=== PATIENT | female | born 1970 | race African-American/Black ===

== ENCOUNTER 2017-06-12 00:16 | Inpatient (IN) | payer MEDICARE, MEDICAID ==
[2017-06-12] MEDS ORDERED: Metoclopramide HCl 10 MG/2 ML VIAL ONE (01:14)
[2017-06-12 01:51] LABS: ALT (SGPT) 483 U/L (8-55); AST (SGOT) 409 U/L (5-34); Albumin 4.6 g/dL (3.5-5.0); Alkaline Phosphatase 368 U/L (40-150); BUN (Urea Nitrogen) 33 mg/dL (7.0-18.7); Bilirubin, Total 0.3 mg/dL (0.2-1.2); Calc. Creatinine Clearance 0 mL/min (70-130); Calcium 9.8 mg/dL (7.8-10.44); Chloride 95 mmol/L (98-107); Estimated GFR-MDRD 24; Globulin 3.5 g/dL (2.4-3.5); Lipase 111 U/L (8-78); Magnesium 2.9 mg/dL (1.6-2.6); Phosphorus 4.5 mg/dL (2.3-4.7); Potassium 4.8 mmol/L (3.5-5.1); Protein, Total 8.1 g/dL (6.0-8.3); Sodium 129 mmol/L (136-145)
[2017-06-12 01:57] LABS: Carbon Dioxide Less than 8 mmol/L (22-29); Glucose 671 mg/dL (70-105)
[2017-06-12 02:00] LABS: Band 3 % (5-11); Hemoglobin 12.5 g/dL (12.0-16.0); Lymphocytes 2 % (21-51); MDiff Complete? YES; Macrocytosis SLIGHT = 6-15 cells (100X) (0-5/hpf); Mean Corpuscular HGB CONC 30.3 g/dL (32.0-36.0); Mean Corpuscular Hemoglobin 34.3 pg (27.0-31.0); Mean Platelet Volume 8.9 fL (7.4-10.4); Monocytes 3 % (0-10); Neutrophil 92 % (42-75); Platelet Count 281 thou/uL (130-400); RBC Distribution Width 12.5 % (11.5-14.5); Red Blood Cell (RBC) Count 3.64 mill/uL (4.20-5.40); Toxic Granulation SLIGHT; White Blood Cell (WBC) Count 17.2 thou/uL (4.8-10.8)
[2017-06-12] MEDS ORDERED: Insulin Regular 300 UNITS/3 ML VIAL ONE (02:04)
[2017-06-12] MEDS ORDERED: Insulin Regular 100 units/100 ml in NS IVPB SCH (02:15)
[2017-06-12] MEDS ORDERED: NS 0.9% w/ 20 MEQ KCL 1,000 ML IV SCH (02:15)
[2017-06-12] MEDS ORDERED: hydrALAZINE 20 MG/ML VIAL SLOW IVP PRN ×2 (05:15→07:37)
[2017-06-12] MEDS ORDERED: Gabapentin 300 MG CAP PO PRN (05:15)
[2017-06-12] MEDS ORDERED: Sodium Chloride 0.9% 1,000 ML IV PRN ×5 (05:15→07:40)
[2017-06-12] MEDS ORDERED: Metoclopramide HCl 10 MG/2 ML VIAL IVP PRN (05:15)
[2017-06-12] MEDS ORDERED: Acetaminophen 325 MG TAB PO PRN (05:15)
[2017-06-12] MEDS ORDERED: NS 0.9% w/ 20 MEQ KCL 1,000 ML IV PRN ×2 (05:15)
[2017-06-12] MEDS ORDERED: Ondansetron HCl/PF 4 MG/2 ML Vial IVP PRN (05:15)
[2017-06-12] MEDS ORDERED: D5 1/2 NS w/20 mEq KCL 1,000 ML IV PRN (05:15)
[2017-06-12] MEDS ORDERED: Dextrose 5 %-0.45 % NaCl 1,000 ML IV PRN (05:15)
[2017-06-12] MEDS ORDERED: CCU Electrolyte Replacement 1 EACH IVPB ONE (05:15)
[2017-06-12] MEDS ORDERED: Potassium Chloride 20 MEQ TAB PO PRN (05:35)
[2017-06-12] MEDS ORDERED: Magnesium Oxide 400 MG TAB PO PRN ×2 (05:35)
[2017-06-12] MEDS ORDERED: Potassium Phosphate 15 MMOL in Sodium Chloride 0.9% 250 ML 250 ML IV PRN (05:35)
[2017-06-12] MEDS ORDERED: Potassium Phosphate 9 MMOL in Sodium Chloride 0.9% 100 ML IVPB PRN (05:35)
[2017-06-12] MEDS ORDERED: Potassium Chloride 40 MEQ in Premix Bag 1 BAG IVPB PRN (05:35)
[2017-06-12] MEDS ORDERED: CCU ELECTROLYTE REPLACEMENT PROTOCOL FS PRN (05:35)
[2017-06-12] MEDS ORDERED: Potassium Chloride 40 MEQ in Sodium Chloride 0.9% 250 ML 250 ML IVPB PRN (05:35)
[2017-06-12] MEDS ORDERED: Magnesium 2 GM/NS 0.9% 100 ML 2 GM in Premix Bag 1 BAG IVPB PRN (05:35)
[2017-06-12] MEDS ORDERED: Potassium Phosphate 12 MMOL in Sodium Chloride 0.9% 250 ML 250 ML IV PRN (05:35)
--- NOTE | 2017-06-12 05:38 | HP ---
PRIMARY CARE PHYSICIAN: The patient says she does not have a primary care physician. CHIEF COMPLAINT: Nausea and vomiting and hurting all over, and my glucose meter is reading high. HISTORY OF PRESENT ILLNESS: Ms. Schulte is a pleasant 47-year-old female that has a history of diabetes mellitus type 2 which is insulin-dependent. She says she was in her usual state of health until about 3 days ago when she says she began having abdominal pain as well as vomiting. She says that her entire body was hurting. She was having subjective fever as well as chills, as wel l as a nonproductive cough. When asked initially if she had missed any of her insulin, she did admit to missing a dose possibly 2 days ago, but she says prior to that her blood sugars have been running in the 200s. She says that she has not been able to keep anything down, but she says she still had been taking her insulin despite that at the usual dose. She says that her insulin is not old, that i s new, but when asked who helps to manage her insulin she says she currently does not have a physicia n. When she was evaluated in the ER, she was found to have an elevated blood glucose above 600 as we ll as a low bicarbonate and a high anion gap and she is being admitted for DKA. REVIEW OF SYSTEMS: CONSTITUTIONAL: There have been subjective fever and chills. No night sweats, no weight loss. HEENT: No headaches, no dizziness, no visual changes, no sore throat, rhinorrhea, neck pain, no parul opathy. PULMONARY: No hemoptysis, but she has had some cough which has been nonproductive. CARDIOVASCULAR: She denies any chest pain, no shortness of breath, no PND, no orthopnea. GASTROINTESTINAL: No abdominal pain, no nausea, no vomiting, no change in bowels. GENITOURINARY: No urinary frequency, hematuria, no hesitancy. NEUROLOGIC: No focal weakness, numbness, no seizures. PSYCHIATRIC: No symptoms of anxiety or depression. SKIN AND INTEGUMENT: No skin changes. No rash. PAST MEDICAL HISTORY: Diabetes mellitus type 2 which is insulin-dependent, hypertension, pancreatiti s, chronic pelvic pain and she has an implanted pain pump. PAST SURGICAL HISTORY: She has had a tubal ligation, partial gastrectomy. A kidney was removed as w ell as she has had a partial hysterectomy. ALLERGIES: MORPHINE. SOCIAL HISTORY: She is . She drinks socially. She denies any smoking or tobacco use. FAMILY HISTORY: Significant for heart disease in her mother. CURRENT MEDICATIONS: She says she takes Levemir 18 units daily, as well as Humalog sliding scale, fe ntanyl patch 25 mcg every 3 days, Creon 1200 units 4 times a day, duloxetine 60 mg daily, aspirin 81 mg a day, lisinopril 40 mg daily, hydrochlorothiazide 25 mg daily, metoprolol extended release 100 mg daily, gabapentin 300 mg daily, omeprazole 40 mg daily. PHYSICAL EXAMINATION: GENERAL: She is alert and oriented. She appears to be in no acute distress. VITAL SIGNS: Blood pressure was 154/90, heart rate 102, respiratory rate of 18, temperature is 97.9. HEENT: Pupils are equal, round, and reactive. Extraocular muscles are intact. Her sclerae are anic teric. Throat no erythema, no exudates. NECK: No adenopathy, no bruits. LUNGS: Clear. There is no wheezing, no rales. CARDIOVASCULAR: She has a normal S1, S2. I did not appreciate an S3 or S4. No murmurs, clicks or r ubs. ABDOMEN: Soft. There is some diffuse tenderness. There is no rebound, no guarding. EXTREMITIES: There is no edema. NEUROLOGICALLY: The exam is nonfocal. SIGNIFICANT LABORATORY RESULTS: Sodium 129, potassium 4.8, chloride is 95, CO2 was 8, BUN 33, creati nine 2.26, glucose was 671. Her AST was 409. ALT is 483. Alkaline phosphatase was 368. ASSESSMENT AND PLAN: This is a 47-year-old female who presents with nausea, vomiting, and abdominal pain. She was found to be in diabetic ketoacidosis. The precipitating event is likely viral syndrom e versus noncompliance; however, the patient denies having any noncompliance. She will be admitted t o the [facility], started on the diabetic ketoacidosis protocol. We will monitor electrolytes and correct as needed. We will need to reconcile and restart her home medications. Recheck her CBC and chemistr y panel in the a.m. Should her white blood cell count get worse then likely she may need to be start ed on empiric antibiotics and have blood and urine cultures done.
[2017-06-12 06:17] LABS: Anion Gap 19 mmol/L (10-20); BUN (Urea Nitrogen) 29 mg/dL (7.0-18.7); Calc. Creatinine Clearance 0 mL/min (70-130); Calcium 8.9 mg/dL (7.8-10.44); Carbon Dioxide 15 mmol/L (22-29); Chloride 108 mmol/L (98-107); Estimated GFR-MDRD 34; Glucose 250 mg/dL (70-105); Potassium 4.7 mmol/L (3.5-5.1); Sodium 137 mmol/L (136-145)
[2017-06-12] MEDS ORDERED: Labetalol HCl 100 MG/20 ML VIAL SLOW IVP PRN (07:37)
[2017-06-12] MEDS ORDERED: cloNIDine 0.1 MG TAB PO PRN (07:37)
[2017-06-12 07:50] LABS: Bilirubin Small (Negative); Blood, Urine Small (Negative); Glucose, Urine (Dipstick) >=1000 mg/dL (Negative); Leukocyte Negative (Negative); Nitrite Negative (Negative); Protein, Urine (Dipstick) 30 mg/dL (Neg-Trace); Urobilinogen 0.2 mg/dL (0.2-1.0); pH, Urine 5.5 (5.0-9.0)
--- NOTE | 2017-06-12 07:58 | RAD ---
PORTABLE CHEST ONE VIEW: Date: 06-12-17 Time: 4:11 a.m. History: Diverticulosis, bilateral chest pain, breast pain. Flu-like symptoms. FINDINGS: Comparison is made with exam of 01-09-17. The heart size is normal. The lungs are well expanded without focal areas of consolidation, pneumotho rax, or pleural effusions. IMPRESSION: No radiographic evidence of acute cardiopulmonary process. POS: [facility]
[2017-06-12 08:02] LABS: Clarity Clear (Clear)
[2017-06-12] MEDS ORDERED: cloNIDine 0.1 MG TAB ONE (08:05)
[2017-06-12] MEDS ORDERED: Enoxaparin Sodium 40 MG/0.4 ML SYRINGE ONE (08:05)
[2017-06-12] MEDS ORDERED: Aspirin 81 mg Enteric Coated Tablet ONE (08:05)
[2017-06-12 08:06] LABS: Magnesium 2.3 mg/dL (1.6-2.6); Phosphorus 2.5 mg/dL (2.3-4.7)
[2017-06-12] MEDS ORDERED: Famotidine/PF 20 mg/2ml Vial ONE (08:06)
--- NOTE | 2017-06-12 08:06 | ULT ---
PRELIMINARY REPORT/[facility]/EMERGENCY AFTER HOURS PROCEDURE: EXAM: US Abdomen Limited, Right Upper Quadrant EXAM DATE/TIME: Exam ordered 06/12/2017 2:56 AM CLINICAL HISTORY: 47 years old, female; Pain and signs and symptoms; Nausea and vomiting and other: Diarrhea; Abdominal pain; Generalized; Prior surgery; Surgery date: 6+ months; Surgery type: Cholecystectomy (2007) TECHNIQUE: Real-time ultrasound of the right upper quadrant with image documentation. COMPARISON: No relevant prior studies available. FINDINGS: Liver: Normal. No mass. No intrahepatic bile duct dilation. Gallbladder: There has been a cholecystectomy. Common bile duct: Common bile duct measures approximately 4 mm. No stones. No dilation. Pancreas: The visualized head and body of the pancreas are unremarkable. Right kidney: RIGHT kidney measures 10.7 x 4.3 x 4.4 cm. No stones. No hydronephrosis. IMPRESSION: Post cholecystectomy with otherwise unremarkable RIGHT upper quadrant ultrasound. Thank you for allowing us to participate in the care of your patient. Dictated and Authenticated by: Zana Ramos MD 06/12/2017 3:32 AM Central Time ([place] & [place]) FINAL REPORT RIGHT UPPER QUADRANT ULTRASOUND: I agree with the preliminary report given by Dr. Zana Ramos of [facility]. POS: [facility]
[2017-06-12 08:11] LABS: Bacteria/HPF 1+ HPF (None Seen); Hyaline Casts/LPF NONE SEEN LPF (0-3 Hyaline); RBC/HPF 0-3 HPF (0-3); Squamous Epithelial 0-3 HPF (0-3); WBC/HPF 0-3 HPF (0-3)
[2017-06-12] MEDS ORDERED: Famotidine/PF 20 mg/2ml Vial SLOW IVP SCH (09:00)
[2017-06-12] MEDS ORDERED: Enoxaparin Sodium 30 MG/0.3 ML SYRINGE SC SCH (09:00)
[2017-06-12] MEDS ORDERED: Enoxaparin Sodium 40 MG/0.4 ML SYRINGE SC SCH (09:00)
[2017-06-12] MEDS ORDERED: cloNIDine 0.1 MG TAB PO SCH (09:00)
[2017-06-12] MEDS ORDERED: Gabapentin 300 MG CAP PO SCH (10:00)
[2017-06-12 10:07] LABS: Anion Gap 15 mmol/L (10-20); BUN (Urea Nitrogen) 26 mg/dL (7.0-18.7); Calc. Creatinine Clearance 50 mL/min (70-130); Calcium 8.8 mg/dL (7.8-10.44); Carbon Dioxide 17 mmol/L (22-29); Chloride 112 mmol/L (98-107); Estimated GFR-MDRD 41; Glucose 124 mg/dL (70-105); Potassium 5.9 mmol/L (3.5-5.1); Sodium 138 mmol/L (136-145)
[2017-06-12 12:05] VITALS: BMI 27.0
[2017-06-12] MEDS ORDERED: Sodium Bicarb 50 MEQ/50 ML Abboject 8.4% SYRINGE IVP SCH (12:45)
[2017-06-12] MEDS: Aspirin 81 mg Enteric Coated Tablet PO SCH (12:51)
[2017-06-12] MEDS: DULoxetine 60 MG CAP PO SCH (12:52)
[2017-06-12] MEDS: Famotidine 20 MG TAB PO SCH ×2 (12:52→22:08)
[2017-06-12] MEDS ORDERED: Insulin Regular 300 UNITS/3 ML VIAL IVP SCH (13:00)
[2017-06-12] MEDS ORDERED: Dextrose 50% Abboject 50 ML SYRINGE SLOW IVP SCH (13:00)
[2017-06-12 14:02] LABS: Anion Gap 15 mmol/L (10-20); BUN (Urea Nitrogen) 25 mg/dL (7.0-18.7); Calc. Creatinine Clearance 55 mL/min (70-130); Calcium 8.4 mg/dL (7.8-10.44); Carbon Dioxide 15 mmol/L (22-29); Chloride 109 mmol/L (98-107); Estimated GFR-MDRD 48; Glucose 214 mg/dL (70-105); Magnesium 1.9 mg/dL (1.6-2.6); Phosphorus 2.3 mg/dL (2.3-4.7); Potassium 4.6 mmol/L (3.5-5.1); Sodium 134 mmol/L (136-145)
[2017-06-12] MEDS ORDERED: Cyclobenzaprine 10 MG TAB PO PRN (14:22)
[2017-06-12] MEDS ORDERED: DC Electrolyte Protocol FS ONE (14:39)
[2017-06-12] MEDS ORDERED: Dextrose 50% Abboject 50 ML SYRINGE SLOW IVP PRN (14:40)
[2017-06-12] MEDS ORDERED: Dextrose 5% in Water 1,000 ML IV PRN (14:40)
[2017-06-12] MEDS ORDERED: Insulin Regular 300 UNITS/3 ML VIAL SC PRN (14:40)
[2017-06-12] MEDS ORDERED: Insulin Detemir 100 UNITS/ML 10 UNITS in Pre-Filled Syringe 1 EACH SC SCH (15:15)
[2017-06-12] MEDS: Insulin Regular 300 UNITS/3 ML VIAL SC PRN (22:12)
[2017-06-13 04:48] LABS: #Monocytes 0.5 thou/uL (0.11-0.59); #Neutrophils 6.5 thou/uL (1.40-6.50); %Basophils 0.1 % (0.0-1.0); %Eosinophils 0.3 % (0.0-10.0); %Lymphocytes 12.5 % (21.0-51.0); %Monocytes 5.7 % (0.0-10.0); %Neutrophils 81.4 % (42.0-75.0); Anion Gap 9 mmol/L (10-20); BUN (Urea Nitrogen) 19 mg/dL (7.0-18.7); Calc. Creatinine Clearance 67 mL/min (70-130); Calcium 8.9 mg/dL (7.8-10.44); Carbon Dioxide 20 mmol/L (22-29); Chloride 106 mmol/L (98-107); Estimated GFR-MDRD 59; Glucose 104 mg/dL (70-105); Magnesium 1.8 mg/dL (1.6-2.6); Mean Corpuscular HGB CONC 32.2 g/dL (32.0-36.0); Mean Platelet Volume 7.8 fL (7.4-10.4); Phosphorus 1.8 mg/dL (2.3-4.7); Platelet Count 214 thou/uL (130-400); Potassium 3.8 mmol/L (3.5-5.1); RBC Distribution Width 12.4 % (11.5-14.5); Red Blood Cell (RBC) Count 2.85 mill/uL (4.20-5.40); Sodium 131 mmol/L (136-145)
[2017-06-13] MEDS: Insulin Regular 300 UNITS/3 ML VIAL SC PRN (05:57)
[2017-06-13 07:56] VITALS: BP 138/94; TEMP 99.2
[2017-06-13] MEDS ORDERED: Sodium Chloride 0.9% 1,000 ML IV SCH ×2 (08:00)
[2017-06-13] MEDS: DULoxetine 60 MG CAP PO SCH (08:09)
[2017-06-13] MEDS: Aspirin 81 mg Enteric Coated Tablet PO SCH (08:09)
[2017-06-13] MEDS ORDERED: Insulin Detemir 100 UNITS/ML 5 UNITS in Pre-Filled Syringe 1 EACH SC SCH (08:15)
[2017-06-13] MEDS: Famotidine 20 MG TAB PO SCH (08:56)
[2017-06-13] MEDS ORDERED: Insulin Detemir 100 UNITS/ML 15 UNITS in Pre-Filled Syringe 1 EACH SC SCH (09:00)
--- NOTE | 2017-06-14 08:55 | DIS ---
DATE OF ADMISSION: 06/12/2017 DATE OF DISCHARGE: 06/13/2017 DISCHARGE DISPOSITION: Home. FOLLOWUP: Follow up with primary care physician at [facility] in one week. The patient does not turcios ve a primary care physician locally. She was advised to call Dr. Dorman' office to schedule an appo intment. ALLERGIES: Patient is allergic to MORPHINE. The patient was seen and examined on the day of discharge. Denies any new complaints. No chest pain , shortness of breath, palpitations. DISCHARGE MEDICATIONS: Aspirin 81 mg daily, vitamin B12 1000 mcg daily, Cymbalta 60 mg daily, fentan yl patch 25 mcg daily, Neurontin 300 mg as needed, Humalog sliding scale, Levemir 20 units daily, lis inopril/HCTZ 20/25 b.i.d., Reglan 10 mg 3 times a day, Toprol-XL 100 mg at bedtime, Creon 1 capsule 4 times a day, Phos-NaK 1 packet 3 times daily #7. INPATIENT CONSULTANTS: None. BRIEF HOSPITAL COURSE: Patient is a 47-year-old female with diabetes mellitus type 2, presented to [facility] with nausea and vomiting with generalized aches and pains. Her workup was consistent wit h diabetic ketoacidosis. Please note that the patient had not taken insulin for couple of days prior to admission. Her labs on admission showed bicarbonate of less than 8 with blood sugar of 671, BUN 33, and creatinine 2.61 with sodium of 129. Influenza testing was negative. Her chest x-ray was neg ative as well. Due to abnormal LFTs, a right upper quadrant ultrasound was done, which was negative for acute findings. Please note that patient has a history of cholecystectomy. The patient was admitted to intermediate care unit with diagnosis of diabetic ketoacidosis. She was started on insulin drip per protocol with IV fluids. On the day of discharge, her creatinine is 1.1 with BUN 19. Her nausea and vomiting has resolved. Her ketones are back to normal at 0.25. Her ket ones on admission was 10.17. Plan of care was discussed with the patient in detail. She stated understanding. She was advised to be compliant with her insulin regimen. SIGNIFICANT LABORATORY DATA: 1. WBC on admission 17.2, at discharge 8.0 without any left shift. 2. Phosphorus on discharge is 1.8, on admission was 4.5. 3. Potassium was 4.8 on admission and 3.8 at discharge. Maximum potassium was 5.9 that resolved wit h IV fluids. FINAL DIAGNOSES: 1. Diabetic ketoacidosis secondary to noncompliance with insulin. 2. Nausea, vomiting, and abdominal pain secondary to diabetic ketoacidosis. 3. Diabetes mellitus type 2. 4. Acute kidney injury on chronic kidney disease stage 2. 5. Hyponatremia. 6. Hyperkalemia, resolved. 7. Hypophosphatemia. 8. Leukocytosis on admission, unlikely to be infectious in origin. 9. Hypertension. 10. Chronic pain syndrome on pain pump as well as fentanyl followed by MD [facility]. 11. Metabolic acidosis secondary to diabetic ketoacidosis. Plan of care was discussed with the patient in detail. She stated understanding. Total time coordinating the discharge of this patient was 33 minutes.
[2017-06-14] MEDS ORDERED: Insulin Detemir 100 UNITS/ML 20 UNITS in Pre-Filled Syringe 1 EACH SC SCH (09:00)
--- NOTE | 2017-06-15 13:27 | EKG ---
Test Reason : Blood Pressure : / mmHG Vent. Rate : 093 BPM Atrial Rate : 093 BPM P-R Int : 124 ms QRS Dur : 084 ms QT Int : 392 ms P-R-T Axes : 059 -26 010 degrees QTc Int : 487 ms Normal sinus rhythm Possible Left atrial enlargement Left ventricular hypertrophy Cannot rule out Septal infarct , age undetermined Abnormal ECG Confirmed by VICENTE PIMENTEL ([id number]), features editor JOHN TRIMBLE ([id number]) on 06/15/2017 1:27:27 PM Referred By: Confirmed By:VICENTE PIMENTEL
== END 2017-06-13 11:36 | disposition home or self-care (01) | DRG 638 ==
LOC: ERS 00:16 → ERHOLD 04:00 → IMCU/EMU 04:38
PROVIDERS: ADMIT Internal Medicine; ATTEND Internal Medicine
DX: E11.10 Type 2 diabetes mellitus with ketoacidosis without coma (principal); N17.9 Acute kidney failure, unspecified; E87.2 Acidosis; E83.39 Other disorders of phosphorus metabolism; E87.1 Hypo-osmolality and hyponatremia; Z79.4 Long term (current) use of insulin; Z90.49 Acquired absence of other specified parts of digestive tract; Z91.19 Patient's noncompliance with other medical treatment and regimen; I12.9 Hypertensive chronic kidney disease with stage 1 through stage 4 chronic kidney disease, or unspecified chronic kidney disease; E11.22 Type 2 diabetes mellitus with diabetic chronic kidney disease; N18.2 Chronic kidney disease, stage 2 (mild); E87.6 Hypokalemia; D72.829 Elevated white blood cell count, unspecified; G89.4 Chronic pain syndrome; Z98.51 Tubal ligation status; Z90.3 Acquired absence of stomach [part of]; Z90.5 Acquired absence of kidney; Z90.711 Acquired absence of uterus with remaining cervical stump; E11.65 Type 2 diabetes mellitus with hyperglycemia
CPT/HCPCS: 36415; 36416; 71010; 76705; 80048; 80053; 81003; 81015; 82010; 83690; 83735; 84100; 85025; 87086; 87804; 93005; 96360; 96361; 96365; 96366; 96372; 96375; 96376; J1650; J1815; J2765; J7042; J7050; S0028

== ENCOUNTER 2017-08-11 22:59 | Inpatient (IN) | payer MEDICARE, MEDICAID ==
--- NOTE | 2017-08-11 23:52 | RAD ---
PORTABLE CHEST: Date: 08/11/17 HISTORY: Diabetes with high blood sugar. FINDINGS: Lungs are clear. Heart and mediastinum unremarkable. IMPRESSION: Unremarkable chest. POS: [facility]
[2017-08-11] MEDS ORDERED: Labetalol HCl 100 MG/20 ML VIAL ONE (23:54)
[2017-08-11] MEDS ORDERED: Ondansetron HCl/PF 4 MG/2 ML Vial ONE (23:54)
[2017-08-12 00:10] LABS: ALT (SGPT) 26 U/L (8-55); AST (SGOT) 36 U/L (5-34); Albumin 4.7 g/dL (3.5-5.0); Alkaline Phosphatase 95 U/L (40-150); Anion Gap 19 mmol/L (10-20); BUN (Urea Nitrogen) 11 mg/dL (7.0-18.7); Bilirubin, Total 0.8 mg/dL (0.2-1.2); Calc. Creatinine Clearance 0 mL/min (70-130); Calcium 9.3 mg/dL (7.8-10.44); Carbon Dioxide 22 mmol/L (22-29); Chloride 102 mmol/L (98-107); Estimated GFR-MDRD 82; Globulin 3.6 g/dL (2.4-3.5); Glucose 208 mg/dL (70-105); Lipase Less than 4 U/L (8-78); Potassium 3.4 mmol/L (3.5-5.1); Protein, Total 8.3 g/dL (6.0-8.3); Sodium 140 mmol/L (136-145)
[2017-08-12 00:12] LABS: #Basophils 0.1 thou/uL (0.0-0.2); #Lymphocytes 0.8 thou/uL (1.20-3.40); #Monocytes 0.3 thou/uL (0.11-0.59); #Neutrophils 7.5 thou/uL (1.40-6.50); %Basophils 0.6 % (0.0-1.0); %Eosinophils 0.1 % (0.0-10.0); %Lymphocytes 9.6 % (21.0-51.0); %Monocytes 3.7 % (0.0-10.0); %Neutrophils 86.1 % (42.0-75.0); Anisocytosis SLIGHT = 6-15 cells (100X) (0-5/hpf); Hemoglobin 13.2 g/dL (12.0-16.0); MDiff Complete? YES; Macrocytosis SLIGHT = 6-15 cells (100X) (0-5/hpf); Mean Corpuscular HGB CONC 33.6 g/dL (32.0-36.0); Mean Corpuscular Hemoglobin 35.4 pg (27.0-31.0); Mean Platelet Volume 7.9 fL (7.4-10.4); PLT Morphology Comment Appears Adequate; Platelet Count 219 thou/uL (130-400); RBC Distribution Width 12.7 % (11.5-14.5); Red Blood Cell (RBC) Count 3.73 mill/uL (4.20-5.40); White Blood Cell (WBC) Count 8.7 thou/uL (4.8-10.8)
[2017-08-12 00:13] LABS: CKMB 2.2 ng/mL (0-6.6); Troponin I Less than 0.010 ng/mL (< 0.028)
[2017-08-12] MEDS ORDERED: Ondansetron HCl/PF 4 MG/2 ML Vial ONE (01:35)
[2017-08-12] MEDS ORDERED: Haloperidol Lactate 5 MG/ML VIAL ONE (01:48)
[2017-08-12] MEDS ORDERED: metroNIDAZOLE 500 MG/100 ML BAG ONE ×2 (02:13→02:16)
[2017-08-12] MEDS ORDERED: niCARdipine 20MG In NaCl 20 MG/200 ML BAG ONE (02:13)
[2017-08-12] MEDS ORDERED: Milk Of Magnesia 30 ML UDCUP PO PRN (03:04)
[2017-08-12] MEDS ORDERED: Dextrose 50% Abboject 50 ML SYRINGE SLOW IVP PRN (03:08)
[2017-08-12] MEDS ORDERED: Dextrose 5% in Water 1,000 ML IV PRN (03:08)
[2017-08-12] MEDS ORDERED: Metoprolol Tartrate 5 MG/5 ML VIAL IVP PRN (03:57)
[2017-08-12 04:03] LABS: #Lymphocytes 0.4 thou/uL (1.20-3.40); #Monocytes 0.1 thou/uL (0.11-0.59); #Neutrophils 8.5 thou/uL (1.40-6.50); %Eosinophils 0.1 % (0.0-10.0); %Monocytes 1.4 % (0.0-10.0); %Neutrophils 94.5 % (42.0-75.0); Hemoglobin 13.3 g/dL (12.0-16.0); Mean Corpuscular HGB CONC 32.3 g/dL (32.0-36.0); Mean Platelet Volume 8.4 fL (7.4-10.4); Platelet Count 232 thou/uL (130-400); RBC Distribution Width 12.8 % (11.5-14.5); Red Blood Cell (RBC) Count 3.92 mill/uL (4.20-5.40)
[2017-08-12 04:08] LABS: Anion Gap 21 mmol/L (10-20); BUN (Urea Nitrogen) 12 mg/dL (7.0-18.7); Calc. Creatinine Clearance 0 mL/min (70-130); Calcium 9.3 mg/dL (7.8-10.44); Carbon Dioxide 19 mmol/L (22-29); Chloride 100 mmol/L (98-107); Estimated GFR-MDRD 78; Glucose 377 mg/dL (70-105); Potassium 4.1 mmol/L (3.5-5.1); Sodium 136 mmol/L (136-145)
--- NOTE | 2017-08-12 04:29 | HP ---
PRESENTING COMPLAINT: Vomiting. HISTORY OF PRESENT ILLNESS: A 47-year-old female with a past medical history of type 2 diabetes angelika itus (insulin dependence), hypertension, pancreatitis, chronic pelvic pain with an implanted pain pum p, who presented to the emergency room with a 1 day history of vomiting. It was associated with naus ea and has had at least 6 episodes of recently ingested meals, nonbloody. She also reports some abdo shannan pain, which is diffuse, 10/10, with no aggravating or relieving factors. There is no history o f fever or chills. She has no dysuria, urgency, frequency, or nocturia. She decided to come to the emergency room due to this pain. While at the emergency room, she was found to be markedly hypertens mia with systolic blood pressure in the 230s and diastolic in the 120s. She was initially given some boluses of labetalol and haloperidol without marked improvement in her blood pressure. She was then started on nicardipine drip and admitted for further management. PAST MEDICAL HISTORY: As stated in the HPI. PAST SURGICAL HISTORY: Tubal ligation, partial gastrectomy, and removal of a kidney mass, partial hy sterectomy. ALLERGIES: MORPHINE. FAMILY HISTORY: Heart disease in her mother, otherwise negative. SOCIAL HISTORY: Drinks alcohol occasionally. Denies smoking or illicit drug use. REVIEW OF SYSTEMS: Constitutional: Negative. HEENT: Negative. Pulmonary: Negative. Cardiovascu lar: Negative. GI: Per HPI. No diarrhea or constipation. : Negative. Neurologic: Negative. Psychiatric: Negative. Skin: Negative. Allergy/immunology: Negative. Hematology: Negative. P sychiatric: Negative. PHYSICAL EXAMINATION: GENERAL: Seems to be lying comfortably in bed, not in acute distress. HEENT: Normocephalic, atraumatic. PERRLA, EOMI, not pale, anicteric. [place] mucosa. RESPIRATORY: Vesicular breath sounds bilaterally. No wheezes or rales. CARDIOVASCULAR: S1, S2 only. No murmurs, rubs, or gallops. ABDOMEN: Bowel sounds present. The patient refused palpation or percussion. MUSCULOSKELETAL: Move extremities spontaneously, no skeletal abnormalities. NEUROLOGIC: Alert and oriented to time, place, and person. No focal deficits. SKIN: Warm, dry, well-perfused. PSYCHIATRIC: Normal affect. LABORATORY DATA: CBC largely unremarkable. CMP showed mild hypokalemia (3.4), glucose of 186 with n o anion gap or reduce CO2. Troponin less than 0.010. Lipase less than 4. Chest x-ray showed no acu te abnormalities. CT dissection was done and it is pending. ASSESSMENT AND PLAN: 1. Hypertensive emergency. Patient had markedly elevated blood pressure on the arrival and will be admitted to the CCU. We will continue with a nicardipine drip and titrate. We will also resume her home medications. She takes metoprolol 100 mg as well as lisinopril/hydrochlorothiazide 20/25 mg tab lets. We will resume these once confirmed. 2. Vomiting/abdominal pain, unclear etiology. She does have a history of chronic pancreatitis, conc karly for possible dissection. She is clinically stable right now, so we will follow up on CT dissecti on protocol if this is normal. She might need a CT abdomen if her symptoms did not improve. She rayshawn l also need to be started on IV hydration due to frequent vomiting, but will monitor blood pressure a s well. 3. Insulin-dependent diabetes mellitus. She is hyperglycemic, but not in diabetic ketoacidosis. We will resume subcutaneous sliding scale insulin, diabetic diet, and hypoglycemic protocol. We will a lso check blood glucose a.c. and at bedtime. 4. Chronic pancreatitis. We will control her pain and place on her pancrelipase. 5. Abdominal pain. She was also started on metronidazole in the emergency room as a precaution. We will get a lactate level and follow up.
[2017-08-12 05:22] VITALS: BMI 23.9
[2017-08-12] MEDS: HumaLOG 300 UNITS/3 ML VIAL SC PRN ×3 (06:34→20:10)
[2017-08-12] MEDS: Potassium Chloride 20 MEQ TAB PO SCH ×2 (07:26→18:09)
[2017-08-12] MEDS: Heparin 5,000 UNITS/ML VIAL SC SCH ×3 (07:26→20:12)
[2017-08-12] MEDS: Docusate 100 MG CAP PO SCH ×2 (07:27→20:10)
[2017-08-12] MEDS ORDERED: ISOVUE-370 76%-LOCM 1 ML ONE (07:42)
--- NOTE | 2017-08-12 08:30 | CT ---
PRELIMINARY REPORT/[facility]/EMERGENCY AFTER HOURS PROCEDURE: EXAM: CT Angiography Chest With Intravenous Contrast CT Angiography Abdomen With Intravenous Contrast CLINICAL HISTORY: 47 years old, female; Pain; Other: Abdominal; Abdominal pain; Generalized; Prior surgery; Patient HX: Er 7; 47 y/o female, HX HTN, pancreatitis, dm, dka, . presents for not feeling well since 1800 this evening. Pt reports she woke up late and forgot to take her medications. Pt reports her blood sugar w as high this morning. C/O nausea, no vomiting. Abd pain. Abdominal exam included findings of abdomen tender, diffusely, severe intensity TECHNIQUE: Axial computed tomographic angiography images of the chest and abdomen with intravenous contrast usin g CT angiography protocol. Coronal and sagittal reformatted images were created and reviewed. COMPARISON: No relevant prior studies available. FINDINGS: VASCULATURE: Aorta: No acute findings. No aortic aneurysm. No dissection. Pulmonary arteries: No acute findings. No evidence of pulmonary embolism. Great vessels of aortic arch: No acute findings. No dissection. No occlusion or significant stenosis. Celiac trunk and mesenteric arteries: No acute findings. No occlusion or significant stenosis. Renal arteries: No acute findings. No occlusion or significant stenosis. CHEST: Lungs: No acute findings. No mass. No consolidation. Pleural space: No acute findings. No significant effusion. No pneumothorax. Heart: No acute findings. No significant cardiomegaly. No significant pericardial effusion. ABDOMEN: Liver: No acute findings. Fatty. No mass. Gallbladder and bile ducts: Prior cholecystectomy. No ductal dilation. Pancreas: No acute findings. No ductal dilation. No mass. Spleen: No acute findings. No splenomegaly. Adrenals: No acute findings. No mass. Kidneys and ureters: No acute findings. No hydronephrosis. Left renal cortical small low attenuation lesion possibly containing fat that may represent an angiomyolipoma and a few other tiny low attenuat ion lesions that may represents cysts. Mild perinephric stranding. Stomach and bowel: Bowel is partially visualized on this CT abdomen without pelvis. Partially visuali zed diffuse colonic wall thickening compatible with colitis. There is also possible enteritis. No loretta dence of bowel obstruction as visualized. Intraperitoneal space: Mild stranding/edema. No significant fluid collection. No free air. CHEST and ABDOMEN: Bones/joints: No acute fracture. Soft tissues: No acute findings. Lymph nodes: No significant lymphadenopathy. Tubes, lines and devices: Spinal neurostimulator. IMPRESSION: Colitis and possible enteritis. Findings described above. Thank you for allowing us to participate in the care of your patient. Dictated and Authenticated by: Emory Piña MD 08/12/2017 1:33 AM Central Time ([place] & [place]) FINAL REPORT CTA CHEST WITH CONTRAST CTA ABDOMEN WITH CONTRAST DISSECTION PROTOCOL: Date: 08/12/17 HISTORY: Abdominal pain. Chest pain. COMPARISON: CT abdomen and pelvis dated 11/27/12. FINDINGS/IMPRESSION: CT angiogram of the chest and abdomen performed after the intravenous administration of contrast. 3D rendering is provided. Findings and impression are concordant with the preliminary report by Alethea. 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 No evidence of aortic dissection. POS: [facility]
[2017-08-12] MEDS ORDERED: Famotidine 20 MG TAB PO SCH (09:00)
[2017-08-12] MEDS: Insulin Detemir 100 UNITS/ML 20 UNITS in Pre-Filled Syringe 1 EACH SC SCH (09:54)
[2017-08-12] MEDS ORDERED: Sodium Chloride 0.9% 1,000 ML IV SCH (10:45)
[2017-08-12] MEDS: Metoclopramide HCl 10 MG TAB PO SCH ×3 (11:23→20:10)
[2017-08-12] MEDS: Piperacillin/Tazobactam 3.375 GM in Sodium Chloride 0.9% 100 ML IVPB SCH ×3 (11:44→23:28)
--- NOTE | 2017-08-12 11:48 | CON ---
DATE OF CONSULTATION: 08/12/2017 SERVICE: Pulmonary Medicine. REASON FOR CONSULTATION: ICU patient. HISTORY OF PRESENT ILLNESS: The patient is a 47-year-old female with past medical history significant for chronic pain issues. She presented to the Emergency Department after 3-4 days of increasing nausea and vomiting, and not being able to tolerate p.o. She was identified as having an elevated blood pressure. She was transiently started on nicardipine. When she got to the ICU, her blood pressure was under excellent control and she was quickly weaned off of the nicardipine. She continues to have significant pain issues. The CT scan of the chest and belly demonstrated findings that could be consistent with colitis. The patient does note having some recent inflammatory diarrhea recently. This has subsequently been stopped. Otherwise, she is in her usual state of health and has no specific complaints. She is being considered for transition to the floor, but the lactate turned out to be significantly abnormal. This transition will be held. PAST MEDICAL HISTORY: 1. Type 2 diabetes mellitus. 2. Hypertension. 3. Chronic pancreatitis. 4. Chronic pain of the pelvis. PAST MEDICAL HISTORY: 1. Tubal ligation. 2. Partial gastrectomy. 3. Excision of kidney mass. 4. Hysterectomy, partial. ALLERGIES: MORPHINE: MEDICATIONS: List of inpatient medications were reviewed. They were significantly altered. FAMILY HISTORY: Noncontributory. SOCIAL HISTORY: She is a social alcohol drinker. Denies alcohol or illicit drugs. She has no exposure to chemicals, dust, asbestosis, or tuberculosis. REVIEW OF SYSTEMS: General, head, ears, eyes, nose, throat, cardiovascular, respiratory, GI, , musculoskeletal, neurologic and skin is negative except as mentioned in the HPI. PHYSICAL EXAMINATION: VITAL SIGNS: Afebrile, pulse 111, blood pressure 115/66, respirations 20, saturation 98% on room air. GENERAL: The patient is awake, alert, in no apparent distress. LUNGS: Decent air entry. There is no prolonged expiratory phase or wheezing. HEART: Normal rate, regular. ABDOMEN: Soft. Tender to palpation throughout. It is more significantly tender in the left upper quadrant. There is no rebound or guarding. Bowel sounds are present. MUSCULOSKELETAL: No cyanosis or clubbing. There is no pitting in the bilateral lower extremities. NEUROLOGIC: Grossly nonfocal. LABORATORY DATA: Basic metabolic profile is only remarkable for an downtrending bicarbonate and up trending anion gap. Liver function studies are essentially unremarkable. Troponin is negative. Lipase is below the assay limit. Bilirubin specifically is normal. Lactate is 8.0, glucose 444. WBC 9.0 , hemoglobin 13.3, platelets 232,000. Neutrophil count is up trending to 95%. IMAGING: CT of the dissection protocol demonstrates no acute cardiopulmonary abnormality. There are colitis and possible enteritis. The pancreas was without any focal inflammatory changes or masses. Chest x-ray demonstrates no acute cardiopulmonary abnormality. ASSESSMENT: 1. Hypertension without evidence of end organ damage. 2. Anion gap metabolic acidosis with elevated lactate. 3. Type 2 diabetes mellitus, poorly controlled currently. 4. Gastroenteritis, recent. 5. Severe sepsis. PLAN: I will give her a liter of fluids and initiate some empiric antibiotics to cover GI tract. I will repeat a lactate, check a beta hydroxybutyrate acid, and chemistries which will be time for 12 o'clock today. Her transition to the floor will be held for the time being. We will restart some of her home medications. Pulmonary Critical Care will continue to follow if she remains in this location, but certainly if she clears her lactate, we will allow her to go to the floor today. Stool studies will be performed. 70 minutes have been devoted to this patient in various activities. I personally reviewed all imaging studies and laboratory data noted within this document. For greater than fifty percent of this time, I was interacting with the patient at the bedside or coordinating care with the care team. For the remainder of the time I was immediately available to the patient in the hospital unit. NIKOLAY
--- NOTE | 2017-08-12 12:57 | PDOC.PN ---
- Subjective Encounter Start Date: 08/12/17 Encounter Start Time: 11:20 Subjective: awake, no nausea/vomiting -: has chronic abd and back pain -: no diarrhea now - Objective MAR Reviewed: Yes Vital Signs & Weight: Vital Signs (12 hours) Temp Pulse Resp Pulse Ox 08/12/17 11:53 98.8 F 08/12/17 07:01 98.7 F 106 H 22 H 100 08/12/17 07:00 98.7 F 08/12/17 05:00 99.5 F 100 14 100 Weight Weight 139 lb 5.314 oz Most Recent Monitor Data Heart Rate from ECG 106 NIBP 104/65 NIBP BP-Mean 75 Respiration from ECG 33 SpO2 100 I&O: 08/11/17 08/12/17 08/13/17 06:59 06:59 06:59 Intake Total 300 600 Output Total 0 500 Balance 300 100 Result Diagrams: 08/12/17 03:41 08/12/17 03:41 Additional Labs: Accuchecks 08/12/17 08/12/17 11:09 06:23 POC Glucose 483 H 444 H Phys Exam - Physical Examination HEENT: PERRLA, moist MMs Neck: no JVD, supple Respiratory: no wheezing, no rales Cardiovascular: RRR, no significant murmur Gastrointestinal: soft, no distention, positive bowel sounds Musculoskeletal: no edema, pulses present Neurological: non-focal, moves all 4 limbs Psychiatric: A&O x 3 Dx/Plan (1) Gastroenteritis Code(s): K52.9 - NONINFECTIVE GASTROENTERITIS AND COLITIS, UNSPECIFIED Status : Suspected (2) Chronic abdominal pain Code(s): R10.9 - UNSPECIFIED ABDOMINAL PAIN; G89.29 - OTHER CHRONIC PAIN Status: Chronic (3) Chronic back pain Code(s): M54.9 - DORSALGIA, UNSPECIFIED; G89.29 - OTHER CHRONIC PAIN Status: Chronic Qualifiers: Comment: has pain pump in her abdomen (4) DM type 2 (diabetes mellitus, type 2) Status: Chronic Qualifiers: Diabetes mellitus complication status: with unspecified complications Diabetes mellitus senior living insulin use: with senior living use Qualified Code(s) : E11.8 - Type 2 diabetes mellitus with unspecified complications; Z79.4 - retirement (current) use of insulin; Z79.4 - media coordinator (current) use of insulin; Z79.4 - retirement (current) use of insulin; Z79.4 - media coordinator (current) use of insulin (5) Hypertension Code(s): I10 - ESSENTIAL (PRIMARY) HYPERTENSION Status: Chronic Qualifiers: Hypertension type: essential hypertension (6) Nausea and vomiting Code(s): R11.2 - NAUSEA WITH VOMITING, UNSPECIFIED Status: Resolved Qualifiers: - Plan cardene drip has been discontinued -: nausea has resolved, trial of full liq diet -: october tx to med floor if ok with -: stool studies if she has diarrhea -: home meds for dm, oob to chair and ambulate as tolerated * . Review of Systems - Medications/Allergies Allergies/Adverse Reactions: Allergies Allergy/AdvReac Type Severity Reaction Status Date / Time morphine Allergy Intermediate Rash Verified 08/12/17 05:09 Medications: Current Medications Acetaminophen (Tylenol) 650 mg PO Q4H PRN PRN Reason: Headache/Fever or Pain Aspirin (Ecotrin) 81 mg PO DAILY [facility] Dextrose/Water (Dextrose 50%) 25 gm SLOW IVP PRN PRN PRN Reason: Hypoglycemia Docusate Sodium (Colace) 100 mg PO BID [facility] Last Admin: 08/12/17 07:27 Dose: Not Given Duloxetine HCl (Cymbalta) 60 mg PO DAILY [facility] Gabapentin (Neurontin) 300 mg PO TID [facility] Glucagon (Glucagon) 1 mg IM PRN PRN PRN Reason: Hypoglycemia Heparin Sodium (Porcine) (Heparin) 5,000 units SC TID [facility] Last Admin: 08/12/17 07:26 Dose: 5,000 units Dextrose/Water (D5w) 1,000 mls @ 0 mls/hr IV .Q0M PRN; As Directed PRN Reason: Hypoglycemia Insulin Detemir 20 units/ (Miscellaneous Medication) 0.2 mls @ 0 mls/hr SC QAM [facility] Last Admin: 08/12/17 09:54 Dose: 0.2 mls Piperacillin Sod/Tazobactam (Sod 3.375 gm/ Sodium Chloride) 100 mls @ 200 mls/ hr IVPB Q6HR [facility] Last Admin: 08/12/17 11:44 Dose: 100 mls Insulin Human Lispro (Humalog) 0 units SC .MODERATE SLIDING SC PRN PRN Reason: Moderate Correctional Scale Last Admin: 08/12/17 11:13 Dose: 10 unit Magnesium Hydroxide (Milk Of Magnesium) 30 ml PO DAILYPRN PRN PRN Reason: Constipation Metoclopramide HCl (Reglan) 10 mg PO [facility] Last Admin: 08/12/17 11:23 Dose: 10 mg Metoprolol Succinate (Toprol Xl) 100 mg PO DAILY [facility] Metoprolol Tartrate (Lopressor) 5 mg IVP Q6H PRN PRN Reason: To Control Heart Rate Ondansetron HCl (Zofran Odt) 4 mg PO Q6H PRN PRN Reason: Nausea/Vomiting Ondansetron HCl (Zofran) 4 mg IVP Q6H PRN PRN Reason: Nausea/Vomiting Potassium Chloride (K-Dur) 40 meq PO BID-[facility] Stop: 08/12/17 17:01 Last Admin: 08/12/17 07:26 Dose: 40 meq
[2017-08-12 13:00] LABS: Lactic Acid 4.6 mmol/L (0.5-2.2)
[2017-08-12 13:02] LABS: Anion Gap 17 mmol/L (10-20); BUN (Urea Nitrogen) 17 mg/dL (7.0-18.7); Calc. Creatinine Clearance 41 mL/min (70-130); Calcium 8.7 mg/dL (7.8-10.44); Carbon Dioxide 21 mmol/L (22-29); Chloride 98 mmol/L (98-107); Estimated GFR-MDRD 39; Glucose 389 mg/dL (70-105); Potassium 3.9 mmol/L (3.5-5.1); Sodium 132 mmol/L (136-145)
[2017-08-12] MEDS: Ondansetron ODT 4 MG TAB PO PRN (14:42)
[2017-08-12] MEDS: Gabapentin 300 MG CAP PO SCH ×2 (14:44→20:10)
[2017-08-12] MEDS ORDERED: Pancrelipase DR 12000 1 CAP PO SCH (17:30)
[2017-08-12] MEDS: Pancrelipase DR 12000 1 CAP PO SCH (20:10)
[2017-08-13 05:06] LABS: #Lymphocytes 1.4 thou/uL (1.20-3.40); #Monocytes 0.5 thou/uL (0.11-0.59); #Neutrophils 3.5 thou/uL (1.40-6.50); %Basophils 0.7 % (0.0-1.0); %Eosinophils 0.8 % (0.0-10.0); %Lymphocytes 25.5 % (21.0-51.0); %Monocytes 9.3 % (0.0-10.0); %Neutrophils 63.7 % (42.0-75.0); Hemoglobin 10.5 g/dL (12.0-16.0); Mean Corpuscular HGB CONC 31.5 g/dL (32.0-36.0); Mean Corpuscular Hemoglobin 33.6 pg (27.0-31.0); Mean Platelet Volume 8.5 fL (7.4-10.4); Platelet Count 185 thou/uL (130-400); RBC Distribution Width 12.8 % (11.5-14.5); Red Blood Cell (RBC) Count 3.14 mill/uL (4.20-5.40); White Blood Cell (WBC) Count 5.4 thou/uL (4.8-10.8)
[2017-08-13] MEDS: Piperacillin/Tazobactam 3.375 GM in Sodium Chloride 0.9% 100 ML IVPB SCH ×3 (05:15→17:26)
[2017-08-13] MEDS: HumaLOG 300 UNITS/3 ML VIAL SC PRN ×2 (05:15→20:43)
[2017-08-13 05:25] LABS: Lactic Acid 2.9 mmol/L (0.5-2.2)
[2017-08-13 05:26] LABS: Anion Gap 13 mmol/L (10-20); BUN (Urea Nitrogen) 19 mg/dL (7.0-18.7); Calc. Creatinine Clearance 46 mL/min (70-130); Calcium 9.1 mg/dL (7.8-10.44); Carbon Dioxide 24 mmol/L (22-29); Chloride 103 mmol/L (98-107); Estimated GFR-MDRD 44; Glucose 242 mg/dL (70-105); Potassium 4.8 mmol/L (3.5-5.1); Sodium 135 mmol/L (136-145)
[2017-08-13] MEDS: Gabapentin 300 MG CAP PO SCH ×3 (07:47→20:42)
[2017-08-13] MEDS: Cyanocobalamin (Vitamin B-12) 1,000 MCG TAB PO SCH (07:48)
[2017-08-13] MEDS: Metoclopramide HCl 10 MG TAB PO SCH ×3 (07:49→20:43)
[2017-08-13] MEDS: Pancrelipase DR 12000 1 CAP PO SCH ×4 (07:50→20:41)
[2017-08-13] MEDS: Docusate 100 MG CAP PO SCH ×2 (07:51→20:42)
[2017-08-13] MEDS: DULoxetine 60 MG CAP PO SCH (07:51)
[2017-08-13] MEDS: Aspirin 81 mg Enteric Coated Tablet PO SCH (07:51)
[2017-08-13] MEDS: Heparin 5,000 UNITS/ML VIAL SC SCH ×3 (07:52→20:42)
[2017-08-13] MEDS: Ondansetron HCl/PF 4 MG/2 ML Vial IVP PRN ×2 (08:24→17:26)
[2017-08-13] MEDS ORDERED: Aspirin 81 mg Enteric Coated Tablet PO SCH (09:00)
[2017-08-13] MEDS ORDERED: DULoxetine 60 MG CAP PO SCH (09:00)
[2017-08-13] MEDS: Insulin Detemir 100 UNITS/ML 20 UNITS in Pre-Filled Syringe 1 EACH SC SCH (09:49)
[2017-08-13] MEDS: Ondansetron ODT 4 MG TAB PO PRN (09:49)
--- NOTE | 2017-08-13 11:35 | PDOC.PN ---
- Subjective Encounter Start Date: 08/13/17 Encounter Start Time: 09:45 Subjective: this am is nauseous, has gen abd pain with back pain -: I saw her ambulate around 7am in hallway, gets episodic pain/spasm -: had her dinner last night, 1 loose stool last evening none after that - Objective MAR Reviewed: Yes Vital Signs & Weight: Vital Signs (12 hours) Temp Pulse Resp BP Pulse Ox 08/13/17 08:01 98.6 F 89 14 150/94 H 100 08/13/17 08:00 98.6 F 89 14 08/13/17 05:20 98.8 F 88 20 154/94 H 98 08/12/17 23:56 98.7 F 84 18 130/68 98 Weight Admit Weight 139 lb Weight 139 lb 5.314 oz Most Recent Monitor Data Heart Rate from ECG 106 NIBP 104/65 NIBP BP-Mean 75 Respiration from ECG 33 SpO2 100 I&O: 08/12/17 08/13/17 08/14/17 06:59 06:59 06:59 Intake Total 300 2250 Output Total 0 500 Balance 300 1750 Result Diagrams: 08/13/17 04:39 08/13/17 04:39 Additional Labs: Accuchecks 08/13/17 08/13/17 08/12/17 05:16 00:37 20:10 POC Glucose 216 H 254 H 427 H 08/12/17 16:56 POC Glucose 163 H Phys Exam - Physical Examination HEENT: PERRLA, moist MMs Neck: no JVD, supple Respiratory: no wheezing, no rales Cardiovascular: RRR, no significant murmur Gastrointestinal: soft, no distention, positive bowel sounds Musculoskeletal: no edema, pulses present Neurological: non-focal, moves all 4 limbs Psychiatric: A&O x 3 Dx/Plan (1) Gastroenteritis Code(s): K52.9 - NONINFECTIVE GASTROENTERITIS AND COLITIS, UNSPECIFIED Status : Suspected (2) Chronic abdominal pain Code(s): R10.9 - UNSPECIFIED ABDOMINAL PAIN; G89.29 - OTHER CHRONIC PAIN Status: Chronic (3) Chronic back pain Code(s): M54.9 - DORSALGIA, UNSPECIFIED; G89.29 - OTHER CHRONIC PAIN Status: Chronic Qualifiers: Comment: has pain pump in her abdomen (4) DM type 2 (diabetes mellitus, type 2) Status: Chronic Qualifiers: Diabetes mellitus complication status: with unspecified complications Diabetes mellitus senior care insulin use: with senior care use Qualified Code(s) : E11.8 - Type 2 diabetes mellitus with unspecified complications; Z79.4 - incident response engineer (current) use of insulin; Z79.4 - incident response engineer (current) use of insulin; Z79.4 - incident response engineer (current) use of insulin; Z79.4 - incident response engineer (current) use of insulin (5) Hypertension Code(s): I10 - ESSENTIAL (PRIMARY) HYPERTENSION Status: Chronic Qualifiers: Hypertension type: essential hypertension (6) Nausea and vomiting Code(s): R11.2 - NAUSEA WITH VOMITING, UNSPECIFIED Status: Chronic Qualifiers: - Plan is on reglan scheduled -: zosyn empirically for GI CT findings -: stool sample for culture -: has dilaudid pump, fentanyl tts -: chronic anemia, dc plan per GI advice * . Review of Systems - Medications/Allergies Allergies/Adverse Reactions: Allergies Allergy/AdvReac Type Severity Reaction Status Date / Time morphine Allergy Intermediate Rash Verified 08/12/17 05:09 Medications: Current Medications Acetaminophen (Tylenol) 650 mg PO Q4H PRN PRN Reason: Headache/Fever or Pain Lipase/Protease/Amylase (Stacy Gracia [id number]) 4 cap PO QID-WM [facility] Last Admin: 08/13/17 07:50 Dose: 1 cap Aspirin (Ecotrin) 81 mg PO DAILY [facility] Last Admin: 08/13/17 07:48 Dose: 81 mg Aspirin (Ecotrin) 81 mg PO DAILY [facility] Last Admin: 08/13/17 07:51 Dose: Not Given Cyanocobalamin (Vitamin B-12) 1,000 mcg PO DAILY [facility] Last Admin: 08/13/17 07:48 Dose: 1,000 mcg Dextrose/Water (Dextrose 50%) 25 gm SLOW IVP PRN PRN PRN Reason: Hypoglycemia Docusate Sodium (Colace) 100 mg PO BID [facility] Last Admin: 08/13/17 07:51 Dose: Not Given Duloxetine HCl (Cymbalta) 60 mg PO DAILY [facility] Last Admin: 08/13/17 07:47 Dose: 60 mg Duloxetine HCl (Cymbalta) 60 mg PO DAILY [facility] Last Admin: 08/13/17 07:51 Dose: Not Given Fentanyl (Duragesic) 12 mcg TD Q3D@2100 [facility] Gabapentin (Neurontin) 300 mg PO TID [facility] Last Admin: 08/13/17 07:47 Dose: 300 mg Glucagon (Glucagon) 1 mg IM PRN PRN PRN Reason: Hypoglycemia Heparin Sodium (Porcine) (Heparin) 5,000 units SC TID [facility] Last Admin: 08/13/17 07:52 Dose: Not Given Dextrose/Water (D5w) 1,000 mls @ 0 mls/hr IV .Q0M PRN; As Directed PRN Reason: Hypoglycemia Insulin Detemir 20 units/ (Miscellaneous Medication) 0.2 mls @ 0 mls/hr SC QAM [facility] Last Admin: 08/13/17 09:49 Dose: 0.2 mls Piperacillin Sod/Tazobactam (Sod 3.375 gm/ Sodium Chloride) 100 mls @ 200 mls/ hr IVPB Q6HR [facility] Last Admin: 08/13/17 11:31 Dose: 100 mls Insulin Human Lispro (Humalog) 0 units SC .MODERATE SLIDING SC PRN PRN Reason: Moderate Correctional Scale Last Admin: 08/13/17 05:15 Dose: 4 unit Magnesium Hydroxide (Milk Of Magnesium) 30 ml PO DAILYPRN PRN PRN Reason: Constipation Metoclopramide HCl (Reglan) 10 mg PO TID [facility] Last Admin: 08/13/17 07:49 Dose: 10 mg Metoprolol Succinate (Toprol Xl) 100 mg PO DAILY [facility] Last Admin: 08/13/17 07:47 Dose: 100 mg Ondansetron HCl (Zofran Odt) 4 mg PO Q6H PRN PRN Reason: Nausea/Vomiting Last Admin: 08/13/17 09:49 Dose: 4 mg Ondansetron HCl (Zofran) 4 mg IVP Q6H PRN PRN Reason: Nausea/Vomiting Last Admin: 08/13/17 08:24 Dose: 4 mg
--- NOTE | 2017-08-13 22:26 | CON ---
DATE OF CONSULTATION: 08/13/2017 GI INPATIENT CONSULTATION NOTE REASON FOR CONSULTATION: Abnormal CT scan. HISTORY OF PRESENT ILLNESS: Wanda Schulte is a 47-year-old -[place] woman who was previously s een my GI colleague, Dr. Delfina Michaud. She has a significant past medical history of pancreatic cys tic neoplasm which was resected in 2008 initially with pylorus-sparing surgery; however, in 2011, she subsequently underwent full Whipple surgery with partial gastrectomy, partial small bowel resection, partial pancreatectomy and cholecystectomy all performed at that time. She also evidently has under gone a left nephrectomy and a partial hysterectomy. She has chronic abdominal and pelvic pain and turcios s an implanted pain pump. She gets all of her care done at [facility] and has a telecommunications line mechanic there. She tells me that her implanted pain pump is said to be removed next month because it has not been working. She also reports to me that she has had EGD and colonoscopy, both within the past cou ple of years and that these were unremarkable. She was admitted to the hospital 2 days ago after the sudden acute onset of severe generalized abdomi nal pain, multiple episodes of nonbloody emesis and diarrhea characterized by multiple loose stools, though no melena or hematochezia. She denies any sick contacts. She says she really was not having any of these symptoms prior to onset a couple of days ago. The abdominal pain is more in the epigast stefano location and it does persist today, but has improved a bit since admission, her vomiting has slow ed down. She has had a couple of episodes of emesis earlier today. She has had 2 loose bowel moveme nts today and this has dramatically slowed down since arrival as well. She had a CT scan which demon strated diffuse thickening of the colon suggestive of colitis as well as possible enteritis as well. Stool studies show elevated fecal lactoferrin. The C. difficile is negative, but stool culture and Campylobacter particularly are still pending. She has been tolerating a liquid diet. She is just or dered some yogurt for tonight. REVIEW OF SYSTEMS: Full review of systems including constitutional, head, eyes, ears, nose, throat, GI, , cardiovascular, respiratory, musculoskeletal, and neurologic systems is negative except as no riccardo in the HPI. PAST MEDICAL HISTORY: 1. Diabetes type 2, on insulin. 2. Hypertension. 3. History of chronic pancreatitis. 4. Chronic abdominal and pelvic pain. 5. Tubal ligation. 6. Partial hysterectomy. 7. Whipple surgery in 2012. 8. Left nephrectomy. 9. Gastroparesis. ALLERGIES: MORPHINE. HOME MEDICATIONS: Fentanyl patch, pancrelipase 12,000 units 4 capsules q.i.d. with meals, metoprolol , Reglan 10 mg p.o. t.i.d., lisinopril, Levemir insulin 17 units every morning, hydrochlorothiazide, Humalog insulin sliding scale, gabapentin, Nexium 40 mg daily, Cymbalta, vitamin B12 of 1000 mcg jerri y, aspirin 81 mg daily. ADDITIONAL INPATIENT MEDICATIONS: Include Zosyn 3.375 grams IV q.6 hours. SOCIAL HISTORY: She is a social alcohol drinker. No illicit drug use. FAMILY HISTORY: Noncontributory. PHYSICAL EXAMINATION: VITAL SIGNS: Temperature 98.2, pulse 89, blood pressure 150/94, 100% oxygen saturation on room air. GENERAL: A 47-year-old -[place] woman sitting up in bed comfortably in no acute distress. SKIN: No jaundice, no rash visible or palpable. EYES: No scleral icterus. Extraocular movements are intact. ENT: Mucous membranes moist, no oral lesions. LYMPH: No submandibular, supraclavicular lymphadenopathy. THYROID: Nontender to palpation. HEART: Regular rate and rhythm. LUNGS: Clear to auscultation bilaterally. ABDOMEN: Bowel sounds present. The abdomen is soft. She endorses diffuse tenderness to palpation, but no guarding or rebound tenderness. No masses or organomegaly appreciated. Multiple surgical sca rs. EXTREMITIES: No peripheral edema. VESSELS: Radial pulses 2+ bilaterally. NEUROLOGICAL: Cranial nerves II-XII intact bilaterally. No focal deficits. LABORATORY STUDIES: WBC 5.4, hemoglobin 10.5, platelets 185, MCV 107. Sodium 135, potassium 4.8, BU N 19, creatinine 1.54, glucose 289, calcium 9.1. Lactic acid was initially 8.0, now down to 2.9. Li pase is below the assay limit. LFTs essentially unremarkable with AST 36, ALT 26, alkaline phosphata se 95. Total bilirubin 0.8, albumin 4.7, troponin negative. Beta hydroxybutyrate normal at 0.19. C . difficile stool assay is negative. Fecal lactoferrin is elevated. Stool culture including Campylo bacter, E. coli, salmonella is all pending. IMAGING STUDIES: Chest x-ray showed no acute process. A CT of the abdomen suggested a diffuse colon thickening compatible with colitis as well as possible enteritis, otherwise no occlusion of the mese nteric vasculature, fatty liver, but no acute findings and no mass. Prior cholecystectomy without du ctal dilation. ASSESSMENT AND PLAN: 1. Acute gastroenteritis. 2. Chronic abdominal pain. 3. Nausea, likely secondary to acute gastroenteritis. 4. Diarrhea, likely secondary to acute gastroenteritis. The patient certainly has a complicated past gastrointestinal history most notable for Whipple surger y back in 2011 and development of chronic abdominal pain, but really her acute hospital presentation just seems consistent with a likely acute infectious gastroenteritis. Symptoms all came on quite ny denly and severely and then slowly improving over the past couple of days. I note the negative Clost ridium difficile, but elevated fecal lactoferrin. We will follow up results of the remainder of stoo l studies when they are available. I agree with the antibiotics for now. Otherwise, I would just co ntinue supportive care she is already doing. There will be no plan for any endoscopic investigation. Her diet can be advanced as tolerated. Her Reglan is being continued. Hopefully, the patient will be able to be discharged within the next day or two, once she has been able to advance her diet. Thank you for the consultation. Please call back with questions or concerns.
[2017-08-14] MEDS: Piperacillin/Tazobactam 3.375 GM in Sodium Chloride 0.9% 100 ML IVPB SCH ×2 (00:08→05:28)
[2017-08-14 05:13] LABS: #Basophils 0.1 thou/uL (0.0-0.2); #Lymphocytes 1.8 thou/uL (1.20-3.40); #Monocytes 0.8 thou/uL (0.11-0.59); #Neutrophils 4.7 thou/uL (1.40-6.50); %Eosinophils 0.5 % (0.0-10.0); %Lymphocytes 23.9 % (21.0-51.0); %Monocytes 10.4 % (0.0-10.0); %Neutrophils 64.2 % (42.0-75.0); Hemoglobin 12.9 g/dL (12.0-16.0); Mean Corpuscular HGB CONC 32.1 g/dL (32.0-36.0); Mean Corpuscular Hemoglobin 34.3 pg (27.0-31.0); Mean Platelet Volume 8.7 fL (7.4-10.4); Platelet Count 232 thou/uL (130-400); RBC Distribution Width 12.6 % (11.5-14.5); Red Blood Cell (RBC) Count 3.76 mill/uL (4.20-5.40); White Blood Cell (WBC) Count 7.3 thou/uL (4.8-10.8)
[2017-08-14 05:27] LABS: Anion Gap 14 mmol/L (10-20); BUN (Urea Nitrogen) 15 mg/dL (7.0-18.7); Calc. Creatinine Clearance 35 mL/min (70-130); Calcium 9.4 mg/dL (7.8-10.44); Carbon Dioxide 30 mmol/L (22-29); Chloride 98 mmol/L (98-107); Estimated GFR-MDRD 33; Glucose 210 mg/dL (70-105); Potassium 4.6 mmol/L (3.5-5.1); Sodium 137 mmol/L (136-145)
[2017-08-14] MEDS: HumaLOG 300 UNITS/3 ML VIAL SC PRN ×2 (05:29→11:54)
[2017-08-14] MEDS: Pancrelipase DR 12000 1 CAP PO SCH ×4 (08:00→21:40)
[2017-08-14] MEDS: Gabapentin 300 MG CAP PO SCH ×3 (09:35→20:30)
[2017-08-14] MEDS: DULoxetine 60 MG CAP PO SCH (09:35)
[2017-08-14] MEDS: Aspirin 81 mg Enteric Coated Tablet PO SCH (09:35)
[2017-08-14] MEDS: Cyanocobalamin (Vitamin B-12) 1,000 MCG TAB PO SCH (09:36)
[2017-08-14] MEDS: Insulin Detemir 100 UNITS/ML 20 UNITS in Pre-Filled Syringe 1 EACH SC SCH (09:36)
[2017-08-14] MEDS: Metoclopramide HCl 10 MG TAB PO SCH ×3 (09:36→20:30)
[2017-08-14] MEDS: Docusate 100 MG CAP PO SCH ×2 (09:38→20:31)
[2017-08-14] MEDS: Heparin 5,000 UNITS/ML VIAL SC SCH ×3 (09:38→20:31)
--- NOTE | 2017-08-14 11:27 | PDOC.PN ---
- Subjective Encounter Start Date: 08/14/17 Encounter Start Time: 08:00 Subjective: still has watery diarrhea around 5 times from yesterday -: no nausea -: no new abd pain, has chronic pain as before - Objective MAR Reviewed: Yes Vital Signs & Weight: Vital Signs (12 hours) Temp Pulse Resp BP Pulse Ox 08/14/17 08:00 98.8 F 86 16 145/88 H 98 08/14/17 07:41 98.8 F 86 20 95 08/14/17 04:42 98.7 F 99 18 111/71 95 08/13/17 23:30 98.8 F 93 12 143/87 H 95 Weight Admit Weight 139 lb Weight 139 lb 5.314 oz Most Recent Monitor Data Heart Rate from ECG 106 NIBP 104/65 NIBP BP-Mean 75 Respiration from ECG 33 SpO2 100 I&O: 08/13/17 08/14/17 08/15/17 06:59 06:59 06:59 Intake Total 2250 Output Total 500 Balance 1750 Result Diagrams: 08/14/17 03:46 08/14/17 03:45 Additional Labs: Accuchecks 08/14/17 08/13/17 08/13/17 04:41 19:49 16:45 POC Glucose 337 H 322 H 211 H 08/13/17 11:34 POC Glucose 289 H Phys Exam - Physical Examination HEENT: PERRLA, moist MMs Neck: no JVD, supple Respiratory: no wheezing, no rales Cardiovascular: RRR, no significant murmur Gastrointestinal: soft, non-tender, positive bowel sounds Musculoskeletal: no edema, pulses present Neurological: non-focal, moves all 4 limbs Psychiatric: A&O x 3 Dx/Plan (1) Gastroenteritis Code(s): K52.9 - NONINFECTIVE GASTROENTERITIS AND COLITIS, UNSPECIFIED Status : Acute (2) Chronic abdominal pain Code(s): R10.9 - UNSPECIFIED ABDOMINAL PAIN; G89.29 - OTHER CHRONIC PAIN Status: Chronic (3) Chronic back pain Code(s): M54.9 - DORSALGIA, UNSPECIFIED; G89.29 - OTHER CHRONIC PAIN Status: Chronic Qualifiers: Comment: has pain pump in her abdomen (4) DM type 2 (diabetes mellitus, type 2) Status: Chronic Qualifiers: Diabetes mellitus complication status: with unspecified complications Diabetes mellitus residential insulin use: with residential use Qualified Code(s) : E11.8 - Type 2 diabetes mellitus with unspecified complications; Z79.4 - terminal supervisor (current) use of insulin; Z79.4 - half-way (current) use of insulin; Z79.4 - half-way (current) use of insulin; Z79.4 - half-way (current) use of insulin (5) Hypertension Code(s): I10 - ESSENTIAL (PRIMARY) HYPERTENSION Status: Chronic Qualifiers: Hypertension type: essential hypertension (6) Nausea and vomiting Code(s): R11.2 - NAUSEA WITH VOMITING, UNSPECIFIED Status: Chronic Qualifiers: - Plan is on zosyn, change dose based on renal function -: watch for creatinine -: on reglan creon if ok with GI -: stool studies so far -ve -: on dilaudid pump plus fentanyl tts * . Review of Systems - Medications/Allergies Allergies/Adverse Reactions: Allergies Allergy/AdvReac Type Severity Reaction Status Date / Time morphine Allergy Intermediate Rash Verified 08/12/17 05:09 Medications: Current Medications Acetaminophen (Tylenol) 650 mg PO Q4H PRN PRN Reason: Headache/Fever or Pain Lipase/Protease/Amylase (Stacy Gracia [id number]) 4 cap PO QID-WM [facility] Last Admin: 08/13/17 20:41 Dose: 1 cap Aspirin (Ecotrin) 81 mg PO DAILY [facility] Last Admin: 08/14/17 09:35 Dose: 81 mg Cyanocobalamin (Vitamin B-12) 1,000 mcg PO DAILY [facility] Last Admin: 08/14/17 09:36 Dose: 1,000 mcg Dextrose/Water (Dextrose 50%) 25 gm SLOW IVP PRN PRN PRN Reason: Hypoglycemia Docusate Sodium (Colace) 100 mg PO BID [facility] Last Admin: 08/14/17 09:38 Dose: Not Given Duloxetine HCl (Cymbalta) 60 mg PO DAILY [facility] Last Admin: 08/14/17 09:35 Dose: 60 mg Fentanyl (Duragesic) 12 mcg TD Q3D@2100 [facility] Last Admin: 08/13/17 20:49 Dose: 12 mcg Gabapentin (Neurontin) 300 mg PO TID [facility] Last Admin: 08/14/17 09:35 Dose: 300 mg Glucagon (Glucagon) 1 mg IM PRN PRN PRN Reason: Hypoglycemia Heparin Sodium (Porcine) (Heparin) 5,000 units SC TID [facility] Last Admin: 08/14/17 09:38 Dose: Not Given Dextrose/Water (D5w) 1,000 mls @ 0 mls/hr IV .Q0M PRN; As Directed PRN Reason: Hypoglycemia Insulin Detemir 20 units/ (Miscellaneous Medication) 0.2 mls @ 0 mls/hr SC QAM [facility] Last Admin: 08/14/17 09:36 Dose: 0.2 mls Piperacillin Sod/Tazobactam (Sod 2.25 gm/ Sodium Chloride) 100 mls @ 200 mls/ hr IVPB Q8HR [facility] Insulin Human Lispro (Humalog) 0 units SC .MODERATE SLIDING SC PRN PRN Reason: Moderate Correctional Scale Last Admin: 08/14/17 05:29 Dose: 8 unit Magnesium Hydroxide (Milk Of Magnesium) 30 ml PO DAILYPRN PRN PRN Reason: Constipation Metoclopramide HCl (Reglan) 10 mg PO TID [facility] Last Admin: 08/14/17 09:36 Dose: 10 mg Metoprolol Succinate (Toprol Xl) 100 mg PO DAILY [facility] Last Admin: 08/14/17 09:35 Dose: 100 mg Ondansetron HCl (Zofran Odt) 4 mg PO Q6H PRN PRN Reason: Nausea/Vomiting Last Admin: 08/13/17 09:49 Dose: 4 mg Ondansetron HCl (Zofran) 4 mg IVP Q6H PRN PRN Reason: Nausea/Vomiting Last Admin: 08/13/17 17:26 Dose: 4 mg Sodium Chloride (Flush - Normal Saline) 10 ml IVF Q12HR [facility] Last Admin: 08/14/17 09:43 Dose: 10 ml Sodium Chloride (Flush - Normal Saline) 10 ml IVF PRN PRN PRN Reason: Saline Flush
[2017-08-14] MEDS: Piperacillin/Tazobactam 2.25 GM in Sodium Chloride 0.9% 100 ML IVPB SCH ×2 (14:38→21:35)
--- NOTE | 2017-08-14 16:32 | PRG ---
DATE OF SERVICE: 08/14/2017 SUBJECTIVE: Ms. Schulte is feeling a lot better today. Her nausea has resolved. Her abdominal pain is back to her baseline, quite mild today. She does continue to have some diarrhea. She says she has had 3 loose urgent bowel movements so far, but overall she is feeling quite a bit better. PHYSICAL EXAMINATION: VITAL SIGNS: Temperature 98.6, pulse 78, blood pressure 152/89, 93% oxygen saturation on room air. GENERAL: No acute distress. HEART: Regular rate and rhythm. LUNGS: Clear to auscultation bilaterally. ABDOMEN: Soft and nontender to palpation. EXTREMITIES: No peripheral edema. LABORATORY STUDIES: Sodium 137, potassium 4.6, BUN 15, creatinine 1.98, glucose 309. WBC 7.3, hemoglobin 12.9, and platelets 232. ASSESSMENT AND PLAN: 1. Acute gastroenteritis. 2. Chronic abdominal pain. 3. Nausea, resolved. 4. Acute diarrhea, secondary to acute gastroenteritis. It appears the patient is clinically improving; hopefully diarrhea will continue to slow down. Anticipate from a GI standpoint, she could potentially be discharged tomorrow if otherwise feeling well. Note that she is on Creon as an outpatient and this should indeed be continued. She does clarify that she has been taking one tablet, which was 12,000 units 4 times daily with meals. She can follow up with Dr. Michaud in our GI clinic or with her caustic pump operator at [facility]. NIKOLAY
[2017-08-14] MEDS: Acetaminophen 325 MG TAB PO PRN (17:27)
[2017-08-15 04:51] LABS: #Lymphocytes 1.4 thou/uL (1.20-3.40); #Monocytes 0.5 thou/uL (0.11-0.59); #Neutrophils 3.1 thou/uL (1.40-6.50); %Basophils 0.6 % (0.0-1.0); %Eosinophils 0.8 % (0.0-10.0); %Lymphocytes 27.9 % (21.0-51.0); %Monocytes 9.4 % (0.0-10.0); %Neutrophils 61.4 % (42.0-75.0); Mean Corpuscular HGB CONC 32.3 g/dL (32.0-36.0); Mean Corpuscular Hemoglobin 34.4 pg (27.0-31.0); Mean Platelet Volume 8.7 fL (7.4-10.4); Platelet Count 171 thou/uL (130-400); RBC Distribution Width 12.4 % (11.5-14.5); Red Blood Cell (RBC) Count 3.19 mill/uL (4.20-5.40); White Blood Cell (WBC) Count 5.1 thou/uL (4.8-10.8)
[2017-08-15 05:12] LABS: Anion Gap 12 mmol/L (10-20); BUN (Urea Nitrogen) 18 mg/dL (7.0-18.7); Calc. Creatinine Clearance 36 mL/min (70-130); Calcium 8.6 mg/dL (7.8-10.44); Carbon Dioxide 26 mmol/L (22-29); Chloride 94 mmol/L (98-107); Estimated GFR-MDRD 33; Potassium 5.1 mmol/L (3.5-5.1); Sodium 127 mmol/L (136-145)
[2017-08-15 05:17] LABS: Glucose 643 mg/dL (70-105)
[2017-08-15] MEDS: HumaLOG 300 UNITS/3 ML VIAL SC PRN ×2 (05:25→11:40)
[2017-08-15] MEDS: Piperacillin/Tazobactam 2.25 GM in Sodium Chloride 0.9% 100 ML IVPB SCH ×3 (05:30→21:40)
[2017-08-15] MEDS ORDERED: Sodium Chloride 0.9% 1,000 ML IV SCH (08:30)
[2017-08-15] MEDS ORDERED: Insulin Detemir 100 UNITS/ML 40 UNITS in Pre-Filled Syringe 1 EACH SC SCH (09:00)
[2017-08-15] MEDS: Gabapentin 300 MG CAP PO SCH ×3 (09:19→20:17)
[2017-08-15] MEDS: NS 0.9% w/ 20 MEQ KCL 1,000 ML IV SCH ×2 (09:19→19:52)
[2017-08-15] MEDS: Aspirin 81 mg Enteric Coated Tablet PO SCH (09:20)
[2017-08-15] MEDS: Metoclopramide HCl 10 MG TAB PO SCH ×3 (09:21→20:16)
[2017-08-15] MEDS: DULoxetine 60 MG CAP PO SCH (09:21)
[2017-08-15] MEDS: Cyanocobalamin (Vitamin B-12) 1,000 MCG TAB PO SCH (09:21)
[2017-08-15] MEDS: Pancrelipase DR 12000 1 CAP PO SCH ×4 (09:22→20:18)
[2017-08-15] MEDS: Heparin 5,000 UNITS/ML VIAL SC SCH ×3 (09:23→20:17)
[2017-08-15] MEDS: Docusate 100 MG CAP PO SCH ×2 (09:23→20:17)
[2017-08-15 09:29] LABS: Anion Gap 15 mmol/L (10-20); BUN (Urea Nitrogen) 16 mg/dL (7.0-18.7); Calc. Creatinine Clearance 42 mL/min (70-130); Calcium 8.9 mg/dL (7.8-10.44); Carbon Dioxide 23 mmol/L (22-29); Chloride 98 mmol/L (98-107); Estimated GFR-MDRD 40; Glucose 205 mg/dL (70-105); Potassium 4.5 mmol/L (3.5-5.1); Sodium 131 mmol/L (136-145)
[2017-08-15] MEDS: Acetaminophen 325 MG TAB PO PRN (11:39)
--- NOTE | 2017-08-15 14:23 | PDOC.PN ---
- Subjective Encounter Start Date: 08/15/17 Encounter Start Time: 11:15 Subjective: c/o watery diarrhea whole night atleast 10-12 times -: no blood or mucus in stool, no nausea - Objective MAR Reviewed: Yes Vital Signs & Weight: Vital Signs (12 hours) Temp Pulse Resp BP BP Pulse Ox 08/15/17 07:47 98.7 F 71 22 H 155/99 H 99 08/15/17 07:36 98.3 F 71 18 08/15/17 06:00 98.3 F 71 18 160/97 H 99 Weight Admit Weight 139 lb Weight 139 lb 5.314 oz Most Recent Monitor Data Heart Rate from ECG 106 NIBP 104/65 NIBP BP-Mean 75 Respiration from ECG 33 SpO2 100 I&O: 08/14/17 08/15/17 08/16/17 06:59 06:59 06:59 Intake Total 1420 200 Balance 1420 200 Result Diagrams: 08/15/17 03:45 08/15/17 08:46 Additional Labs: Accuchecks 08/15/17 08/15/17 08/14/17 11:07 05:12 20:25 POC Glucose 158 H 503 H 284 H 08/14/17 17:14 POC Glucose 102 Phys Exam - Physical Examination HEENT: PERRLA, moist MMs Neck: no JVD, supple Respiratory: no wheezing, no rales Cardiovascular: RRR, no significant murmur Gastrointestinal: soft, no distention, positive bowel sounds Musculoskeletal: no edema, pulses present Neurological: non-focal, moves all 4 limbs Psychiatric: A&O x 3 Dx/Plan (1) Gastroenteritis Code(s): K52.9 - NONINFECTIVE GASTROENTERITIS AND COLITIS, UNSPECIFIED Status : Acute (2) Chronic abdominal pain Code(s): R10.9 - UNSPECIFIED ABDOMINAL PAIN; G89.29 - OTHER CHRONIC PAIN Status: Chronic (3) Chronic back pain Code(s): M54.9 - DORSALGIA, UNSPECIFIED; G89.29 - OTHER CHRONIC PAIN Status: Chronic Qualifiers: Comment: has pain pump in her abdomen (4) DM type 2 (diabetes mellitus, type 2) Status: Chronic Qualifiers: Diabetes mellitus complication status: with unspecified complications Diabetes mellitus assisted insulin use: with local company intermodal truck driver use Qualified Code(s) : E11.8 - Type 2 diabetes mellitus with unspecified complications; Z79.4 - assisted (current) use of insulin; Z79.4 - assisted (current) use of insulin; Z79.4 - assisted (current) use of insulin; Z79.4 - assisted (current) use of insulin (5) Hypertension Code(s): I10 - ESSENTIAL (PRIMARY) HYPERTENSION Status: Chronic Qualifiers: Hypertension type: essential hypertension (6) Nausea and vomiting Code(s): R11.2 - NAUSEA WITH VOMITING, UNSPECIFIED Status: Chronic Qualifiers: - Plan is on zosyn -: serum glucose this am was 600+, increase levemir to 40u daily -: normal saline with kcl for gentle hydration in view of diarrhea/hyperglycem -: is on creon at home dose -: diarrhea is watery, doesn't float/fatty, stool studies are -ve * . Review of Systems - Medications/Allergies Allergies/Adverse Reactions: Allergies Allergy/AdvReac Type Severity Reaction Status Date / Time morphine Allergy Intermediate Rash Verified 08/12/17 05:09 Medications: Current Medications Acetaminophen (Tylenol) 650 mg PO Q4H PRN PRN Reason: Headache/Fever or Pain Last Admin: 08/15/17 11:39 Dose: 650 mg Lipase/Protease/[place] ([place] [id number]) 1 cap PO QID-WM [facility] Last Admin: 08/15/17 11:39 Dose: 1 cap Aspirin (Ecotrin) 81 mg PO DAILY [facility] Last Admin: 08/15/17 09:20 Dose: 81 mg Cyanocobalamin (Vitamin B-12) 1,000 mcg PO DAILY [facility] Last Admin: 08/15/17 09:21 Dose: 1,000 mcg Dextrose/Water (Dextrose 50%) 25 gm SLOW IVP PRN PRN PRN Reason: Hypoglycemia Docusate Sodium (Colace) 100 mg PO BID [facility] Last Admin: 08/15/17 09:23 Dose: Not Given Duloxetine HCl (Cymbalta) 60 mg PO DAILY [facility] Last Admin: 08/15/17 09:21 Dose: 60 mg Fentanyl (Duragesic) 12 mcg TD Q3D@2100 [facility] Last Admin: 08/13/17 20:49 Dose: 12 mcg Gabapentin (Neurontin) 300 mg PO TID [facility] Last Admin: 08/15/17 14:02 Dose: Not Given Glucagon (Glucagon) 1 mg IM PRN PRN PRN Reason: Hypoglycemia Heparin Sodium (Porcine) (Heparin) 5,000 units SC TID [facility] Last Admin: 08/15/17 14:02 Dose: Not Given Dextrose/Water (D5w) 1,000 mls @ 0 mls/hr IV .Q0M PRN; As Directed PRN Reason: Hypoglycemia Piperacillin Sod/Tazobactam (Sod 2.25 gm/ Sodium Chloride) 100 mls @ 200 mls/ hr IVPB Q8HR [facility] Last Admin: 08/15/17 13:59 Dose: 100 mls Insulin Detemir 40 units/ (Miscellaneous Medication) 0.4 mls @ 0 mls/hr SC QAM [facility] Last Admin: 08/15/17 09:35 Dose: 0.4 mls Potassium Chloride/Sodium Chloride (Ns 0.9% W/ 20 Meq Kcl) 1,000 mls @ 100 mls/ hr IV .Q10H [facility] Last Admin: 08/15/17 09:19 Dose: 1,000 mls Insulin Human Lispro (Humalog) 0 units SC .MODERATE SLIDING SC PRN PRN Reason: Moderate Correctional Scale Last Admin: 08/15/17 11:40 Dose: 2 unit Magnesium Hydroxide (Milk Of Magnesium) 30 ml PO DAILYPRN PRN PRN Reason: Constipation Metoclopramide HCl (Reglan) 10 mg PO TID [facility] Last Admin: 08/15/17 14:01 Dose: 10 mg Metoprolol Succinate (Toprol Xl) 100 mg PO DAILY [facility] Last Admin: 08/15/17 09:21 Dose: 100 mg Ondansetron HCl (Zofran Odt) 4 mg PO Q6H PRN PRN Reason: Nausea/Vomiting Last Admin: 08/13/17 09:49 Dose: 4 mg Ondansetron HCl (Zofran) 4 mg IVP Q6H PRN PRN Reason: Nausea/Vomiting Last Admin: 08/13/17 17:26 Dose: 4 mg Sodium Chloride (Flush - Normal Saline) 10 ml IVF Q12HR [facility] Last Admin: 08/15/17 09:24 Dose: 10 ml Sodium Chloride (Flush - Normal Saline) 10 ml IVF PRN PRN PRN Reason: Saline Flush
--- NOTE | 2017-08-15 17:50 | PRG ---
DATE OF SERVICE: 08/15/2017 SUBJECTIVE: Ms. Schulte has had no recurrence of abdominal pain or nausea; however, she has continued to have significant diarrhea, this picked up again last night. She reports she had about 10 bowel m ovements through the night and was unable to get any sleep. She has had 6 loose urgent bowel movemen ts so far today. There have been some issues with fluctuations in blood sugars as well. OBJECTIVE: VITAL SIGNS: Temperature 98.5, pulse 83, blood pressure 161/98, 96% oxygen saturation on room air. GENERAL: No acute distress. HEART: Regular rate and rhythm. LUNGS: Clear to auscultation bilaterally. ABDOMEN: Soft, nontender to palpation. EXTREMITIES: No peripheral edema. LABORATORY STUDIES: WBC 5.1, hemoglobin 11.0, platelets 171. Sodium 131, potassium 4.5, BUN 16, cre atinine 1.68. ASSESSMENT AND PLAN: 1. Diarrhea, persistent. 2. Suspected acute gastroenteritis. 3. Abnormal CT scan of the colon demonstrating diffuse thickening. Suspicion is highest for acute g astroenteritis, but the patient's diarrhea seems to have been worsening over the past day rather than continuing to improve. Note, stool studies have been negative for pathogens. The patient would pre jean-paul to be a bit more aggressive with investigations and I think this is reasonable. We will administ er bowel preparation tonight and plan for diagnostic colonoscopy tomorrow.
[2017-08-15] MEDS ORDERED: GoLYTELY 4,000 ml Bottle PO SCH (18:00)
[2017-08-16 04:23] LABS: Anion Gap 16 mmol/L (10-20); BUN (Urea Nitrogen) 12 mg/dL (7.0-18.7); Calc. Creatinine Clearance 62 mL/min (70-130); Calcium 8.5 mg/dL (7.8-10.44); Carbon Dioxide 24 mmol/L (22-29); Chloride 105 mmol/L (98-107); Estimated GFR-MDRD 62; Glucose 104 mg/dL (70-105); Potassium 3.9 mmol/L (3.5-5.1); Sodium 141 mmol/L (136-145)
[2017-08-16 04:36] LABS: #Lymphocytes 1.6 thou/uL (1.20-3.40); #Monocytes 0.5 thou/uL (0.11-0.59); #Neutrophils 2.4 thou/uL (1.40-6.50); %Basophils 0.1 % (0.0-1.0); %Eosinophils 1.1 % (0.0-10.0); %Lymphocytes 34.5 % (21.0-51.0); %Neutrophils 53.3 % (42.0-75.0); Hemoglobin 10.6 g/dL (12.0-16.0); Mean Corpuscular Hemoglobin 33.8 pg (27.0-31.0); Platelet Count 162 thou/uL (130-400); RBC Distribution Width 12.4 % (11.5-14.5); Red Blood Cell (RBC) Count 3.13 mill/uL (4.20-5.40); White Blood Cell (WBC) Count 4.5 thou/uL (4.8-10.8)
[2017-08-16] MEDS: Piperacillin/Tazobactam 2.25 GM in Sodium Chloride 0.9% 100 ML IVPB SCH (05:20)
[2017-08-16] MEDS ORDERED: Lisinopril 20 MG TAB PO SCH (05:45)
[2017-08-16] MEDS: NS 0.9% w/ 20 MEQ KCL 1,000 ML IV SCH (05:45)
[2017-08-16] MEDS ORDERED: NS 0.9% w/ 20 MEQ KCL 1,000 ML IV SCH (08:02)
[2017-08-16] MEDS ORDERED: Lidocaine 1% PF 5 ML VIAL ONE (08:30)
[2017-08-16] MEDS ORDERED: PROPOFOL 200 MG/20 ML VIAL ONE (08:30)
[2017-08-16] MEDS: Pancrelipase DR 12000 1 CAP PO SCH ×4 (09:00→21:04)
[2017-08-16] MEDS: Insulin Detemir 100 UNITS/ML 10 UNITS in Pre-Filled Syringe 1 EACH SC SCH ×3 (09:03→22:29)
[2017-08-16] MEDS: Gabapentin 300 MG CAP PO SCH ×3 (09:03→21:03)
[2017-08-16] MEDS: Docusate 100 MG CAP PO SCH ×2 (09:03→21:03)
[2017-08-16] MEDS: Heparin 5,000 UNITS/ML VIAL SC SCH ×3 (09:03→21:04)
[2017-08-16] MEDS: Metoclopramide HCl 10 MG TAB PO SCH (09:04)
--- NOTE | 2017-08-16 11:06 | PQF ---
CLINICAL DOCUMENTATION IMPROVEMENT CLARIFICATION FORM: ICD-10 Updated PLEASE DO AN ADDENDUM TO THE PROGRESS NOTE WITH ANY DOCUMENTATION UPDATES OR ADDITIONS AND CARRY THROUGH TO DC SUMMARY. THANK YOU. DATE: 08/16 ATTN: DR. Dory LIMA Please exercise your independent, professional judgment in responding to the clarification form. Clinical indicators are provided on the bottom of this form for your review. Please check appropriate box(s) to clarify if the following diagnosis has been ruled in our ruled out: SEVERE SEPSIS [ ] Ruled in diagnosis [ ] Continue to treat [ ] Resolved [ ] Ruled out diagnosis [ x ] Other diagnosis __has sepsis but not severe sepsis due to gastroenteritis_ [ ] Unable to determine For continuity of documentation, please document condition throughout progress notes and discharge summary. Thank You. CLINICAL INDICATORS - SIGNS / SYMPTOMS / LABS ER PRESENTATION 08/12: IA: [id number] HYPERTENSIVE: 257/151 - 219-127 LACTIC ACID: 8.0 - 2.9 PULMONOLOGY CONSULT DOCUMENTATION 08/12: HX PRESENT ILLNESS: ...RECENT INFLAMMATORY DIARRHEA; N/V; GASTROENTERITIS IMPRESSION: 2) ANION GAP METABOLIC ACIDOSIS W/ELEVATED LACTATE; 4) GASTROENTERITIS, RECENT; 5) SEVERE SEPSIS RISK FACTORS: LACTIC ACIDOSIS (8.0 -2.9) GASTROENTERITIS TREATMENT: IV ANTIBIOTICS (ZOSYN 08/14 - PRESENT) THANK YOU! Alea (This form is maintained as a part of the permanent medical record) 2015 [employer]. All Rights Reserved Alea Chu RN, BSN [email or web address] Office: [phone] [facility]
[2017-08-16] MEDS: Cyanocobalamin (Vitamin B-12) 1,000 MCG TAB PO SCH (13:07)
[2017-08-16] MEDS: DULoxetine 60 MG CAP PO SCH (13:08)
[2017-08-16] MEDS: Hydrochlorothiazide 25 MG TAB PO SCH (13:09)
[2017-08-16] MEDS: Aspirin 81 mg Enteric Coated Tablet PO SCH (13:11)
--- NOTE | 2017-08-16 13:44 | PDOC.PN ---
- Subjective Encounter Start Date: 08/16/17 Encounter Start Time: 08:00 Subjective: still has diarrhea, is also drinking bowel prep -: no nausea - Objective MAR Reviewed: Yes Vital Signs & Weight: Vital Signs (12 hours) Temp Pulse Resp BP BP Pulse Ox 08/16/17 12:15 98.0 F 89 16 180/77 H 08/16/17 09:00 173/104 H 08/16/17 07:30 98.6 F 78 18 08/16/17 07:25 98.9 F 73 16 182/110 H 99 08/16/17 05:50 180/102 H 08/16/17 05:00 98.6 F 78 18 180/102 H 99 Weight Admit Weight 139 lb Weight 139 lb 5.314 oz Most Recent Monitor Data Heart Rate from ECG 106 NIBP 104/65 NIBP BP-Mean 75 Respiration from ECG 33 SpO2 100 I&O: 08/15/17 08/16/17 08/17/17 06:59 06:59 06:59 Intake Total 1420 3630 Balance 1420 3630 Result Diagrams: 08/16/17 03:55 08/16/17 03:55 Additional Labs: Accuchecks 08/16/17 08/16/17 08/16/17 12:33 05:14 01:09 POC Glucose 65 L 76 72 08/16/17 08/15/17 08/15/17 00:34 20:02 15:23 POC Glucose 42 L* 180 H 147 H 08/15/17 14:12 POC Glucose 53 L* Phys Exam - Physical Examination HEENT: PERRLA, moist MMs Neck: no JVD, supple Respiratory: no wheezing, no rales Cardiovascular: RRR, no significant murmur Gastrointestinal: soft, non-tender, no distention, positive bowel sounds Musculoskeletal: no edema, pulses present Neurological: non-focal, moves all 4 limbs Psychiatric: A&O x 3 Dx/Plan (1) Gastroenteritis Code(s): K52.9 - NONINFECTIVE GASTROENTERITIS AND COLITIS, UNSPECIFIED Status : Acute (2) Chronic abdominal pain Code(s): R10.9 - UNSPECIFIED ABDOMINAL PAIN; G89.29 - OTHER CHRONIC PAIN Status: Chronic (3) Chronic back pain Code(s): M54.9 - DORSALGIA, UNSPECIFIED; G89.29 - OTHER CHRONIC PAIN Status: Chronic Qualifiers: Comment: has pain pump in her abdomen (4) DM type 2 (diabetes mellitus, type 2) Status: Chronic Qualifiers: Diabetes mellitus complication status: with unspecified complications Diabetes mellitus termite treater helper insulin use: with termite treater helper use Qualified Code(s) : E11.8 - Type 2 diabetes mellitus with unspecified complications; Z79.4 - superintendent terminal (current) use of insulin; Z79.4 - MCFP (current) use of insulin; Z79.4 - superintendent terminal (current) use of insulin; Z79.4 - superintendent terminal (current) use of insulin (5) Hypertension Code(s): I10 - ESSENTIAL (PRIMARY) HYPERTENSION Status: Chronic Qualifiers: Hypertension type: essential hypertension (6) Nausea and vomiting Code(s): R11.2 - NAUSEA WITH VOMITING, UNSPECIFIED Status: Chronic Qualifiers: (7) Sepsis Code(s): A41.9 - SEPSIS, UNSPECIFIED ORGANISM Status: Acute Qualifiers: Sepsis type: sepsis due to unspecified organism Qualified Code(s): A41.9 - Sepsis, unspecified organism - Plan for colonoscopy today -: is on zosyn -: dc iv fluids after colonoscopy -: has not slept in 2 days due to freq of diarrhea -: continue creon. Diabetes is labile, hold levemir when npo * . Review of Systems - Medications/Allergies Allergies/Adverse Reactions: Allergies Allergy/AdvReac Type Severity Reaction Status Date / Time morphine Allergy Intermediate Rash Verified 08/12/17 05:09 Medications: Current Medications Acetaminophen (Tylenol) 650 mg PO Q4H PRN PRN Reason: Headache/Fever or Pain Last Admin: 08/15/17 11:39 Dose: 650 mg Lipase/Protease/Amylase (Stacy Gracia [id number]) 4 cap PO QID-WM [facility] Last Admin: 08/16/17 13:09 Dose: 4 cap Aspirin (Ecotrin) 81 mg PO DAILY [facility] Last Admin: 08/16/17 13:11 Dose: Not Given Cyanocobalamin (Vitamin B-12) 1,000 mcg PO DAILY [facility] Last Admin: 08/16/17 13:07 Dose: 1,000 mcg Dextrose/Water (Dextrose 50%) 25 gm SLOW IVP PRN PRN PRN Reason: Hypoglycemia Docusate Sodium (Colace) 100 mg PO BID [facility] Last Admin: 08/16/17 09:03 Dose: Not Given Duloxetine HCl (Cymbalta) 60 mg PO DAILY [facility] Last Admin: 08/16/17 13:08 Dose: 60 mg Fentanyl (Duragesic) 12 mcg TD Q3D@2100 [facility] Last Admin: 08/13/17 20:49 Dose: 12 mcg Gabapentin (Neurontin) 300 mg PO TID [facility] Last Admin: 08/16/17 09:03 Dose: Not Given Glucagon (Glucagon) 1 mg IM PRN PRN PRN Reason: Hypoglycemia Heparin Sodium (Porcine) (Heparin) 5,000 units SC TID [facility] Last Admin: 08/16/17 09:03 Dose: Not Given Hydrochlorothiazide (Hydrochlorothiazide) 25 mg PO DAILY [facility] Last Admin: 08/16/17 13:09 Dose: 25 mg Dextrose/Water (D5w) 1,000 mls @ 0 mls/hr IV .Q0M PRN; As Directed PRN Reason: Hypoglycemia Insulin Detemir 10 units/ (Miscellaneous Medication) 0.1 mls @ 0 mls/hr SC BID [facility] Last Admin: 08/16/17 09:03 Dose: Not Given Potassium Chloride/Sodium Chloride (Ns 0.9% W/ 20 Meq Kcl) 1,000 mls @ 50 mls/ hr IV .Q20H [facility] Last Admin: 08/16/17 09:01 Dose: Not Given Insulin Human Lispro (Humalog) 0 units SC .MODERATE SLIDING SC PRN PRN Reason: Moderate Correctional Scale Last Admin: 08/15/17 11:40 Dose: 2 unit Lisinopril (Zestril) 40 mg PO DAILY [facility] Magnesium Hydroxide (Milk Of Magnesium) 30 ml PO DAILYPRN PRN PRN Reason: Constipation Metoprolol Succinate (Toprol Xl) 100 mg PO HS [facility] Ondansetron HCl (Zofran Odt) 4 mg PO Q6H PRN PRN Reason: Nausea/Vomiting Last Admin: 08/13/17 09:49 Dose: 4 mg Ondansetron HCl (Zofran) 4 mg IVP Q6H PRN PRN Reason: Nausea/Vomiting Last Admin: 08/13/17 17:26 Dose: 4 mg Sodium Chloride (Flush - Normal Saline) 10 ml IVF Q12HR [facility] Last Admin: 08/16/17 09:04 Dose: Not Given Sodium Chloride (Flush - Normal Saline) 10 ml IVF PRN PRN PRN Reason: Saline Flush
[2017-08-16 13:49] LABS: Folate (Folic Acid) 13.6 ng/mL (7.0-31.4)
[2017-08-16] MEDS ORDERED: Furosemide 20 MG/2 ML VIAL SLOW IVP SCH (18:00)
[2017-08-16] MEDS: Ondansetron HCl/PF 4 MG/2 ML Vial IVP PRN (18:04)
[2017-08-16] MEDS: HumaLOG 300 UNITS/3 ML VIAL SC PRN (18:06)
[2017-08-16] MEDS ORDERED: Insulin Detemir 100 UNITS/ML 10 UNITS in Pre-Filled Syringe 1 EACH SC SCH (18:30)
[2017-08-17 04:14] LABS: #Eosinphils 0.1 thou/uL (0.0-0.7); #Monocytes 0.5 thou/uL (0.11-0.59); #Neutrophils 3.4 thou/uL (1.40-6.50); %Basophils 0.3 % (0.0-1.0); %Eosinophils 1.3 % (0.0-10.0); %Lymphocytes 20.7 % (21.0-51.0); %Monocytes 9.1 % (0.0-10.0); %Neutrophils 68.6 % (42.0-75.0); Hemoglobin 10.2 g/dL (12.0-16.0); Mean Corpuscular HGB CONC 33.2 g/dL (32.0-36.0); Mean Corpuscular Hemoglobin 34.7 pg (27.0-31.0); Mean Platelet Volume 8.6 fL (7.4-10.4); Platelet Count 165 thou/uL (130-400); RBC Distribution Width 12.3 % (11.5-14.5); Red Blood Cell (RBC) Count 2.93 mill/uL (4.20-5.40); White Blood Cell (WBC) Count 4.9 thou/uL (4.8-10.8)
[2017-08-17 05:01] LABS: Anion Gap 15 mmol/L (10-20); BUN (Urea Nitrogen) 11 mg/dL (7.0-18.7); Calc. Creatinine Clearance 57 mL/min (70-130); Calcium 8.9 mg/dL (7.8-10.44); Carbon Dioxide 27 mmol/L (22-29); Chloride 99 mmol/L (98-107); Estimated GFR-MDRD 56; Glucose 320 mg/dL (70-105); Potassium 4.2 mmol/L (3.5-5.1); Sodium 137 mmol/L (136-145)
[2017-08-17] MEDS: HumaLOG 300 UNITS/3 ML VIAL SC PRN ×2 (06:18→14:30)
[2017-08-17] MEDS: Gabapentin 300 MG CAP PO SCH ×3 (08:19→20:17)
[2017-08-17] MEDS: Pancrelipase DR 12000 1 CAP PO SCH ×4 (08:19→20:04)
[2017-08-17] MEDS: DULoxetine 60 MG CAP PO SCH (08:19)
[2017-08-17] MEDS: Cyanocobalamin (Vitamin B-12) 1,000 MCG TAB PO SCH (08:19)
[2017-08-17] MEDS: Docusate 100 MG CAP PO SCH ×2 (08:19→20:03)
[2017-08-17] MEDS: Aspirin 81 mg Enteric Coated Tablet PO SCH (08:19)
[2017-08-17] MEDS: Heparin 5,000 UNITS/ML VIAL SC SCH ×3 (08:20→20:03)
[2017-08-17] MEDS: Lisinopril 20 MG TAB PO SCH (08:22)
[2017-08-17] MEDS: Hydrochlorothiazide 25 MG TAB PO SCH (08:22)
[2017-08-17] MEDS: Insulin Detemir 100 UNITS/ML 10 UNITS in Pre-Filled Syringe 1 EACH SC SCH (09:10)
[2017-08-17] MEDS: hydrALAZINE 20 MG/ML VIAL SLOW IVP PRN ×3 (09:14→21:20)
[2017-08-17] MEDS: Ondansetron ODT 4 MG TAB PO PRN (09:44)
--- NOTE | 2017-08-17 14:00 | PDOC.PN ---
- Subjective Encounter Start Date: 08/17/17 Encounter Start Time: 13:58 Subjective: still having loose stools.. -: no vomiting,no abdominal pain -: feels tired & weak.has dilaudid pump which is weaned off,on Fentanyl patch - Objective MAR Reviewed: Yes Vital Signs & Weight: Vital Signs (12 hours) Temp Pulse Resp BP BP Pulse Ox 08/17/17 12:45 88 184/102 H 08/17/17 09:45 175/98 H 08/17/17 09:14 74 173/112 H 08/17/17 08:25 97.8 F 74 18 199/125 H 99 08/17/17 08:00 97.8 F 74 18 99 08/17/17 05:21 98.5 F 78 18 98 Weight Admit Weight 139 lb Weight 139 lb 5.314 oz Most Recent Monitor Data Heart Rate from ECG 106 NIBP 104/65 NIBP BP-Mean 75 Respiration from ECG 33 SpO2 100 I&O: 08/16/17 08/17/17 08/18/17 06:59 06:59 06:59 Intake Total 3630 1320 Balance 3630 1320 Result Diagrams: 08/17/17 03:49 08/17/17 03:49 Additional Labs: Accuchecks 08/17/17 08/17/17 08/17/17 11:50 11:28 09:39 POC Glucose 203 H 240 H 50 L* 08/16/17 08/16/17 08/16/17 22:28 20:10 17:42 POC Glucose 288 H 413 H 445 H Radiology Reviewed by me: Yes Phys Exam - Physical Examination Constitutional: NAD HEENT: PERRLA, moist MMs, sclera anicteric, oral pharynx no lesions Neck: no nodes, no JVD, supple, full ROM Respiratory: no wheezing, no rales, no rhonchi, clear to auscultation bilateral Cardiovascular: RRR, no significant murmur Gastrointestinal: soft, non-tender, no distention, positive bowel sounds Musculoskeletal: no edema, pulses present Neurological: non-focal, normal sensation, moves all 4 limbs Psychiatric: normal affect, A&O x 3 Skin: no rash Dx/Plan (1) Hypertensive urgency Code(s): I16.0 - HYPERTENSIVE URGENCY Status: Acute (2) SURESH (acute kidney injury) Code(s): N17.9 - ACUTE KIDNEY FAILURE, UNSPECIFIED Status: Acute (3) Gastroenteritis Code(s): K52.9 - NONINFECTIVE GASTROENTERITIS AND COLITIS, UNSPECIFIED Status : Acute Comment: blanca Viral.Stool studies negative.Colonoscopy negative for colitis (4) Chronic back pain Code(s): M54.9 - DORSALGIA, UNSPECIFIED; G89.29 - OTHER CHRONIC PAIN Status: Chronic Qualifiers: Comment: has pain pump in her abdomen (5) DM type 2 (diabetes mellitus, type 2) Status: Chronic Qualifiers: Diabetes mellitus complication status: with unspecified complications Diabetes mellitus termination clerk insulin use: with termination clerk use Qualified Code(s) : E11.8 - Type 2 diabetes mellitus with unspecified complications; Z79.4 - local company intermodal truck driver (current) use of insulin; Z79.4 - local company intermodal truck driver (current) use of insulin; Z79.4 - local company intermodal truck driver (current) use of insulin; Z79.4 - local company intermodal truck driver (current) use of insulin (6) Hypertension Code(s): I10 - ESSENTIAL (PRIMARY) HYPERTENSION Status: Chronic Qualifiers: Hypertension type: essential hypertension - Plan out of bed/ambulate, DVT proph w/SCDs trial of Imodium as stool studies negative.? Viral GE Vs Opiod withdrawl -: GI following.will chnage to lactose free diet -: add prn anti-hypertensives.cont Metoprolol and Lisinopril/HCTZ -: not ready for DC yet given high Bp & persistant diarrhea -: renal Fx worse today.will restart IVF & monitor * . Review of Systems - Review of Systems Constitutional: weakness, malaise ENT: negative: Ear Pain, Ear Discharge, Nose Pain, Nose Discharge, Nose Congestion, Mouth Pain, Mouth Swelling, Throat Pain, Throat Swelling, Other Respiratory: negative: Cough, Dry, Shortness of Breath, Hemoptysis, SOB with Excertion, Pleuritic Pain, Sputum, Wheezing Cardiovascular: negative: chest pain, palpitations, orthopnea, paroxysmal nocturnal dyspnea, edema, light headedness, other Gastrointestinal: Diarrhea. negative: Nausea, Vomiting, Abdominal Pain, Constipation, Melena, Hematochezia, Other Genitourinary: negative: Dysuria, Frequency, Incontinence, Hematuria, Retention , Other Musculoskeletal: negative: Neck Pain, Shoulder Pain, Arm Pain, Back Pain, Hand Pain, Leg Pain, Foot Pain, Other Skin: negative: Rash, Lesions, Pepito, Bruising, Other Neurological: negative: Weakness, Numbness, Incoordination, Change in Speech, Confusion, Seizures, Other - Medications/Allergies Allergies/Adverse Reactions: Allergies Allergy/AdvReac Type Severity Reaction Status Date / Time morphine Allergy Intermediate Rash Verified 08/12/17 05:09 Medications: Current Medications Acetaminophen (Tylenol) 650 mg PO Q4H PRN PRN Reason: Headache/Fever or Pain Last Admin: 08/15/17 11:39 Dose: 650 mg Lipase/Protease/Amylase ([place] [id number]) 4 cap PO QID-WM [facility] Last Admin: 08/17/17 12:41 Dose: 4 cap Aspirin (Ecotrin) 81 mg PO DAILY [facility] Last Admin: 08/17/17 08:19 Dose: 81 mg Cyanocobalamin (Vitamin B-12) 1,000 mcg PO DAILY [facility] Last Admin: 08/17/17 08:19 Dose: 1,000 mcg Dextrose/Water (Dextrose 50%) 25 gm SLOW IVP PRN PRN PRN Reason: Hypoglycemia Docusate Sodium (Colace) 100 mg PO BID [facility] Last Admin: 08/17/17 08:19 Dose: Not Given Duloxetine HCl (Cymbalta) 60 mg PO DAILY [facility] Last Admin: 08/17/17 08:19 Dose: 60 mg Fentanyl (Duragesic) 12 mcg TD Q3D@2100 [facility] Last Admin: 08/16/17 20:53 Dose: 12 mcg Gabapentin (Neurontin) 300 mg PO TID [facility] Last Admin: 08/17/17 08:19 Dose: 300 mg Glucagon (Glucagon) 1 mg IM PRN PRN PRN Reason: Hypoglycemia Heparin Sodium (Porcine) (Heparin) 5,000 units SC TID [facility] Last Admin: 08/17/17 08:20 Dose: Not Given Hydralazine HCl (Apresoline) 10 mg SLOW IVP Q4H PRN PRN Reason: SBP Greater Than 170 Last Admin: 08/17/17 12:45 Dose: 10 mg Hydrochlorothiazide (Hydrochlorothiazide) 25 mg PO DAILY [facility] Last Admin: 08/17/17 08:22 Dose: 25 mg Dextrose/Water (D5w) 1,000 mls @ 0 mls/hr IV .Q0M PRN; As Directed PRN Reason: Hypoglycemia Insulin Human Lispro (Humalog) 0 units SC .MODERATE SLIDING SC PRN PRN Reason: Moderate Correctional Scale Last Admin: 08/17/17 06:18 Dose: 6 unit Lisinopril (Zestril) 40 mg PO DAILY [facility] Last Admin: 08/17/17 08:22 Dose: 40 mg Loperamide HCl (Imodium) 1 mg PO Q4H PRN PRN Reason: Diarrhea/Loose Stools Last Admin: 08/17/17 12:41 Dose: 1 mg Magnesium Hydroxide (Milk Of Magnesium) 30 ml PO DAILYPRN PRN PRN Reason: Constipation Metoprolol Succinate (Toprol Xl) 100 mg PO HS [facility] Ondansetron HCl (Zofran Odt) 4 mg PO Q6H PRN PRN Reason: Nausea/Vomiting Last Admin: 08/17/17 09:44 Dose: 4 mg Ondansetron HCl (Zofran) 4 mg IVP Q6H PRN PRN Reason: Nausea/Vomiting Last Admin: 08/16/17 18:04 Dose: 4 mg Sodium Chloride (Flush - Normal Saline) 10 ml IVF Q12HR [facility] Last Admin: 08/17/17 09:11 Dose: 10 ml Sodium Chloride (Flush - Normal Saline) 10 ml IVF PRN PRN PRN Reason: Saline Flush
[2017-08-17] MEDS: Sodium Chloride 0.9% 1,000 ML IV SCH (15:19)
[2017-08-17] MEDS ORDERED: Diphenoxylate HCl/Atropine Tablet PO PRN (16:32)
[2017-08-17] MEDS ORDERED: Loperamide HCl 2 MG CAP PO PRN (17:32)
--- NOTE | 2017-08-17 21:10 | PRG ---
DATE OF SERVICE: 08/17/2017 SUBJECTIVE: Ms. Schulte states her diarrhea is better today after starting Imodium. PHYSICAL EXAMINATION: VITAL SIGNS: Temperature 97, blood pressure 184/102-162/100, respirations 18. ABDOMEN: Soft, nontender, without rebound or guarding. LABORATORY STUDIES: White count 4.9, hemoglobin is 10.2, platelet count is 165. BUN and creatinine are 11 and 1.24. ASSESSMENT: 1. Bleeding. 2. Diarrhea, resolved. 3. Abdominal pain, clear etiology. 4. 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 RECOMMENDATIONS: To wait bowel biopsies with Imodium. If that does not work we can use Lomotil, lac tose free diet, and the patient is to continue pancreatic replacement therapy.
[2017-08-17] MEDS: Acetaminophen 325 MG TAB PO PRN (21:20)
[2017-08-18 04:51] LABS: #Monocytes 0.5 thou/uL (0.11-0.59); #Neutrophils 3.8 thou/uL (1.40-6.50); %Basophils 0.4 % (0.0-1.0); %Eosinophils 0.8 % (0.0-10.0); %Lymphocytes 19.1 % (21.0-51.0); %Monocytes 8.7 % (0.0-10.0); %Neutrophils 71.1 % (42.0-75.0); Hemoglobin 10.2 g/dL (12.0-16.0); Mean Corpuscular HGB CONC 31.7 g/dL (32.0-36.0); Mean Corpuscular Hemoglobin 34.4 pg (27.0-31.0); Mean Platelet Volume 9.1 fL (7.4-10.4); Platelet Count 175 thou/uL (130-400); RBC Distribution Width 12.4 % (11.5-14.5); Red Blood Cell (RBC) Count 2.97 mill/uL (4.20-5.40); White Blood Cell (WBC) Count 5.4 thou/uL (4.8-10.8)
[2017-08-18 05:15] LABS: Anion Gap 11 mmol/L (10-20); BUN (Urea Nitrogen) 15 mg/dL (7.0-18.7); Calc. Creatinine Clearance 45 mL/min (70-130); Calcium 8.5 mg/dL (7.8-10.44); Carbon Dioxide 28 mmol/L (22-29); Chloride 94 mmol/L (98-107); Estimated GFR-MDRD 43; Potassium 5.4 mmol/L (3.5-5.1); Sodium 128 mmol/L (136-145)
[2017-08-18] MEDS: Sodium Chloride 0.9% 1,000 ML IV SCH ×4 (05:45→20:38)
[2017-08-18 06:08] LABS: Glucose 715 mg/dL (70-105)
[2017-08-18] MEDS ORDERED: HumaLOG 300 UNITS/3 ML VIAL SC SCH (06:30)
[2017-08-18] MEDS ORDERED: Insulin Detemir 100 UNITS/ML 30 UNITS in Pre-Filled Syringe 1 EACH SC SCH (06:30)
[2017-08-18] MEDS: Pancrelipase DR 12000 1 CAP PO SCH ×4 (08:27→20:34)
[2017-08-18] MEDS: Cyanocobalamin (Vitamin B-12) 1,000 MCG TAB PO SCH (08:28)
[2017-08-18] MEDS: Gabapentin 300 MG CAP PO SCH ×3 (08:28→20:33)
[2017-08-18] MEDS: Lisinopril 20 MG TAB PO SCH (08:28)
[2017-08-18] MEDS: Hydrochlorothiazide 25 MG TAB PO SCH (08:28)
[2017-08-18] MEDS: DULoxetine 60 MG CAP PO SCH (08:28)
[2017-08-18] MEDS: Aspirin 81 mg Enteric Coated Tablet PO SCH (08:28)
[2017-08-18] MEDS: Heparin 5,000 UNITS/ML VIAL SC SCH ×3 (08:29→20:34)
[2017-08-18] MEDS: Docusate 100 MG CAP PO SCH ×2 (08:29→20:33)
[2017-08-18 08:31] LABS: Anion Gap 18 mmol/L (10-20); BUN (Urea Nitrogen) 16 mg/dL (7.0-18.7); Calc. Creatinine Clearance 44 mL/min (70-130); Calcium 8.8 mg/dL (7.8-10.44); Carbon Dioxide 21 mmol/L (22-29); Chloride 98 mmol/L (98-107); Estimated GFR-MDRD 42; Glucose 529 mg/dL (70-105); Potassium 4.5 mmol/L (3.5-5.1); Sodium 132 mmol/L (136-145)
[2017-08-18] MEDS: HumaLOG 300 UNITS/3 ML VIAL SC PRN (12:26)
[2017-08-18] MEDS ORDERED: Gabapentin 300 MG CAP PO PRN (13:15)
--- NOTE | 2017-08-18 13:17 | PDOC.PN ---
- Subjective Encounter Start Date: 08/18/17 Encounter Start Time: 13:16 Subjective: feels a little better.diarrhea is lsowing down w imodium -: no nausea/vomiting/abd pain - Objective MAR Reviewed: Yes Vital Signs & Weight: Vital Signs (12 hours) Temp Pulse Resp BP BP Pulse Ox 08/18/17 12:34 98.9 F 77 16 163/98 H 96 08/18/17 08:28 164/96 H 08/18/17 08:00 98.7 F 78 16 164/86 H 100 08/18/17 04:00 98.8 F 81 16 147/91 H 97 Weight Admit Weight 139 lb Weight 139 lb 5.314 oz Most Recent Monitor Data Heart Rate from ECG 106 NIBP 104/65 NIBP BP-Mean 75 Respiration from ECG 33 SpO2 100 I&O: 08/17/17 08/18/17 08/19/17 06:59 06:59 06:59 Intake Total 1320 1020 Balance 1320 1020 Result Diagrams: 08/18/17 03:45 08/18/17 08:09 Additional Labs: Accuchecks 08/18/17 08/17/17 08/17/17 11:44 19:53 15:31 POC Glucose 238 H 106 164 H Microbiology 08/13/17 09:46 Stool Stool Culture - Final 08/13/17 09:46 Stool Escherichia coli 0157 Culture - Final 08/13/17 09:46 Stool Campylobacter Antigen Assay - Final 08/13/17 09:46 Stool Shiga Toxin Test - Final 08/13/17 09:46 Stool C. difficile GDH Antigen & Toxins - Final 08/12/17 14:41 Stool C. difficile GDH Antigen & Toxins - Final 08/12/17 14:41 Rectum Stool Lactoferrin - Final Laboratory Tests 08/12/17 08/13/17 08/14/17 12:07 04:39 03:45 Creatinine 1.71 H 1.54 H 1.98 H 08/15/17 08/15/17 08/16/17 03:45 08:46 03:55 Creatinine 1.97 H 1.68 H 1.14 H 08/17/17 08/18/17 03:49 03:45 Creatinine 1.24 H 1.57 H Phys Exam - Physical Examination Constitutional: NAD HEENT: PERRLA, moist MMs, sclera anicteric, oral pharynx no lesions Neck: no nodes, no JVD, supple, full ROM Respiratory: no wheezing, no rales, no rhonchi, clear to auscultation bilateral Cardiovascular: RRR, no significant murmur, no rub, gallop Gastrointestinal: soft, non-tender, no distention, positive bowel sounds Musculoskeletal: no edema, pulses present Neurological: non-focal, normal sensation, moves all 4 limbs Psychiatric: normal affect, A&O x 3 Skin: no rash Dx/Plan (1) Hyperglycemia Code(s): R73.9 - HYPERGLYCEMIA, UNSPECIFIED Status: Acute (2) Hyperkalemia Code(s): E87.5 - HYPERKALEMIA Status: Acute (3) SURESH (acute kidney injury) Code(s): N17.9 - ACUTE KIDNEY FAILURE, UNSPECIFIED Status: Acute (4) Gastroenteritis Code(s): K52.9 - NONINFECTIVE GASTROENTERITIS AND COLITIS, UNSPECIFIED Status : Acute Comment: blanca Viral.Stool studies negative.Colonoscopy negative for colitis (5) Chronic back pain Code(s): M54.9 - DORSALGIA, UNSPECIFIED; G89.29 - OTHER CHRONIC PAIN Status: Chronic Qualifiers: Comment: has pain pump in her abdomen (6) DM type 2 (diabetes mellitus, type 2) Status: Chronic Qualifiers: Diabetes mellitus complication status: with unspecified complications Diabetes mellitus senior living insulin use: with senior living use Qualified Code(s) : E11.8 - Type 2 diabetes mellitus with unspecified complications; Z79.4 - MCC (current) use of insulin; Z79.4 - MCC (current) use of insulin; Z79.4 - terminal block assembler (current) use of insulin; Z79.4 - terminal block assembler (current) use of insulin (7) Hypertension Code(s): I10 - ESSENTIAL (PRIMARY) HYPERTENSION Status: Chronic Qualifiers: Hypertension type: essential hypertension (8) Hypertensive urgency Code(s): I16.0 - HYPERTENSIVE URGENCY Status: Resolved - Plan out of bed/ambulate, DVT proph w/SCDs received Levemir this am for high sugars.restart home levemir,cont ISS -: labile diabetes worse w ongoing GI issues.increase IVF to prevent DKA -: cont prn imodium,lomotil.encourage ambulation. -: monitor lytes closely.recheck in am. Potassium has improved w Insulin -: blanca DONATO tomorrow.GI following-appreciate input * . Review of Systems - Review of Systems Constitutional: weakness, malaise. negative: fever, chills, sweats, other ENT: negative: Ear Pain, Ear Discharge, Nose Pain, Nose Discharge, Nose Congestion, Mouth Pain, Mouth Swelling, Throat Pain, Throat Swelling, Other Respiratory: negative: Cough, Dry, Shortness of Breath, Hemoptysis, SOB with Excertion, Pleuritic Pain, Sputum, Wheezing Cardiovascular: negative: chest pain, palpitations, orthopnea, paroxysmal nocturnal dyspnea, edema, light headedness, other Gastrointestinal: negative: Nausea, Vomiting, Abdominal Pain, Diarrhea, Constipation, Melena, Hematochezia, Other Genitourinary: negative: Dysuria, Frequency, Incontinence, Hematuria, Retention , Other Musculoskeletal: negative: Neck Pain, Shoulder Pain, Arm Pain, Back Pain, Hand Pain, Leg Pain, Foot Pain, Other Skin: negative: Rash, Lesions, Pepito, Bruising, Other Neurological: negative: Weakness, Numbness, Incoordination, Change in Speech, Confusion, Seizures, Other - Medications/Allergies Allergies/Adverse Reactions: Allergies Allergy/AdvReac Type Severity Reaction Status Date / Time morphine Allergy Intermediate Rash Verified 08/12/17 05:09 Medications: Current Medications Acetaminophen (Tylenol) 650 mg PO Q4H PRN PRN Reason: Headache/Fever or Pain Last Admin: 08/17/17 21:20 Dose: 650 mg Lipase/Protease/Amylase ([place] [id number]) 4 cap PO QID-WM [facility] Last Admin: 08/18/17 12:26 Dose: 4 cap Aspirin (Ecotrin) 81 mg PO DAILY [facility] Last Admin: 08/18/17 08:28 Dose: 81 mg Cyanocobalamin (Vitamin B-12) 1,000 mcg PO DAILY [facility] Last Admin: 08/18/17 08:28 Dose: 1,000 mcg Dextrose/Water (Dextrose 50%) 25 gm SLOW IVP PRN PRN PRN Reason: Hypoglycemia Diphenoxylate HCl/Atropine (Lomotil) 1 tab PO Q6H PRN PRN Reason: Diarrhea/Loose Stools Docusate Sodium (Colace) 100 mg PO BID [facility] Last Admin: 08/18/17 08:29 Dose: Not Given Duloxetine HCl (Cymbalta) 60 mg PO DAILY [facility] Last Admin: 08/18/17 08:28 Dose: 60 mg Fentanyl (Duragesic) 12 mcg TD Q3D@2100 [facility] Last Admin: 08/16/17 20:53 Dose: 12 mcg Gabapentin (Neurontin) 300 mg PO TID [facility] Last Admin: 08/18/17 08:28 Dose: 300 mg Gabapentin (Neurontin) 300 mg PO Q8H PRN PRN Reason: Pain Glucagon (Glucagon) 1 mg IM PRN PRN PRN Reason: Hypoglycemia Heparin Sodium (Porcine) (Heparin) 5,000 units SC TID [facility] Last Admin: 08/18/17 08:29 Dose: Not Given Hydralazine HCl (Apresoline) 10 mg SLOW IVP Q4H PRN PRN Reason: SBP Greater Than 170 Last Admin: 08/17/17 21:20 Dose: 10 mg Hydrochlorothiazide (Hydrochlorothiazide) 25 mg PO DAILY [facility] Last Admin: 08/18/17 08:28 Dose: 25 mg Dextrose/Water (D5w) 1,000 mls @ 0 mls/hr IV .Q0M PRN; As Directed PRN Reason: Hypoglycemia Sodium Chloride (Normal Saline 0.9%) 1,000 mls @ 125 mls/hr IV .Q8H [facility] Last Admin: 08/18/17 08:29 Dose: Not Given Insulin Detemir (Levemir) 17 units SC QAM [facility] Insulin Human Lispro (Humalog) 0 units SC .MODERATE SLIDING SC PRN PRN Reason: Moderate Correctional Scale Last Admin: 08/18/17 12:26 Dose: 4 unit Lisinopril (Zestril) 40 mg PO DAILY [facility] Last Admin: 08/18/17 08:28 Dose: 40 mg Loperamide HCl (Imodium) 2 mg PO PRN PRN PRN Reason: Diarrhea/Loose Stools Magnesium Hydroxide (Milk Of Magnesium) 30 ml PO DAILYPRN PRN PRN Reason: Constipation Metoprolol Succinate (Toprol Xl) 100 mg PO [facility] Last Admin: 08/17/17 20:17 Dose: 100 mg Ondansetron HCl (Zofran Odt) 4 mg PO Q6H PRN PRN Reason: Nausea/Vomiting Last Admin: 08/17/17 09:44 Dose: 4 mg Ondansetron HCl (Zofran) 4 mg IVP Q6H PRN PRN Reason: Nausea/Vomiting Last Admin: 08/16/17 18:04 Dose: 4 mg Pantoprazole Sodium (Protonix) 40 mg PO QAM-[facility] Last Admin: 08/18/17 08:28 Dose: Not Given Sodium Chloride (Flush - Normal Saline) 10 ml IVF Q12HR [facility] Last Admin: 08/18/17 08:29 Dose: Not Given Sodium Chloride (Flush - Normal Saline) 10 ml IVF PRN PRN PRN Reason: Saline Flush
[2017-08-18] MEDS: Ondansetron HCl/PF 4 MG/2 ML Vial IVP PRN (22:16)
--- NOTE | 2017-08-18 22:41 | PRG ---
DATE OF SERVICE: 08/18/2017 SUBJECTIVE: Ms. Schulte states she only had diarrhea twice yesterday. She wants to have milk in her diet. She states it never given her problem before. MEDICATIONS: Aspirin daily, Colace b.i.d., Cymbalta, gabapentin, fentanyl patch, subcu heparin, hydr ochlorothiazide, hydralazine, insulin, pancreatic enzymes, Zestril, Imodium p.r.n., milk of magnesia p.r.n., metoprolol, Zofran p.r.n., Protonix, normal saline 125 an hour. PHYSICAL EXAMINATION: VITAL SIGNS: Temperature is 98, pulse is 77, blood pressure 164/69, respirations 16. ABDOMEN: Soft, nontender. LABORATORY STUDIES: White count 5.4, hemoglobin 10.2, platelet count 175. Chemistries notable for s odium 132, potassium 4.5, BUN and creatinine are 60 and 1.59, glucose was 529 and was 715 earlier, 23 8 at 11:00. ASSESSMENT: Diarrhea, resolving. RECOMMENDATIONS: 1. Stop IV fluids. 2. Hypertension, still an issue. 3. Severe hyperglycemia is an issue. PLAN: We will change diet to ADA. She can have milk, if she would like to try that. We are going t o stop her IV fluids. Dr. Joseph will follow up on the biopsies as they come back. No further GI inpu t at this time.
[2017-08-19 04:36] LABS: #Lymphocytes 1.3 thou/uL (1.20-3.40); #Monocytes 0.4 thou/uL (0.11-0.59); #Neutrophils 3.6 thou/uL (1.40-6.50); %Basophils 0.4 % (0.0-1.0); %Eosinophils 0.9 % (0.0-10.0); %Lymphocytes 23.8 % (21.0-51.0); %Monocytes 7.7 % (0.0-10.0); %Neutrophils 67.2 % (42.0-75.0); Hemoglobin 11.1 g/dL (12.0-16.0); Mean Corpuscular Hemoglobin 35.8 pg (27.0-31.0); Mean Platelet Volume 9.2 fL (7.4-10.4); Platelet Count 194 thou/uL (130-400); RBC Distribution Width 12.3 % (11.5-14.5); Red Blood Cell (RBC) Count 3.11 mill/uL (4.20-5.40); White Blood Cell (WBC) Count 5.3 thou/uL (4.8-10.8)
[2017-08-19 04:54] LABS: Anion Gap 14 mmol/L (10-20); BUN (Urea Nitrogen) 18 mg/dL (7.0-18.7); Calc. Creatinine Clearance 43 mL/min (70-130); Calcium 8.9 mg/dL (7.8-10.44); Carbon Dioxide 24 mmol/L (22-29); Chloride 100 mmol/L (98-107); Estimated GFR-MDRD 41; Potassium 4.9 mmol/L (3.5-5.1); Sodium 133 mmol/L (136-145)
[2017-08-19 04:58] LABS: Glucose 573 mg/dL (70-105)
[2017-08-19] MEDS: Sodium Chloride 0.9% 1,000 ML IV SCH ×3 (06:35→20:39)
[2017-08-19] MEDS: Docusate 100 MG CAP PO SCH ×2 (08:04→20:35)
[2017-08-19] MEDS: Heparin 5,000 UNITS/ML VIAL SC SCH ×3 (08:05→20:35)
[2017-08-19] MEDS: Lisinopril 20 MG TAB PO SCH (08:07)
[2017-08-19] MEDS: Pancrelipase DR 12000 1 CAP PO SCH ×4 (08:07→20:36)
[2017-08-19] MEDS: Cyanocobalamin (Vitamin B-12) 1,000 MCG TAB PO SCH (08:08)
[2017-08-19] MEDS: Hydrochlorothiazide 25 MG TAB PO SCH (08:08)
[2017-08-19] MEDS: Gabapentin 300 MG CAP PO SCH ×3 (08:08→20:37)
[2017-08-19] MEDS: Aspirin 81 mg Enteric Coated Tablet PO SCH (08:08)
[2017-08-19] MEDS: DULoxetine 60 MG CAP PO SCH (08:08)
[2017-08-19] MEDS: Insulin Detemir 100 UNITS/ML 17 UNITS in Pre-Filled Syringe 1 EACH SC SCH (08:09)
[2017-08-19] MEDS: hydrALAZINE 20 MG/ML VIAL SLOW IVP PRN (08:54)
[2017-08-19] MEDS ORDERED: cloNIDine 0.1 MG TAB PO PRN (08:58)
[2017-08-19] MEDS: Amlodipine 10 MG TAB PO SCH ×2 (11:00→12:00)
[2017-08-19] MEDS: HumaLOG 300 UNITS/3 ML VIAL SC PRN ×3 (12:00→20:39)
--- NOTE | 2017-08-19 13:10 | PRG ---
DATE OF SERVICE: 08/19/2017 SUBJECTIVE: Ms. Schulte noticed her diarrhea is much better. She does not like diabetic diet. Main issue has been persistent hypertension and sugars in the 500-600. PHYSICAL EXAMINATION: VITAL SIGNS: Temperature is 98.5, blood pressure 160/99, respirations 16, pulse 84. ABDOMEN: Soft, nontender. LABORATORY STUDIES: White count is 5.3, hemoglobin 11.1, platelet count 184. Glucose was greater th an 550 at 5 this morning and 488 at 8 this morning. ASSESSMENT AND PLAN: Diarrhea, resolved. Biopsies in the colon pending. Colonoscopy showed no acti ve colitis. Random biopsies were obtained. At this time, we will follow from a distance and check o n her biopsies as her diarrhea seems improved with increasing her pancreatic enzymes and Lomotil p.r. n.
--- NOTE | 2017-08-19 13:21 | PDOC.PN ---
- Subjective Encounter Start Date: 08/19/17 Encounter Start Time: 13:19 Subjective: feels better.no more diarrhea.not using imodium -: nursing reports that she refuses Pancreon ,insulin,protonix - Objective MAR Reviewed: Yes Vital Signs & Weight: Vital Signs (12 hours) Temp Pulse Resp BP BP BP Pulse Ox 08/19/17 12:00 78 160/90 H 08/19/17 11:00 160/90 H 08/19/17 08:54 160/99 H 08/19/17 08:07 160/99 H 08/19/17 08:00 98.5 F 84 16 206/111 H 97 Weight Admit Weight 139 lb Weight 139 lb 5.314 oz Most Recent Monitor Data Heart Rate from ECG 106 NIBP 104/65 NIBP BP-Mean 75 Respiration from ECG 33 SpO2 100 I&O: 08/18/17 08/19/17 08/20/17 06:59 06:59 06:59 Intake Total 1020 3895 240 Balance 1020 3895 240 Result Diagrams: 08/19/17 03:49 08/19/17 03:49 Additional Labs: Accuchecks 08/19/17 08/19/17 08/19/17 11:32 08:04 05:14 POC Glucose 538 H 484 H Greater than 550 H* 08/18/17 08/18/17 08/18/17 21:16 18:08 16:32 POC Glucose 179 H 178 H 53 L* 08/18/17 08/17/17 04:55 04:18 POC Glucose Greater than 550 H* 275 H Microbiology 08/13/17 09:46 Stool Stool Culture - Final 08/13/17 09:46 Stool Escherichia coli 0157 Culture - Final 08/13/17 09:46 Stool Campylobacter Antigen Assay - Final 08/13/17 09:46 Stool Shiga Toxin Test - Final 08/13/17 09:46 Stool C. difficile GDH Antigen & Toxins - Final 08/12/17 14:41 Stool C. difficile GDH Antigen & Toxins - Final 08/12/17 14:41 Rectum Stool Lactoferrin - Final Phys Exam - Physical Examination Constitutional: NAD HEENT: PERRLA, moist MMs, sclera anicteric, oral pharynx no lesions Neck: no nodes, no JVD, supple, full ROM Respiratory: no wheezing, no rales, no rhonchi, clear to auscultation bilateral Cardiovascular: RRR, no significant murmur, no rub, gallop Gastrointestinal: soft, non-tender, no distention, positive bowel sounds Musculoskeletal: no edema, pulses present Neurological: non-focal, normal sensation, moves all 4 limbs Psychiatric: normal affect, A&O x 3 Skin: no rash Dx/Plan (1) Hyperglycemia Code(s): R73.9 - HYPERGLYCEMIA, UNSPECIFIED Status: Acute (2) SURESH (acute kidney injury) Code(s): N17.9 - ACUTE KIDNEY FAILURE, UNSPECIFIED Status: Acute (3) Gastroenteritis Code(s): K52.9 - NONINFECTIVE GASTROENTERITIS AND COLITIS, UNSPECIFIED Status : Acute Comment: blanca Viral.Stool studies negative.Colonoscopy negative for colitis (4) Chronic back pain Code(s): M54.9 - DORSALGIA, UNSPECIFIED; G89.29 - OTHER CHRONIC PAIN Status: Chronic Qualifiers: Comment: has pain pump in her abdomen (5) DM type 2 (diabetes mellitus, type 2) Status: Chronic Qualifiers: Diabetes mellitus complication status: with unspecified complications Diabetes mellitus prison insulin use: with prison use Qualified Code(s) : E11.8 - Type 2 diabetes mellitus with unspecified complications; Z79.4 - USP (current) use of insulin; Z79.4 - associate professor of automation (current) use of insulin; Z79.4 - associate professor of automation (current) use of insulin; Z79.4 - USP (current) use of insulin (6) Hypertension Code(s): I10 - ESSENTIAL (PRIMARY) HYPERTENSION Status: Chronic Qualifiers: Hypertension type: essential hypertension (7) Hypertensive urgency Code(s): I16.0 - HYPERTENSIVE URGENCY Status: Resolved (8) Hyperkalemia Code(s): E87.5 - HYPERKALEMIA Status: Resolved - Plan out of bed/ambulate, DVT proph w/SCDs colonic Bx pending.symptoms better -: DC HCTZ d/t hyponatremia & SURESH.Add Norvasc as BP high -: Pt educated about Insulin use.will add low dose levemir -: reports low AM sugars at home when takes bedtime Humalog -: will monitor. If Blood sugar & BP better,DC home in am * . Review of Systems - Review of Systems Constitutional: weakness. negative: fever, chills, sweats, malaise, other ENT: negative: Ear Pain, Ear Discharge, Nose Pain, Nose Discharge, Nose Congestion, Mouth Pain, Mouth Swelling, Throat Pain, Throat Swelling, Other Respiratory: negative: Cough, Dry, Shortness of Breath, Hemoptysis, SOB with Excertion, Pleuritic Pain, Sputum, Wheezing Cardiovascular: negative: chest pain, palpitations, orthopnea, paroxysmal nocturnal dyspnea, edema, light headedness, other Gastrointestinal: negative: Nausea, Vomiting, Abdominal Pain, Diarrhea, Constipation, Melena, Hematochezia, Other Genitourinary: negative: Dysuria, Frequency, Incontinence, Hematuria, Retention , Other Musculoskeletal: negative: Neck Pain, Shoulder Pain, Arm Pain, Back Pain, Hand Pain, Leg Pain, Foot Pain, Other Skin: negative: Rash, Lesions, Pepito, Bruising, Other Neurological: negative: Weakness, Numbness, Incoordination, Change in Speech, Confusion, Seizures, Other - Medications/Allergies Allergies/Adverse Reactions: Allergies Allergy/AdvReac Type Severity Reaction Status Date / Time morphine Allergy Intermediate Rash Verified 08/12/17 05:09 Medications: Current Medications Acetaminophen (Tylenol) 650 mg PO Q4H PRN PRN Reason: Headache/Fever or Pain Last Admin: 08/17/17 21:20 Dose: 650 mg Amlodipine Besylate (Norvasc) 10 mg PO DAILY [facility] Last Admin: 08/19/17 12:00 Dose: 10 mg Lipase/Protease/Amylase ([place] [id number]) 4 cap PO QID-WM [facility] Last Admin: 08/19/17 08:07 Dose: 4 cap Aspirin (Ecotrin) 81 mg PO DAILY [facility] Last Admin: 08/19/17 08:08 Dose: 81 mg Clonidine (Catapres) 0.1 mg PO Q4H PRN PRN Reason: SBP>160 Cyanocobalamin (Vitamin B-12) 1,000 mcg PO DAILY [facility] Last Admin: 08/19/17 08:08 Dose: 1,000 mcg Dextrose/Water (Dextrose 50%) 25 gm SLOW IVP PRN PRN PRN Reason: Hypoglycemia Diphenoxylate HCl/Atropine (Lomotil) 1 tab PO Q6H PRN PRN Reason: Diarrhea/Loose Stools Docusate Sodium (Colace) 100 mg PO BID [facility] Last Admin: 08/19/17 08:04 Dose: Not Given Duloxetine HCl (Cymbalta) 60 mg PO DAILY [facility] Last Admin: 08/19/17 08:08 Dose: 60 mg Fentanyl (Duragesic) 12 mcg TD Q3D@2100 [facility] Last Admin: 08/16/17 20:53 Dose: 12 mcg Gabapentin (Neurontin) 300 mg PO TID [facility] Last Admin: 08/19/17 08:08 Dose: 300 mg Gabapentin (Neurontin) 300 mg PO Q8H PRN PRN Reason: Pain Glucagon (Glucagon) 1 mg IM PRN PRN PRN Reason: Hypoglycemia Heparin Sodium (Porcine) (Heparin) 5,000 units SC TID [facility] Last Admin: 08/19/17 08:05 Dose: Not Given Hydralazine HCl (Apresoline) 10 mg SLOW IVP Q4H PRN PRN Reason: SBP Greater Than 170 Last Admin: 08/19/17 08:54 Dose: 10 mg Dextrose/Water (D5w) 1,000 mls @ 0 mls/hr IV .Q0M PRN; As Directed PRN Reason: Hypoglycemia Sodium Chloride (Normal Saline 0.9%) 1,000 mls @ 125 mls/hr IV .Q8H [facility] Last Admin: 08/19/17 06:35 Dose: 1,000 mls Insulin Detemir 17 units/ (Miscellaneous Medication) 0.17 mls @ 0 mls/hr [facility] Last Admin: 08/19/17 08:09 Dose: 0.17 mls Insulin Detemir 5 units/ (Miscellaneous Medication) 0.05 mls @ 0 mls/hr SC [facility] PRN Reason: As Directed Insulin Human Lispro (Humalog) 0 units SC .MODERATE SLIDING SC PRN PRN Reason: Moderate Correctional Scale Last Admin: 08/19/17 12:00 Dose: 10 unit Lisinopril (Zestril) 40 mg PO DAILY [facility] Last Admin: 08/19/17 08:07 Dose: 40 mg Loperamide HCl (Imodium) 2 mg PO PRN PRN PRN Reason: Diarrhea/Loose Stools Magnesium Hydroxide (Milk Of Magnesium) 30 ml PO DAILYPRN PRN PRN Reason: Constipation Metoprolol Succinate (Toprol Xl) 100 mg PO [facility] Last Admin: 08/18/17 20:33 Dose: 100 mg Ondansetron HCl (Zofran Odt) 4 mg PO Q6H PRN PRN Reason: Nausea/Vomiting Last Admin: 08/17/17 09:44 Dose: 4 mg Ondansetron HCl (Zofran) 4 mg IVP Q6H PRN PRN Reason: Nausea/Vomiting Last Admin: 08/18/17 22:16 Dose: 4 mg Pantoprazole Sodium (Protonix) 40 mg PO [facility] Last Admin: 08/19/17 08:04 Dose: Not Given Sodium Chloride (Flush - Normal Saline) 10 ml IVF Q12HR [facility] Last Admin: 08/19/17 08:05 Dose: Not Given Sodium Chloride (Flush - Normal Saline) 10 ml IVF PRN PRN PRN Reason: Saline Flush
[2017-08-19] MEDS ORDERED: Insulin Detemir 100 UNITS/ML 8 UNITS in Pre-Filled Syringe 1 EACH SC SCH (21:00)
[2017-08-19] MEDS ORDERED: Insulin Detemir 100 UNITS/ML 5 UNITS in Pre-Filled Syringe SC SCH (21:00)
[2017-08-20] MEDS: Acetaminophen 325 MG TAB PO PRN (02:50)
[2017-08-20 05:11] LABS: Anion Gap 13 mmol/L (10-20); BUN (Urea Nitrogen) 16 mg/dL (7.0-18.7); Calc. Creatinine Clearance 64 mL/min (70-130); Calcium 8.8 mg/dL (7.8-10.44); Carbon Dioxide 24 mmol/L (22-29); Chloride 101 mmol/L (98-107); Estimated GFR-MDRD 65; Glucose 305 mg/dL (70-105); Potassium 4.5 mmol/L (3.5-5.1); Sodium 133 mmol/L (136-145)
[2017-08-20] MEDS: HumaLOG 300 UNITS/3 ML VIAL SC PRN ×2 (05:32→12:52)
[2017-08-20] MEDS: Docusate 100 MG CAP PO SCH (08:57)
[2017-08-20] MEDS: Insulin Detemir 100 UNITS/ML 17 UNITS in Pre-Filled Syringe 1 EACH SC SCH (09:00)
[2017-08-20] MEDS: DULoxetine 60 MG CAP PO SCH (09:00)
[2017-08-20] MEDS: Aspirin 81 mg Enteric Coated Tablet PO SCH (09:00)
[2017-08-20] MEDS: Pancrelipase DR 12000 1 CAP PO SCH ×2 (09:00→12:51)
[2017-08-20] MEDS: Lisinopril 20 MG TAB PO SCH (09:01)
[2017-08-20] MEDS: Sodium Chloride 0.9% 1,000 ML IV SCH ×2 (09:02→15:01)
[2017-08-20] MEDS: Cyanocobalamin (Vitamin B-12) 1,000 MCG TAB PO SCH (09:02)
[2017-08-20] MEDS: Amlodipine 10 MG TAB PO SCH (09:02)
[2017-08-20] MEDS: Gabapentin 300 MG CAP PO SCH ×2 (09:02→14:44)
[2017-08-20] MEDS: Heparin 5,000 UNITS/ML VIAL SC SCH ×2 (09:03→14:45)
--- NOTE | 2017-08-20 13:55 | DIS ---
DATE OF ADMISSION: 08/12/2017 DATE OF DISCHARGE: 08/20/2017 CONDITION AT THE TIME OF DISCHARGE: Stable and improved. DISCHARGE DISPOSITION: Home. PRIMARY CARE PHYSICIAN: Pavan Saldivar D.O. DISCHARGE DIAGNOSES: 1. Gastroenteritis, likely viral. 2. Hyperkalemia. 3. Hyperglycemia associated with diabetes with alternating hypoglycemia. 4. Brittle and labile diabetes. 5. Acute kidney insufficiency, resolved. 6. Chronic back pain on chronic fentanyl patch as well as Dilaudid pump. 7. Hypertension. 8. Hypertensive urgency briefly in the hospital which resolved. DISCHARGE MEDICATIONS: Creon 12,000 units 4 times a day, Duragesic patch 12 mcg every 3 days, Toprol -XL 100 mg at bedtime, lisinopril 40 mg daily, Levemir 17 units in the morning and 5 units in the sathya julio have been added to prevent car wash manager hyperglycemia, Humalog insulin sliding scale as previou sly, Neurontin 300 mg every 8 hours as needed, Nexium 40 mg daily, Cymbalta 60 mg daily, vitamin B12 1000 mcg daily, aspirin 81 mg daily. New medication is amlodipine 10 mg daily. Discontinued medicat ion is hydrochlorothiazide. CONSULTATIONS INHOUSE: Include Gastroenterology, Dr. Zana Joseph and Dr. Schwartz. PROCEDURES DONE IN THE HOSPITAL: 1. CT with dissection protocol which is negative for same, but showed possibility of colitis and pos sible enteritis without evidence of bowel obstruction. CT chest is unremarkable. 2. Colonoscopy which shows tortuous colon secondary to multiple previous abdominal surgeries and div erticulosis, otherwise no evidence of colitis. The biopsy from colonoscopy is unremarkable for large in the rectosigmoid. HISTORY OF PRESENTING ILLNESS: Ms. Schulte is a 47-year-old female with past medical history of diabe hillary, hypertension, history of pancreatitis, chronic pelvic pain with pain pump who presented to the e mergency room with one day history of vomiting and diffuse abdominal pain. Upon presentation, she wa s quite hypertensive with systolic blood pressure in the 230s and diastolic in the 120s. She was adm itted to Critical Care Unit on a nicardipine drip for hypertensive emergency. A CT scan with dissect ion protocol was done given her abdominal pain and vomiting including chest and abdomen which showed possibility of colitis and enteritis. Please see admission history and physical for further details. HOSPITAL COURSE: The patient was seen in the Critical Care Unit by Pulmonary and Critical Care Medic jeffrey. She was transitioned out of the CCU quite quickly on oral medications. Her home medications we re restarted. Gastroenterology was also consulted and their recommendation was to continue her Creon and rest of he r home medications and that the episode is likely gastroenteritis. Stool studies were sent and were negative including C. diff. The patient did not have significant improvement in her symptoms and con tinued to have diarrhea. Because of this, she underwent colonoscopy by Dr. Schwartz in 08/20/2017. Co lonoscopy was unremarkable without evidence of colitis. Now since her stool studies were also negati ve, she was given a trial of Imodium and her diarrhea promptly stopped. By the time of discharge, doug caldwell has not been having any loose stools, even without the use of Imodium. She had episodes of hyperglycemia and hypoglycemia while in the hospital as well as increased blood p ressure on and off delaying her discharge from the hospital. This was eventually all taken care of. She was taken off of hydrochlorothiazide for renal insufficiency and hyponatremia, and was started o n amlodipine, which she tolerated very well. She was also started on low dose of Levemir at bedtime with good results. She was quite hesitant and taking most of the medications while in the hospital i ncluding her insulin and her Creon. A large part of her problem seems to be noncompliance. Eventually, she was back to her baseline. Her blood pressure was controlled. Blood sugars were cont rolled and her diarrhea was controlled and she was being able to be discharged earlier this morning. She was seen and examined prior to discharge. PHYSICAL EXAMINATION: VITAL SIGNS: Include temperature 98.7, pulse of 74, respirations 20, saturating 96% on room air, blo od pressure 151/96. GENERAL: No acute distress, awake, alert, and oriented x3. CHEST: Clear to auscultation without any wheezing, rales or rhonchi. Rhythm is regular without any murmur, rubs or gallops. ABDOMEN: Soft, nontender, and nondistended with positive bowel sounds. LABORATORY DATA: CBC shows hemoglobin 11.1, otherwise unremarkable. Serum chemistry: Sodium 133, o therwise unremarkable. Blood sugar anywhere from 270-400. Beta hydroxybutyrate was normal. She lozano s not have any acidosis or anion gap. Follow with PCP.
[2017-08-20 15:40] VITALS: BP 157/93; TEMP 98.6
--- NOTE | 2017-11-23 15:12 | ADD-OP ---
ADDENDUM DATE OF PROCEDURE: 08/16/2017 PROCEDURE: Colonoscopy with biopsies. PREPROCEDURE DIAGNOSES: 1. 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 2. Admission with acute nausea, vomiting, diarrhea consists with gastritis. CAT scan revealed possi ble colitis. Stool studies were negative. Nausea and vomiting resolved. Diarrhea persists. Colono scopy for persistent diarrhea, possible colitis. POSTPROCEDURE DIAGNOSES: 1. Tortuous colon secondary to multiple previous abdominal surgeries. 2. Diverticulosis coli. 3. Normal colon with no signs of colitis in the right colon. Random biopsies obtained. 4. No evidence of acute colitis in the left colon. Random biopsies obtained. 5. Normal terminal ileum. RECOMMENDATIONS: 1. Resume patient's pancreatic supplements. 2. Lactose-free diet. 3. Discontinue antibiotics. ANESTHESIA: TIVA. PROCEDURE IN DETAIL: After the patient was informed of the risks, benefits, possible complications o f endoscopy including perforation, bleeding, reactions to medication and aspiration, informed consent was obtained. The patient brought to endoscopy suite where she was sedated in standard fashion. On ce she was comfortable, rectal exam was performed, which was normal. Endoscope was advanced through the anal canal through the colon to cecum to the terminal ileum. The ileum was normal. The scope wa s then slowly moved to the colon. No polyps, masses, lesions or inflammation were seen. There was n ormal vascular pattern throughout the colon. There was a slight reticulated pattern because of the l eft colon, biopsy taken from the right and left colon and submitted to Pathology. Retroflexed views in the rectum were normal. The scope was removed. The patient tolerated the procedure well, no comp lications.
== END 2017-08-20 15:34 | disposition home or self-care (01) | DRG 872 ==
LOC: ERS 22:59 → CCU 08-12 04:52 → T4-A 08-12 15:47
PROVIDERS: ADMIT Internal Medicine; ATTEND Internal Medicine
PROC: 0DBG8ZX Excision of Left Large Intestine, Via Natural or Artificial Opening Endoscopic, Diagnostic (ICD-10-PCS; principal; 2017-08-16)
PROC: 0DBF8ZX Excision of Right Large Intestine, Via Natural or Artificial Opening Endoscopic, Diagnostic (ICD-10-PCS; 2017-08-16)
DX: A41.9 Sepsis, unspecified organism (principal); N17.9 Acute kidney failure, unspecified; E87.1 Hypo-osmolality and hyponatremia; E11.65 Type 2 diabetes mellitus with hyperglycemia; I16.1 Hypertensive emergency; A08.4 Viral intestinal infection, unspecified; Z79.4 Long term (current) use of insulin; I10 Essential (primary) hypertension; G89.29 Other chronic pain; R10.2 Pelvic and perineal pain; Z96.89 Presence of other specified functional implants; Z98.890 Other specified postprocedural states; K57.30 Diverticulosis of large intestine without perforation or abscess without bleeding; E87.5 Hyperkalemia; T50.2X5A Adverse effect of carbonic-anhydrase inhibitors, benzothiadiazides and other diuretics, initial encounter; Z90.3 Acquired absence of stomach [part of]; Z90.5 Acquired absence of kidney; Z90.49 Acquired absence of other specified parts of digestive tract; Z88.5 Allergy status to narcotic agent; Z79.82 Long term (current) use of aspirin; M54.9 Dorsalgia, unspecified
CPT/HCPCS: 36415; 36416; 71045; 71275; 80048; 80053; 82010; 82553; 82607; 82746; 83605; 83630; 83690; 84484; 85025; 87045; 87046; 87324; 87449; 87899; 88305; 93005; 96365; 96366; 96375; 96376; A4216; J0360; J1630; J1644; J1815; J1940; J2001; J2405; J2543; J2704; J7050; Q0162

== ENCOUNTER 2018-08-30 13:33 | Emergency (ER) | payer MEDICARE, MEDICAID ==
[~2018-08-30 13:33] MED LIST: ISOVUE-370 76%-LOCM 1 ML ONE
[2018-08-30] MEDS ORDERED: Fentanyl 100 MCG/2 ML VIAL ONE ×2 (14:19→16:53)
[2018-08-30 14:30] LABS: #Lymphocytes 1.3 thou/uL (1.20-3.40); #Monocytes 0.7 thou/uL (0.11-0.59); #Neutrophils 14.7 thou/uL (1.40-6.50); %Basophils 0.2 % (0.0-1.0); %Eosinophils 0.2 % (0.0-10.0); %Lymphocytes 7.5 % (21.0-51.0); %Monocytes 4.4 % (0.0-10.0); %Neutrophils 87.6 % (42.0-75.0); Hemoglobin 14.5 g/dL (12.0-16.0); Mean Corpuscular HGB CONC 31.5 g/dL (32.0-36.0); Mean Corpuscular Hemoglobin 31.2 pg (27.0-31.0); Mean Corpuscular Volume 99.2 fL (78.0-98.0); Mean Platelet Volume 8.5 fL (7.4-10.4); Platelet Count 256 thou/uL (130-400); RBC Distribution Width 13.2 % (11.5-14.5); Red Blood Cell (RBC) Count 4.65 mill/uL (4.20-5.40); White Blood Cell (WBC) Count 16.8 thou/uL (4.8-10.8)
[2018-08-30 14:52] LABS: ALT (SGPT) 38 U/L (8-55); AST (SGOT) 42 U/L (5-34); Alkaline Phosphatase 147 U/L (40-150); Anion Gap 18 mmol/L (10-20); BUN (Urea Nitrogen) 11 mg/dL (7.0-18.7); Bilirubin, Total 0.5 mg/dL (0.2-1.2); Calc. Creatinine Clearance 0 mL/min (70-130); Calcium 9.2 mg/dL (7.8-10.44); Carbon Dioxide 17 mmol/L (22-29); Chloride 104 mmol/L (98-107); Estimated GFR-MDRD 74; Globulin 3.3 g/dL (2.4-3.5); Glucose 220 mg/dL (70-105); Lipase 44 U/L (8-78); Potassium 3.5 mmol/L (3.5-5.1); Protein, Total 7.3 g/dL (6.0-8.3); Sodium 135 mmol/L (136-145)
--- NOTE | 2018-08-30 15:41 | CT ---
CONTRAST ENHANCED CT IMAGES OF THE ABDOMEN AND PELVIS 08/30/18 HISTORY: Abdominal pain . Comparison made to previous exam from 06/16/18. Unfortunately, oral contrast was not given. This significantly decreases the sensitivity for detectio n of pathology. The lung bases are unremarkable. No evidence of free intraperitoneal air seen. There is gas seen in the left hepatic lobe biliary system possibly due to previous biliary surgery. T here is no evidence of definite hepatic parenchymal masses. The gallbladder is not visualized. The pa ncreas is somewhat atrophied with pancreatic ductal dilatation. Some edema is seen surrounding the pa ncreas. Pancreatitis cannot be excluded. Correlate with history. Adrenal glands unremarkable. The kidneys demonstrate no definite evidence of masses. Cortical cysts seen in the mid lower pole of the left kidney. No dilated loops of bowel seen. A large amount of stool seen in the colon. Surgical sourav seen in t he small bowel. There is an epidural type catheter in place. The urinary bladder is distended. IMPRESSION: Limited exam due to the fact that oral contrast was not given. POS: SAUNDRA
[2018-08-30 16:05] LABS: Bilirubin Negative (Negative); Blood, Urine Trace (Negative); Clarity CLEAR (Clear); Glucose, Urine (Dipstick) >=1000 mg/dL (Negative); Leukocyte Negative (Negative); Nitrite Negative (Negative); Protein, Urine (Dipstick) 100 mg/dL (Neg-Trace); Specific Gravity, Urine 1.022 (1.002-1.036); Urobilinogen 0.2 mg/dL (0.2-1.0); pH, Urine 5.5 (5.0-9.0)
[2018-08-30 16:07] LABS: Bacteria/HPF None Seen HPF (None Seen); Hyaline Casts/LPF 0-3 HYALINE CAST LPF (0-3 Hyaline); Pathc Cast-AUWi Flag 0.54 (0-2.49); Pregnancy Test - Urine (BHCG) Negative (Negative); Pregu Control Background? CLEAR/WHITE (CLR/WHITE); Pregu Control Bar Appear? YES (CONTROL BAR); Specific Gravity 1.022 (1.002-1.036); WBC/HPF 0-3 HPF (0-3)
== END 2018-08-30 17:38 | disposition home or self-care (01) ==
LOC: ERS 13:33
DX: R10.84 Generalized abdominal pain (principal); E10.9 Type 1 diabetes mellitus without complications; I10 Essential (primary) hypertension; Z79.82 Long term (current) use of aspirin; Z79.899 Other long term (current) drug therapy
CPT/HCPCS: 36415; 74177; 80053; 81003; 81015; 81025; 83605; 83690; 85025; 93005; 96361; 96374; 96376; J3010; Q9966

== ENCOUNTER 2019-01-28 20:11 | Inpatient (IN) | payer MEDICARE, MEDICAID ==
[2019-01-28] MEDS ORDERED: Promethazine HCl 25 MG/ML VIAL ONE (20:52)
[2019-01-28] MEDS ORDERED: Ketorolac Tromethamine 30 MG/ML VIAL ONE (20:52)
[2019-01-28] MEDS ORDERED: hydrALAZINE 20 MG/ML VIAL ONE (20:52)
[2019-01-28 21:10] LABS: Bilirubin Negative (Negative); Blood, Urine Negative (Negative); Clarity Clear (Clear); Glucose, Urine (Dipstick) Greater than 1000 mg/dL (Negative); Leukocyte Negative Leu/uL (Negative); Nitrite Negative (Negative); Protein, Urine (Dipstick) 50 mg/dL (Neg-Trace); Urobilinogen Normal mg/dL (Less than 2)
[2019-01-28 21:16] LABS: Bacteria/HPF 3+ HPF (None Seen)
[2019-01-28 21:32] LABS: BHCG - Serum Negative (NEGATIVE); Pregs Control Background? CLEAR/WHITE (CLR/WHITE); Pregs Control Bar Appear? YES (CONTROL BAR)
[2019-01-28 22:04] LABS: ALT (SGPT) 30 U/L (8-55); AST (SGOT) 37 U/L (5-34); Albumin 3.9 g/dL (3.5-5.0); Alkaline Phosphatase 97 U/L (40-150); Anion Gap 25 mmol/L (10-20); BUN (Urea Nitrogen) 18 mg/dL (7.0-18.7); Calc. Creatinine Clearance 0 mL/min (70-130); Calcium 9.1 mg/dL (7.8-10.44); Carbon Dioxide 13 mmol/L (22-29); Chloride 104 mmol/L (98-107); Estimated GFR-MDRD 61; Globulin 3.2 g/dL (2.4-3.5); Glucose 365 mg/dL (70-105); Lipase Less than 4 U/L (8-78); Potassium 3.9 mmol/L (3.5-5.1); Protein, Total 7.1 g/dL (6.0-8.3); Sodium 138 mmol/L (136-145)
[2019-01-28 22:45] LABS: #Lymphocytes 0.6 thou/uL (1.20-3.40); #Monocytes 0.2 thou/uL (0.11-0.59); #Neutrophils 7.8 thou/uL (1.40-6.50); %Basophils 0.2 % (0.0-1.0); %Eosinophils 0.3 % (0.0-10.0); %Monocytes 2.8 % (0.0-10.0); %Neutrophils 89.8 % (42.0-75.0); Hemoglobin 13.5 g/dL (12.0-16.0); Mean Corpuscular HGB CONC 32.1 g/dL (32.0-36.0); Mean Corpuscular Hemoglobin 32.3 pg (27.0-31.0); Mean Platelet Volume 9.8 fL (7.4-10.4); Platelet Count 151 thou/uL (130-400); RBC Distribution Width 12.5 % (11.5-14.5); Red Blood Cell (RBC) Count 4.19 mill/uL (4.20-5.40); White Blood Cell (WBC) Count 8.7 thou/uL (4.8-10.8)
[2019-01-28] MEDS ORDERED: Insulin Regular 300 UNITS/3 ML VIAL ONE (22:48)
[2019-01-29] MEDS ORDERED: Labetalol HCl 100 MG/20 ML VIAL ONE (00:43)
[2019-01-29] MEDS ORDERED: Labetalol HCl 100 MG/20 ML VIAL SLOW IVP SCH (00:45)
[2019-01-29] MEDS ORDERED: hydrALAZINE 20 MG/ML VIAL ONE (01:57)
[2019-01-29] MEDS ORDERED: Ondansetron PF 4 MG/2 ML Vial ONE (02:05)
[2019-01-29] MEDS ORDERED: Fentanyl 100 MCG/2 ML VIAL ONE (02:14)
[2019-01-29] MEDS ORDERED: Ondansetron PF 4 MG/2 ML Vial IVP PRN (02:39)
[2019-01-29] MEDS ORDERED: Acetaminophen 325 MG TAB PO PRN (02:39)
[2019-01-29] MEDS ORDERED: Ondansetron ODT 4 MG TAB SL PRN (02:39)
[2019-01-29] MEDS ORDERED: Sodium Chloride 0.9% 1,000 ML IV SCH (02:45)
[2019-01-29 02:52] VITALS: BMI 20.9
[2019-01-29] MEDS ORDERED: Dextrose 5% in Water 1,000 ML IV PRN (03:06)
[2019-01-29] MEDS ORDERED: Dextrose 50% Abboject 50 ML SYRINGE SLOW IVP PRN (03:06)
[2019-01-29] MEDS ORDERED: HumaLOG 300 UNITS/3 ML VIAL SC PRN (03:06)
[2019-01-29] MEDS ORDERED: Ondansetron ODT 4 MG TAB PO PRN (03:06)
[2019-01-29] MEDS ORDERED: Acetaminophen 500 MG TAB PO PRN (03:06)
[2019-01-29] MEDS ORDERED: Fentanyl 100 MCG/2 ML VIAL SLOW IVP PRN (03:07)
[2019-01-29] MEDS ORDERED: tiZANidine HCl 4 MG TAB PO PRN (03:40)
[2019-01-29] MEDS: Sodium Chloride 0.9% 1,000 ML IV SCH ×3 (03:54→20:04)
[2019-01-29] MEDS: cefTRIAXone\\ROCEPHIN 2 GM in Sodium Chloride 0.9% 100 ML IVPB SCH (03:54)
--- NOTE | 2019-01-29 04:52 | HP ---
PRIMARY CARE PROVIDER: [facility]. CHIEF COMPLAINT: Nausea, vomiting, and abdominal pain. HISTORY OF PRESENT ILLNESS: This is a 49-year-old female, who presents to [facility] Emergency Department complaining of persistent generalized abdominal pain with associated back pain and nausea, vomiting, and diarrhea over the last 24 to 48 hours. The patient with multiple admissions for similar exacerbations including gastroparesis and diabetic ketoacidosis. The patient with longstanding diabetes mellitus, type 1, on Lantus and Humalog chronically. The patient states symptoms began somewhat abruptly with persistent abdominal pain, nausea, and vomiting and was unable to take her regular medications and hold them down consistently. The patient states she has been placed on methadone by a physician out of the [facility] for chronic pain, which has been unsuccessful in managing her pain. The patient also admits to taking Reglan on a consistent basis. The patient denied any travel history or family members with similar symptoms and states her last hospitalization was within the last 4 weeks at [facility]. In the emergency room, the patient underwent general evaluation including screening metabolic survey showing evidence of hyperglycemia with ketones in the urine and serum and initially placed on aggressive IV fluids and given 6 units of regular insulin. The patient also received Zofran, fentanyl, hydralazine, labetalol, Toradol, and Phenergan. The patient with labile hypertension throughout her ER course necessitating multiple intermittent dosing with antihypertensives. PAST MEDICAL HISTORY: 1. Diabetes mellitus, type 1. 2. Hypertension, labile. 3. Chronic pain syndrome. 4. History of pancreatitis. 5. Chronic kidney disease, stage 3. PAST SURGICAL HISTORY: 1. Status post bilateral tubal ligation. 2. Status post partial gastrectomy x2. 3. Status post resection of renal mass. 4. Status post partial hysterectomy. CURRENT MEDICATIONS: 1. Trazodone 100 mg p.o. at bedtime. 2. Enteric-coated aspirin 81 mg p.o. daily. 3. Metoprolol succinate 25 mg p.o. daily. 4. Duloxetine 60 mg p.o. daily. 5. Amlodipine 10 mg p.o. daily. 6. Lisinopril 40 mg p.o. daily. 7. Tizanidine 4 mg p.o. daily p.r.n. 8. Nexium 40 mg p.o. daily. ALLERGIES: TO MORPHINE SULFATE. FAMILY HISTORY: Positive for coronary artery disease in her mother. SOCIAL HISTORY: The patient resides in [place], [place]. No current alcohol, tobacco, or illicit drug use. REVIEW OF SYSTEMS: CONSTITUTIONAL: Negative for weight loss or gain, ability to conduct usual activities. SKIN: Negative for rash, itching. EYES: Negative for double vision, pain. ENT/MOUTH: Negative for nose bleeding, neck stiffness, pain, tenderness. CARDIOVASCULAR: Negative for palpitations, dyspnea on exertion, orthopnea. RESPIRATORY: Negative for shortness of breath, wheezing, cough, hemoptysis, fever or night sweats. GASTROINTESTINAL: Negative for poor appetite, abdominal pain, heartburn, nausea, vomiting, constipation, or diarrhea. GENITOURINARY: Negative for urgency, frequency, dysuria, nocturia. MUSCULOSKELETAL: Negative for pain, swelling. NEUROLOGIC/PSYCHIATRIC: Negative for anxiety, depression. ALLERGY/IMMUNOLOGIC: Negative for skin rash, bleeding tendency. Otherwise negative except as stated per HPI. PHYSICAL EXAMINATION: VITAL SIGNS: On admission; blood pressure 156/85, pulse 96, respiratory rate 18, temperature 98.6 degrees Fahrenheit, and O2 saturation 100% on room air. GENERAL APPEARANCE: This is a 49-year-old female, responsive to questions, in moderate distress. HEENT: Pupils are equal, round, and reactive to light and accommodation. Extraocular muscles are intact. No scleral icterus. No conjunctival injection. Nares patent. OP is clear. NECK: Supple. No cervical adenopathy. No thyromegaly. No carotid bruits. No JVD appreciated. Cervical spine with full active and passive range of motion. No meningeal signs noted. CHEST: Lungs are clear to auscultation bilaterally. CARDIOVASCULAR: S1 and S2 without noted murmur, rub, or gallop. ABDOMEN: Rounded with diffuse tenderness to palpation. No palpable mass. Bowel sounds are positive in all 4 quadrants. EXTREMITIES: Warm and dry with fair turgor. No clubbing, cyanosis, or asymmetric edema appreciated. Pulses palpable distally at the dorsalis pedis, posterior tibial, and popliteal arteries bilaterally. Capillary refill less than 2 seconds. NEUROLOGIC: Cranial nerves 2 through 12 are grossly intact. No focal or lateralizing signs appreciated. PERTINENT LAB AND X-RAY FINDINGS: Sodium 138, potassium 3.9, chloride 104, CO2 of 13, anion gap 25, BUN 18, creatinine 1.15, estimated GFR 61, glucose 365, calcium 9.1, total bilirubin 1.0, AST 37, ALT of 30, and alkaline phosphatase 97. Serum beta HCG negative. Lipase less than 4. CBC showed a white blood cell count of 8.7, hemoglobin 13.5, hematocrit 42, MCV 101, and platelet count 151 with 90% neutrophils. Urinalysis; positive for protein, glucose, and ketones. Leukocyte esterase negative. 4 to 6 rbc's per high-powered field and 7 to 10 wbc's per high-powered field. 3+ bacteria. Beta-hydroxybutyrate level 4.77. EKG dated 01/28/2019, by my interpretation shows a sinus mechanism with heart rates in the 80s. Normal R-wave progression noted in the precordial leads. Left axis deviation noted. No acute ST-T wave changes appreciated. ASSESSMENT AND PLAN: 1. Hyperglycemia and diabetes mellitus, type 1. The patient will be admitted to the medical floor. We will continue IV fluids with normal saline at 125 mL/hour. No current evidence to suggest diabetic ketoacidosis. We will continue aggressive fluid hydration and resume home insulin regimen when tolerating p.o. intake. Suspect component of potential urinary tract infection and diabetic gastroparesis. 2. Hypertensive urgency. We will continue hydralazine 20 mg IV q.4 hours p.r.n. systolic greater than or equal to 170. Resume home blood pressure regimen and monitor clinical response. 3. Diabetic gastroparesis. We will continue antiemetics with Zofran 8 mg IV q.6 hours. Reglan 10 mg IV q.6 hours. 4. Urinary tract infection. Suspected given initial urinalysis results. Initiate Rocephin 2 g IV q.24 hours pending final urine culture results. 5. Diabetes mellitus, type 1. Insulin sliding scale for reflexive coverage. ADA diet when tolerating p.o. intake. Serial Accu-Cheks. 6. Chronic pain syndrome. Continue fentanyl 50 mcg IV q.4 hours p.r.n. pain. Resume home regimen, when clinically feasible. 7. Prophylaxis. SCDs while in bed. Pepcid 20 mg IV q.12 hours. CODE STATUS: Full. Surrogate medical decision maker not identified. Job ID: [id number]
[2019-01-29 06:13] LABS: Band 2 % (5-11); Hemoglobin 12.7 g/dL (12.0-16.0); Lymphocytes 1 % (21-51); MDiff Complete? YES; Macrocytosis SLIGHT = 6-15 cells (100X) (0-5/hpf); Mean Corpuscular HGB CONC 31.4 g/dL (32.0-36.0); Mean Corpuscular Hemoglobin 32.7 pg (27.0-31.0); Mean Platelet Volume 10.1 fL (7.4-10.4); Monocytes 1 % (0-10); Neutrophil 96 % (42-75); Platelet Count 164 thou/uL (130-400); Platelet Morphology Comment Appears Adequate; RBC Distribution Width 12.8 % (11.5-14.5); Red Blood Cell (RBC) Count 3.88 mill/uL (4.20-5.40); White Blood Cell (WBC) Count 8.4 thou/uL (4.8-10.8)
[2019-01-29] MEDS: METHadone HCl 10 MG TAB PO SCH ×3 (06:23→22:30)
[2019-01-29] MEDS: Metoclopramide HCl 10 MG/2 ML VIAL IVP SCH ×3 (06:25→17:10)
[2019-01-29] MEDS: HumaLOG 300 UNITS/3 ML VIAL SC PRN ×2 (06:26→12:15)
[2019-01-29] MEDS: hydrALAZINE 20 MG/ML VIAL SLOW IVP PRN (06:47)
[2019-01-29 07:30] LABS: ALT (SGPT) 28 U/L (8-55); AST (SGOT) 26 U/L (5-34); Alkaline Phosphatase 96 U/L (40-150); Anion Gap 22 mmol/L (10-20); BUN (Urea Nitrogen) 10 mg/dL (7.0-18.7); Bilirubin, Total 0.5 mg/dL (0.2-1.2); Calc. Creatinine Clearance 61 mL/min (70-130); Calcium 8.6 mg/dL (7.8-10.44); Carbon Dioxide 16 mmol/L (22-29); Chloride 104 mmol/L (98-107); Estimated GFR-MDRD 72; Globulin 3.1 g/dL (2.4-3.5); Glucose 243 mg/dL (70-105); Potassium 3.2 mmol/L (3.5-5.1); Protein, Total 7.1 g/dL (6.0-8.3); Sodium 139 mmol/L (136-145)
[2019-01-29] MEDS ORDERED: Pancrelipase DR 12000 1 CAP PO SCH (08:00)
[2019-01-29] MEDS: Gabapentin 300 MG CAP PO SCH ×3 (08:04→20:05)
[2019-01-29] MEDS: Lisinopril 20 MG TAB PO SCH (08:05)
[2019-01-29] MEDS: Amlodipine 10 MG TAB PO SCH (08:05)
[2019-01-29] MEDS: DULoxetine 60 MG CAP PO SCH (08:06)
[2019-01-29] MEDS: Famotidine/PF 20 mg/2ml Vial SLOW IVP SCH ×2 (08:06→20:05)
[2019-01-29] MEDS: Aspirin Chewable 81 MG TAB PO SCH (08:06)
[2019-01-29] MEDS: Pancrelipase DR 12000 1 CAP PO SCH ×4 (08:07→16:12)
[2019-01-29] MEDS ORDERED: Aspirin 81 mg Enteric Coated Tablet PO SCH (09:00)
[2019-01-29] MEDS: Ketorolac Tromethamine 30 MG/ML VIAL IVP PRN ×2 (09:00→17:10)
[2019-01-29] MEDS: Ondansetron PF 4 MG/2 ML Vial IVP PRN ×2 (09:00→15:00)
[2019-01-29] MEDS ORDERED: Lisinopril 20 MG TAB PO SCH (09:00)
[2019-01-29] MEDS ORDERED: Amlodipine 10 MG TAB PO SCH (09:00)
[2019-01-29] MEDS ORDERED: DULoxetine 60 MG CAP PO SCH (09:00)
[2019-01-29] MEDS: traZODone HCl 50 MG TAB PO SCH (20:06)
[2019-01-30] MEDS: Metoclopramide HCl 10 MG/2 ML VIAL IVP SCH ×4 (00:47→17:39)
[2019-01-30] MEDS: cefTRIAXone\\ROCEPHIN 2 GM in Sodium Chloride 0.9% 100 ML IVPB SCH (03:53)
[2019-01-30] MEDS: Sodium Chloride 0.9% 1,000 ML IV SCH ×3 (03:53→20:21)
--- NOTE | 2019-01-30 06:15 | PDOC.HOSPP ---
- Subjective Encounter Date: 01/29/19 Encounter Time: 13:00 Subjective: pt up in bed still feels nauseated but able to keep a small amount of lunch down. - Objective Vital Signs & Weight: Vital Signs (12 hours) Temp Pulse Resp BP Pulse Ox 01/30/19 04:00 98.3 F 62 16 94/61 99 01/30/19 00:00 98 F 71 18 120/82 99 01/29/19 20:00 98.3 F 92 16 113/69 99 Weight Admit Weight 122 lb 4 oz Weight 122 lb 4 oz I&O: 01/28/19 01/29/19 01/30/19 06:59 06:59 06:59 Intake Total 575 1000 Balance 575 1000 Result Diagrams: 01/29/19 05:14 01/29/19 06:40 Additional Labs: Accuchecks 01/30/19 01/29/19 01/29/19 04:18 20:45 17:01 POC Glucose 150 H 150 H 126 H 01/29/19 11:35 POC Glucose 273 H ROS - Review of Systems Respiratory: denies: cough, dry, shortness of breath, hemoptysis, SOB with excertion, pleuritic pain, sputum, wheezing, other Cardiovascular: denies: chest pain, palpitations, orthopnea, paroxysmal noc. dyspnea, edema, light headedness, other Gastrointestinal: reports: nausea, vomitting. denies: abdominal pain, diarrhea , constipation, melena, hematochezia, other - Medication Medications: Active Medications Generic Name Dose Route Start Last Admin Trade Name Freq PRN Reason Stop Dose Admin Amlodipine Besylate 10 mg 01/29/19 09:00 01/29/19 08:05 Norvasc PO 10 mg DAILY JULIA Administration Lipase/Protease/Amylase 1 cap 01/29/19 08:00 01/29/19 16:[address] [place] [address] [address] PO Not Given TID-WM JULIA Aspirin 81 mg 01/29/19 09:00 01/29/19 08:06 Aspirin Chewable PO 81 mg DAILY JULIA Administration Duloxetine HCl 60 mg 01/29/19 09:00 01/29/19 08:06 Cymbalta PO 60 mg DAILY JULIA Administration Famotidine 20 mg 01/29/19 09:00 01/29/19 20:05 Pepcid SLOW IVP 20 mg Q12HR JULAI Administration Gabapentin 300 mg 01/29/19 09:00 01/29/19 20:05 Neurontin PO 300 mg TID JULIA Administration Hydralazine HCl 20 mg 01/29/19 03:06 01/29/19 06:47 Apresoline SLOW IVP 20 mg Q4H PRN Administration SBP > 180 and HR < 70 Sodium Chloride 1,000 mls @ 125 mls/hr 01/29/19 03:15 01/30/19 03:53 Normal Saline 0.9% IV 1,000 mls .Q8H JULIA Administration Ceftriaxone Sodium 2 gm/ 100 mls @ 200 mls/hr 01/29/19 04:00 01/30/19 03:53 Sodium Chloride IVPB 100 mls Q24HR JULIA Administration Insulin Human Lispro 0 units 01/29/19 03:06 01/29/19 12:15 Humalog SC 6 unit .MODERATE SLIDING SC PRN Administration Moderate Correctional Scale Ketorolac Tromethamine 30 mg 01/29/19 03:12 01/29/19 17:10 Toradol IVP 02/03/19 03:13 30 mg Q6H PRN Administration Pain Lisinopril 40 mg 01/29/19 09:00 01/29/19 08:05 Zestril PO 40 mg DAILY JULIA Administration Methadone HCl 5 mg 01/29/19 06:00 01/29/19 22:30 Dolophine Hcl PO Not Given Q8HR JULIA Metoclopramide HCl 10 mg 01/29/19 06:00 01/30/19 00:47 Reglan IVP 10 mg Q6HR JULIA Administration Metoprolol Succinate 100 mg 01/29/19 21:00 01/29/19 20:14 Toprol Xl PO 100 mg HS JULIA Administration Metoprolol Succinate 25 mg 01/29/19 09:00 01/29/19 08:05 Toprol Xl PO 25 mg DAILY JULIA Administration Ondansetron HCl 8 mg 01/29/19 03:06 01/29/19 15:00 Zofran IVP 8 mg Q6H PRN Administration Nausea/Vomiting Trazodone HCl 100 mg 01/29/19 21:00 01/29/19 20:06 Desyrel PO 100 mg HS JULIA Administration - Exam Neck: negative: supple, symmetric, no JVD, no thyromegaly, no lymphadenopathy, no carotid bruit, JVD Heart: negative: RRR, no murmur, no gallops, no rubs, normal peripheral pulses, irregular, diminshed peripheral pulses, murmur present, II/IV, III/IV Respiratory: negative: CTAB, no wheezes, no rales, no ronchi, normal chest expansion, no tachypnea, normal percussion, rales, rhonchi, tachypneic, wheezes Hosp A/P (1) Nausea & vomiting Code(s): R11.2 - NAUSEA WITH VOMITING, UNSPECIFIED Status: Acute (2) Hypokalemia Code(s): E87.6 - HYPOKALEMIA Status: Acute (3) Chronic back pain Code(s): M54.9 - DORSALGIA, UNSPECIFIED; G89.29 - OTHER CHRONIC PAIN Status: Chronic (4) Hypertension Code(s): I10 - ESSENTIAL (PRIMARY) HYPERTENSION Status: Chronic Qualifiers: (5) DKA (diabetic ketoacidoses) Code(s): E13.10 - OTH DIABETES MELLITUS WITH KETOACIDOSIS WITHOUT COMA Status : Resolved Qualifiers: (6) UTI (urinary tract infection) Status: Acute - Plan will continue hydration, pt on methadone for chronic pain. she is also on reglan. will continue abx for uti. advance diet as tolerated.
[2019-01-30] MEDS: METHadone HCl 10 MG TAB PO SCH ×3 (06:27→22:09)
[2019-01-30 07:51] LABS: Anion Gap 13 mmol/L (10-20); BUN (Urea Nitrogen) 11 mg/dL (7.0-18.7); Calc. Creatinine Clearance 44 mL/min (70-130); Calcium 8.4 mg/dL (7.8-10.44); Carbon Dioxide 20 mmol/L (22-29); Chloride 108 mmol/L (98-107); Estimated GFR-MDRD 50; Glucose 191 mg/dL (70-105); Potassium 3.5 mmol/L (3.5-5.1); Sodium 137 mmol/L (136-145)
[2019-01-30] MEDS: Famotidine/PF 20 mg/2ml Vial SLOW IVP SCH ×2 (08:04→20:21)
[2019-01-30] MEDS: Ondansetron PF 4 MG/2 ML Vial IVP PRN ×3 (08:05→20:12)
[2019-01-30] MEDS: DULoxetine 60 MG CAP PO SCH (08:09)
[2019-01-30] MEDS: Gabapentin 300 MG CAP PO SCH ×3 (08:09→20:21)
[2019-01-30] MEDS: Lisinopril 20 MG TAB PO SCH (08:09)
[2019-01-30] MEDS: Aspirin Chewable 81 MG TAB PO SCH (08:10)
[2019-01-30] MEDS: Amlodipine 10 MG TAB PO SCH (08:10)
[2019-01-30] MEDS: Pancrelipase DR 12000 1 CAP PO SCH ×3 (08:10→16:51)
--- NOTE | 2019-01-30 10:29 | PDOC.HOSPP ---
- Subjective Encounter Date: 01/30/19 Encounter Time: 10:26 Subjective: Continues to have some generalized abdominal pain and nausea. Unable to take in po's. Reports normal BM's. - Objective Vital Signs & Weight: Vital Signs (12 hours) Temp Pulse Resp BP BP Pulse Ox 01/30/19 08:10 82 01/30/19 08:09 142/81 H 01/30/19 07:43 98.5 F 82 16 210/110 H 100 01/30/19 04:00 98.3 F 62 16 94/61 99 01/30/19 00:00 98 F 71 18 120/82 99 Weight Admit Weight 122 lb 4 oz Weight 122 lb 4 oz I&O: 01/29/19 01/30/19 01/31/19 06:59 06:59 06:59 Intake Total 575 2290 Balance 575 2290 Result Diagrams: 01/29/19 05:14 01/30/19 07:16 Additional Labs: Accuchecks 01/30/19 01/29/19 01/29/19 04:18 20:45 17:01 POC Glucose 150 H 150 H 126 H 01/29/19 11:35 POC Glucose 273 H ROS - Medication Medications: Active Medications Generic Name Dose Route Start Last Admin Trade Name Freq PRN Reason Stop Dose Admin Amlodipine Besylate 10 mg 01/29/19 09:00 01/30/19 08:10 Norvasc PO 10 mg DAILY JULIA Administration Lipase/Protease/Amylase 1 cap 01/29/19 08:00 01/30/19 08:10 [place] [address] PO Not Given TID-WM JULIA Aspirin 81 mg 01/29/19 09:00 01/30/19 08:10 Aspirin Chewable PO 81 mg DAILY JULIA Administration Duloxetine HCl 60 mg 01/29/19 09:00 01/30/19 08:09 Cymbalta PO 60 mg DAILY JULIA Administration Famotidine 20 mg 01/29/19 09:00 01/30/19 08:04 Pepcid SLOW IVP 20 mg Q12HR JULIA Administration Gabapentin 300 mg 01/29/19 09:00 01/30/19 08:09 Neurontin PO 300 mg TID JULIA Administration Hydralazine HCl 20 mg 01/29/19 03:06 01/29/19 06:47 Apresoline SLOW IVP 20 mg Q4H PRN Administration SBP > 180 and HR < 70 Sodium Chloride 1,000 mls @ 125 mls/hr 01/29/19 03:15 01/30/19 08:10 Normal Saline 0.9% IV 1,000 mls .Q8H JULIA Administration Ceftriaxone Sodium 2 gm/ 100 mls @ 200 mls/hr 01/29/19 04:00 01/30/19 03:53 Sodium Chloride IVPB 100 mls Q24HR JULIA Administration Insulin Human Lispro 0 units 01/29/19 03:06 01/29/19 12:15 Humalog SC 6 unit .MODERATE SLIDING SC PRN Administration Moderate Correctional Scale Ketorolac Tromethamine 30 mg 01/29/19 03:12 01/29/19 17:10 Toradol IVP 02/03/19 03:13 30 mg Q6H PRN Administration Pain Lisinopril 40 mg 01/29/19 09:00 01/30/19 08:09 Zestril PO 40 mg DAILY JULIA Administration Methadone HCl 5 mg 01/29/19 06:00 01/30/19 06:27 Dolophine Hcl PO 5 mg Q8HR JULIA Administration Metoclopramide HCl 10 mg 01/29/19 06:00 01/30/19 06:26 Reglan IVP 10 mg Q6HR JULIA Administration Metoprolol Succinate 100 mg 01/29/19 21:00 01/29/19 20:14 Toprol Xl PO 100 mg HS JULIA Administration Metoprolol Succinate 25 mg 01/29/19 09:00 01/30/19 08:10 Toprol Xl PO 25 mg DAILY JULIA Administration Ondansetron HCl 8 mg 01/29/19 03:06 01/30/19 08:05 Zofran IVP 8 mg Q6H PRN Administration Nausea/Vomiting Trazodone HCl 100 mg 01/29/19 21:00 01/29/19 20:06 Desyrel PO 100 mg HS JULIA Administration - Exam NAD, awake alert Heart: RRR, no murmur, no gallops, no rubs, normal peripheral pulses Respiratory: CTAB, no wheezes, no rales, no ronchi, normal chest expansion, no tachypnea, normal percussion Gastrointestinal: soft, normal bowel sounds, no palpable masses, no hepatomegaly , no splenomegaly, no rigidity, tender to palpation Gastrointestinal - other findings: Mild guarding. Neurological: CN's grossly intact, normal sensation to touch, no weakness, no focal deficits, no new deficit Musculoskeletal: normal tone, normal strength, no muscle wasting Psychiatric: normal affect Hosp A/P (1) Nausea & vomiting Code(s): R11.2 - NAUSEA WITH VOMITING, UNSPECIFIED Status: Acute (2) UTI (urinary tract infection) Status: Acute (3) Hyperglycemia Code(s): R73.9 - HYPERGLYCEMIA, UNSPECIFIED Status: Acute (4) Chronic abdominal pain Code(s): R10.9 - UNSPECIFIED ABDOMINAL PAIN; G89.29 - OTHER CHRONIC PAIN Status: Chronic (5) DM type 2 (diabetes mellitus, type 2) Status: Chronic (6) Hypertensive urgency Code(s): I16.0 - HYPERTENSIVE URGENCY Status: Resolved (7) CKD (chronic kidney disease), stage III Code(s): N18.3 - CHRONIC KIDNEY DISEASE, STAGE 3 (MODERATE) Status: Chronic - Plan Hx of prior cystic pancreatic mass with surgery. Subsequent whipple procedure with partial gastrectomy. Reports she had formal testing for gastroparesis at [facility]. She is now one chronic opioids and muscle relaxers. These are likely contributing to the current symptoms. Still symptomatic with presumed gastroparesis. Continue Reglan, IVF. Continue to monitor for constipation. Hx of tortuous colon on scope. Continue IV abx for the UTI. Not ready for po abx yet. Blood sugars ok now. BP ok now. Continue PRN's.
[2019-01-30] MEDS: HumaLOG 300 UNITS/3 ML VIAL SC PRN (11:37)
[2019-01-30] MEDS: hydrALAZINE 20 MG/ML VIAL SLOW IVP PRN (11:40)
[2019-01-30] MEDS: traZODone HCl 50 MG TAB PO SCH (20:22)
[2019-01-31] MEDS: Metoclopramide HCl 10 MG/2 ML VIAL IVP SCH ×3 (00:32→11:20)
[2019-01-31] MEDS: Sodium Chloride 0.9% 1,000 ML IV SCH ×2 (04:35→11:39)
[2019-01-31] MEDS: cefTRIAXone\\ROCEPHIN 2 GM in Sodium Chloride 0.9% 100 ML IVPB SCH (04:38)
[2019-01-31] MEDS: METHadone HCl 10 MG TAB PO SCH ×2 (05:47→14:19)
[2019-01-31 06:18] LABS: Anion Gap 13 mmol/L (10-20); BUN (Urea Nitrogen) 9 mg/dL (7.0-18.7); Calc. Creatinine Clearance 51 mL/min (70-130); Carbon Dioxide 19 mmol/L (22-29); Chloride 109 mmol/L (98-107); Estimated GFR-MDRD 60; Glucose 294 mg/dL (70-105); Potassium 3.7 mmol/L (3.5-5.1); Sodium 137 mmol/L (136-145)
[2019-01-31] MEDS: HumaLOG 300 UNITS/3 ML VIAL SC PRN ×2 (07:05→11:21)
[2019-01-31] MEDS: Famotidine/PF 20 mg/2ml Vial SLOW IVP SCH (08:14)
[2019-01-31] MEDS: DULoxetine 60 MG CAP PO SCH (08:15)
[2019-01-31] MEDS: Lisinopril 20 MG TAB PO SCH (08:16)
[2019-01-31] MEDS: Aspirin Chewable 81 MG TAB PO SCH (08:17)
[2019-01-31] MEDS: Amlodipine 10 MG TAB PO SCH (08:17)
[2019-01-31] MEDS: Pancrelipase DR 12000 1 CAP PO SCH ×3 (08:18→17:13)
[2019-01-31] MEDS: Gabapentin 300 MG CAP PO SCH ×2 (08:18→14:19)
[2019-01-31] MEDS: Ketorolac Tromethamine 30 MG/ML VIAL IVP PRN (17:10)
[2019-01-31 17:20] VITALS: BP 105/68; TEMP 97.6
--- NOTE | 2019-02-01 01:34 | DIS ---
DATE OF ADMISSION: 01/29/2019 DATE OF DISCHARGE: 01/31/2019 DISCHARGE DIAGNOSES: 1. Nausea and vomiting. 2. Gastroparesis. 3. Hyperglycemia. 4. Hypertensive urgency. 5. Urinary tract infection growing Klebsiella pneumoniae. 6. Chronic pain syndrome. 7. History of pancreatic mass requiring a Whipple procedure. HISTORY OF PRESENT ILLNESS: This patient is a 49-year-old female, who has a history of pancreatic lesion that required an initial gastric pylorus sparing surgery with subsequent repeat surgery with a Whipple procedure. The patient is followed at [facility] for this. She also has chronic abdominal pain for which she is on methadone. She reports that she did have a gastric emptying study performed at [facility], which confirmed gastroparesis. She presented to our facility via the emergency department with 24-48 hours of intractable nausea and vomiting along with her generalized abdominal pain. Her workup in the emergency department was notable for glucose of 365. The patient appeared to be clinically dehydrated. She had a normal white count; however, urinalysis showed evidence of infection. Her beta hydroxybutyrate was of 4.77. HOSPITAL COURSE: The patient was admitted to the hospital with elevated blood pressure, nausea, vomiting, hyperglycemia. She was started on aggressive IV fluids, given aggressive insulin coverage, and p.r.n.'s for blood pressure via the IV route given her inability to take p.o. She was also started on antibiotics empirically for what appeared to be urinary tract infection. Over the following couple of days, the patient had significant improvement in her blood pressure and her nausea and vomiting to the point that she was requiring less antiemetic medications and Reglan. She was ultimately on the day of discharge, able to eat and ambulate to the point that she could adequately manage at home. PHYSICAL EXAMINATION: VITAL SIGNS: On the day of discharge, temperature is 98.0, pulse 68, respirations 16, O2 saturation 100%, BP 94/57. GENERAL APPEARANCE: Age-appropriate female. She is in no distress. Awake and alert. HEART: Regular rate and rhythm. LUNGS: Clear bilaterally. ABDOMEN: Mildly diffusely tender, which she indicated was her chronic state. EXTREMITIES: No cyanosis, clubbing, or edema. DISPOSITION: The patient is discharged to home in stable condition. ACTIVITY: As tolerated. DIET: She has no specific dietary restrictions. DISCHARGE MEDICATIONS: She will have a prescription for Bactrim DS one p.o. b.i.d. She will continue her usual home medications includin. Amlodipine. 2. Aspirin. 3. Duloxetine. 4. Gabapentin. 5. Lisinopril. 6. Methadone. 7. Reglan. 8. Metoprolol. 9. Pancrease. 10. Tizanidine. 11. Trazodone. 12. Lantus insulin. FOLLOWUP: She is to follow up at the [facility] as previously she may have had scheduled. Otherwise, she can return to the hospital should she have any problems prior to that time. TIME SPENT: Total time spent in discharge activities including greater than 50% of the time spent [id number] with the patient was 31 minutes. Job ID: [id number]
== END 2019-01-31 18:44 | disposition home or self-care (01) | DRG 74 ==
LOC: ERS 20:11 → T4-A 23:45 → OBSVTOIN 01-29 02:56
PROVIDERS: ADMIT Family Medicine; ATTEND Family Medicine
DX: E10.43 Type 1 diabetes mellitus with diabetic autonomic (poly)neuropathy (principal); N39.0 Urinary tract infection, site not specified; E10.65 Type 1 diabetes mellitus with hyperglycemia; I12.9 Hypertensive chronic kidney disease with stage 1 through stage 4 chronic kidney disease, or unspecified chronic kidney disease; N18.3 Chronic kidney disease, stage 3 (moderate); I16.0 Hypertensive urgency; K31.84 Gastroparesis; E87.6 Hypokalemia; B96.1 Klebsiella pneumoniae [K. pneumoniae] as the cause of diseases classified elsewhere; Z90.711 Acquired absence of uterus with remaining cervical stump; Z98.51 Tubal ligation status; Z88.2 Allergy status to sulfonamides; E10.22 Type 1 diabetes mellitus with diabetic chronic kidney disease; Z79.82 Long term (current) use of aspirin; Z90.3 Acquired absence of stomach [part of]; Z79.899 Other long term (current) drug therapy; G89.4 Chronic pain syndrome; E86.0 Dehydration
CPT/HCPCS: 36415; 36416; 80048; 80053; 81003; 81015; 82010; 83690; 84703; 85007; 85025; 85027; 87077; 87086; 87186; 93005; J0360; J0696; J1815; J1885; J2405; J2550; J2765; J3010; J3490; S0028

== ENCOUNTER 2019-02-01 23:29 | Inpatient (IN) | payer MEDICARE, MEDICAID ==
[2019-02-02] MEDS ORDERED: Ondansetron PF 4 MG/2 ML Vial ONE (00:02)
--- NOTE | 2019-02-02 00:18 | RAD ---
RADIOGRAPH CHEST 1 VIEW: DATE: 02/01/2019 11:58 PM HISTORY: 49-year-old female with chest pain and hyperglycemia FINDINGS: There are no airspace densities, pulmonary edema, pneumothorax, or cardiomegaly. The lateral costophr enic angles are sharp. IMPRESSION: No acute cardiopulmonary findings.
[2019-02-02 00:32] LABS: Hemoglobin 11.1 g/dL (12.0-16.0); Mean Corpuscular HGB CONC 30.5 g/dL (32.0-36.0); Mean Corpuscular Hemoglobin 33.3 pg (27.0-31.0); Mean Platelet Volume 9.5 fL (7.4-10.4); Platelet Count 173 thou/uL (130-400); RBC Distribution Width 12.3 % (11.5-14.5); Red Blood Cell (RBC) Count 3.34 mill/uL (4.20-5.40); White Blood Cell (WBC) Count 14.4 thou/uL (4.8-10.8)
[2019-02-02 00:43] LABS: #Lymphocytes 0.5 thou/uL (1.20-3.40); #Monocytes 0.7 thou/uL (0.11-0.59); #Neutrophils 13.2 thou/uL (1.40-6.50); %Eosinophils 0.1 % (0.0-10.0); %Lymphocytes 3.7 % (21.0-51.0); %Monocytes 4.7 % (0.0-10.0); %Neutrophils 91.5 % (42.0-75.0); MDiff Complete? YES; Macrocytosis SLIGHT = 6-15 cells (100X) (0-5/hpf)
[2019-02-02 00:50] LABS: ALT (SGPT) 29 U/L (8-55); AST (SGOT) 20 U/L (5-34); Alkaline Phosphatase 72 U/L (40-150); Anion Gap 30 mmol/L (10-20); BUN (Urea Nitrogen) 33 mg/dL (7.0-18.7); Bilirubin, Total 0.2 mg/dL (0.2-1.2); Calc. Creatinine Clearance 0 mL/min (70-130); Calcium 8.4 mg/dL (7.8-10.44); Carbon Dioxide 9 mmol/L (22-29); Chloride 105 mmol/L (98-107); Estimated GFR-MDRD 21; Globulin 2.1 g/dL (2.4-3.5); Glucose 622 mg/dL (70-105); Lipase Less than 4 U/L (8-78); Magnesium 2.6 mg/dL (1.6-2.6); Potassium 5.2 mmol/L (3.5-5.1); Protein, Total 5.1 g/dL (6.0-8.3); Sodium 139 mmol/L (136-145)
[2019-02-02] MEDS ORDERED: cefTRIAXone\\ROCEPHIN 1 GM VIAL ONE (01:14)
[2019-02-02 01:50] LABS: Actual Bicarbonate (HCO3v) 8 mEq/L (22-28); Analyzer IN Cardio ER; Base Excess -23.1 mEq/L (-2.0 to +3.0); Calcium, Ionized 1.21 mmol/L (1.16-1.32); Chloride (ABG LAB) 101 mmol/L (98-106); Hemoglobin (Hb) 11.1 g/dL (11.7-16.0); Potassium - ABG Lab 4.53 mmol/L (3.70-5.30); Sodium 136.2 mmol/L (133-146)
[2019-02-02] MEDS ORDERED: Acetaminophen 650 MG Suppository PR PRN (02:38)
[2019-02-02] MEDS ORDERED: Ondansetron ODT 4 MG TAB PO PRN (02:38)
[2019-02-02] MEDS ORDERED: NS 0.9% w/ 20 MEQ KCL 1,000 ML IV PRN ×2 (02:38)
[2019-02-02] MEDS ORDERED: Dextrose 5 %-0.45 % NaCl 1,000 ML IV PRN (02:38)
[2019-02-02] MEDS ORDERED: Acetaminophen 325 MG TAB PO PRN (02:38)
[2019-02-02] MEDS ORDERED: Sodium Chloride 0.9% 1,000 ML IV PRN ×4 (02:38)
[2019-02-02] MEDS ORDERED: CCU Electrolyte Replacement 1 EACH IVPB ONE (02:38)
[2019-02-02] MEDS ORDERED: Ondansetron PF 4 MG/2 ML Vial IVP PRN (02:38)
[2019-02-02] MEDS ORDERED: Magnesium Oxide 400 MG TAB PO PRN ×2 (02:45)
[2019-02-02] MEDS ORDERED: Magnesium 2 GM/50 ML 2 GM in Premix Bag 1 BAG IVPB PRN (02:45)
[2019-02-02] MEDS ORDERED: Potassium Phosphate 12 MMOL in Sodium Chloride 0.9% 250 ML 250 ML IV PRN (02:45)
[2019-02-02] MEDS ORDERED: Potassium Chloride 40 MEQ in Premix Bag 1 BAG IVPB PRN (02:45)
[2019-02-02] MEDS ORDERED: CCU ELECTROLYTE REPLACEMENT PROTOCOL FS PRN (02:45)
[2019-02-02] MEDS ORDERED: Potassium Chloride 20 MEQ TAB PO PRN (02:45)
[2019-02-02] MEDS ORDERED: Potassium Phosphate 9 MMOL in Sodium Chloride 0.9% 100 ML IVPB PRN (02:45)
[2019-02-02] MEDS ORDERED: Potassium Chloride 40 MEQ in Sodium Chloride 0.9% 250 ML 250 ML IVPB PRN (02:45)
[2019-02-02] MEDS ORDERED: PHOS-NAK 1 PKT PACK PO PRN ×2 (02:45)
[2019-02-02] MEDS ORDERED: Potassium Phosphate 15 MMOL in Sodium Chloride 0.9% 250 ML 250 ML IV PRN (02:45)
[2019-02-02] MEDS ORDERED: HUMULIN R 100 UNITS in Sodium Chloride 0.9% 100 ML IVPB SCH (03:00)
[2019-02-02 03:18] LABS: Actual Bicarbonate (HCO3a) 6.5 mEq/L (22-28); Base Excess (BEa) -20.8 mEq/L (-2.0 to +3.0); Calcium, Ionized 1.22 mmol/L (1.12-1.30); Carboxyhemoglobin (COHb) 0.1 gm% (0.0-3.0); Hemoglobin (Hb) 11.3 g/dL (12.0-16.0); O2 Tension (PaO2) 115.6 mmHg (80.0-100.0); Potassium - ABG Lab 4.02 mmol/L (3.70-5.30)
[2019-02-02 03:20] LABS: CO2 Tension 19.8 mmHg (35.0-45.0); Puncture Site R BRACHIAL; pH, Arterial 7.13 (7.35-7.45)
[2019-02-02 03:30] VITALS: BMI 23.6
[2019-02-02 04:03] LABS: #Lymphocytes 0.7 thou/uL (1.20-3.40); #Monocytes 0.6 thou/uL (0.11-0.59); #Neutrophils 11.7 thou/uL (1.40-6.50); %Eosinophils 0.2 % (0.0-10.0); %Lymphocytes 5.3 % (21.0-51.0); %Monocytes 4.8 % (0.0-10.0); %Neutrophils 89.8 % (42.0-75.0); Hemoglobin 11.5 g/dL (12.0-16.0); Mean Corpuscular HGB CONC 31.7 g/dL (32.0-36.0); Mean Corpuscular Hemoglobin 33.7 pg (27.0-31.0); Mean Platelet Volume 9.2 fL (7.4-10.4); Platelet Count 181 thou/uL (130-400); RBC Distribution Width 12.4 % (11.5-14.5); Red Blood Cell (RBC) Count 3.43 mill/uL (4.20-5.40); White Blood Cell (WBC) Count 13.1 thou/uL (4.8-10.8)
[2019-02-02 04:22] LABS: BUN (Urea Nitrogen) 30 mg/dL (7.0-18.7); Calc. Creatinine Clearance 28 mL/min (70-130); Calcium 7.7 mg/dL (7.8-10.44); Chloride 107 mmol/L (98-107); Estimated GFR-MDRD 26; Glucose 452 mg/dL (70-105); Potassium 3.7 mmol/L (3.5-5.1); Sodium 136 mmol/L (136-145)
[2019-02-02 04:31] LABS: Carbon Dioxide Less than 8 mmol/L (22-29)
[2019-02-02 04:38] LABS: pH (venous) 6.94 (7.32-7.43)
--- NOTE | 2019-02-02 06:51 | HP ---
PRIMARY CARE DOCTOR: Dr. Toma Farmer. CODE STATUS: Full code. TIME OF EVALUATION: 2:50 a.m. CHIEF COMPLAINT: Generalized weakness and hyperglycemia. HISTORY OF PRESENT ILLNESS: A 49-year-old female patient with past medical history of poorly controlled diabetes. The patient recently discharged from the hospital for DKA. She came today. The patient reported having no refills of her home medications and not getting insulin and all along the patient reported having generalized weakness. The patient as noted was treated for UTI in the last admissions. The symptoms are severe, likely triggered by noncompliance. No alleviating factors. The patient also has associated polyuria and polydipsia. REVIEW OF SYSTEMS: All systems were reviewed and negative except for the findings mentioned in the HPI. PAST MEDICAL HISTORY: The patient has a history of diabetes type 1, hypertension, and pancreatitis. SURGICAL HISTORY: Tubal ligation, gastrectomy in 2008, removal of the kidney in 2005 and pancreas in 2007, gastric resections x2 in 2011, tubal ligation, Whipple procedure in 2007. PSYCHIATRIC HISTORY: No previous psych history. SOCIAL HISTORY: The patient lives at home with family. No alcohol. No drugs. No smoking history. FAMILY HISTORY: Noncontributory to current presentation. KNOWN ALLERGIES: Morphine. REPORTED MEDICATIONS: 1. Trazodone. 2. . 3. Aspirin. 4. Metoprolol. 5. Duloxetine. 6. Amlodipine. 7. Lisinopril. 8. Tizanidine. 9. Nexium. PHYSICAL EXAMINATION: VITAL SIGNS: On presentation, blood pressure 102/59 with heart rate 93, respiratory rate 20, temperature 98.9, pain was 10/10, oxygen saturation was 99% on room air. GENERAL APPEARANCE: The patient is lethargic, dehydrated with mild change in mental status, though she can answer simple questions. HEENT: Eyes; normal, dry conjunctivae, anicteric. No JVD, home. RESPIRATORY: The patient has bilateral lung sounds with no rales, no wheezing. CARDIOVASCULAR: The patient is tachycardic, normotensive. No murmurs. No gallops. No edema. ABDOMEN: Soft. Normal bowel sounds. MUSCULOSKELETAL: Baseline range of motion, no tenderness. Perfusion seems to be intact. NEUROLOGIC: No evidence of any new focal weakness. Cranial nerves seem to be intact. The patient has some encephalopathic changes, likely secondary to hyperglycemia. PSYCH: Unable to fully explore. The patient is lethargic, able to resolve simple questions, seems to be coherent. LABORATORY DATA: EKG was reviewed. The patient has normal sinus rhythm with a rate of 84. No significant changes from previous EKG. Prolonged QT of 503. Cardiology, chest x-ray was negative. Chest x-ray, no acute cardiopulmonary findings. Labs were reviewed. The patient has white count of 13.1, hemoglobin 11.5, MCV 106, platelet count 181. Blood gas, the patient has pH of 7.13 with pCO2 of 19.8, pO2 of 115. Chemistry; sodium 136, potassium 3.7, chloride 107, carbon dioxide was less than 8, anion gap 30, BUN 30, creatinine 2.43, GFR 26, glucose 452 and the repeat one of 401, calcium 7.7, magnesium 2.6. LFTs were normal. Troponin was negative. Beta hydroxybutyrate 11.65. ASSESSMENT AND PLAN: The patient will be placed in the hospital with the following medical problems; 1. Diabetic ketoacidosis. The patient was noncompliant, went home and took no medication, and returned on johanny diabetic ketoacidosis. Initial pH was 6.9, after initial fluid resuscitation pH came up to 7.13. We will continue with diabetic ketoacidosis protocol. Pulmonary will be consulted and will follow recommendations. 2. History of urinary tract infection. The patient has been started on antibiotics. We will continue for now. 3. Leukocytosis. This is most likely secondary to dehydration instead from infection. There are no other significant symptoms or signs of sepsis being the trigger for diabetic ketoacidosis, but noncompliance. 4. Acute kidney injury. The patient has a creatinine 2.43 and in previous admission was 1.17. We will hydrate aggressively and monitor kidney function. If not improving, might need Nephrology for optimal control. 5. Controlled hypertension, we will reconcile home medications and adjust treatment as needed. 6. History of pancreatitis, this is chronic. Does not seem to be playing a rule at this point. 7. Deep venous thrombosis prophylaxis. 8. Acute encephalopathy, secondary to metabolic etiology. We will treat the underlying condition. Job ID: [id number] [facility]
[2019-02-02 07:27] LABS: Anion Gap 19 mmol/L (10-20); BUN (Urea Nitrogen) 30 mg/dL (7.0-18.7); Calc. Creatinine Clearance 30 mL/min (70-130); Calcium 7.8 mg/dL (7.8-10.44); Carbon Dioxide 12 mmol/L (22-29); Chloride 111 mmol/L (98-107); Estimated GFR-MDRD 28; Glucose 294 mg/dL (70-105); Potassium 3.5 mmol/L (3.5-5.1); Sodium 138 mmol/L (136-145)
[2019-02-02] MEDS: Enoxaparin Sodium 30 MG/0.3 ML SYRINGE SC SCH (08:55)
[2019-02-02] MEDS ORDERED: Dextrose 5% in Water 1,000 ML IV PRN (09:03)
[2019-02-02] MEDS ORDERED: Dextrose 50% Abboject 50 ML SYRINGE SLOW IVP PRN (09:03)
--- NOTE | 2019-02-02 09:29 | CON ---
DATE OF CONSULTATION: HISTORY OF PRESENT ILLNESS: She is a patient with uncontrolled diabetes and chronic pain, who presented last night to the ER once again with similar problems, found to have an elevated blood sugar. She was started on insulin drip. She was sick. She normally takes 10 units of Lantus insulin, which apparently she did not take. Severe abdominal pain she has had for chronic pancreatitis. Denies any nausea, vomiting. Presented to the ICU. She is somewhat encephalopathic, though she was arousable. Appears to give appropriate history. PAST MEDICAL HISTORY: Pertinent for diabetes, hypertension, pancreatitis. PREVIOUS SURGERY: Tubal ligation, gastrectomy, some kind of a tumor removed in the kidney 2005, pancreatic surgery 2007, gastric resection, Whipple procedure done apparently elsewhere. SOCIAL HISTORY: No alcohol, tobacco, or drug abuse. HOME MEDICATION: 1. Trazodone 100. 2. Haloperidol 5 mg p.r.n. 3. Aspirin 81. 4. Metoprolol 25. 5. Duloxetine 60. 6. Amlodipine 10. 7. Lisinopril 40. 8. Tizanidine 4 mg. 9. Nexium 40. 10. Lantus 10 units. ALLERGIES: MORPHINE. REVIEW OF SYSTEMS: Otherwise 10-point negative. Lethargic, but arousable. PHYSICAL EXAMINATION: VITAL SIGNS: Pulse 88, blood pressure 132/80, saturations 100%, respirations 18. CHEST: No wheezing, crackles. CARDIAC: Normal S1, S2. No gallops. ABDOMEN: No masses. LABORATORY DATA: X-ray was normal. Glucose this morning is 222, creatinine 2.9, bicarb is 12, chloride 111, and anion gap is 19. White count is 13,000, H and H 11 and 36, platelet count 181. Admission pH is 7.13. IMPRESSION: 1. Uncontrolled diabetes. 2. Pancreatitis. 3. Renal failure. 4. Chronic pain syndrome. PLAN: I agree with present treatment. I have reinstituted home Lantus. Avoid pain medication as much as possible. PT, supportive care, nutrition. Continue diabetic protocol. Wean insulin as tolerated. This is a critical care note in the ICU, 45 minutes. We will follow. Job ID: [id number]
[2019-02-02] MEDS ORDERED: Insulin Glargine 10 UNITS in Pre-Filled Syringe 1 EACH SC SCH (10:45)
[2019-02-02 12:18] LABS: Anion Gap 12 mmol/L (10-20); BUN (Urea Nitrogen) 28 mg/dL (7.0-18.7); Calc. Creatinine Clearance 35 mL/min (70-130); Calcium 7.6 mg/dL (7.8-10.44); Carbon Dioxide 18 mmol/L (22-29); Chloride 116 mmol/L (98-107); Estimated GFR-MDRD 33; Glucose 120 mg/dL (70-105); Potassium 3.5 mmol/L (3.5-5.1); Sodium 142 mmol/L (136-145)
[2019-02-02] MEDS: D5 1/2 NS w/20 mEq KCL 1,000 ML IV PRN ×3 (14:03→23:14)
[2019-02-02] MEDS: Insulin Regular 300 UNITS/3 ML VIAL SC PRN ×2 (20:18→23:48)
--- NOTE | 2019-02-02 22:21 | PDOC.HOSPP ---
- Subjective Subjective: Still somnolent. She will come fully awake when aggressively awakened. Nurse reports she has normal cognition at that time. She denies complaints. - Objective Vital Signs & Weight: Vital Signs (12 hours) Temp Pulse Ox 02/02/19 20:00 100 02/02/19 19:00 97.6 F 02/02/19 16:00 97.9 F 100 02/02/19 11:00 98.1 F Weight Weight 137 lb 12.623 oz Most Recent Monitor Data Heart Rate from ECG 81 NIBP 125/81 NIBP BP-Mean 95 Respiration from ECG 6 SpO2 100 I&O: 02/01/19 02/02/19 02/03/19 06:59 06:59 06:59 Intake Total 518.4 3490 Output Total 0 935 Balance 518.4 2555 Result Diagrams: 02/02/19 03:48 02/02/19 11:30 Additional Labs: Accuchecks 02/02/19 02/02/19 02/02/19 12:45 11:32 10:13 POC Glucose 121 H 111 H 141 H 02/02/19 02/02/19 02/02/19 08:43 06:23 05:29 POC Glucose 222 H 336 H 393 H 02/02/19 02/02/19 02/02/19 04:09 02:52 02:23 POC Glucose 401 H 427 H 410 H ROS - Medication Medications: Active Medications Generic Name Dose Route Start Last Admin Trade Name Freq PRN Reason Stop Dose Admin Enoxaparin Sodium 30 mg 02/02/19 09:00 02/02/19 08:55 Lovenox SC 30 mg 0900 JULIA Administration Potassium Chloride/Dextrose/Sod Cl 1,000 mls @ 250 mls/hr 02/02/19 02:38 18:27 D5 1/2 Ns W/20 Meq Kcl IV 1,000 mls .Q4H PRN Administration Step 4 of DKA Protocol Protocol Insulin Human Regular 100 101 mls @ 0 mls/hr 02/02/19 03:00 02/02/19 03:17 units/ Sodium Chloride IVPB 101 mls INF JULIA Administration Protocol Titrate Potassium Chloride 40 meq/ 270 mls @ 135 mls/hr 02/02/19 02:45 02/02/19 12:56 Sodium Chloride IVPB 270 mls ASDIR PRN Administration FOR SERUM K+ 2.5 - 3.5 Insulin Human Regular 0 units 02/02/19 09:03 02/02/19 20:18 Humulin R SC 2 unit .MODERATE SLIDING SC PRN Administration Moderate Correctional Scale Sodium Chloride 10 ml 02/02/19 21:00 02/02/19 20:19 Flush - Normal Saline IVF 10 ml Q12HR JULIA Administration - Exam ENT: normocephalic atraumatic, no oropharyngeal lesions, moist mucosa Neck: supple, symmetric, no JVD, no thyromegaly, no lymphadenopathy, no carotid bruit Heart: RRR, no murmur, no gallops, no rubs, normal peripheral pulses Respiratory: CTAB, no wheezes, no rales, no ronchi, normal chest expansion, no tachypnea, normal percussion Gastrointestinal: soft, non-distended, normal bowel sounds Extremities: no cyanosis, no clubbing, no edema Skin: normal turgor Neurological: CN's grossly intact Hosp A/P (1) SURESH (acute kidney injury) Code(s): N17.9 - ACUTE KIDNEY FAILURE, UNSPECIFIED Status: Acute (2) Nausea & vomiting Code(s): R11.2 - NAUSEA WITH VOMITING, UNSPECIFIED Status: Acute (3) CKD (chronic kidney disease), stage III Code(s): N18.3 - CHRONIC KIDNEY DISEASE, STAGE 3 (MODERATE) Status: Chronic (4) Chronic abdominal pain Code(s): R10.9 - UNSPECIFIED ABDOMINAL PAIN; G89.29 - OTHER CHRONIC PAIN Status: Chronic (5) DM type 2 (diabetes mellitus, type 2) Status: Chronic (6) Hypertension Code(s): I10 - ESSENTIAL (PRIMARY) HYPERTENSION Status: Chronic Qualifiers: (7) DKA (diabetic ketoacidoses) Code(s): E13.10 - OTH DIABETES MELLITUS WITH KETOACIDOSIS WITHOUT COMA Status : Resolved Qualifiers: - Plan Continue DKA protocol. Anion gap has closed. Will be able to move out of CCu when she is more awake. Renal function continues to improve.
[2019-02-03] MEDS: D5 1/2 NS w/20 mEq KCL 1,000 ML IV PRN (02:08)
[2019-02-03 04:47] LABS: Anion Gap 10 mmol/L (10-20); BUN (Urea Nitrogen) 23 mg/dL (7.0-18.7); Calc. Creatinine Clearance 45 mL/min (70-130); Calcium 7.8 mg/dL (7.8-10.44); Carbon Dioxide 17 mmol/L (22-29); Chloride 114 mmol/L (98-107); Estimated GFR-MDRD 45; Glucose 261 mg/dL (70-105); Potassium 4.7 mmol/L (3.5-5.1); Sodium 136 mmol/L (136-145)
[2019-02-03] MEDS: Insulin Regular 300 UNITS/3 ML VIAL SC PRN (05:10)
[2019-02-03] MEDS ORDERED: Insulin Glargine 10 UNITS in Pre-Filled Syringe 1 EACH SC SCH (08:00)
[2019-02-03] MEDS: Enoxaparin Sodium 30 MG/0.3 ML SYRINGE SC SCH (08:44)
[2019-02-03] MEDS: Insulin Glargine 10 UNITS in Pre-Filled Syringe 1 EACH SC SCH (10:05)
[2019-02-03] MEDS ORDERED: Gabapentin 300 MG CAP PO SCH (10:15)
[2019-02-03] MEDS: Promethazine HCl 12.5 MG in Sodium Chloride 0.9% 50 ML IVPB PRN ×2 (12:02→23:06)
[2019-02-03] MEDS: METHadone HCl 10 MG TAB PO SCH ×3 (12:10→20:15)
[2019-02-03] MEDS ORDERED: hydrALAZINE 20 MG/ML VIAL SLOW IVP PRN (12:51)
[2019-02-03] MEDS ORDERED: Labetalol HCl 100 MG/20 ML VIAL SLOW IVP PRN (12:52)
[2019-02-03] MEDS ORDERED: Amlodipine 10 MG TAB PO SCH (13:00)
[2019-02-03] MEDS ORDERED: Lisinopril 20 MG TAB PO SCH (13:00)
[2019-02-03] MEDS: Gabapentin 300 MG CAP PO SCH ×2 (15:02→20:15)
--- NOTE | 2019-02-03 15:35 | PDOC.HOSPP ---
- Subjective Subjective: Says she hurts all over. Not just her abd. Has had some nausea this morning. Vomited, but subsequently was able to eat some. - Objective Vital Signs & Weight: Vital Signs (12 hours) Temp Pulse BP Pulse Ox 02/03/19 14:23 85 201/113 H 02/03/19 13:32 90 208/109 H 02/03/19 13:22 85 198/116 H 02/03/19 12:00 98.9 F 02/03/19 08:00 98.4 F 02/03/19 07:55 100 Weight Weight 137 lb 12.623 oz Most Recent Monitor Data Heart Rate from ECG 79 NIBP 182/116 NIBP BP-Mean 138 Respiration from ECG 18 SpO2 98 I&O: 02/02/19 02/03/19 02/04/19 06:59 06:59 06:59 Intake Total 518.4 6290 580 Output Total 0 1215 720 Balance 518.4 5075 -140 Result Diagrams: 02/02/19 03:48 02/03/19 04:00 Additional Labs: Accuchecks 02/03/19 02/03/19 02/03/19 13:09 08:28 03:56 POC Glucose 104 116 H 189 H 02/02/19 02/02/19 02/02/19 23:47 20:10 16:34 POC Glucose 193 H 168 H 122 H 02/02/19 13:57 POC Glucose 106 ROS - Medication Medications: Active Medications Generic Name Dose Route Start Last Admin Trade Name Freq PRN Reason Stop Dose Admin Enoxaparin Sodium 30 mg 02/02/19 09:00 02/03/19 08:44 Lovenox SC 30 mg 0900 JULIA Administration Gabapentin 300 mg 02/03/19 15:00 02/03/19 15:02 Neurontin PO 300 mg TID JULIA Administration Hydralazine HCl 20 mg 02/03/19 12:51 02/03/19 14:23 Apresoline SLOW IVP 20 mg Q15MIN PRN Administration SBP Greater Than 180 Insulin Human Regular 100 101 mls @ 0 mls/hr 02/02/19 03:00 02/02/19 03:17 units/ Sodium Chloride IVPB 101 mls INF JULIA Administration Protocol Titrate Potassium Chloride 40 meq/ 270 mls @ 135 mls/hr 02/02/19 02:45 02/02/19 12:56 Sodium Chloride IVPB 270 mls ASDIR PRN Administration FOR SERUM K+ 2.5 - 3.5 Insulin Glargine 10 units/ 0.1 mls @ 0 mls/hr 02/03/19 08:00 02/03/19 10:05 Miscellaneous Medication SC 0.1 mls QAM-WM JULIA Administration Promethazine HCl 12.5 mg/ 50.5 mls @ 151.5 mls/hr 02/03/19 10:59 02/03/19 12: 02 Sodium Chloride IVPB 50.5 mls Q6H PRN Administration Nausea Insulin Human Regular 0 units 02/02/19 09:03 02/03/19 05:10 Humulin R SC 6 unit .MODERATE SLIDING SC PRN Administration Moderate Correctional Scale Labetalol HCl 20 mg 02/03/19 12:52 02/03/19 13:32 Normodyne SLOW IVP 20 mg Q15MIN PRN Administration SBP Greater Than 180 Methadone HCl 5 mg 02/03/19 13:00 02/03/19 12:10 Dolophine Hcl PO 5 mg QID JULIA Administration Ondansetron HCl 4 mg 02/02/19 02:38 02/03/19 09:11 Zofran IVP 4 mg Q6H PRN Administration Nausea/Vomiting Sodium Chloride 10 ml 02/02/19 21:00 02/03/19 08:44 Flush - Normal Saline IVF 10 ml Q12HR JULIA Administration - Exam NAD General - other findings: Somnolent. Neck: supple, symmetric, no JVD, no thyromegaly, no lymphadenopathy, no carotid bruit Heart: RRR, no murmur, no gallops, no rubs, normal peripheral pulses Respiratory: CTAB, no wheezes, no rales, no ronchi, normal chest expansion, no tachypnea, normal percussion Gastrointestinal: soft, non-distended, normal bowel sounds Gastrointestinal - other findings: Diffusely tender (modest) Musculoskeletal: generalized weakness Hosp A/P (1) DKA (diabetic ketoacidoses) Code(s): E13.10 - OTH DIABETES MELLITUS WITH KETOACIDOSIS WITHOUT COMA Status : Resolved Qualifiers: (2) SURESH (acute kidney injury) Code(s): N17.9 - ACUTE KIDNEY FAILURE, UNSPECIFIED Status: Acute (3) Nausea & vomiting Code(s): R11.2 - NAUSEA WITH VOMITING, UNSPECIFIED Status: Acute (4) CKD (chronic kidney disease), stage III Code(s): N18.3 - CHRONIC KIDNEY DISEASE, STAGE 3 (MODERATE) Status: Chronic (5) Chronic abdominal pain Code(s): R10.9 - UNSPECIFIED ABDOMINAL PAIN; G89.29 - OTHER CHRONIC PAIN Status: Chronic (6) DM type 2 (diabetes mellitus, type 2) Status: Chronic (7) Hypertension Code(s): I10 - ESSENTIAL (PRIMARY) HYPERTENSION Status: Chronic Qualifiers: - Plan DKA resolved. SURESH improving with hydration and resolution of the acidosis. BP has become a significant issue. Concerning for WD from opioids and possibly Duloxetine. Both resumed. PRN's given. Nurse indicates she did not respond well to the Labetalol, but the Hydralazine was more effective. Will resume her metoprolol. Will be able to move out of CCu when her BP is improved. Add back her reglan. On antibiotics empirically, but no evidence of current infection. Had UTI at last admission, but should have been adequately treated.
--- NOTE | 2019-02-03 17:38 | PRG ---
DATE OF SERVICE: 02/03/2019 SERVICE: Pulmonary Medicine. INTERVAL HISTORY: The patient had complaints of withdrawal from opiates. She also had severe nausea. She ate breakfast and then vomited it up a couple of hours later. She is now getting a dose of Phenergan. She was awake, alert, and conversive prior to that medication, but now, she is quite somnolent. PHYSICAL EXAMINATION: VITAL SIGNS: Afebrile, pulse 86, blood pressure 126/80, respirations 14, saturation 97% currently on room air. GENERAL: The patient is awake and alert, in no apparent distress. LUNGS: Decent air entry without any prolonged expiratory phase. No wheezing or crackles are appreciated. HEART: Normal rate. Regular. ABDOMEN: Soft. It is distended and tender to palpation throughout without any rebound. Bowel sounds are hypoactive. : No Sibley catheter. NEUROLOGIC: Grossly nonfocal. LABORATORY DATA: WBC 13.1, hemoglobin 11.5, platelets 181,000. Creatinine 1.50, which is above baseline of 1, but improving significantly. Chloride 114, potassium 4.7, sodium 136. Beta-hydroxybutyrate is 11.56. ASSESSMENT: 1. Diabetic ketoacidosis, resolved. 2. Gastroparesis. 3. Acute kidney injury, resolving. DISCUSSION AND PLAN: The patient is likely withdrawing from opiates. As such, she has developed an increased blood pressure. Once this is under control, the patient can move out of the ICU. Job ID: [id number]
[2019-02-03] MEDS ORDERED: cefTRIAXone\\ROCEPHIN 1 GM in Sodium Chloride 0.9% 100 ML IVPB SCH (20:00)
[2019-02-04] MEDS: Insulin Regular 300 UNITS/3 ML VIAL SC PRN (05:35)
[2019-02-04 06:16] LABS: Anion Gap 10 mmol/L (10-20); BUN (Urea Nitrogen) 16 mg/dL (7.0-18.7); Calc. Creatinine Clearance 58 mL/min (70-130); Calcium 7.9 mg/dL (7.8-10.44); Carbon Dioxide 18 mmol/L (22-29); Chloride 109 mmol/L (98-107); Estimated GFR-MDRD 59; Glucose 289 mg/dL (70-105); Potassium 4.6 mmol/L (3.5-5.1); Sodium 132 mmol/L (136-145)
[2019-02-04] MEDS: Promethazine HCl 12.5 MG in Sodium Chloride 0.9% 50 ML IVPB PRN ×2 (08:23→13:56)
[2019-02-04] MEDS: Gabapentin 300 MG CAP PO SCH ×3 (08:24→20:21)
[2019-02-04] MEDS: METHadone HCl 10 MG TAB PO SCH ×4 (08:25→20:21)
[2019-02-04] MEDS: Insulin Glargine 10 UNITS in Pre-Filled Syringe 1 EACH SC SCH (08:31)
[2019-02-04] MEDS: Enoxaparin Sodium 30 MG/0.3 ML SYRINGE SC SCH (08:31)
[2019-02-04] MEDS ORDERED: Metoclopramide HCl 10 MG TAB PO SCH (09:00)
[2019-02-04] MEDS ORDERED: DULoxetine 60 MG CAP PO SCH (09:00)
[2019-02-04] MEDS ORDERED: Amlodipine 10 MG TAB PO SCH (09:00)
[2019-02-04] MEDS ORDERED: Lisinopril 20 MG TAB PO SCH (09:00)
--- NOTE | 2019-02-04 17:02 | PDOC.HOSPP ---
- Subjective Encounter Date: 02/04/19 Encounter Time: 17:00 Subjective: Ms. Crowell was seen today in follow-up of diabetes . She does not have any new complaints. - Objective Vital Signs & Weight: Vital Signs (12 hours) Temp Pulse Resp BP BP Pulse Ox 02/04/19 08:25 201/113 H 02/04/19 08:24 72 138/89 02/04/19 07:41 99.1 F 72 16 138/89 99 Weight Weight 137 lb 12.623 oz Most Recent Monitor Data Heart Rate from ECG 86 NIBP 100/62 NIBP BP-Mean 74 Respiration from ECG 14 SpO2 97 I&O: 02/03/19 02/04/19 02/05/19 06:59 06:59 06:59 Intake Total 6290 1340 Output Total 1215 1125 Balance 5075 215 Result Diagrams: 02/02/19 03:48 02/04/19 05:25 Additional Labs: Accuchecks 02/04/19 02/04/19 02/03/19 11:37 05:26 20:47 POC Glucose 187 H 282 H 104 02/03/19 17:08 POC Glucose 112 H ROS - Medication Medications: Active Medications Generic Name Dose Route Start Last Admin Trade Name Freq PRN Reason Stop Dose Admin Acetaminophen 650 mg 02/02/19 02:38 02/03/19 20:19 Tylenol PO 650 mg Q4H PRN Administration Headache/Fever/Mild Pain (1-3) Amlodipine Besylate 10 mg 02/04/19 09:00 02/04/19 08:24 Norvasc PO 10 mg DAILY JULIA Administration Duloxetine HCl 60 mg 02/04/19 09:00 02/04/19 08:24 Cymbalta PO 60 mg DAILY JULIA Administration Gabapentin 300 mg 02/03/19 15:00 02/04/19 13:56 Neurontin PO 300 mg TID JULIA Administration Hydralazine HCl 20 mg 02/03/19 12:51 02/03/19 14:23 Apresoline SLOW IVP 20 mg Q15MIN PRN Administration SBP Greater Than 180 Ceftriaxone Sodium 1 gm/ 100 mls @ 200 mls/hr 02/03/19 20:00 02/03/19 20:14 Sodium Chloride IVPB 100 mls Q24HR JULIA Administration Insulin Glargine 10 units/ 0.1 mls @ 0 mls/hr 02/03/19 08:00 02/04/19 08:31 Miscellaneous Medication SC 0.1 mls QAM-WM JULIA Administration Promethazine HCl 12.5 mg/ 50.5 mls @ 151.5 mls/hr 02/03/19 10:59 02/04/19 13: 56 Sodium Chloride IVPB 50.5 mls Q6H PRN Administration Nausea Insulin Human Regular 0 units 02/02/19 09:03 02/04/19 05:35 Humulin R SC 6 unit .MODERATE SLIDING SC PRN Administration Moderate Correctional Scale Labetalol HCl 20 mg 02/03/19 12:52 02/03/19 13:32 Normodyne SLOW IVP 20 mg Q15MIN PRN Administration SBP Greater Than 180 Lisinopril 40 mg 02/04/19 09:00 02/04/19 08:25 Zestril PO 40 mg DAILY JULIA Administration Methadone HCl 5 mg 02/03/19 13:00 02/04/19 13:56 Dolophine Hcl PO 5 mg QID JULIA Administration Metoclopramide HCl 10 mg 02/04/19 09:00 02/04/19 08:24 Reglan PO 10 mg DAILY JULIA Administration Metoprolol Succinate 25 mg 02/04/19 09:00 02/04/19 08:25 Toprol Xl PO 25 mg DAILY JULIA Administration Ondansetron HCl 4 mg 02/02/19 02:38 02/03/19 09:11 Zofran IVP 4 mg Q6H PRN Administration Nausea/Vomiting Sodium Chloride 10 ml 02/02/19 21:00 02/04/19 08:36 Flush - Normal Saline IVF Not Given Q12HR JULIA - Exam Eye: PERRL, anicteric sclera Heart: RRR, no murmur, no gallops, no rubs Respiratory: CTAB, no wheezes, no rales, no ronchi, normal chest expansion Gastrointestinal: soft, non-tender, non-distended, normal bowel sounds Extremities: no cyanosis, no clubbing, no edema Skin: normal turgor Hosp A/P (1) DM type 2 (diabetes mellitus, type 2) Status: Chronic (2) Opiate dependence Code(s): F11.20 - OPIOID DEPENDENCE, UNCOMPLICATED Status: Chronic (3) Chronic back pain Code(s): M54.9 - DORSALGIA, UNSPECIFIED; G89.29 - OTHER CHRONIC PAIN Status: Chronic (4) Hypertension Code(s): I10 - ESSENTIAL (PRIMARY) HYPERTENSION Status: Chronic Qualifiers: (5) DKA (diabetic ketoacidoses) Code(s): E13.10 - OTH DIABETES MELLITUS WITH KETOACIDOSIS WITHOUT COMA Status : Resolved Qualifiers: - Plan * DKA- resolved * DM- blood glucose is in acceptable range for discharge * Opiate withdrawal has improved * Will discharge home
[2019-02-04 20:00] VITALS: BP 147/79; TEMP 98.7
--- NOTE | 2019-02-05 02:32 | DIS ---
DATE OF ADMISSION: 02/02/2019 DATE OF DISCHARGE: 02/04/2019 DISCHARGE DISPOSITION: Home. PRIMARY DISCHARGE DIAGNOSES: 1. Diabetic ketoacidosis, resolved. 2. Medical noncompliance. 3. Opiate dependency. 4. Hypertension. 5. History of pancreatitis. DISCHARGE MEDICATIONS: 1. Lantus insulin 10 units subcu daily along with the sliding scale. 2. Creon 12,000 international units t.i.d. 3. Metoprolol succinate 25 mg p.o. daily. 4. Reglan 10 mg daily. 5. Methadone 5 mg q.i.d. 6. Lisinopril 40 mg daily. 7. Gabapentin 300 mg t.i.d. 8. Cymbalta 60 mg daily. 9. Amlodipine 10 mg daily. CODE STATUS: Full code. ALLERGIES: MORPHINE. HOSPITAL COURSE: Ms. Schulte is a pleasant 49-year-old female, who presented to the emergency room complaining of generalized weakness. She was found to be in DKA. She was admitted and started on an insulin drip and she had resolution of the DKA. She also has a history of chronic back pain and is on methadone for this. She had a short bout of withdrawal from the opiates. However, after resuming the methadone in the hospital, this resolved as well and once stabilized, she is able to be discharged home. She was instructed on the importance of medical compliance with the insulin and will need to have close outpatient followup with her primary care physician in 1 to 2 days, and warning signs with regard to hypoglycemia and poorly-controlled diabetes were discussed, and when to come back to the emergency room. Job ID: [id number]
[2019-02-05] MEDS ORDERED: Enoxaparin Sodium 40 MG/0.4 ML SYRINGE SC SCH (09:00)
--- NOTE | 2019-02-07 13:33 | EKG ---
Test Reason : Blood Pressure : / mmHG Vent. Rate : 084 BPM Atrial Rate : 084 BPM P-R Int : 128 ms QRS Dur : 084 ms QT Int : 426 ms P-R-T Axes : 048 -16 -08 degrees QTc Int : 503 ms Normal sinus rhythm Septal infarct , age undetermined Prolonged QT Abnormal ECG No change from 01/28/2019 Confirmed by PEREZ EDDY DO ([id number]), brands editor ROSEMARIE MARX ([id number]) on 02/07/2019 1:33:07 PM Referred By: Confirmed By:PEREZ EDDY DO
== END 2019-02-04 20:30 | disposition home or self-care (01) | DRG 637 ==
LOC: ERS 23:29 → CCU 02-02 01:17 → T4-A 02-03 19:06
PROVIDERS: ADMIT Hospitalist; ATTEND Hospitalist
DX: E10.10 Type 1 diabetes mellitus with ketoacidosis without coma (principal); G93.41 Metabolic encephalopathy; F11.20 Opioid dependence, uncomplicated; N39.0 Urinary tract infection, site not specified; K86.1 Other chronic pancreatitis; G89.4 Chronic pain syndrome; N18.3 Chronic kidney disease, stage 3 (moderate); E10.22 Type 1 diabetes mellitus with diabetic chronic kidney disease; E10.43 Type 1 diabetes mellitus with diabetic autonomic (poly)neuropathy; K31.84 Gastroparesis; I12.9 Hypertensive chronic kidney disease with stage 1 through stage 4 chronic kidney disease, or unspecified chronic kidney disease; Z79.899 Other long term (current) drug therapy; Z79.4 Long term (current) use of insulin; Z88.5 Allergy status to narcotic agent
CPT/HCPCS: 36415; 36416; 71045; 80048; 80053; 82010; 82805; 83690; 83735; 84484; 85025; 93005; 96361; 96365; 96375; J0360; J0696; J1650; J1815; J2405; J2550; J3480; J3490; J7050; J8597

== ENCOUNTER 2019-07-07 13:00 | Observation (INO) | payer MEDICARE, MEDICAID ==
[2019-07-07] MEDS ORDERED: Ondansetron PF 4 MG/2 ML Vial ONE (14:11)
[2019-07-07] MEDS ORDERED: Ketorolac Tromethamine 30 MG/ML VIAL ONE (14:11)
[2019-07-07] MEDS ORDERED: Labetalol HCl 100 MG/20 ML VIAL ONE (14:11)
[2019-07-07 14:21] LABS: #Lymphocytes 0.9 thou/uL (1.20-3.40); #Monocytes 0.6 thou/uL (0.11-0.59); #Neutrophils 9.1 thou/uL (1.40-6.50); %Basophils 0.1 % (0.0-1.0); %Eosinophils 0.1 % (0.0-10.0); %Lymphocytes 8.6 % (21.0-51.0); %Monocytes 5.4 % (0.0-10.0); %Neutrophils 85.8 % (42.0-75.0); Hemoglobin 12.7 g/dL (12.0-16.0); Mean Corpuscular HGB CONC 32.8 g/dL (32.0-36.0); Mean Corpuscular Hemoglobin 32.7 pg (27.0-31.0); Mean Corpuscular Volume 99.8 fL (78.0-98.0); Mean Platelet Volume 8.8 fL (7.4-10.4); Platelet Count 179 thou/uL (130-400); RBC Distribution Width 15.2 % (11.5-14.5); Red Blood Cell (RBC) Count 3.89 mill/uL (4.20-5.40); White Blood Cell (WBC) Count 10.7 thou/uL (4.8-10.8)
[2019-07-07 14:39] LABS: Albumin 4.5 g/dL (3.5-5.0)
[2019-07-07 14:41] LABS: Calcium 9.4 mg/dL (7.8-10.44); Chloride 101 mmol/L (98-107); Potassium 3.8 mmol/L (3.5-5.1); Sodium 136 mmol/L (136-145)
[2019-07-07 14:42] LABS: Globulin 3.4 g/dL (2.4-3.5); Glucose 271 mg/dL (70-105); Protein, Total 7.9 g/dL (6.0-8.3)
[2019-07-07 14:43] LABS: Anion Gap 17 mmol/L (10-20); Carbon Dioxide 22 mmol/L (22-29)
[2019-07-07 14:44] LABS: Bilirubin, Total 1.2 mg/dL (0.2-1.2)
[2019-07-07 14:45] LABS: Alkaline Phosphatase 83 U/L (40-110); Calc. Creatinine Clearance 0 mL/min (70-130); Estimated GFR-MDRD 55
[2019-07-07 14:46] LABS: BUN (Urea Nitrogen) 11 mg/dL (7.0-18.7)
[2019-07-07 14:47] LABS: AST (SGOT) 35 U/L (5-34)
[2019-07-07 14:48] LABS: ALT (SGPT) 26 U/L (8-55)
[2019-07-07] MEDS ORDERED: Iopamidol-370 76% 500 ML 1 ML ONE (15:25)
[2019-07-07 16:03] LABS: Bacteria/HPF None Seen HPF (None Seen); Bilirubin Negative (Negative); Blood, Urine 1+ (Negative); Clarity Clear (Clear); Glucose, Urine (Dipstick) Greater than 1000 mg/dL (Negative); Leukocyte Negative Leu/uL (Negative); Nitrite Negative (Negative); Protein, Urine (Dipstick) 300 mg/dL (Neg-Trace); RBC/HPF 0-3 HPF (0-3); Urobilinogen Normal mg/dL (Less than 2); WBC/HPF 0-3 HPF (0-3)
--- NOTE | 2019-07-07 18:16 | CT ---
EXAM: CT ABDOMEN AND PELVIS HISTORY: Nausea. Vomiting. Chills, onset yesterday COMPARISON: 08/30/2018 Procedure: Multiple contiguous axial images were obtained and a CT of the abdomen and pelvis with IV contrast. C oronal reformats were performed. FINDINGS: Lower Chest: within normal limits. Vessels: Normal caliber aorta Heart: Normal heart size. No significant pericardial fluid Abdomen: Portal vein:Patent Gallbladder: Surgically absent. Stable small focus of air in the central biliary system. Liver: No enhancing masses. Pancreas: within normal limits. Spleen: within normal limits. Adrenals: within normal limits. Kidneys: Symmetric enhancement. No obstructive uropathy. Stable subcentimeter hypodensities in the le ft renal cortex. Peritoneum: No ascites or free air, no fluid collection. Bowel: No evidence of previous bariatric surgery at the level of stomach. Small bowel anastomosis is suspected in the left upper quadrant. Multiple normal caliber small bowel loops. No evidence of small bowel obstruction. Limited evaluation of the ileocecal junction. Normal caliber appendix is not ed. Scattered fecal material in a nondistended, nondilated colon. There does appear to be mucosal thickening involving the ascending colon and hepatic flexure with mild pericolonic fat stranding. Mesentery and Retroperitoneum: No enlarged mesenteric or retroperitoneal lymph nodes. Abdominal Wall: within normal limits. Pelvis: Reproductive Organs: Heterogeneous and enlarged uterus, incompletely evaluated Pelvis: No mass, lymphadenopathy, free air or free fluid. Bladder: within normal limits. Bones: Dorsal column stimulator is noted with the tip terminating in the distal thoracic spine. IMPRESSION: 1. Mucosal thickening involving the right hemicolon, worrisome for a colitis until proven otherwise. Colitis is presumed to be due to infectious or inflammatory etiology. 2. Suggestion of normal caliber appendix. 3. No evidence of obstructive uropathy. Transcribed Date/Time: 07/07/2019 6:20 PM
[2019-07-07] MEDS ORDERED: Piperacillin/Tazobactam 4.5 GM VIAL ONE (19:32)
[2019-07-07] MEDS ORDERED: Fentanyl 100 MCG/2 ML VIAL ONE (19:38)
[2019-07-07] MEDS ORDERED: Acetaminophen 325 MG TAB PO PRN (21:58)
[2019-07-07] MEDS ORDERED: Dextrose 50% Abboject 50 ML SYRINGE SLOW IVP PRN (22:08)
[2019-07-07] MEDS ORDERED: Dextrose 5% in Water 1,000 ML IV PRN (22:08)
[2019-07-07] MEDS ORDERED: Metoclopramide 10 MG/10 ML UDCUP PO PRN (22:24)
[2019-07-07] MEDS ORDERED: Metoclopramide HCl 10 MG/2 ML VIAL IVP PRN (22:25)
[2019-07-07] MEDS: Sodium Chloride 0.9% 1,000 ML IV SCH (23:27)
[2019-07-07] MEDS: Ondansetron PF 4 MG/2 ML Vial IVP PRN (23:28)
--- NOTE | 2019-07-07 23:33 | HP ---
PRIMARY CARE PHYSICIAN: Dr. Marina North. CHIEF COMPLAINT: Intractable nausea and vomiting since Saturday, weakness. HISTORY OF PRESENT ILLNESS: This is a 49-year-old female with past medical history extensive abdominal surgeries secondary to a pancreatic mass requiring Whipple's resection with additional followup surgeries; insulin-dependent diabetic; partial nephrectomy; chronic pain, previously on pain pump, but currently on oral methadone 20 mg per day followed by Dr. Rangel at [facility], who presents to [facility] ER via EMS for complaints of intractable nausea and vomiting that started yesterday evening, persisted into this morning without incident associated with generalized weakness, prompting further evaluation. The patient reports pain in the usual state of health yesterday and even saw a physician at Dr. Byron North for followup mammogram, which was unremarkable. Later that evening, she reports chronic nonspecific abdominal discomfort and began to vomit nonstop until this morning when she felt overall weak and called EMS. She maintains medication compliance with Lantus 11 units every morning, last dose this morning and Humalog insulin sliding scale, last dose of 10 units this morning. She reports chronic abdominal pain with her multiple abdominal surgeries and is on stable dose of oral methadone, which was recently restarted. She denies any infectious complaints. She has not recently been on any antibiotics. In the ER, influenza antigen was negative. Chemistries revealed BUN and creatinine of 11/1.25, GFR 55 in the setting of CKD from partial nephrectomy and serum glucose of 271 without significant anion gap. Beta-hydroxybutyrate was elevated at 1.94. CT abdomen and pelvis suggested colitis in the right colon. The patient was administered IV fentanyl, IV Toradol. Blood cultures were obtained. The patient was given IV fluid bolus, IV Zosyn, IV Zofran as well as IV labetalol for hypertension. She was admitted for further observation. At bedside, the patient corroborates history. She feels better since fluid hydration. She felt dehydrated. She has not vomited since EMS picked her up this morning. PAST MEDICAL HISTORY: Multiple intraabdominal surgeries with resultant chronic pain, previously on pain pump, currently on oral methadone, followed by Dr. Rangel at [facility]; diabetes mellitus; hypertension; and prior pancreatitis. PAST SURGICAL HISTORY: Partial nephrectomy in 2005, Whipple's procedure in 2007 with subsequent intraabdominal surgeries and small bowel resections a year later, cholecystectomy, section, pain pump placement with subsequent removal, and tubal ligation. SOCIAL HISTORY: The patient lives at home alone. Her son recently moved out. She denies tobacco, alcohol, or illicit drug use. She does not use any assistive devices. ALLERGIES: LISTED TO MORPHINE, WHICH CAUSES HER TO ITCH. REVIEW OF SYSTEMS: Pertinent positives as per HPI. Remainder of review of systems negative. MEDICATIONS: Will be reviewed as per admission medication reconciliation. FAMILY HISTORY: Notable for diabetes mellitus in the patient's mother. The patient's father is . PHYSICAL EXAMINATION: VITAL SIGNS: T-max, afebrile, 99.8; pulse 101 to 123, blood pressure ranges from 202/108 to 181/90; oxygen 100% on room air; respirations 14 to 16 and unlabored. GENERAL APPEARANCE: This is a middle-aged thin female, malaise in appearance. She is awake, alert, oriented, coherent, lucid, nontoxic in appearance. Not in any obvious distress. HEENT: Normocephalic and atraumatic. No facial asymmetry. Pupils are equally round. Extraocular muscles are intact. Dry oral mucous membranes. NECK: Supple. CARDIOVASCULAR: S1 and S2. Regular rate and rhythm. No harsh murmurs. No chest wall tenderness. LUNGS: Bilateral equal air entry on anterior auscultation. No wheezing or rales. ABDOMEN: Soft, nondistended. There is tenderness to mild palpation throughout the abdomen. Bowel sounds normoactive. There is an abdominal scar noted. No obvious peritoneal signs appreciated. EXTREMITIES: No edema, cyanosis, or deformities. SKIN: Warm to touch without rash or pallor or abrasion with poor skin turgor noted. LABORATORY VALUES: Urinalysis with proteinuria, glycosuria, ketonuria, 1+ blood, specific gravity 1.018. Sodium 136, potassium 3.8, chloride 101, bicarb 22, glucose 271, BUN and creatinine 11/1.24, GFR 55. LFTs unremarkable except for AST 35. Influenza antigen A and B negative. WBC 10.7, H and H 12.7/38.8, platelets 179. IMAGING DATA: CT abdomen and pelvis with IV contrast reveals thickening involving the right hemicolon worrisome for colitis until proven otherwise presumed to be infectious or inflammatory etiology. No evidence of obstructive uropathy. Normal-appearing appendix. ASSESSMENT: 1. Intractable nausea and vomiting of unspecified etiology, possibly secondary to diabetic gastropathy, possibly secondary to gastroparesis or colitis. The patient will be admitted as observation status and continue IV fluid resuscitation, trial on clear liquids, continue as needed antiemetics, and as needed prokinetic agents. We will monitor for abdominal pain control. We will continue on empiric antibiotics with IV Rocephin 1 g daily with oral Flagyl. We will monitor Accu-Cheks for euglycemia. 2. Unspecified colitis. Noted abnormal CT findings in right hemicolon. Continue empiric antibiotics, a trial on clear liquid diet, monitor for pain control. The patient noted to be on chronic methadone with reported dose of 5 mg tablets of four pills per day. 3. History of multiple intraabdominal surgeries including Whipple's in 2007 with subsequent intraabdominal surgeries. 4. Chronic kidney disease secondary to history of partial nephrectomy. Monitor renal function. Continue IV fluid resuscitation and avoid nephrotoxins. 5. Diabetes mellitus, insulin dependent. The patient reports diagnosis of diabetes in her 30s, previously on pills and insulin dependent since Whipple's procedure. Continue basal and long insulin. Monitor Accu-Cheks. 6. Generalized weakness, likely secondary to intractable nausea and vomiting. Continue IV fluid resuscitation and encourage mobility with assistance. 7. Deep venous thrombosis prophylaxis: SCDs and progressive ambulation. 8. Check a.m. labs on 07/08/2019. CODE STATUS: Full code. DISPOSITION: The patient was seen and examined on 07/07/2019. Job ID: [id number]
[2019-07-07] MEDS ORDERED: hydrALAZINE 20 MG/ML VIAL SLOW IVP PRN ×2 (23:44→23:53)
[2019-07-07] MEDS ORDERED: Ketorolac Tromethamine 30 MG/ML VIAL IVP SCH (23:45)
[2019-07-08] MEDS ORDERED: Acetaminophen 650 MG Suppository PR PRN (01:00)
[2019-07-08] MEDS ORDERED: Labetalol HCl 100 MG/20 ML VIAL SLOW IVP SCH (03:15)
[2019-07-08] MEDS ORDERED: Sodium Chloride 0.9% (PF) 10 ML VIAL FS PRN (03:21)
[2019-07-08] MEDS: Pantoprazole 40 MG VIAL IVP SCH (03:26)
[2019-07-08] MEDS ORDERED: hydrALAZINE 20 MG/ML VIAL SLOW IVP SCH (05:15)
[2019-07-08 05:54] LABS: #Lymphocytes 0.9 thou/uL (1.20-3.40); #Monocytes 0.7 thou/uL (0.11-0.59); #Neutrophils 6.9 thou/uL (1.40-6.50); %Basophils 0.2 % (0.0-1.0); %Eosinophils 0.3 % (0.0-10.0); %Lymphocytes 10.5 % (21.0-51.0); %Monocytes 8.4 % (0.0-10.0); %Neutrophils 80.5 % (42.0-75.0); Hemoglobin 13.6 g/dL (12.0-16.0); Mean Corpuscular HGB CONC 30.8 g/dL (32.0-36.0); Mean Corpuscular Hemoglobin 30.8 pg (27.0-31.0); Platelet Count 148 thou/uL (130-400); RBC Distribution Width 15.4 % (11.5-14.5); White Blood Cell (WBC) Count 8.6 thou/uL (4.8-10.8)
[2019-07-08 06:08] LABS: Calcium 8.7 mg/dL (7.8-10.44); Chloride 108 mmol/L (98-107); Potassium 3.7 mmol/L (3.5-5.1); Sodium 139 mmol/L (136-145)
[2019-07-08 06:53] LABS: Glucose 289 mg/dL (70-105)
[2019-07-08 06:54] LABS: Carbon Dioxide 19 mmol/L (22-29)
[2019-07-08 06:55] LABS: Anion Gap 17 mmol/L (10-20)
[2019-07-08 06:56] LABS: Calc. Creatinine Clearance 56 mL/min (70-130); Estimated GFR-MDRD 62
[2019-07-08 06:57] LABS: BUN (Urea Nitrogen) 10 mg/dL (7.0-18.7)
[2019-07-08] MEDS ORDERED: Insulin Glargine 11 UNITS in Pre-Filled Syringe 1 EACH SC SCH (09:00)
[2019-07-08] MEDS ORDERED: FLU VACC QS2019-20(6MOS UP)/PF 60 MCG/0.5 ML SYRINGE IM ONE (09:00)
[2019-07-08] MEDS: Pancrelipase DR 12000 1 CAP PO SCH ×4 (09:08→18:03)
[2019-07-08] MEDS: Amlodipine 10 MG TAB PO SCH (09:08)
[2019-07-08] MEDS: Sodium Chloride 0.9% 1,000 ML IV SCH (09:11)
[2019-07-08] MEDS: METHadone HCl 10 MG TAB PO SCH ×4 (09:12→20:39)
[2019-07-08] MEDS: metroNIDAZOLE 500 MG TAB PO SCH ×3 (09:15→20:39)
[2019-07-08] MEDS: Metoclopramide HCl 10 MG TAB PO SCH (09:15)
[2019-07-08] MEDS: Lisinopril 20 MG TAB PO SCH (09:16)
[2019-07-08] MEDS: cefTRIAXone\\ROCEPHIN 1 GM in Sodium Chloride 0.9% 100 ML IVPB SCH (09:22)
[2019-07-08] MEDS ORDERED: Ketorolac Tromethamine 30 MG/ML VIAL ONE ×2 (09:37→15:50)
[2019-07-08] MEDS: Ketorolac Tromethamine 30 MG/ML VIAL IVP PRN ×3 (09:40→22:30)
[2019-07-08] MEDS: Insulin Glargine 11 UNITS in Pre-Filled Syringe 1 EACH SC SCH (10:03)
--- NOTE | 2019-07-08 12:49 | PDOC.HOSPP ---
- Subjective Encounter Date: 07/08/19 Encounter Time: 12:47 Subjective: The patient reports chronic abdominal pain from pancreatic surgery, but had severe nausea and vomiting for the past few days. No family history of IBD. Did not eat outside, recent travel, no under cooked meat Pain is down to a 2/10 with toradol. She has had no bowel movement, and is not passing gas - Objective Vital Signs & Weight: Vital Signs (12 hours) Temp Pulse Resp BP BP BP Pulse Ox 07/08/19 11:00 98.7 F 98 20 128/81 96 07/08/19 09:16 197/109 H 07/08/19 09:08 122 H 197/109 H 07/08/19 06:55 99.6 F 122 H 17 169/94 H 96 07/08/19 05:20 103 H 207/108 H 07/08/19 04:29 108 H 20 200/117 H 98 07/08/19 04:00 99.3 F 108 H 20 207/108 H 97 07/08/19 03:27 118 H 214/126 H 07/08/19 01:55 118 H 18 196/114 H 99 07/08/19 00:55 110 H 201/108 H Weight Weight 130 lb 0.105 oz I&O: 07/07/19 07/08/19 07/09/19 06:59 06:59 06:59 Intake Total 602 Balance 602 Result Diagrams: 07/08/19 05:41 07/08/19 06:29 Additional Labs: Accuchecks 07/08/19 07/08/19 07/07/19 08:44 05:22 23:39 POC Glucose 283 H 246 H 200 H 07/07/19 13:12 POC Glucose 268 H Hospitalist ROS - Review of Systems Respiratory: denies: dry, shortness of breath, pleuritic pain - Medication Medications: Active Medications Generic Name Dose Route Start Last Admin Trade Name Freq PRN Reason Stop Dose Admin Amlodipine Besylate 10 mg 07/08/19 09:00 07/08/19 09:08 Norvasc PO 10 mg DAILY JULIA Administration Lipase/Protease/Amylase 1 cap 07/08/19 08:00 07/08/19 11:59 Creon 51030 PO Not Given [facility] Hydralazine HCl 10 mg 07/07/19 23:53 07/08/19 00:55 Apresoline SLOW IVP 10 mg Q6H PRN Administration SBP Greater Than 180 Sodium Chloride 1,000 mls @ 100 mls/hr 07/07/19 22:30 07/08/19 09:11 Normal Saline 0.9% IV 1,000 mls .Q10H JULIA Administration Insulin Glargine 11 units/ 0.11 mls @ 0 mls/hr 07/08/19 09:00 07/08/19 10:03 Miscellaneous Medication SC 0.11 mls QAM JULIA Administration As Directed Ceftriaxone Sodium 1 gm/ 100 mls @ 200 mls/hr 07/08/19 09:00 07/08/19 09:22 Sodium Chloride IVPB 100 mls Q24HR JULIA Administration Ketorolac Tromethamine 30 mg 07/08/19 09:22 07/08/19 09:40 Toradol IVP 07/13/19 09:23 30 mg Q6H PRN Administration Pain Lisinopril 40 mg 07/08/19 09:00 07/08/19 09:16 Zestril PO 40 mg DAILY JULIA Administration Methadone HCl 5 mg 07/08/19 09:00 07/08/19 09:12 Dolophine Hcl PO 5 mg QID JULIA Administration Metoclopramide HCl 10 mg 07/08/19 09:00 07/08/19 09:15 Reglan PO 10 mg DAILY JULIA Administration Metoprolol Succinate 25 mg 07/08/19 09:00 07/08/19 09:17 Toprol Xl PO 25 mg DAILY JULIA Administration Metronidazole 500 mg 07/08/19 09:00 07/08/19 09:15 Flagyl PO 500 mg TID JULIA Administration Ondansetron HCl 4 mg 07/07/19 21:58 07/07/19 23:28 Zofran IVP 4 mg Q6H PRN Administration Nausea/Vomiting Pantoprazole Sodium 40 mg 07/08/19 09:00 07/08/19 03:26 Protonix IVP 40 mg DAILY JULIA Administration - Exam General Appearance: NAD, awake alert Eye: PERRL, anicteric sclera ENT: normocephalic atraumatic, no oropharyngeal lesions Neck: supple, symmetric, no JVD, no thyromegaly Heart: RRR, no murmur, no gallops, no rubs Respiratory: CTAB, no wheezes, no rales, no ronchi Gastrointestinal: soft, non-distended Gastrointestinal - other findings: hypoactive bowel sounds. Mild LLQ tenderness Extremities: no cyanosis, no clubbing, no edema Skin: normal turgor, no lesions, no rashes Neurological: cranial nerve grossly intact, normal sensation to touch, no focal deficits, no new deficit Hosp A/P - Plan CT abdomen: right hemicolon colitis This is 49 year old female who presented with colitis #Colitis #Possible gastroenteritis - CT abdomen showed colitis. Continue IV ceftriaxone and flagyl - continue home methadone - toradol prn - GI consult - clear liquid diet when patient passes gas #Hyperchloremic metabolic acidosis - will switch fluids to D5 1/2 NS Ning on CKD - improving to 1.14 with IV fluids -UA negative for infection TYpe II diabetes - continue lantus Hypertension - continue metoprolol, lisinopril and amlodipine Code status: full code
[2019-07-08] MEDS: Dextrose 5 %-0.45 % NaCl 1,000 ML IV SCH ×2 (13:24→20:41)
[2019-07-08] MEDS ORDERED: Dextrose 5% in Water 1,000 ML IV PRN (16:24)
[2019-07-08] MEDS ORDERED: Dextrose 50% Abboject 50 ML SYRINGE IVP PRN (16:24)
[2019-07-08] MEDS: HumaLOG 300 UNITS/3 ML VIAL SC PRN ×2 (16:38→20:39)
[2019-07-09] MEDS: Ondansetron PF 4 MG/2 ML Vial IVP PRN ×2 (00:50→15:19)
[2019-07-09] MEDS: Ketorolac Tromethamine 30 MG/ML VIAL IVP PRN (05:53)
--- NOTE | 2019-07-09 07:53 | CON ---
DATE OF CONSULTATION: 07/08/2019 REASON FOR CONSULTATION: Abnormal CAT scan showing thickening of right colon and possibly colitis. HISTORY OF PRESENT ILLNESS: Ms. Wanda Schulte is a very pleasant 49-year-old female with nausea and vomiting for the last 24 hours. The patient's pathology began Saturday afternoon with intractable nausea and vomiting. She vomited all through the night and she was seen in the ER at hospital. The patient's nausea and vomiting subsided at the present time. She is on clear-liquid diet. She is not feeling more nausea and has not vomited today. The patient tells me that she has had this episode of nausea and vomiting off and on every few months. She usually goes to the hospital to get some IV fluids and get rehydrated. The last time was at [facility] a few months ago. The patient has had chronic abdominal pain, also chronic back pain. She is on methadone for pain relief. She also has had pain control from placement which was removed laparoscopically. The patient denies any abdominal pain at the present time. Denies any hematochezia, any diarrhea, any fever. She tells me this is an ongoing chronic problem over the years with intermittent episodes of nausea and vomiting. This happens out of the blue and usually lasts for a day or two. She usually goes to the hospital and gets IV hydration, goes back home. At the present time, she appears very comfortable. Denies abdominal pain, nausea, vomiting, or indigestion. She has had no stool today. When she came to the ER, she had abdominal CAT scan. The CAT scan was read as thickening of the right colon and possibly colitis. However, she has really no symptom of colitis. She has no other relevant history. ALLERGIES: INTRAVENOUS MORPHINE. SOCIAL HISTORY: Patient never smoked, used to drink alcohol heavily few years ago when she had pancreatitis and also pancreatic mass, she quit drinking several years ago. No history of drug abuse. MEDICAL ILLNESSES: 1. Diabetes mellitus. 2. Hypertension. 3. Past history of pancreatitis. 4. Chronic abdominal pain and back pain. 5. Whipple surgery for a pancreatic mass in 2007 and was later found to be nonmalignant. 6. History of kidney cyst removed at [facility] in the past. 7. The patient also has had subsequent 2 or 3 surgeries and has had revision of the anastomosis and has had partial gastrectomy versus subtotal gastrectomy. The patient has no history of hematochezia or any melena. She does see Dr. Sharad Vinson at [facility] once in a year. The primary care doctor is Dr. Brown at [facility]. No relevant history. PAST SURGICAL HISTORY: 1. Whipple surgery for the pancreatic mass, nonmalignant in 2007. 2. Removal of left renal cyst in 2005. 3. Cholecystectomy. 4. . 5. Pain pump placement and subsequently removal. 6. History of subsequent intraabdominal surgeries and what appears to be removal of and small bowel. FAMILY HISTORY: Mother has diabetes. Father is . No family history of malignancy or CVA or heart disease. MEDICATIONS: List reviewed. REVIEW OF SYSTEMS: 10-point system review; LEAD MINER: No seizure disorder. No TIA. No syncope. No dizziness. RESPIRATORY SYSTEM: No history of chronic cough, hemoptysis, dyspnea. CARDIOVASCULAR SYSTEM: No chest pain. No palpitation. No dyspnea, orthopnea, or PND. GI: As in history of present illness. : No dysuria, hematuria. MUSCULOSKELETAL: Has chronic back pain. NEUROPSYCHIATRY: Denies any depression, anxiety. HEENT: Head, no chronic headache. No dizziness. Eyes, no diplopia. No impaired vision. Ears, no bleeding or any impaired hearing. Nose, no nosebleed. Throat, no sore throat or dysphagia. PHYSICAL EXAMINATION: GENERAL: She is a very pleasant female, appears very comfortable, in no acute distress. VITAL SIGNS: Afebrile. Pulse is down to 80 today, blood pressure is 170/70. HEENT: Conjunctivae are clear. NECK: Supple. No adenitis or thyromegaly. CARDIOVASCULAR SYSTEM: First and second heart sounds heard. LUNGS: Clear to auscultation. ABDOMEN: Soft. Abdomen is nondistended. Abdomen is mildly tender all over the abdomen. There is no rebound or guarding. Overall, the exam is very benign. EXTREMITIES: Reveal no edema. LABORATORY DATA: Urinalysis shows proteinuria, 1+ blood. Sodium 136, potassium 3.8, chloride 101, bicarb 22, glucose 271, BUN 11 and creatinine 1.2. LFTs unremarkable except for AST of 35, ALT normal. WBC 10,100, hemoglobin 12.7, hematocrit 38.8, platelet count 179,000. Abdominal CAT scan showed thickening of the right colon representing colitis. However, the patient has really no symptoms and very difficult to interpret the CAT scan findings in the absence of any symptoms. CLINICAL IMPRESSION: 1. Recurrent nausea and vomiting, has been chronic in nature and she has had symptoms off and on over the last several years. She usually goes to the hospital and gets some IV hydration and goes back home. The last admission was I believe in [facility]. The symptoms seem to have resolved at the present time. 2. Abdominal CAT scan showing colitis, but the patient has no symptoms like bleeding, diarrhea, etc. I probably would not pursue this with colonoscopy as she has really no symptoms and a CAT scan basically showed some thickening. 3. Diabetes mellitus. 4. Possible pancreatitis. 5. Pancreatic mass, benign, status post Whipple surgery. 6. Cyst removal from left kidney in the past. 7. Status post subsequent intraabdominal surgeries for abdominal pain. She has had revision anastomosis at least 2 or 3 times. RECOMMENDATIONS: 1. Symptomatic treatment to control nausea. 2. Clear-liquid diet. 3. Advance diet as needed. 4. Patient does not need a colonoscopy as she has no symptoms and it is difficult to interpret with CAT scan findings with the absence of any symptoms. If she does well on diet with the nausea, vomiting, consider discharge home in the next 24 hours. She will go back to see her regular family practice and also her maintenance helper. Job ID: [id number]
[2019-07-09 08:30] LABS: Anion Gap 12 mmol/L (10-20); BUN (Urea Nitrogen) 13 mg/dL (7.0-18.7); Calc. Creatinine Clearance 43 mL/min (70-130); Calcium 7.8 mg/dL (7.8-10.44); Carbon Dioxide 19 mmol/L (22-29); Chloride 107 mmol/L (98-107); Estimated GFR-MDRD 45; Glucose 233 mg/dL (70-105); Potassium 3.4 mmol/L (3.5-5.1); Sodium 135 mmol/L (136-145)
[2019-07-09] MEDS: Pancrelipase DR 12000 1 CAP PO SCH ×3 (08:46→17:14)
[2019-07-09] MEDS: METHadone HCl 10 MG TAB PO SCH ×3 (08:47→17:15)
[2019-07-09] MEDS: Lisinopril 20 MG TAB PO SCH (08:47)
[2019-07-09] MEDS: Amlodipine 10 MG TAB PO SCH (08:47)
[2019-07-09] MEDS: Insulin Glargine 11 UNITS in Pre-Filled Syringe 1 EACH SC SCH (08:47)
[2019-07-09] MEDS: metroNIDAZOLE 500 MG TAB PO SCH ×2 (08:48→13:46)
[2019-07-09] MEDS: Metoclopramide HCl 10 MG TAB PO SCH (08:48)
[2019-07-09] MEDS: Pantoprazole 40 MG VIAL IVP SCH (08:48)
[2019-07-09] MEDS: cefTRIAXone\\ROCEPHIN 1 GM in Sodium Chloride 0.9% 100 ML IVPB SCH (09:44)
[2019-07-09] MEDS ORDERED: Potassium Chloride 20 MEQ TAB PO SCH (10:15)
[2019-07-09] MEDS: HumaLOG 300 UNITS/3 ML VIAL SC PRN (12:04)
[2019-07-09 12:33] VITALS: TEMP 98.6
--- NOTE | 2019-07-09 13:22 | ULT ---
Renal sonogram HISTORY: Renal insufficiency. FINDINGS: On today's exam the right kidney is 10.2 cm and the left is 8.9 cm. No hydronephrosis. 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 Urinary bladder is incompletely distended without focal abnormality. IMPRESSION: No evidence of urinary tract obstruction.
[2019-07-09] MEDS: Dextrose 5 %-0.45 % NaCl 1,000 ML IV SCH (14:24)
--- NOTE | 2019-07-09 18:56 | PRG ---
DATE OF SERVICE: 07/09/2019 SUBJECTIVE: Ms. Wanda Schulte is a very pleasant 49-year-old female, hospitalized for abdominal pain, nausea, and vomiting. Her symptoms markedly improved. She has had no nausea or vomiting. She is tolerating clear liquid diet. She had a stool today this evening. Overall, she is feeling better, and she actually wants to go. She ordered some diet 30 minutes before I saw her, and her diet arriving soon. OBJECTIVE: VITAL SIGNS: Afebrile. Vital signs are stable. CARDIOVASCULAR SYSTEM: Within normal limits. LUNGS: Within normal limits. ABDOMEN: Soft. Abdomen is mildly tender. There is no rebound or guarding. Bowel sounds are active. RECOMMENDATION: If the patient tolerates the diet, can be discharged home today. No further recommendations. Job ID: [id number]
[2019-07-09 20:15] VITALS: BP 133/86
--- NOTE | 2019-07-10 22:26 | DIS ---
DATE OF ADMISSION: 07/07/2019 DATE OF DISCHARGE: 07/09/2019 DISCHARGE DIAGNOSES: Gastroenteritis/Colitis CONSULTATIONS: GI with Dr. Rafael Minor. PROCEDURES: None. BRIEF HISTORY OF PRESENT ILLNESS: This is a 49-year-old female with a history of type 1 diabetes, status post pancreatic and renal transplant, who had presented to the emergency room with intractable nausea and vomiting. The patient had reported no history of travel, denied eating outside, denied eating any undercooked meat. She underwent a CT scan of her abdomen in the emergency room, which showed colitis in the right hemicolon. The patient was started on ceftriaxone and Flagyl empirically. She was afebrile on admission. She had no white blood cell count. HOSPITAL COURSE: Gastroenteritis/Colitis: The patient was continued on ceftriaxone and IV Flagyl for one day. She was not able to tolerate any liquid intake on the . On the , she was advanced to a clear liquid diet and tolerated it well. In the afternoon of the , she had a solid diet and reported some nausea, but no vomiting. The patient's abdominal pain was controlled well with IV Toradol. The patient stated overall she felt better and was requesting to go home. GI saw her on the day of discharge as well and felt that she was stable for discharge. She was discharged with cefdinir and Flagyl for an additional 6 days to complete a 7-day course of antibiotics. CKD: The patient had presented with a creatinine of 1.25. This improved to 1.14 with IV fluids, then increased to 1.49. Upon further trending of her creatinine , she appears to have creatinine is up to 1.6 and 2 in the past. The patient underwent a renal ultrasound which showed no evidence of urinary obstruction. 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 The patient also had a UA done, which showed no evidence of UTI. She was advised to follow up with a kidney specialist and have her BMP repeated in a week. Hypokalemia: The patient had a potassium of 3.4 on the day of discharge. She was given potassium supplementation and advised to recheck her potassium levels in a week. Type 2 diabetes: The patient was continued on her Lantus. Hypertension: The patient was resumed on her outpatient medications. DISCHARGE PHYSICAL EXAMINATION: VITAL SIGNS: Temperature 98.2, heart rate 72, respiratory rate 18, O2 saturations 100% on room air, blood pressure 133/86. GENERAL: The patient is alert, awake, oriented x3. CVS: Regular rate and rhythm with no murmurs, rubs, or gallops. LUNGS: Clear to auscultation bilaterally. ABDOMEN: She has slightly hypoactive bowel sounds. Soft, nontender, nondistended. EXTREMITIES: No edema. PERTINENT LABORATORY DATA: CBC on 07/08: was unremarkable. BMP: shows sodium of 135, potassium 3.4, bicarb 19, creatinine 1.49. LFTs: AST is 35, ALT is 26, alkaline phosphatase is 83. Lipase :was less than 4. UA :shows greater than 1000 glucose, 300 protein, 20 ketones, 1+ blood, 0 to 3 white blood cells. Beta hydroxybutyrate: 1.94. PERTINENT IMAGING STUDIES: CT of abdomen and pelvis: shows mucosal thickening involving the right hemicolon, worrisome for colitis. Renal ultrasound on 07/09:shows no hydronephrosis. DISCHARGE CONDITION: Stable. ACTIVITY: As tolerated. DIET: Diabetic diet. DISCHARGE MEDICATIONS: New medications: 1. Cefdinir 300 mg p.o. q.12 hours for 6 more days. 2. Flagyl 500 mg p.o. t.i.d. for 6 days. Continue medications: 1. Amlodipine 10 mg p.o. daily. 2. Duloxetine 60 mg p.o. daily. 3. Gabapentin 300 mg p.o. p.r.n. 4. Glargine 11 units subcu q.a.m. 5. Lisinopril 40 mg p.o. daily. 6. Methadone 5 mg p.o. q.i.d. 7. Metoclopramide 10 mg p.o. daily. 8. Metoprolol 25 mg p.o. daily. 9. Pancrelipase one capsule p.o. t.i.d. DISCHARGE INSTRUCTIONS: The patient is to follow up with her PCP in a week. She should take cefdinir and Flagyl for 6 more days. She should consider seeing a kidney doctor as an outpatient. Job ID: [id number]
== END 2019-07-09 20:51 | disposition home or self-care (01) ==
LOC: ERS 13:00 → T4-A 22:29
PROVIDERS: ADMIT Hospitalist; ATTEND Hospitalist
DX: K52.9 Noninfective gastroenteritis and colitis, unspecified (principal); N18.9 Chronic kidney disease, unspecified; N17.9 Acute kidney failure, unspecified; E87.6 Hypokalemia; I10 Essential (primary) hypertension; E10.10 Type 1 diabetes mellitus with ketoacidosis without coma; Z90.5 Acquired absence of kidney; Z90.411 Acquired partial absence of pancreas; G89.29 Other chronic pain; R10.9 Unspecified abdominal pain; M54.9 Dorsalgia, unspecified; E87.8 Other disorders of electrolyte and fluid balance, not elsewhere classified; Z79.891 Long term (current) use of opiate analgesic; Z79.899 Other long term (current) drug therapy; Z88.5 Allergy status to narcotic agent; Z90.3 Acquired absence of stomach [part of]; Z94.0 Kidney transplant status; Z94.83 Pancreas transplant status; Z98.890 Other specified postprocedural states
CPT/HCPCS: 74177; 76770; 80048 ×2; 80053; 82010; 82962 ×3; 83690; 85025 ×2; 87040; 87804 ×2; 93005; 96361 ×4; 96365; 96366; 96375 ×2; 96376 ×3; 97139 ×2; 99285; G0378 ×4; 36415; 36416; 81003; 81015; C9113; J0360; J0696; J1815; J1885; J2405; J2543; J2765; J3010; J3490; Q9967

== ENCOUNTER 2019-07-13 00:38 | Inpatient (IN) | payer MEDICARE, MEDICAID ==
[2019-07-13 02:42] LABS: Troponin I Less than 0.010 ng/mL (< 0.028)
[2019-07-13] MEDS ORDERED: Acetaminophen 500 MG TAB PO PRN (04:34)
[2019-07-13] MEDS ORDERED: Acetaminophen 500 MG TAB ONE (04:42)
[2019-07-13] MEDS ORDERED: Acetaminophen 500 MG TAB PO SCH (04:45)
[2019-07-13] MEDS ORDERED: hydrALAZINE 20 MG/ML VIAL SLOW IVP SCH (05:15)
[2019-07-13] MEDS ORDERED: hydrALAZINE 20 MG/ML VIAL ONE (05:21)
[2019-07-13] MEDS ORDERED: Dextrose 5% in Water 1,000 ML IV PRN (08:32)
[2019-07-13] MEDS ORDERED: Dextrose 50% Abboject 50 ML SYRINGE SLOW IVP PRN (08:32)
[2019-07-13] MEDS ORDERED: hydrALAZINE 20 MG/ML VIAL SLOW IVP PRN ×2 (08:32→09:00)
[2019-07-13] MEDS ORDERED: Fentanyl 100 MCG/2 ML VIAL SLOW IVP PRN (08:40)
[2019-07-13] MEDS ORDERED: Metoprolol Tartrate 25 MG TAB ONE (09:06)
[2019-07-13] MEDS ORDERED: Amlodipine 5 MG TAB ONE (09:06)
[2019-07-13] MEDS ORDERED: Famotidine 20 MG TAB ONE (09:06)
[2019-07-13] MEDS ORDERED: Lisinopril 10 MG TAB ONE ×2 (09:06→09:07)
[2019-07-13] MEDS: Amlodipine 10 MG TAB PO SCH (09:20)
[2019-07-13] MEDS ORDERED: Fentanyl 100 MCG/2 ML VIAL ONE (09:20)
[2019-07-13] MEDS: Lisinopril 20 MG TAB PO SCH (09:20)
[2019-07-13] MEDS: Sodium Chloride 0.9% 1,000 ML IV SCH ×3 (09:28→23:32)
[2019-07-13] MEDS: Famotidine 20 MG TAB PO SCH ×2 (09:28→20:20)
--- NOTE | 2019-07-13 09:39 | HP ---
CHIEF COMPLAINT: Abdominal pain, vomiting and hematochezia versus melena. HISTORY OF PRESENT ILLNESS: This patient is a 49-year-old female who was just admitted to this facility on July 07 and was discharged on July 10. At that time, the patient had nausea, vomiting. She had evidence of colitis based on the CT scans, but was not having significant lower GI symptoms. Once her nausea improved, the attending physician and group leader semiconductor testing felt she was appropriate for discharge to home to continue with p.o. antibiotics. Once the patient did return home, however, her nausea and vomiting recurred and she did start developing some generalized abdominal pain, diarrhea, and now is reporting that she is passing some dark red blood per rectum. She subsequently presented to the emergency department in [place] where she was noted to be profoundly hypertensive with a blood pressure of 224/122. She also had labs there which indicated an elevated troponin at 1.99. There, she received Zofran, fentanyl, 2 L of IV fluids, p.o. metoprolol, Nitro-Bid transdermal, some IV Protonix and Phenergan. She was subsequently transferred to this facility primarily because of elevated troponin levels, although her EKG was unchanged from prior EKGs. On arrival here, she has had repeat troponins x3, all of which have been negative. She has received one dose of IV hydralazine this morning. Blood pressure has improved a bit. She reports that her blood pressure typically runs high when she is having significant abdominal pain. She does also report having had some fevers and chills at home subsequent to discharge. REVIEW OF SYSTEMS: All systems reviewed, all pertinent positives and negatives noted in history of present illness. PAST MEDICAL HISTORY: Notable for a pancreatic mass with subsequent Whipple procedure, although apparently the mass was benign. She also has an apparent benign mass on her kidney. She has chronic pain syndrome related to her pancreatitis and her back. She reports that she is followed at [facility] for pain management. She sees Dr. Rangel and is on oral methadone. She has diabetes, hypertension, pancreatic insufficiency. PAST SURGICAL HISTORY: Partial nephrectomy in 2005, Whipple procedure in 2007 with several subsequent intraabdominal surgeries, small bowel resection, cholecystectomy, , prior pain pump and subsequent removal and tubal ligation. FAMILY HISTORY: Mother had diabetes. SOCIAL HISTORY: The patient lives at home alone. She has no alcohol, tobacco, or drug use. She is a full code. ALLERGIES: MORPHINE. CURRENT MEDICATIONS: 1. Flagyl 500 mg t.i.d. 2. Creon 73223 units one p.o. t.i.d. with meals. 3. Metoprolol 25 mg daily. 4. Metoclopramide 10 mg daily. 5. Methadone 5 mg q.i.d. 6. Lisinopril 40 mg daily. 7. Lantus 11 units subcu q.a.m. 8. Humalog sliding scale. 9. Gabapentin 300 mg daily p.r.n. 10. Cymbalta 60 mg daily p.r.n. 11. Cefdinir 300 mg b.i.d. 12. Amlodipine 10 mg daily. PHYSICAL EXAMINATION: VITAL SIGNS: Last documented BP was 209/129, on my exam the patient was 170/100 following her IV hydralazine dose. Pulse is 109, respirations 18, temperature 98.5. She had rated her pain at 10, O2 saturations were 99% on room air. GENERAL APPEARANCE: Age-appropriate female. She appears uncomfortable, but in no acute distress. She is awake, alert, oriented, pleasant, and cooperative. HEENT: PERRL. There is a pterygium over the right medial eye limbus. No OP lesions. NECK: Supple and symmetric without lymphadenopathy, JVD, or bruits. HEART: Regular rate and rhythm. Tachycardic. No murmurs. LUNGS: Clear to auscultation bilaterally with no wheezes or rales. ABDOMEN: Soft, diffusely tender. Normal bowel sounds. No masses. No organomegaly. There is some voluntary guarding. EXTREMITIES: No cyanosis, clubbing, or edema. Peripheral pulses are strong. PSYCHIATRIC: Normal affect and behavior. NEUROLOGIC: The patient moves extremities spontaneously. Cognitively intact. Cranial nerves are intact. LABORATORY DATA: White count 7.4, hemoglobin 12.6, platelets 157. Sodium 139, potassium 3.4, chloride 106, CO2 of 16, BUN 11, creatinine is 1.22 with a GFR of 58, glucose 302, lactic acid 1.9. LFTs normal. Initial troponin in [place] ER was 1.999, subsequent is 0.010, then 0.010 and 0.020. CRP is less than 0.5, albumin 4.0, amylase is 160, lipase less than 4. Urinalysis shows positive glucose, trace ketones, trace blood. IMAGING DATA: CT abdomen and pelvis shows large portion of the colon being fluid filled, but greater in the region of the descending colon, extends into the rectum with suggestion of mucosal thickening involving portion of the proximal rectum and distal descending colon, could relate to colitis in the right clinical scenario. There is mild thickening involving the bladder with minimal adjacent inflammatory changes especially anteriorly, cystitis as possible. Essentially, this is unchanged from her previous CT scan done on her previous admission. IMPRESSION AND PLAN: 1. Possible colitis in a patient with diffuse abdominal pain, diarrhea, and now some melena versus hematochezia. The patient was previously admitted with similar findings on CT, treated with antibiotics. We will change to IV Zosyn. Consult GI. Hydrate. Treat pain with pain medications. 2. Nausea and vomiting. Again, IV fluids, p.r.n. medications, unclear if this is related. 3. Chronic pain syndrome. The patient is on p.o. methadone. We will continue that with p.r.n. fentanyl. 4. Hypertensive urgency. The patient reports that she believes her blood pressure is related to uncontrolled pain. We will see how it does with the pain being controlled. We will try to get her back on her p.o.'s, although I cannot reliably count her to keep those down. We will give p.r.n. IV medications with hydralazine as well. 5. Diabetes mellitus. Given her unreliable p.o. intake, we will only give mild sliding scale insulin and hold off any long-acting for now. 6. Elevated troponin. This appears to be an errant reading from the [place] ER as there is no physiologic possibility that it went from 2 to 0 in that short period of time. The patient does not have any cardiac history. 7. Mild hypokalemia. We will give IV repletion. 8. CKD III appears to be stable at her usual baseline. Job ID: [id number] [facility]
[2019-07-13] MEDS: METHadone HCl 10 MG TAB PO SCH ×4 (10:05→20:20)
[2019-07-13] MEDS ORDERED: Piperacillin/Tazobactam 3.375 GM VIAL ONE (13:08)
[2019-07-13] MEDS: Piperacillin/Tazobactam 3.375 GM in Sodium Chloride 0.9% 100 ML IVPB SCH ×3 (13:22→23:13)
[2019-07-13] MEDS: HumaLOG 300 UNITS/3 ML VIAL SC PRN (23:14)
[2019-07-14 04:49] LABS: #Eosinphils 0.1 thou/uL (0.0-0.7); #Lymphocytes 1.2 thou/uL (1.20-3.40); #Monocytes 0.7 thou/uL (0.11-0.59); #Neutrophils 3.3 thou/uL (1.40-6.50); %Basophils 0.9 % (0.0-1.0); %Eosinophils 1.4 % (0.0-10.0); %Lymphocytes 22.7 % (21.0-51.0); %Monocytes 12.4 % (0.0-10.0); %Neutrophils 62.6 % (42.0-75.0); Hemoglobin 10.3 g/dL (12.0-16.0); Mean Corpuscular HGB CONC 32.6 g/dL (32.0-36.0); Mean Corpuscular Hemoglobin 32.9 pg (27.0-31.0); Mean Platelet Volume 9.2 fL (7.4-10.4); Platelet Count 164 thou/uL (130-400); RBC Distribution Width 14.8 % (11.5-14.5); Red Blood Cell (RBC) Count 3.12 mill/uL (4.20-5.40); White Blood Cell (WBC) Count 5.3 thou/uL (4.8-10.8)
[2019-07-14 05:14] LABS: Anion Gap 12 mmol/L (10-20); BUN (Urea Nitrogen) 8 mg/dL (7.0-18.7); Calc. Creatinine Clearance 49 mL/min (70-130); Calcium 8.3 mg/dL (7.8-10.44); Carbon Dioxide 24 mmol/L (22-29); Chloride 102 mmol/L (98-107); Estimated GFR-MDRD 53; Glucose 457 mg/dL (70-105); Potassium 3.9 mmol/L (3.5-5.1); Sodium 134 mmol/L (136-145)
[2019-07-14] MEDS: Piperacillin/Tazobactam 3.375 GM in Sodium Chloride 0.9% 100 ML IVPB SCH ×3 (07:25→17:46)
[2019-07-14] MEDS ORDERED: FLU VACC QS2019-20(6MOS UP)/PF 60 MCG/0.5 ML SYRINGE IM ONE (09:00)
[2019-07-14] MEDS: Lisinopril 20 MG TAB PO SCH (09:07)
[2019-07-14] MEDS: Amlodipine 10 MG TAB PO SCH (09:07)
[2019-07-14] MEDS: Famotidine 20 MG TAB PO SCH (09:07)
[2019-07-14] MEDS: METHadone HCl 10 MG TAB PO SCH ×4 (09:08→20:45)
[2019-07-14] MEDS: Sodium Chloride 0.9% 1,000 ML IV SCH ×2 (09:12→17:45)
[2019-07-14] MEDS: HumaLOG 300 UNITS/3 ML VIAL SC PRN ×2 (09:12→12:00)
[2019-07-14] MEDS ORDERED: Insulin Glargine 11 UNITS in Pre-Filled Syringe 1 EACH SC SCH (11:00)
[2019-07-14 11:57] VITALS: BMI 22.1
--- NOTE | 2019-07-14 17:45 | PDOC.HOSPP ---
- Subjective Encounter Date: 07/14/19 Encounter Time: 17:43 Subjective: Lost her IV and there have been multiple attempts to restart it unsuccessfully. She is getting her po's and getting her methadone. She says "you know it doesn't do everything". She is tolerating a diet. Had brown stool per nurse. - Objective Vital Signs & Weight: Vital Signs (12 hours) Temp Pulse Resp BP Pulse Ox 07/14/19 16:05 98.3 F 68 18 118/74 98 07/14/19 12:05 97.8 F 73 18 127/76 98 07/14/19 09:07 71 07/14/19 07:45 97.8 F 71 18 125/78 100 Weight Admit Weight 129 lb 8 oz Weight 129 lb I&O: 07/13/19 07/14/19 07/15/19 06:59 06:59 06:59 Intake Total 720 Output Total 780 Balance -60 Result Diagrams: 07/14/19 04:15 07/14/19 04:15 Additional Labs: Accuchecks 07/14/19 07/14/19 07/14/19 16:23 10:23 06:08 POC Glucose 103 375 H 450 H 07/13/19 07/13/19 21:06 17:12 POC Glucose Greater than 550 H* 308 H Hospitalist ROS - Medication Medications: Active Medications Generic Name Dose Route Start Last Admin Trade Name Freq PRN Reason Stop Dose Admin Amlodipine Besylate 10 mg 07/13/19 09:00 07/14/19 09:07 Norvasc PO 10 mg DAILY JULIA Administration Fentanyl 25 mcg 07/13/19 08:40 07/13/19 09:25 Sublimaze SLOW IVP 25 mcg Q2H PRN Administration Severe Pain (7-10) Piperacillin Sod/Tazobactam 100 mls @ 200 mls/hr 07/13/19 12:00 07/14/19 14: 58 Sod 3.375 gm/ Sodium Chloride IVPB Not Given Q6HR JULIA Sodium Chloride 1,000 mls @ 100 mls/hr 07/13/19 22:12 07/14/19 09:12 Normal Saline 0.9% IV 1,000 mls .Q10H JULIA Administration Insulin Human Lispro 0 units 07/14/19 10:50 07/14/19 12:00 Humalog SC 13 unit .AGGRESSIVE SLIDING PRN Administration AGGRESSIVE SLIDING SCALE Protocol Lisinopril 40 mg 07/13/19 09:00 07/14/19 09:07 Zestril PO 40 mg DAILY JULIA Administration Methadone HCl 5 mg 07/13/19 09:00 07/14/19 12:49 Dolophine Hcl PO 5 mg QID JULIA Administration Metoprolol Succinate 25 mg 07/13/19 09:00 07/14/19 09:08 Toprol Xl PO 25 mg DAILY JULIA Administration Sodium Chloride 10 ml 07/13/19 09:00 07/14/19 09:16 Flush - Normal Saline IVF 10 ml Q12HR JULIA Administration - Exam General Appearance: NAD, awake alert Heart: RRR, no murmur, no gallops, no rubs, normal peripheral pulses Respiratory: CTAB, no wheezes, no rales, no ronchi, normal chest expansion, no tachypnea, normal percussion Gastrointestinal: soft, non-distended, normal bowel sounds, no palpable masses, tender to palpation (Very mildly.) Musculoskeletal: normal tone, normal strength, no muscle wasting Psychiatric: normal affect, normal behavior, A&O x 3 Hosp A/P (1) Colitis Code(s): K52.9 - NONINFECTIVE GASTROENTERITIS AND COLITIS, UNSPECIFIED Status : Acute (2) CKD (chronic kidney disease), stage III Code(s): N18.3 - CHRONIC KIDNEY DISEASE, STAGE 3 (MODERATE) Status: Chronic (3) Chronic abdominal pain Code(s): R10.9 - UNSPECIFIED ABDOMINAL PAIN; G89.29 - OTHER CHRONIC PAIN Status: Chronic (4) DM type 2 (diabetes mellitus, type 2) Status: Chronic (5) Hypertension Code(s): I10 - ESSENTIAL (PRIMARY) HYPERTENSION Status: Chronic Qualifiers: (6) Opiate dependence Code(s): F11.20 - OPIOID DEPENDENCE, UNCOMPLICATED Status: Chronic (7) Hypertensive urgency Code(s): I16.0 - HYPERTENSIVE URGENCY Status: Resolved - Plan BP has vastly improved. Passing brown stool. No further evidence of blood. Stool studies negative except yeast on culture (?contam). Refused insulin last night and her blood sugars got very high. Better now. No IV access. As good as she looks, I think it might be possible to continue to treat her with po abx. Will await GI consult and go from there.
[2019-07-15] MEDS: Piperacillin/Tazobactam 3.375 GM in Sodium Chloride 0.9% 100 ML IVPB SCH ×3 (00:13→11:57)
[2019-07-15] MEDS: Sodium Chloride 0.9% 1,000 ML IV SCH ×2 (00:13→13:53)
[2019-07-15] MEDS: Acetaminophen 325 MG TAB PO PRN ×2 (01:23→22:58)
--- NOTE | 2019-07-15 02:28 | CON ---
DATE OF CONSULTATION: 07/14/2019 REASON FOR CONSULTATION: Hematochezia, colitis. 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 The patient was recently discharged from the hospital with increased abdominal pain, nausea, and vomiting that was increased when compared to her baseline. She was noted to have colitis on imaging and started on IV antibiotics and responded well to treatment. She was ultimately discharged to home with p.o. antibiotics and was at home for approximately 12 to 24 hours before she began having increase of her abdominal pain, but also had the appearance of hematochezia. The hematochezia was characterized as bright red blood per rectum that was present primarily only on the toilet paper and usually associated with diarrhea like bowel movement. She had approximately 2 to 3 discrete episodes of hematochezia for the next 48 hours at home, which then ultimately brought her back to the [facility] ER for further evaluation. She also noticed that her abdominal pain did increase as well with the abdominal pain located primarily in the suprapubic region, was characterized as a soreness-type sensation, would radiate to the generalized abdomen and reached a severity of 10/10. However, since being admitted to the hospital, she has had significant improvement in her abdominal pain in addition to complete cessation of hematochezia (no further episodes of hematochezia since inpatient). Currently, she does state that she has subjective fevers and chills, but unchanged when compared to her baseline. Otherwise, she denies any hematemesis, melena, constipation, or weight loss. Of note, the patient was evaluated in July [address] scan at that time showing diffuse colonic wall thickening consistent with colitis and possible enteritis. With the increased nausea, vomiting, and diarrhea she was having at that time, she subsequently underwent a colonoscopy with the intraluminal evaluation being normal and random biopsies also unremarkable. When compared to the symptoms she was having at that time, she states that the symptoms she currently has are very similar. REVIEW OF SYSTEMS: A 10-category review of systems was obtained with all responses negative except for the pertinent positives as listed in HPI. PAST MEDICAL HISTORY: As per HPI. PAST SURGICAL HISTORY: Partial nephrectomy in 2006, complete Whipple procedure in 2008, small bowel resection, cholecystectomy, section, intrathecal pain pump placement and removal, bilateral tubal ligation. FAMILY HISTORY: Denies any GI malignancies. SOCIAL HISTORY: Denies any tobacco, alcohol, or illicit drug use. OUTPATIENT MEDICATIONS: Reviewed. ALLERGIES: MORPHINE. PHYSICAL EXAMINATION: VITAL SIGNS: Temperature 97.7, pulse 62, blood pressure 113/72, respiratory rate 18, saturating 94% on room air. GENERAL: The patient was lying in bed, in no acute distress. Alert and oriented x4. HEENT: Normocephalic, atraumatic. NECK: Supple. No JVD or scleral icterus noted. CARDIOVASCULAR: Regular rate and rhythm. No discernible murmurs, gallops, or rubs. RESPIRATORY: Clear to auscultation bilaterally with no discernible wheezes or rales. ABDOMEN: Normoactive bowel sounds. Soft, nondistended. Tenderness to palpation in all abdominal quadrants, but especially in the left lower quadrant. EXTREMITIES: No cyanosis, clubbing, or edema. LABORATORY DATA: CBC with a white blood cell count of 5.3, hemoglobin 10.3, hematocrit 31.5, platelets 164. Chemistry with a sodium of 134, potassium 3.9, chloride 102, CO2 of 24, BUN 8, creatinine 1.3, glucose 457. Infectious stool studies were negative for E coli, Salmonella, Shigella, Campylobacter and Clostridium difficile. Fecal lactoferrin was positive. IMAGING DATA: CT of the abdomen and pelvis was obtained on July 07, 2019, which showed mucosal thickening of the ascending colon and hepatic flexure. Upon review of previous imaging, CT scan was obtained on August 12, 2017, which showed diffuse colonic wall thickening consistent with colitis and possible enteritis. Colonoscopy performed on August 16, 2017 showed normal intraluminal evaluation with no evidence of inflammation or ulceration. Random biopsies from both the right and left colons were completely unremarkable. ASSESSMENT AND PLAN: The patient is a 49-year-old female with past medical history of chronic pancreatitis secondary to Whipple procedure from a pancreatic cystic mass, diabetes, hypertension, pancreatic insufficiency, and chronic abdominal pain, presenting with hematochezia. Hematochezia. The patient is presenting with a fairly sudden acute onset of hematochezia characterized as bright red blood per rectum that was present primarily on the toilet paper and not in the toilet (although the patient does not look). When compared to her H and H when she was recently discharged, she has lost approximately 1.5 to 2 units of blood over the 2 days that she was at home prior to coming back in. However, since being readmitted to the hospital, she has not had any further episodes of hematochezia and is currently stable. On review of her imaging, she has had many CT scans over the years that have showed either segmental or diffuse colitis, but with intraluminal evaluation via colonoscopy in August 2017, there had been no abnormality seen either with the colonoscope or with the biopsies. At this time, the origin of her hematochezia seems to be more related to rectal outlet bleeding with the most common reason being hemorrhoidal bleeding (the patient does have a history of this). However, the differential could include stercoral colitis (the patient is on chronic narcotics), arteriovenous malformation, Dieulafoy lesion, inflammatory bowel disease (less likely given negative colonoscopy in 2018), diverticular bleeding (less likely) and/or GI neoplasm (much less likely given negative colonoscopy in 2018). RECOMMENDATIONS: 1. We would continue to trend her H and H and transfuse as necessary to maintain an H and H of 7/. 2. Continue to monitor clinically for signs of active GI bleeding. 3. I would continue to monitor her for now rather than repeating her colonoscopy given the cessation of her hematochezia and significant improvement in her abdominal pain. However, if she does continue to have a downtrending H and H, and/or clinical evidence of hematochezia, I would reconsider colonoscopy at that time. 4. We would avoid any anticoagulation if possible given possible recent GI bleeding. 5. We would continue to monitor the patient from a cardiac standpoint given her recent NSTEMI, which could potentially create decreased colonic perfusion and ischemic colitis. I recommend maintaining normotensive pressures during this admission. We will continue to follow. Please call with any questions. Job ID: [id number]
[2019-07-15 08:16] LABS: #Eosinphils 0.1 thou/uL (0.0-0.7); #Lymphocytes 1.4 thou/uL (1.20-3.40); #Monocytes 0.5 thou/uL (0.11-0.59); #Neutrophils 1.8 thou/uL (1.40-6.50); %Basophils 1.1 % (0.0-1.0); %Eosinophils 2.5 % (0.0-10.0); %Lymphocytes 37.2 % (21.0-51.0); %Monocytes 12.5 % (0.0-10.0); %Neutrophils 46.7 % (42.0-75.0); Hemoglobin 9.6 g/dL (12.0-16.0); Mean Corpuscular HGB CONC 32.7 g/dL (32.0-36.0); Mean Corpuscular Hemoglobin 33.2 pg (27.0-31.0); Mean Platelet Volume 8.6 fL (7.4-10.4); Platelet Count 190 thou/uL (130-400); RBC Distribution Width 14.5 % (11.5-14.5); White Blood Cell (WBC) Count 3.8 thou/uL (4.8-10.8)
[2019-07-15 08:40] LABS: Anion Gap 12 mmol/L (10-20); BUN (Urea Nitrogen) 6 mg/dL (7.0-18.7); Calc. Creatinine Clearance 63 mL/min (70-130); Calcium 7.9 mg/dL (7.8-10.44); Carbon Dioxide 23 mmol/L (22-29); Chloride 105 mmol/L (98-107); Estimated GFR-MDRD 72; Glucose 232 mg/dL (70-105); Potassium 3.2 mmol/L (3.5-5.1); Sodium 137 mmol/L (136-145)
[2019-07-15] MEDS: Insulin Glargine 11 UNITS in Pre-Filled Syringe 1 EACH SC SCH (08:52)
[2019-07-15] MEDS: Amlodipine 10 MG TAB PO SCH (08:55)
[2019-07-15] MEDS: Lisinopril 20 MG TAB PO SCH (08:55)
[2019-07-15] MEDS: Famotidine 20 MG TAB PO SCH (08:55)
[2019-07-15] MEDS: METHadone HCl 10 MG TAB PO SCH ×4 (08:56→20:43)
[2019-07-15] MEDS ORDERED: Gabapentin 300 MG CAP PO PRN (09:25)
[2019-07-15] MEDS: Pancrelipase DR 12000 1 CAP PO SCH ×2 (11:34→16:36)
[2019-07-15] MEDS: HumaLOG 300 UNITS/3 ML VIAL SC PRN (11:35)
[2019-07-15 16:39] LABS: Hemoglobin 11.6 g/dL (12.0-16.0)
--- NOTE | 2019-07-15 18:38 | PRG ---
DATE OF SERVICE: 07/15/2019 REASON FOR CONSULTATION: Hematochezia, colitis. SUBJECTIVE: The patient states that she was doing better today with decreased abdominal pain, minimal amount of nausea, and no further episodes of vomiting. She also states that she has not had any further episodes of hematochezia, despite having a bowel movement early today. Thus far, she had been able to somewhat tolerate her diet that was limited primarily due to nausea, but per our conversation tonight, she states that she was ready to advance her diet. Currently, she denies any vomiting, fevers, chills, hematemesis, melena, or hematochezia. OBJECTIVE: VITAL SIGNS: Temperature 97.5, pulse 60, blood pressure 113/78, respiratory rate 18, and saturating 100% on room air. GENERAL: The patient is lying in bed, in no acute distress. Alert and oriented x4. CARDIOVASCULAR: Regular rate and rhythm. RESPIRATORY: Clear to auscultation bilaterally. ABDOMEN: Normoactive bowel sounds. Soft and nondistended. Tender to palpation in the left lower quadrant. EXTREMITIES: No cyanosis, clubbing, or edema. LABORATORY DATA: CBC with a white blood cell count of 3.8, hemoglobin 11.6, hematocrit 37, and platelets 190. Chemistry with a sodium of 137, potassium 3.2, chloride 105, CO2 of 23, BUN 6, creatinine 1.0, and glucose 232. IMAGING DATA: No current GI imaging is available for review. ASSESSMENT AND PLAN: The patient is a 49-year-old female with past medical history of chronic pancreatitis secondary to Whipple procedure from a pancreatic cystic mass, diabetes, hypertension, pancreatic insufficiency, and chronic abdominal pain, presenting with hematochezia. Hematochezia. The patient was recently discharged from the hospital after being treated for nausea, vomiting, and sudden increase in her abdominal pain. However, shortly after discharge, she had sudden onset of hematochezia characterized as bright red blood per rectum with approximately 2 to 3 episodes per day over the course of 2 days. However, since being readmitted to the hospital, she has not had any further episodes of hematochezia and while her H and H was initially downtrending. Repeat H and H today shows an elevation indicating a stable H and H. At this time, the most likely etiology of her hematochezia would be related more to rectal outlet bleeding with most common reason being hemorrhoidal. Differential could include stercoral colitis, arteriovenous malformation, Dieulafoy lesion, inflammatory bowel disease (much less likely), diverticular bleeding (much less likely), and/or GI neoplasm (much less likely given negative colonoscopy in 2018). RECOMMENDATIONS: 1. Would continue to trend her H and H and transfuse as necessary to maintain an H and H of 7/21. 2. Continue to monitor clinically for signs of active GI bleeding. 3. Would continue to hold on any endoscopic evaluation given up trending H and H and lack of clinical GI bleeding. 4. Would continue to avoid any anticoagulation given possible recent GI bleeding. We will continue to follow. Please call with any questions. Job ID: [id number]
--- NOTE | 2019-07-15 21:39 | PDOC.HOSPP ---
- Subjective Subjective: Feels ok. Has had some BM's. Diarrheal, but no blood. Feels ok otherwise. - Objective Vital Signs & Weight: Vital Signs (12 hours) Temp Pulse Resp BP BP Pulse Ox 07/15/19 20:00 97.7 F 70 17 129/71 96 07/15/19 15:17 97.5 F L 60 18 113/78 100 07/15/19 11:20 97.6 F 62 16 107/66 99 Weight Admit Weight 129 lb 8 oz Weight 127 lb 9.6 oz I&O: 07/14/19 07/15/19 07/16/19 06:59 06:59 06:59 Intake Total 720 2290 Output Total 780 1450 Balance -60 840 Result Diagrams: 07/15/19 16:30 07/15/19 08:00 Additional Labs: Accuchecks 07/15/19 07/15/19 07/15/19 20:33 16:44 11:01 POC Glucose 172 H 110 336 H 07/15/19 05:38 POC Glucose 221 H Hospitalist ROS - Medication Medications: Active Medications Generic Name Dose Route Start Last Admin Trade Name Freq PRN Reason Stop Dose Admin Acetaminophen 650 mg 07/13/19 08:26 07/15/19 01:23 Tylenol PO 650 mg Q4H PRN Administration Headache/Fever/Mild Pain (1-3) Lipase/Protease/Amylase 1 cap 07/15/19 12:00 07/15/19 16:[address] [place] [address] [id number] PO 1 cap TID-WM JULIA Administration Famotidine 20 mg 07/15/19 09:00 07/15/19 08:55 Pepcid PO 20 mg DAILY JULIA Administration Fentanyl 25 mcg 07/13/19 08:40 07/13/19 09:25 Sublimaze SLOW IVP 25 mcg Q2H PRN Administration Severe Pain (7-10) Sodium Chloride 1,000 mls @ 100 mls/hr 07/13/19 22:12 07/15/19 13:53 Normal Saline 0.9% IV Not Given .Q10H JULIA Insulin Glargine 11 units/ 0.11 mls @ 0 mls/hr 07/15/19 09:00 07/15/19 08:52 Miscellaneous Medication SC 0.11 mls QAM JULIA Administration Insulin Human Lispro 0 units 07/14/19 10:50 07/15/19 11:35 Humalog SC 11 unit .AGGRESSIVE SLIDING PRN Administration AGGRESSIVE SLIDING SCALE Protocol Methadone HCl 5 mg 07/13/19 09:00 07/15/19 20:43 Dolophine Hcl PO 5 mg QID JULIA Administration Sodium Chloride 10 ml 07/13/19 09:00 07/15/19 20:42 Flush - Normal Saline IVF Not Given Q12HR JULIA - Exam General Appearance: NAD, awake alert Heart: RRR, no murmur, no gallops, no rubs, normal peripheral pulses Respiratory: CTAB, no wheezes, no rales, no ronchi, normal chest expansion, no tachypnea, normal percussion Gastrointestinal: soft, non-tender, non-distended, normal bowel sounds, no palpable masses, no hepatomegaly, no splenomegaly, no bruit Extremities: no cyanosis, no clubbing, no edema Psychiatric: normal affect, normal behavior, A&O x 3 Hosp A/P (1) Colitis Code(s): K52.9 - NONINFECTIVE GASTROENTERITIS AND COLITIS, UNSPECIFIED Status : Acute (2) CKD (chronic kidney disease), stage III Code(s): N18.3 - CHRONIC KIDNEY DISEASE, STAGE 3 (MODERATE) Status: Chronic (3) Chronic abdominal pain Code(s): R10.9 - UNSPECIFIED ABDOMINAL PAIN; G89.29 - OTHER CHRONIC PAIN Status: Chronic (4) DM type 2 (diabetes mellitus, type 2) Status: Chronic (5) Hypertension Code(s): I10 - ESSENTIAL (PRIMARY) HYPERTENSION Status: Chronic Qualifiers: (6) Opiate dependence Code(s): F11.20 - OPIOID DEPENDENCE, UNCOMPLICATED Status: Chronic (7) Hypertensive urgency Code(s): I16.0 - HYPERTENSIVE URGENCY Status: Resolved - Plan BP has vastly improved. Passing brown stool. No further evidence of blood. Stool studies negative except yeast on culture (?contam). No IV access. Abx DC'd after discussion with GI. Advance diet. If tolerates and hgb stable, anticipate DC in am.
[2019-07-15] MEDS ORDERED: Potassium Chloride 20 MEQ TAB PO SCH (22:15)
[2019-07-16] MEDS: Sodium Chloride 0.9% 1,000 ML IV SCH ×2 (00:54→09:16)
[2019-07-16 04:33] LABS: #Eosinphils 0.1 thou/uL (0.0-0.7); #Lymphocytes 1.7 thou/uL (1.20-3.40); #Monocytes 0.4 thou/uL (0.11-0.59); %Basophils 1.1 % (0.0-1.0); %Eosinophils 1.7 % (0.0-10.0); %Lymphocytes 39.9 % (21.0-51.0); %Monocytes 9.7 % (0.0-10.0); %Neutrophils 47.7 % (42.0-75.0); Hemoglobin 10.5 g/dL (12.0-16.0); Mean Corpuscular HGB CONC 31.9 g/dL (32.0-36.0); Mean Corpuscular Hemoglobin 32.6 pg (27.0-31.0); Platelet Count 208 thou/uL (130-400); RBC Distribution Width 14.6 % (11.5-14.5); Red Blood Cell (RBC) Count 3.23 mill/uL (4.20-5.40); White Blood Cell (WBC) Count 4.3 thou/uL (4.8-10.8)
[2019-07-16 04:58] LABS: Anion Gap 12 mmol/L (10-20); BUN (Urea Nitrogen) 4 mg/dL (7.0-18.7); Calc. Creatinine Clearance 42 mL/min (70-130); Calcium 8.2 mg/dL (7.8-10.44); Carbon Dioxide 22 mmol/L (22-29); Chloride 104 mmol/L (98-107); Estimated GFR-MDRD 45; Glucose 243 mg/dL (70-105); Potassium 4.1 mmol/L (3.5-5.1); Sodium 134 mmol/L (136-145)
[2019-07-16] MEDS ORDERED: Metoclopramide HCl 10 MG TAB PO SCH (07:30)
[2019-07-16] MEDS ORDERED: Lisinopril 20 MG TAB PO SCH (09:00)
[2019-07-16] MEDS ORDERED: DULoxetine 60 MG CAP PO SCH (09:00)
[2019-07-16] MEDS ORDERED: Amlodipine 10 MG TAB PO SCH (09:00)
[2019-07-16] MEDS: Pancrelipase DR 12000 1 CAP PO SCH ×2 (09:13→11:18)
[2019-07-16] MEDS: Insulin Glargine 11 UNITS in Pre-Filled Syringe 1 EACH SC SCH (09:14)
[2019-07-16] MEDS: Famotidine 20 MG TAB PO SCH (09:14)
[2019-07-16] MEDS: METHadone HCl 10 MG TAB PO SCH ×2 (09:15→12:29)
[2019-07-16 11:24] VITALS: BP 149/79; TEMP 97.9
[2019-07-16] MEDS ORDERED: Diphenoxylate HCl/Atropine Tablet PO PRN (11:28)
[2019-07-16] MEDS: HumaLOG 300 UNITS/3 ML VIAL SC PRN (12:32)
--- NOTE | 2019-07-17 09:59 | PQF ---
GARRISON QUINTERO DAVID R MD [id number] [facility] [id number] CLINICAL DOCUMENTATION CLARIFICATION FORM: POST DISCHARGE Addendum to original discharge summary date: ____ Late entry note date: __ DATE:07/17/2019 ATTN:TABATHA CRESPO MD Please exercise your independent, professional judgment in responding to the clarification form. Clinical indicators are provided on the bottom of this form for your review Please check appropriate box(s): kindly clarify the recent NSTEMI: [ ] NSTEMI is within 4 weeks [ ] NSTEMI is more than 4 weeks [ x ] Other diagnosis Lab error [ ] Unable to determine CLINICAL INDICATORS - SIGNS / SYMPTOMS / LABS NSTEMI-Documented in ED on 07/13 by Mirtha Colbert Hypertensive urgency-Documented in H&P on 07/13 by James Spann Initial troponin in [facility] was 1.999 subsequent is 0.010 then 0.010 and 0.020-Documented in H&P on 07/13 by James Spann Elevated troponin. This appears to be an errant reading from the [facility] as there is no physiologic possibility that it went from 2 to 0 in that short period of time .The patient dose not any cardiac history -Documented in H& P on 07/13 by James Spann We would continue to monitor the patient from a cardiac standpoint given her recent NSTEMI, which could potentially create decreased colonic perfusion and ischemic colitis-Documented in consultation on 07/14 by Tabatha Crespo RISKS: Hypertensive urgency-Documented in H&P on 07/13 by James pSann DM-Documented in H&P on 07/13 by James Spann TREATMENTS: We would continue to monitor the patient from a cardiac standpoint given her recent NSTEMI, which could potentially create decreased colonic perfusion and ischemic colitis-Documented in consultation on 07/14 by Tabatha Crespo [facility] Budget Director Crystal Reports Winform Viewer (This form is maintained as a part of the permanent medical record) 2015 [employer]. All Rights Reserved [email or web address]
--- NOTE | 2019-07-17 14:18 | DIS ---
DATE OF ADMISSION: 07/13/2019 DATE OF DISCHARGE: 07/16/2019 DISCHARGE DIAGNOSES: 1. Colitis. 2. Hematochezia. 3. Chronic abdominal pain. 4. Opiate dependence. 5. Chronic kidney disease stage 3. 6. 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 7. Diabetes mellitus. 8. Hypertension. 9. Hypertensive urgency. HISTORY: This patient is a 49-year-old female with a history of chronic abdominal pain following a Whipple's procedure for pancreatic mass. The patient reported that she received her pain management from the physician at [facility]. She presented to the hospital with abdominal pain and reported bright red blood per rectum. CT scan of her abdomen initially indicated some evidence of colitis. The patient was noted to have recently been admitted with the diagnosis of colitis with similar findings on her CT scan. The patient was significantly hypertensive with hypertensive urgency in the emergency department and was subsequently admitted to the hospital. HOSPITAL COURSE: The patient is still on oral antibiotic. She was changed back to IV antibiotics with some IV hydration and IV pain management. She was kept n.p.o. She was receiving IV antihypertensive medications, which were not required long as her blood pressure responded very quickly after receiving IV pain medications. The patient was seen in consultation by GI, who noted her hemoglobin to be stable. Also noted that she had previously had several prior CT scans, all indicating evidence of colitis. However, during one of those episodes, the patient had endoscopy, which revealed no evidence of inflammatory changes and it was felt that the patient simply had an abnormal baseline. CT scan of the abdomen did not represent acute pathology. Given the bright red nature of the blood, it was felt this was most likely related to hemorrhoidal type bleeding. The patient had no further bleeding, stable hemoglobin and no further intervention was felt to be indicated and antibiotics were discontinued. The patient was transitioned back over to a regular p.o. diet, which she tolerated well. Had no further evidence of bleeding and was ultimately felt to be stable for discharge to home. PHYSICAL EXAMINATION: VITAL SIGNS: On the day of discharge, temperature was 97.9, pulse 61, respirations 16, O2 saturation 100% on room air, and BP was 149/79. GENERAL APPEARANCE: Age-appropriate female, in no distress. She is awake and alert. HEART: Regular rate and rhythm. LUNGS: Clear. ABDOMEN: Mildly diffusely tender with no masses. Bowel sounds are present. EXTREMITIES: No edema. DISPOSITION: The patient is discharged to home in stable condition. DISCHARGE MEDICATIONS: She will be on, 1. Amlodipine 10 mg p.o. daily. 2. Duloxetine 60 mg daily p.r.n. 3. Gabapentin 300 mg t.i.d. p.r.n. 4. Lisinopril 40 mg daily. 5. Methadone 5 mg q.i.d. 6. Metoclopramide 10 mg daily. 7. Metoprolol 25 mg daily. 8. Creon 12,000 units one capsule t.i.d. with meals. 9. Insulin Lantus 11 units subcu q.a.m. 10. Humalog sliding scale. 11. Cefdinir 300 mg q.12 hours. 12. Flagyl 500 mg t.i.d. 13. Zofran 4 mg q.6 hours p.r.n., essentially unchanged medication list from her time of admission. ACTIVITY: As tolerated. DIET: She is to have no other dietary restrictions. FOLLOWUP: She will follow up with Dr. Jose Gray in [address] Singh Gonzales in the [facility]. She can return to the hospital at anytime should she have the need to do so. TIME SPENT: Total time in discharge activities was 36 minutes. Job ID: [id number]
== END 2019-07-16 12:45 | disposition home or self-care (01) | DRG 392 ==
LOC: ERS 00:38 → ERHOLD 01:40 → 2NO 16:51
PROVIDERS: ADMIT Family Medicine; ATTEND Family Medicine
DX: K52.9 Noninfective gastroenteritis and colitis, unspecified (principal); F11.20 Opioid dependence, uncomplicated; K92.1 Melena; G89.4 Chronic pain syndrome; I16.0 Hypertensive urgency; R79.89 Other specified abnormal findings of blood chemistry; E87.6 Hypokalemia; E11.22 Type 2 diabetes mellitus with diabetic chronic kidney disease; N18.3 Chronic kidney disease, stage 3 (moderate); K64.9 Unspecified hemorrhoids; I12.9 Hypertensive chronic kidney disease with stage 1 through stage 4 chronic kidney disease, or unspecified chronic kidney disease; Z90.5 Acquired absence of kidney; Z90.49 Acquired absence of other specified parts of digestive tract; Z98.51 Tubal ligation status; Z83.3 Family history of diabetes mellitus; Z88.5 Allergy status to narcotic agent; Z98.890 Other specified postprocedural states
CPT/HCPCS: 36415; 36416; 80048; 82274; 83630; 84484; 85025; 87045; 87046; 87324; 87427; 87449; 99285; J0360; J1815; J2543; J3010; J3490

== ENCOUNTER 2020-06-12 15:40 | Inpatient (IN) | payer MEDICARE, MEDICAID ==
[2020-06-12] MEDS ORDERED: INSULIN REGULAR IN 0.9 % NACL 100 UNIT/100 ML BAG ONE (15:45)
[2020-06-12] MEDS ORDERED: Propofol 1,000 MG/100 ML VIAL IV ONE (15:45)
[2020-06-12] MEDS ORDERED: Norepinephrine 8 MG/0.9% NS 250 ML ONE (15:45)
[2020-06-12] MEDS ORDERED: Fentanyl 100 MCG/2 ML VIAL ONE ×2 (15:52→16:42)
[2020-06-12] MEDS ORDERED: Sodium Bicarb 50 MEQ/50 ML Abboject 8.4% SYRINGE ONE ×2 (16:04)
[2020-06-12 16:06] LABS: Analyzer IN Cardio ER; Calcium, Ionized (arterial) 1.15 mmol/L (1.12-1.30); Carboxyhemoglobin (COHb) 0.3 gm% (0.0-3.0); Hemoglobin (Hb) 7.9 g/dL (12.0-16.0); Potassium - ABG Lab 5.79 mmol/L (3.70-5.30)
[2020-06-12 16:07] LABS: CO2 Tension 25.6 mmHg (35.0-45.0); pH, Arterial 6.68 (7.35-7.45)
[2020-06-12 16:08] LABS: Base Excess (BEa) -31.6 mEq/L (-2.0 to +3.0); Puncture Site RRA
--- NOTE | 2020-06-12 16:46 | RAD ---
RADIOGRAPH CHEST 1 VIEW: DATE: 06/12/2020 TIME: 4:30 PM HISTORY: 50-year-old female with chest pain, status post intubation and central line placement. COMPARISON: 06/12/2020 2:43 PM FINDINGS: Supine positioning makes this study insensitive for the detection of pneumothorax. The right upper lobe infiltrate has become slightly worse. There is a new left upper lobe infiltrate which also involves the perihilar region, which is larger t villa the right infiltrate, with air bronchogram. New left subclavian central venous catheter has been placed with distal tip at SVC/right atrial junct ion. Endotracheal tube remains with distal tip at mid thoracic trachea. Esophagogastric tube has been placed, with distal tip at proximal stomach. No cardiomegaly.. IMPRESSION: 1) new significant left upper lobe infiltrate, and interval worsening of smaller right upper lobe inf iltrate. The rapid development suggests that these may represent aspiration pneumonitis. 2.) Status post left subclavian central venous catheter placement.
[2020-06-12 16:48] LABS: #Basophils 0.2 thou/uL (0.0-0.2); #Eosinphils 0.1 thou/uL (0.0-0.7); #Lymphocytes 3.4 thou/uL (1.20-3.40); #Monocytes 0.2 thou/uL (0.11-0.59); #Neutrophils 8.9 thou/uL (1.40-6.50); %Basophils 1.3 % (0.0-1.0); %Eosinophils 0.6 % (0.0-10.0); %Lymphocytes 26.8 % (21.0-51.0); %Monocytes 1.2 % (0.0-10.0); %Neutrophils 70.3 % (42.0-75.0); Hemoglobin 7.2 g/dL (12.0-16.0); Mean Corpuscular HGB CONC 32.5 g/dL (32.0-36.0); Mean Platelet Volume 9.3 fL (7.4-10.4); Platelet Count 117 thou/uL (130-400); RBC Distribution Width 12.4 % (11.5-14.5); Red Blood Cell (RBC) Count 1.94 mill/uL (4.20-5.40); White Blood Cell (WBC) Count 12.6 thou/uL (4.8-10.8)
[2020-06-12 16:49] LABS: ALT (SGPT) 276 U/L (8-55); AST (SGOT) 1618 U/L (5-34); Albumin 2.2 g/dL (3.5-5.0); Alkaline Phosphatase 97 U/L (40-110); BUN (Urea Nitrogen) 47 mg/dL (7.0-18.7); Calc. Creatinine Clearance 0 mL/min (70-130); Calcium 6.8 mg/dL (7.8-10.44); Chloride 96 mmol/L (98-107); Globulin 1.5 g/dL (2.4-3.5); Lipase 26 U/L (8-78); Potassium 5.9 mmol/L (3.5-5.1); Protein, Total 3.7 g/dL (6.0-8.3); Sodium 138 mmol/L (136-145)
[2020-06-12 16:56] LABS: Carbon Dioxide Less than 8 mmol/L (22-29); Glucose 763 mg/dL (70-105)
--- NOTE | 2020-06-12 16:56 | CT ---
CT BRAIN NONCONTRAST: DATE: 06/12/2020 HISTORY: 50-year-old female with altered mental status, status post cardiopulmonary resuscitation FINDINGS: There is no evidence of acute intra-axial or extra-axial hemorrhage. There is no midline shift or any other mass effect. There is no extra-axial fluid collection. There is no evidence of obstructive hydrocephalus. Calvarium is intact. There is diffuse brain parenchymal volume loss greater than on CT. IMPRESSION: 1) No acute intracranial findings. 2) involutional changes, greater than expected for age 50 years.
[2020-06-12] MEDS ORDERED: Sodium Bicarbonate 150 MEQ in Dextrose 5% in Water 1,000 ML IV SCH (17:15)
[2020-06-12] MEDS ORDERED: Ventilator Sedation Protocol 1 EACH FS SCH (17:45)
[2020-06-12 18:01] LABS: SARS-CoV-2 NAA Rapid Test Not Detected (NotDetected)
[2020-06-12] MEDS ORDERED: DISCONTINUE PREVIOUS NARCOTIC PAIN MEDICATIONS AND BENZODIAZEPINES FS SCH (18:15)
[2020-06-12] MEDS ORDERED: Lorazepam 2 MG/ML VIAL SLOW IVP PRN (18:15)
[2020-06-12] MEDS ORDERED: Propofol BOLUS 1,000 MG/100 ML VIAL IV PRN (18:15)
[2020-06-12] MEDS ORDERED: Fentanyl BOLUS 250 ML IVPB PRN (18:15)
[2020-06-12] MEDS ORDERED: fentaNYL Citrate/PF 2,000 MCG in Sodium Chloride 0.9% 60 ML IV SCH (18:15)
[2020-06-12] MEDS ORDERED: Dextrose 5% in Water 1,000 ML IV PRN (18:22)
[2020-06-12] MEDS ORDERED: Cefepime 2 GM in Sodium Chloride 0.9% 100 ML IVPB SCH (18:30)
--- NOTE | 2020-06-12 19:19 | HP ---
CHIEF COMPLAINT: Unresponsive. HISTORY OF PRESENT ILLNESS: This is a 50-year-old female with history of recurrent pancreatitis, pancreatic insufficiency after Whipple procedures, recurrent DKA, with last hospitalization here from May 22 through May 26 due to acute colitis and DKA, who presents to the emergency room airlifted from [facility] due to unresponsiveness. Most of the history is obtained from the emergency room physician, some additional history is obtained from her son, Arvin. Arvin reported that two days ago, his mom was drinking alcohol until two or three in the morning, yesterday that she was vomiting and not eating or drinking any fluids, and that today she slept all day and when her blood sugar was checked, it read high. EMS was contacted. Per the emergency room physician here, the patient was found to be altered by EMS, and then went into cardiac arrest for approximately 30 minutes. She had return of spontaneous circulation. She was taken to the [facility] ER, diagnosed with severe DKA, severe metabolic acidosis, was intubated and started on Levophed, given calcium gluconate and transferred here. Here, the patient is in critical condition. Per chart review, patient has received calcium gluconate, insulin IV and started on a drip, Levophed, normal saline, fentanyl, propofol, two amps of bicarb, 2 L of lactated Ringer's, and should be receiving a D5 bicarb bolus now. The critical care physician has been contacted and the patient is being admitted to the ICU. ALLERGIES: PER THE CHART REVIEW ARE FOR MORPHINE. PAST MEDICAL HISTORY: Based on her last history and physical, 1. Chronic kidney disease. 2. Diabetes with type 1 features. 3. History of pancreatic mass and Whipple procedure. 4. Recurrent pancreatitis. 5. Hypertension. PAST SURGICAL HISTORY: Based on chart review, 1. Partial gastrectomy. 2. Tumor removal of the kidney. 3. Gastric resection. 4. Tubal ligation. FAMILY HISTORY: Unknown. SOCIAL HISTORY: Per her son, Arvin, the patient lives alone. She has two sons Arvin and Gurdeep that are in town, and daughters. REVIEW OF SYSTEMS: Not obtainable. PHYSICAL EXAMINATION: VITAL SIGNS: Blood pressure 122/74, pulse 92, sat is 100% on the vent. Her initial temperature was 89.8, and she is currently under a Liban warmer. GENERAL: Patient is intubated and sedated. She is not in apparent distress. HEENT: Her pupils are equal and round. NECK: No palpable abnormalities. LUNGS: Clear to auscultation. No audible wheezing, rhonchi, or rales. HEART: Normal S1, S2. No significant murmur. ABDOMEN: Soft with present bowel sounds. EXTREMITIES: No clubbing, cyanosis, or edema. NEUROLOGIC: Unable to assess. PSYCH: Unable to assess. MUSCULOSKELETAL: Unable to assess. SKIN: No visible rashes. DIAGNOSTIC STUDIES: IMAGING STUDIES: Chest x-ray personally reviewed, new significant left upper lobe infiltrate and interval worsening of smaller right upper lobe infiltrate. May represent aspiration pneumonitis and left subclavian central line. Brain CT, no acute intracranial findings, involutional changes greater than expected for age. LABORATORY RESULTS: CBC 12.6, 7.2, 22.0, 117. ABG at 15:58, pH of 6.68, pCO2 of 25.6, PO2 of 294, oxygen at 98.9. At 14:16 today, the metabolic panel 138, 5.9, 96, less than 8, 47, 3.79, 763. In [place], her initial metabolic panel was 132, 7.9, 90, less than 8, 53, 4.32, 842. Liver function tests, T-bilirubin 2, AST 1618, ALT 276, alkaline phosphatase 97, total protein 3.7, albumin 2.2. Troponin 1.142 and 1.64. BNP 2078. COVID and flu testing are negative. EKG showed a left axis deviation. No ST elevation. Abnormal R-wave progression. IMPRESSION: A critically ill 50-year-old female, status post reported cardiac arrest with return of spontaneous circulation, acute respiratory failure, now intubated, severe DKA with severe metabolic acidosis, shock liver, acute on chronic anemia, possible sepsis based on chest x-ray with left upper lobe infiltrate, acute kidney injury with hyperkalemia, hypoproteinemia, thrombocytopenia. The patient also has a prolonged QT interval, elevated troponin, and some bloody return on the NG tube. PLAN: 1. Admission to the ICU. 2. Pulmonology consultation for this patient in critical condition. 3. Continue infusion of bicarbonate drip to correct the severe metabolic acidosis, monitor renal function, potassium level. 4. Continue the insulin drip, titrate per protocol. 5. Trend troponins. Obtain echocardiogram. 6. We will start cefepime for the aspiration with renal dosing. 7. IV Protonix for the NG tube with bloody return, avoiding any pharmacologic DVT prophylaxis. 8. Monitoring her liver function. 9. Continuing the ventilator and pressor support per Critical Care Medicine. 10. Monitor on telemetry. 11. Avoid medications that can prolong the QT interval. 12. DVT prophylaxis with SCDs due to the bloody return from the NG tube as well as the mild thrombocytopenia. 13. GI prophylaxis. IV Protonix. 14. Code status is full. I discussed with her son, Arvin by phone, as well as her other son Gurdeep who was here with [facility]. Patient is in critical condition. I am uncertain if she is going to recover given the severity of illness. Her son, Gurdeep, walked out of the room after hearing this news. Arvin was informed by phone and said that he would come to the hospital. Beck did not have any further questions. Job ID: [id number] MTDD
[2020-06-12 19:21] LABS: Anion Gap 37 mmol/L (10-20); BUN (Urea Nitrogen) 41 mg/dL (7.0-18.7); Calc. Creatinine Clearance 0 mL/min (70-130); Chloride 96 mmol/L (98-107); Potassium 4.4 mmol/L (3.5-5.1); Sodium 137 mmol/L (136-145)
[2020-06-12 19:32] LABS: Carbon Dioxide 8 mmol/L (22-29); Glucose 754 mg/dL (70-105)
--- NOTE | 2020-06-12 19:34 | PDOC.BPN ---
- Brief Progress Note Encounter Date: 06/12/20 Encounter Time: 19:29 Pt's care discussed with Dr. Tobin - orders reviewed. Care also discussed with one daughter in person - Rosalva - and one daughter by phone. We reviewed all the details of events - including cardiac arrest, loss of pulse reported for 30 minutes, pt in severe DKA and concern that she may not survive this. They were asking about how we will know if the patient has brain damage. I discussed the first step is to address the current severe conditions. The step afterwards will be to assess brain function. We also discussed anemia and risk/benefit of blood transfusion - I recommend 2 units given the critical illness and recheck in the morning. They agree, and written consent will be obtained. Finally, reviewed overall that pt is in critical illness and there is concern she may not survive. There were no questions or further needs at end of conversation.
[2020-06-12 20:19] LABS: Glucose 830 mg/dL (70-105)
[2020-06-12] MEDS: Pantoprazole 40 MG VIAL IVP SCH (20:20)
[2020-06-12 21:38] LABS: Actual Bicarbonate (HCO3a) 12.7 mEq/L (22-28); Base Excess (BEa) -12.3 mEq/L (-2.0 to +3.0); Calcium, Ionized (arterial) 0.86 mmol/L (1.12-1.30); Carboxyhemoglobin (COHb) 0.8 gm% (0.0-3.0); Potassium - ABG Lab 3.52 mmol/L (3.70-5.30); pH, Arterial 7.32 (7.35-7.45)
[2020-06-12 21:39] LABS: CO2 Tension 25.4 mmHg (35.0-45.0); O2 Tension (PaO2), arterial 48.3 mmHg (80.0-100.0); Puncture Site RRA
--- NOTE | 2020-06-12 21:45 | CON ---
DATE OF CONSULTATION: 06/13/2020 HISTORY OF PRESENT ILLNESS: The patient is a 50-year-old female with complicated history of having had a Whipple procedure in the past. She has insulin- dependent diabetes now. She went home from the hospital on 05/26 after being hospitalized for diabetic ketoacidosis. Apparently, she was drinking on and then vomiting yesterday and found unresponsive today. She apparently had 30 minutes of CPR in the field I am told. She then was admitted to the critical care unit. Her blood gas in the ER showed a pH of 6.6. First arterial blood gas I can find, pH is 6.68, pCO2 of 25, pO2 of 294. PAST MEDICAL HISTORY: Remarkable for: 1. Whipple procedure. 2. History of pancreatic mass, which led to a Whipple procedure, the mass turned out to be benign. 3. History of renal mass, it is benign. 4. History of chronic pain. 5. History of chronic pancreatitis. 6. History of chronic pain management followed at [facility]. 7. History of diabetes. 8. Hypertension. 9. History of pancreatic insufficiency. 10. History of partial nephrectomy in 2005. 11. History of multiple abdominal procedures in 2007 associated with Whipple procedure including a small-bowel resection. 12. History of cholecystectomy. 13. History of . 14. History of pain pump in the past with eventual removal. FAMILY HISTORY: Positive for diabetes. SOCIAL HISTORY: Nonsmoker. Nondrinker. ALLERGIES: TO MORPHINE. MEDICATIONS: Have been reviewed. REVIEW OF SYSTEMS: Not obtainable. PHYSICAL EXAMINATION: VITAL SIGNS: Heart rate is 102, blood pressure 132/77, respiratory rate per mechanical ventilation, which is set at 32. HEENT: Her pupils are dilated. Her sclerae are anicteric. NECK: Supple. GENERAL: She appears cachectic. LUNGS: Remarkable for clear breath sounds. HEART: Regular rhythm. ABDOMEN: Soft. EXTREMITIES: Without clubbing, cyanosis, or edema. NEUROLOGIC: Cannot be assessed. DIAGNOSTIC STUDIES: Chest x-ray showed infiltrate in her left upper lobe. This could be secondary to right mainstem intubation in transit and see how these play out. LABORATORY DATA: White count 12.6, hemoglobin 7.2. 2 units of packed cells have been ordered. Platelets 117. Electrolytes are remarkable for bicarb less than 8. Beta-hydroxybutyrate was 7. IMPRESSION: Metabolic acidosis, likely a mixture of diabetic ketoacidosis and post-code lactic acidosis. She will be aggressively hydrated, received bicarb, hyperventilation, electrolyte replacement, empiric antibiotics. She may survive but it is unclear whether at this point in time whether or not, she will awake. CRITICAL CARE TIME: 40 minutes. Job ID: [id number] MTDD
[2020-06-12 21:59] LABS: Anion Gap 36 mmol/L (10-20); BUN (Urea Nitrogen) 36 mg/dL (7.0-18.7); Calc. Creatinine Clearance 20 mL/min (70-130); Carbon Dioxide 10 mmol/L (22-29); Chloride 93 mmol/L (98-107); Potassium 3.6 mmol/L (3.5-5.1); Sodium 135 mmol/L (136-145)
[2020-06-12] MEDS: Propofol 1,000 MG/100 ML VIAL IV PRN (22:01)
[2020-06-12] MEDS: Norepinephrine 8 MG/0.9% NS 250 ML IVPB PRN (22:06)
[2020-06-12 22:08] LABS: Calcium 5.6 mg/dL (7.8-10.44); Glucose 786 mg/dL (70-105)
[2020-06-12 23:42] LABS: CK (CPK) 1252 U/L (29-168); Glucose 818 mg/dL (70-105)
[2020-06-13 00:23] LABS: Base Excess (BEa) -6.9 mEq/L (-2.0 to +3.0); Calcium, Ionized (arterial) 0.81 mmol/L (1.12-1.30); Carboxyhemoglobin (COHb) 0.4 gm% (0.0-3.0); Hemoglobin (Hb) 8.7 g/dL (12.0-16.0); Potassium - ABG Lab 3.24 mmol/L (3.70-5.30); pH, Arterial 7.45 (7.35-7.45)
[2020-06-13 00:28] LABS: CO2 Tension 23.8 mmHg (35.0-45.0); Puncture Site RBA
[2020-06-13] MEDS: HUMULIN R 100 UNITS in Sodium Chloride 0.9% 100 ML IVPB SCH ×4 (00:29→15:55)
[2020-06-13] MEDS: Sodium Chloride 0.45% 1,000 ML IV SCH ×4 (00:49→21:34)
[2020-06-13 02:00] LABS: Glucose 767 mg/dL (70-105)
[2020-06-13 02:31] LABS: Anion Gap 31 mmol/L (10-20); BUN (Urea Nitrogen) 45 mg/dL (7.0-18.7); Calc. Creatinine Clearance 19 mL/min (70-130); Carbon Dioxide 15 mmol/L (22-29); Chloride 92 mmol/L (98-107); Potassium 3.1 mmol/L (3.5-5.1); Sodium 135 mmol/L (136-145)
[2020-06-13 02:37] LABS: Calcium 5.7 mg/dL (7.8-10.44); Glucose 778 mg/dL (70-105)
[2020-06-13 04:09] LABS: ALT (SGPT) 607 U/L (8-55); Albumin 2.1 g/dL (3.5-5.0); Alkaline Phosphatase 140 U/L (40-110); Anion Gap 28 mmol/L (10-20); BUN (Urea Nitrogen) 47 mg/dL (7.0-18.7); Bilirubin, Total 3.1 mg/dL (0.2-1.2); Calc. Creatinine Clearance 19 mL/min (70-130); Carbon Dioxide 17 mmol/L (22-29); Chloride 93 mmol/L (98-107); Globulin 1.6 g/dL (2.4-3.5); Protein, Total 3.7 g/dL (6.0-8.3); Sodium 135 mmol/L (136-145)
[2020-06-13 04:12] LABS: Band 8 % (5-11); Hemoglobin 9.9 g/dL (12.0-16.0); Lymphocytes 12 % (21-51); MDiff Complete? YES; Mean Corpuscular HGB CONC 33.3 g/dL (32.0-36.0); Mean Corpuscular Hemoglobin 33.2 pg (27.0-31.0); Mean Corpuscular Volume 99.7 fL (78.0-98.0); Mean Platelet Volume 9.3 fL (7.4-10.4); Monocytes 2 % (0-10); Neutrophil 78 % (42-75); Nucleated RBC 5 % (0); Platelet Count 71 thou/uL (130-400); Platelet Morphology Comment Appears Decreased; RBC Distribution Width 15.3 % (11.5-14.5); Red Blood Cell (RBC) Count 2.99 mill/uL (4.20-5.40); White Blood Cell (WBC) Count 3.8 thou/uL (4.8-10.8)
[2020-06-13 04:13] LABS: AST (SGOT) Greater than 3500 U/L (5-34); Calcium 5.7 mg/dL (7.8-10.44); Glucose 721 mg/dL (70-105); Potassium 2.9 mmol/L (3.5-5.1)
[2020-06-13] MEDS ORDERED: Calcium Gluconate 4.6 MEQ in Sodium Chloride 0.9% 100 ML IVPB SCH ×2 (06:00→23:45)
[2020-06-13] MEDS: Propofol 1,000 MG/100 ML VIAL IV PRN (06:04)
--- NOTE | 2020-06-13 07:44 | PDOC.HOSPP ---
- Subjective Encounter Date: 06/13/20 (f/u cardiac arrest) Encounter Time: 07:42 Subjective: Pt admitted for out of hospital cardiac arrest with ROSC, acute respiratory failure, DKA with severe metabolic acidosis, hyperkalemia, shock liver. She remains intubated, sedated, on pressor support and bicarbonate and gtts. Overnight pt febrile, is moving but not following commands per RN, minimal UOP. The NG tube fluid has cleared up - no significant bleeding. - Objective Vital Signs & Weight: Vital Signs (12 hours) Temp Pulse Resp BP Pulse Ox 06/13/20 07:09 100 06/13/20 07:00 101.3 F H 06/13/20 06:00 26 H 06/13/20 05:00 100.7 F H 06/13/20 04:00 28 H 06/13/20 02:28 94 103/67 06/13/20 02:00 99.7 F H 29 H 06/13/20 01:11 99.3 F 06/13/20 00:00 34 H 06/12/20 22:40 98.7 F 06/12/20 22:05 91 102/52 L 06/12/20 22:00 34 H 06/12/20 21:09 97.8 F 06/12/20 20:54 97.4 F L 06/12/20 20:00 34 H Weight Weight 156 lb 4.924 oz Most Recent Monitor Data Heart Rate from ECG 93 NIBP 92/58 NIBP BP-Mean 69 Respiration from ECG 26 SpO2 100 I&O: 06/12/20 06/13/20 06/14/20 06:59 06:59 06:59 Intake Total 3803 0 Output Total 55 5 Balance 3748 -5 Result Diagrams: 06/13/20 03:27 06/13/20 16:19 Additional Labs: Accuchecks 06/12/20 22:53 POC Glucose Greater than 530 H* EKG Reviewed by me: Yes (sinus 90's, occ pvc, pac) Hospitalist ROS - Medication Medications: Active Medications Generic Name Dose Route Start Last Admin Trade Name Freq PRN Reason Stop Dose Admin Insulin Human Regular 100 101 mls @ 0 mls/hr 06/12/20 17:45 06/13/20 04:58 units/ Sodium Chloride IVPB 101 mls INF JULIA Administration Protocol Titrate Norepinephrine Bitartrate 250 mls @ 0 mls/hr 06/12/20 17:43 06/12/20 22:06 Levophed IVPB 250 mls PRN PRN Administration To maintain MAP > 65 Protocol Titrate Sodium Chloride 1,000 mls @ 150 mls/hr 06/13/20 00:45 06/13/20 06:44 1/2 Normal Saline IV 1,000 mls .[id number] JULIA Administration Calcium Gluconate 4.6 meq/ 110 mls @ 220 mls/hr 06/13/20 06:00 06/13/20 06:04 Sodium Chloride IVPB 06/13/20 08:00 110 mls NOW JULIA Administration Pantoprazole Sodium 40 mg 06/12/20 21:00 06/12/20 20:20 Pantoprazole 40 Mg Vial IVP 40 mg Q12HR JULIA Administration Propofol 1,000 mg 06/12/20 18:15 06/13/20 06:04 Propofol 1,000 Mg/100 Ml Vial IV 07/12/20 18:15 1,000 mg INF PRN Administration TO ACHIEVE GOAL RASS Protocol Sodium Chloride 10 ml 06/12/20 21:00 06/12/20 20:24 Flush - Normal Saline 10 Ml Syringe IVF 10 ml Q12HR JULIA Administration - Exam General Appearance: NAD General - other findings: did move head slightly to voice Heart: RRR Respiratory: no wheezes, no rales, no ronchi Respiratory - other findings: good air movement on the vent Gastrointestinal: soft, non-distended, normal bowel sounds Extremities: no cyanosis, no clubbing, no edema Neurological - other findings: unable to assess Musculoskeletal - other findings: unable to assess Psychiatric - other findings: unable to assess Hosp A/P (1) Cardiac arrest Code(s): I46.9 - CARDIAC ARREST, CAUSE UNSPECIFIED Status: Acute (2) Respiratory failure Code(s): J96.90 - RESPIRATORY FAILURE, UNSP, UNSP W HYPOXIA OR HYPERCAPNIA Status: Acute (3) Shock liver Code(s): K72.00 - ACUTE AND SUBACUTE HEPATIC FAILURE WITHOUT COMA Status: Acute (4) Anemia Code(s): D64.9 - ANEMIA, UNSPECIFIED Status: Acute (5) Pneumonia Code(s): J18.9 - PNEUMONIA, UNSPECIFIED ORGANISM Status: Acute Qualifiers: Pneumonia type: due to unspecified organism Laterality: left Lung location: upper lobe of lung Qualified Code(s): J18.9 - Pneumonia, unspecified organism (6) Thrombocytopenia Code(s): D69.6 - THROMBOCYTOPENIA, UNSPECIFIED Status: Acute (7) SURESH (acute kidney injury) Code(s): N17.9 - ACUTE KIDNEY FAILURE, UNSPECIFIED Status: Acute (8) Hypokalemia Code(s): E87.6 - HYPOKALEMIA Status: Acute (9) DKA (diabetic ketoacidoses) Code(s): E13.10 - OTH DIABETES MELLITUS WITH KETOACIDOSIS WITHOUT COMA Status: Resolved Qualifiers: - Plan Pt remains critically ill Respiratory failure s/p CPR with IVIS infiltrate - continue vent, appreciate Pulmonology consult, IV antibiotics CV - s/p CPR with reported 30 minutes for ROSC. - replace magnesium - given the renal failure, will order a low dose of 250 mg IV rather than the usual dose of 1 gram - monitor on tele - echo DKA with severe metabolic acidosis - continue insulin gtt - IVF for hydration and renal support - monitor potassium - pt is off bicarb gtt, so anticipate this will increase today. renal failure - - monitor for return of renal function with UOP, as well as potassium levels shock liver - worsening lft's today. Will check coags with next metabolic panel check Thrombocytopenia - no pharmacologic dvt prophy General support - will request Palliative care provide support with the family. I spoke with 2 daughters last night, and 1 son by phone, 1 son briefly in person with the severity of condition and concern that pt may not survive. dvt prophy - scd's gi prophy - IV protonix code status full Pt remains in critical condition.
[2020-06-13] MEDS ORDERED: MAGNESIUM SULFATE IVPB SCH (07:45)
[2020-06-13] MEDS ORDERED: SODIUM CHLORIDE 0.9% IVPB SCH (07:45)
[2020-06-13] MEDS: Pantoprazole 40 MG VIAL IVP SCH ×2 (08:23→21:35)
[2020-06-13 08:43] LABS: Base Excess (BEa) -4.7 mEq/L (-2.0 to +3.0); Calcium, Ionized (arterial) 0.85 mmol/L (1.12-1.30); Hemoglobin (Hb) 10.8 g/dL (12.0-16.0); O2 Tension (PaO2), arterial 104.2 mmHg (80.0-100.0); pH, Arterial 7.46 (7.35-7.45)
[2020-06-13 08:48] LABS: Puncture Site RRA
[2020-06-13] MEDS: Norepinephrine 8 MG/0.9% NS 250 ML IVPB PRN ×3 (10:04→19:27)
[2020-06-13 11:47] LABS: INR-International Normal Ratio 1.6; PTT 37.3 sec (22.9-36.1); Prothrombin Time 19.2 sec (12.0-14.7)
[2020-06-13 11:54] LABS: Anion Gap 24 mmol/L (10-20); BUN (Urea Nitrogen) 47 mg/dL (7.0-18.7); Calc. Creatinine Clearance 19 mL/min (70-130); Carbon Dioxide 20 mmol/L (22-29); Chloride 97 mmol/L (98-107); Glucose 237 mg/dL (70-105); Magnesium 1.6 mg/dL (1.6-2.6); Sodium 138 mmol/L (136-145)
--- NOTE | 2020-06-13 12:03 | PRG ---
DATE OF SERVICE: 06/13/2020 SUBJECTIVE: Ms. Schulte remains hemodynamically stable. OBJECTIVE: VITAL SIGNS: Heart rate is 100, blood pressure 97/61, FiO2 is at 40%, respiratory rate is 22. LUNGS: Remarkable for coarse and equal breath sounds. HEART: Regular rhythm. ABDOMEN: Soft. EXTREMITIES: Without asymmetry or edema. LABORATORY DATA: White count is 3.8, hemoglobin 9.9, platelets 71,000. Potassium is 2.9, but creatinine is 3.81, which has increased compared to yesterday. IMPRESSION: 1. Status post [id number] arrest. 2. Diabetic ketoacidosis. 3. Lactic acidosis. 4. Insulin resistance, on high-dose insulin. 5. Hepatic with an AST greater than 3500. 6. I do not see where troponin was drawn other than the initial one yesterday afternoon. I am concerned that there may be a coexistent cardiomyopathy on top of the other issues. It is unclear at this point in time whether she will have neurological deficits. She will continue current supportive care. I doubt she will have another arrest while she is mechanically ventilated. We will just have to wait and see if she neurologically recovers from this. It would seem unlikely given the duration of CPR. CRITICAL CARE TIME: 30 minutes. Job ID: [id number]
[2020-06-13 12:05] LABS: Potassium 2.6 mmol/L (3.5-5.1)
--- NOTE | 2020-06-13 12:54 | PDOC.BPN ---
- Brief Progress Note Encounter Date: 06/13/20 Encounter Time: 12:52 Reviewed labs and potassium is 2.6, glucose is 237, insulin gtt is down to 10 units/hr (it was up to 34 units/hr), and levophed is increased to 30. Pt remains anuric. Given the acute renal failure, I'm very hesitant to replace potassium on the basis of less insulin requirement and off the bicarbonate gtt. With the current pressor support need, I do not think patient will tolerate dialysis if the potassium becomes elevated again. Will recheck in 4 hours, monitor closely given the critical illness. 17:05 - Reviewed lab and potassium improved to 2.9, glucose now 71 and calcium is 5.9. The insulin gtt was stopped earlier when blood sugar was around 100. At this time - no tx for hypokalemia as pt is anuric and the potassium level will rise with the insulin gtt shut off. Hypocalcemia - a dose of calcium gluconate - requested that pharmacy order this for me. Normal blood sugar - recheck now and hypoglycemia protocol if needed. Resume gtt per protocol. Recheck labs again tonight as pt remains in critical condition. Informed by RN earlier that pt woke up and self-extubated earlier this afternoon - monitor respiratory status. RN states pt requested a glass of water.
[2020-06-13 16:48] LABS: Anion Gap 22 mmol/L (10-20); BUN (Urea Nitrogen) 50 mg/dL (7.0-18.7); Calc. Creatinine Clearance 18 mL/min (70-130); Carbon Dioxide 22 mmol/L (22-29); Chloride 97 mmol/L (98-107); Glucose 71 mg/dL (70-105); Sodium 138 mmol/L (136-145)
[2020-06-13 16:59] LABS: Calcium 5.9 mg/dL (7.8-10.44); Potassium 2.9 mmol/L (3.5-5.1)
[2020-06-13] MEDS ORDERED: FLU VACC QS2020-21(6MOS UP)/PF 60 MCG/0.5 ML SYRINGE IM ONE (21:00)
[2020-06-13] MEDS: Cefepime 0.5 GM, Admixture Fee 1 EACH in Sodium Chloride 0.9% 100 ML IVPB SCH (21:35)
[2020-06-13 22:33] LABS: Anion Gap 22 mmol/L (10-20); BUN (Urea Nitrogen) 51 mg/dL (7.0-18.7); Calc. Creatinine Clearance 18 mL/min (70-130); Carbon Dioxide 21 mmol/L (22-29); Chloride 97 mmol/L (98-107); Glucose 129 mg/dL (70-105); Potassium 3.8 mmol/L (3.5-5.1); Sodium 136 mmol/L (136-145)
[2020-06-13 22:38] LABS: Calcium 5.6 mg/dL (7.8-10.44)
[2020-06-13] MEDS ORDERED: Acetaminophen 650 MG Suppository PR PRN (22:54)
[2020-06-13] MEDS ORDERED: Calcium Gluconate 100 MG/ML 10 ML IVPB SCH (23:00)
[2020-06-13] MEDS ORDERED: Electrolyte Replacement Protocol 1 EACH FS SCH (23:00)
[2020-06-13] MEDS ORDERED: Fentanyl 100 MCG/2 ML VIAL SLOW IVP SCH (23:00)
[2020-06-14] MEDS: Norepinephrine 8 MG/0.9% NS 250 ML IVPB PRN ×3 (00:33→22:34)
[2020-06-14] MEDS ORDERED: Fentanyl 100 MCG/2 ML VIAL SLOW IVP SCH (03:15)
[2020-06-14] MEDS ORDERED: Ondansetron PF 4 MG/2 ML Vial IVP SCH (03:15)
[2020-06-14 05:03] LABS: INR-International Normal Ratio 1.9; Prothrombin Time 21.9 sec (12.0-14.7)
[2020-06-14 05:04] LABS: PTT 47.1 sec (22.9-36.1)
[2020-06-14 05:13] LABS: Band 27 % (5-11); Hemoglobin 10.3 g/dL (12.0-16.0); Hypochromia SLIGHT = 6-15 cells (100X) (0-5/hpf); Lymphocytes 2 % (21-51); MDiff Complete? YES; Mean Corpuscular HGB CONC 34.8 g/dL (32.0-36.0); Mean Corpuscular Hemoglobin 34.2 pg (27.0-31.0); Mean Corpuscular Volume 98.2 fL (78.0-98.0); Mean Platelet Volume 10.8 fL (7.4-10.4); Metamyelocyte 1 % (0-0); Monocytes 13 % (0-10); Neutrophil 57 % (42-75); Nucleated RBC 1 % (0); Platelet Count 33 thou/uL (130-400); Platelet Morphology Comment Appears Decreased; RBC Distribution Width 16.2 % (11.5-14.5); Red Blood Cell (RBC) Count 3.01 mill/uL (4.20-5.40); White Blood Cell (WBC) Count 12.4 thou/uL (4.8-10.8)
[2020-06-14] MEDS: Sodium Chloride 0.45% 1,000 ML IV SCH ×4 (05:23→23:46)
[2020-06-14 05:41] LABS: ALT (SGPT) 565 U/L (8-55); AST (SGOT) 2710 U/L (5-34); Albumin 2.1 g/dL (3.5-5.0); Alkaline Phosphatase 124 U/L (40-110); Anion Gap 29 mmol/L (10-20); BUN (Urea Nitrogen) 50 mg/dL (7.0-18.7); Bilirubin, Total 3.4 mg/dL (0.2-1.2); Calc. Creatinine Clearance 18 mL/min (70-130); Carbon Dioxide 16 mmol/L (22-29); Chloride 95 mmol/L (98-107); Globulin 1.6 g/dL (2.4-3.5); Glucose 184 mg/dL (70-105); Potassium 4.5 mmol/L (3.5-5.1); Protein, Total 3.7 g/dL (6.0-8.3); Sodium 135 mmol/L (136-145)
[2020-06-14 05:52] LABS: Calcium 5.7 mg/dL (7.8-10.44)
--- NOTE | 2020-06-14 07:54 | RAD ---
Chest one view HISTORY: Chest pain. Dyspnea. Follow-up. COMPARISON: 06/12/2020. FINDINGS: Cardiac silhouette is magnified by projection. Pulmonary vasculature are unremarkable. Mediastinum is midline. Endotracheal catheter and nasogastric tube no longer visible. Left internal j ugular central venous catheter unchanged in position. Right upper lobe infiltrate has nearly completely resolved. Infiltrate within the left upper lobe and the right medial lung base is unchanged. No evidence of pneumothorax. IMPRESSION : Improved in right upper lobe infiltrate. Left upper lobe and right lower lobe infiltrates are stable. Extubation.
[2020-06-14] MEDS: Pantoprazole 40 MG VIAL IVP SCH (08:00)
[2020-06-14] MEDS ORDERED: HYDROcodone/Acetaminophen 10/325 mg Tablet PO PRN ×2 (09:43→11:51)
[2020-06-14] MEDS ORDERED: Insulin Glargine 12 UNITS in Pre-Filled Syringe 1 EACH SC SCH (09:45)
[2020-06-14] MEDS: Albumin 25% 25 GM/100 ML BOT IVPB SCH ×3 (10:50→23:46)
[2020-06-14] MEDS ORDERED: Lorazepam 2 MG/ML VIAL SLOW IVP PRN (10:53)
[2020-06-14] MEDS ORDERED: Calcium Chloride 13.6 MEQ in Sodium Chloride 0.9% 100 ML IVPB SCH (11:00)
[2020-06-14] MEDS ORDERED: Magnesium 2 GM/50 ML 2 GM in Premix Bag 1 BAG IVPB SCH (11:00)
[2020-06-14 11:04] LABS: Actual Bicarbonate (HCO3a) 15.4 mEq/L (22-28); Base Excess (BEa) -7.8 mEq/L (-2.0 to +3.0); Calcium, Ionized (arterial) 0.75 mmol/L (1.12-1.30); Carboxyhemoglobin (COHb) 0.8 gm% (0.0-3.0); Hemoglobin (Hb) 9.8 g/dL (12.0-16.0); Potassium - ABG Lab 4.29 mmol/L (3.70-5.30); pH, Arterial 7.42 (7.35-7.45)
[2020-06-14 11:06] LABS: CO2 Tension 24.4 mmHg (35.0-45.0); O2 Tension (PaO2), arterial 54.1 mmHg (80.0-100.0)
[2020-06-14 11:07] LABS: Puncture Site RRA
[2020-06-14] MEDS ORDERED: Gabapentin 300 MG CAP PO PRN (11:44)
[2020-06-14] MEDS ORDERED: Methocarbamol 500 MG TAB PO PRN (11:44)
[2020-06-14] MEDS ORDERED: DULoxetine 60 MG CAP PO PRN (11:44)
--- NOTE | 2020-06-14 12:11 | PDOC.HOSPP ---
- Subjective Encounter Date: 06/14/20 Encounter Time: 09:50 Subjective: She is awake alert. She has some dependent edema on her upper extremities. She is on Levophed drip at 12 mics an hour. Her urine output is less than 100 mL ; she also has a significant hypocalcemia and hypomagnesemia being replaced. Talk to Dr. BAILON launch steward patient does have underlying history of chronic kidney disease stage III. - Objective Vital Signs & Weight: Vital Signs (12 hours) Temp Pulse Ox 06/14/20 08:00 98.7 F 93 L 06/14/20 04:00 94 L 06/14/20 03:00 98.7 F Weight Admit Weight 156 lb 4.8 oz Weight 160 lb 0.889 oz Most Recent Monitor Data Heart Rate from ECG 132 NIBP 101/64 NIBP BP-Mean 76 Respiration from ECG 5 SpO2 95 I&O: 06/13/20 06/14/20 06/15/20 06:59 06:59 06:59 Intake Total 3803 4644.1 100 Output Total 55 127 67 Balance 3748 4517.1 33 Result Diagrams: 06/14/20 04:02 06/14/20 04:02 Additional Labs: Accuchecks 06/14/20 06/14/20 06/14/20 11:17 07:45 06:16 POC Glucose 137 H 104 H 118 H 06/14/20 06/14/20 06/14/20 04:06 02:04 00:09 POC Glucose 201 H 140 H 117 H 06/13/20 06/13/20 06/13/20 21:52 19:59 17:06 POC Glucose 93 84 90 06/13/20 06/13/20 15:45 13:38 POC Glucose 133 H 206 H Hospitalist ROS - Medication Medications: Active Medications Generic Name Dose Route Start Last Admin Trade Name Freq PRN Reason Stop Dose Admin Acetaminophen 650 mg 06/13/20 22:54 06/14/20 01:18 Acetaminophen 650 Mg Suppository FL 650 mg Q4H PRN Administration Headache/Fever or Pain Albumin Human 25 gm 06/14/20 12:00 06/14/20 10:50 Albumin 25% 25 Gm/100 Ml Bot IVPB 06/15/20 06:01 25 gm Q6HR JULIA Administration Norepinephrine Bitartrate 250 mls @ 0 mls/hr 06/12/20 17:43 06/14/20 06:38 Levophed IVPB 250 mls PRN PRN Administration To maintain MAP > 65 Protocol Titrate Sodium Chloride 1,000 mls @ 150 mls/hr 06/13/20 00:45 06/14/20 10:11 1/2 Normal Saline IV 1,000 mls .Q6H40M JLUIA Administration Cefepime HCl 0.5 gm/ 100 mls @ 200 mls/hr 06/13/20 21:00 06/13/20 21:35 Miscellaneous Medication 1 IVPB 100 mls each/ Sodium Chloride 2100 JULIA Administration Insulin Glargine 12 units/ 0.12 mls @ 0 mls/hr 06/14/20 09:45 06/14/20 10:09 Miscellaneous Medication SC 06/14/20 12:45 0.12 mls NOW JULIA Administration Calcium Chloride 13.6 meq/ 110 mls @ 100 mls/hr 06/14/20 11:00 06/14/20 11:07 Sodium Chloride IVPB 06/14/20 13:00 110 mls NOW JULIA Administration Lorazepam 2 mg 06/12/20 18:15 06/14/20 10:51 Lorazepam 2 Mg/Ml Vial SLOW IVP 07/12/20 18:15 2 mg Q1H PRN Administration Breakthrough agitation Propofol 1,000 mg 06/12/20 18:15 06/13/20 06:04 Propofol 1,000 Mg/100 Ml Vial IV 07/12/20 18:15 1,000 mg INF PRN Administration TO ACHIEVE GOAL RASS Protocol Sodium Chloride 10 ml 06/12/20 21:00 06/14/20 08:00 Flush - Normal Saline 10 Ml Syringe IVF 10 ml Q12HR JULIA Administration - Exam General Appearance: NAD, awake alert, ill appearing Eye: PERRL, scleral icterus ENT: normocephalic atraumatic Neck: supple Heart: RRR, normal peripheral pulses Respiratory: CTAB, normal chest expansion Gastrointestinal: soft, normal bowel sounds Extremities: 1+ LE edema Neurological: cranial nerve grossly intact, no focal deficits Psychiatric: normal affect, normal behavior, A&O x 3 Hosp A/P - Plan p A/P (1) Cardiac arrest Code(s): I46.9 - CARDIAC ARREST, CAUSE UNSPECIFIED Status: Acute (2) Respiratory failure Code(s): J96.90 - RESPIRATORY FAILURE, UNSP, UNSP W HYPOXIA OR HYPERCAPNIA Status: Acute (3) Shock liver Code(s): K72.00 - ACUTE AND SUBACUTE HEPATIC FAILURE WITHOUT COMA Status: Acute (4) Anemia Code(s): D64.9 - ANEMIA, UNSPECIFIED Status: Acute (5) Pneumonia Code(s): J18.9 - PNEUMONIA, UNSPECIFIED ORGANISM Status: Acute Qualifiers: Pneumonia type: due to unspecified organism Laterality: left Lung location: upper lobe of lung Qualified Code(s): J18.9 - Pneumonia, unspecified organism (6) Thrombocytopenia Code(s): D69.6 - THROMBOCYTOPENIA, UNSPECIFIED Status: Acute (7) SURESH (acute kidney injury) Code(s): N17.9 - ACUTE KIDNEY FAILURE, UNSPECIFIED Status: Acute (8) Hypokalemia Code(s): E87.6 - HYPOKALEMIA Status: Acute (9) DKA (diabetic ketoacidoses) Code(s): E13.10 - OTH DIABETES MELLITUS WITH KETOACIDOSIS WITHOUT COMA Status: Resolved Qualifiers: s/p CPR with reported 30 minutes for ROSC. - Hypocalcemia and hypomagnesemia -Being replaced. -Echo ordered -will follow-up. 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 -Continue with pancreatic enzyme -Lipase level insignificant shock liver -Liver functions seems to be slightly better than yesterday. We will trend daily basis. Her lipase level insignificant Thrombocytopenia - no pharmacologic dvt prophy Heavy alcohol abuse on a daily basis -We will follow ASC protocol for Ativan -We will also check her B12 and folate level and replace as needed -Provide banana bag for next 3 days. code status full Diabetic diet General support - will request Palliative care provide support with the family. -Previous provider updated 2 daughters last night, and 1 son by phone.
--- NOTE | 2020-06-14 12:16 | CON ---
DATE OF CONSULTATION: 06/14/2020 SERVICE: Nephrology. REASON FOR CONSULTATION: Acute renal failure and electrolyte derangements. REQUESTING PHYSICIAN: Dr. Dacosta. HISTORY OF PRESENT ILLNESS: 50-year-old female with known history of recurrent pancreatitis, recurrent DKA, who was admitted due to mental status change. The patient also has chronic alcohol abuse, and was reportedly vomiting with poor oral intake prior to presentation. The patient reportedly went into cardiac arrest for about 30 minutes, and had CPR with return of spontaneous circulation and was subsequently intubated. Found to have another DKA, which was treated with insulin and IV fluid. Also required intubation, but reportedly self-extubated herself yesterday evening. The patient is still altered this morning and was unable to provide any meaningful history. She is however in distress, tachycardic, tachypneic and groaning. It was also reported that urine output has been poor in the last 2 days despite aggressive IV fluid therapy. PAST MEDICAL HISTORY: 1. Chronic alcohol abuse. 2. DKA with prior recurrent DKA. 3. Diabetes mellitus. 4. Pancreatic mass, status post Whipple procedure. 5. Recurrent pancreatitis. 6. Hypertension. PAST SURGICAL HISTORY: 1. Partial gastrectomy. 2. Partial nephrectomy. 3. Tubal ligation. FAMILY HISTORY: Unknown. SOCIAL HISTORY: Lives with family. Denied smoking, but admitted to drinking alcohol. ALLERGIES: MORPHINE. MEDICATIONS: Home medications; 1. Hydrocodone and acetaminophen p.r.n. 2. Methocarbamol 500 t.i.d. 3. Amlodipine 10 daily. 4. Lipase protease amylase (Creon) 1 capsule p.o. t.i.d. 5. Gabapentin 300 p.r.n. 6. Insulin sliding scale. 7. Lantus 12-14 units subcutaneously. 8. Lisinopril 40 daily. 9. Methadone q.i.d. 10. Metoprolol succinate 200 mg daily. 11. Pregabalin 50 mg p.o. b.i.d. 12. Cymbalta 60 mg p.o. daily. 13. Metronidazole 500 mg t.i.d. 14. Reglan t.i.d. p.r.n. 15. Protonix 40 daily. Current hospital medications are as follows; 1. Cefepime. 2. Lantus 12 units daily. 3. Sodium chloride 150 mL/h. 4. Protonix 40 mg q.12 hours. REVIEW OF SYSTEMS: Could not be performed due to the patient's condition. PHYSICAL EXAMINATION: VITAL SIGNS: Temperature 98.7 with T-max of 101.3 yesterday morning. Heart rate 141, respiratory rate 19, SpO2 of 92, blood pressure 124/76. I and O in the last 24 hours showed total intake of 4644 GENERAL: Chronically ill-looking female, in [id number] distress. Afebrile, acyanotic. HEENT: Normocephalic, atraumatic. Mild right subconjunctival hemorrhage noted. Mild facial puffiness. Oral mucosa is moist. NECK: Supple with no obvious JVD. CARDIOVASCULAR: Regular rhythm and rate, but tachycardic. Normal heart sounds 1 and 2. RESPIRATORY: Fair air entry bilaterally with some transmitted breath sounds. GI: Full, soft, mild diffuse tenderness noted. Bowel sound is hypoactive. UROGENITAL: Sibley catheter is in place draining little or no urine. EXTREMITIES: Fullness of the upper limbs noted, but no overt edema of the limbs appreciated. WELDING PROCESS SPECIALIST: The patient is awake, but confused. She is at least oriented to person. Moves all extremities spontaneously. DIAGNOSTIC DATA: CBC today showed WBC count of 12.4, hemoglobin of 10.3, platelet of 33. Coagulation panel showed PT 21.9, INR 1.9, PTT 47.1. Chemistry showed sodium 135, potassium 4.5, chloride 95, CO2 of 16, BUN 50, creatinine 4.32, glucose 184, calcium 5.7, magnesium 1.5, total bilirubin 3.4, AST 2710, ALT 565, alkaline phosphatase 124, total protein 3.7, albumin 2.1. On presentation; sodium was 138, potassium 5.9, chloride 96, CO2 less than 8, BUN 47, creatinine 3.79, total bilirubin 2.0, calcium 6.8, glucose 763, AST 1618, ALT 276, alkaline phosphatase 97, total protein 3.7, albumin 2.2. Troponin on presentation was 1.6. CK on presentation was 1252. Patient however had creatinine of 0.91 on May 26, 2020. ASSESSMENT: 1. Acute renal failure: Most likely due to hemodynamic factors related to cardiac arrest and shock as well as volume depletion. Contribution from rhabdomyolysis cannot be ruled out. 2. Metabolic acidosis. 3. Severe hypocalcemia. 4. Hypomagnesemia. 5. Hypoalbuminemia. 6. Anemia, status post blood transfusion. 7. Systemic inflammatory response syndrome. 8. Marked tachycardia with heart rate in 140s. 9. Presumed intravascular contraction. 10. Acute distress painful and respiratory: The patient reportedly self- extubated yesterday. 11. Abdominal tenderness concerning for occult abdominal pathology. 12. Chronic alcohol abuse with possible acute withdrawal PLAN: We will give albumin given hypoalbuminemia and tachycardia. We will also replete serum calcium with calcium chloride We will also get CRP, ESR, CK, and arterial blood gas. We will also get CT scan of the abdomen and pelvis without contrast. Further treatment to follow depending on hospital course and review of other diagnostic test. Patient may need re-intubation depending on arterial blood gas. We may also have to change the IV fluids to includes bicarb therapy. On further review of medical record, it turned out that Dr. Ruelas has seen patient in January. We will contact Dr. Ruelas to take over care of this patient. We will also replete serum calcium and magnesium with calcium chloride and magnesium sulfate respectively. The patient is critically ill with guarded prognosis. Job ID: [id number] [facility]
[2020-06-14] MEDS: Pancrelipase DR 12,000 1 CAP PO SCH ×2 (12:20→17:21)
[2020-06-14] MEDS: METHadone HCl 10 MG TAB PO SCH ×3 (12:20→20:50)
[2020-06-14] MEDS: Metoclopramide HCl 10 MG TAB PO SCH ×2 (12:21→17:21)
--- NOTE | 2020-06-14 14:08 | CT ---
CT ABDOMEN AND PELVIS WITHOUT IV CONTRAST: 06/14/20 INDICATIONS: Acute kidney insufficiency. Abnormal liver function test. Abdominal pain. COMPARISON: Comparison made to recent CT abdomen and pelvis 05/22/20. FINDINGS: Images through the lung bases show small bilateral effusions and dense bibasilar atelectasis and cons olidation. These lung base changes have occurred since the recent CT. Liver shows overall low attenua tion without focal mass. Spleen and pancreas unremarkable given the limitations of a noncontrast stud y. Small volume ascites with small amount of fluid around the liver margin is radiating into the colonic gutters and into the deep pelvis. Kidneys show no hydronephrosis. Fat density lesion in the left renal cortex consistent with angiomyol ipoma is stable. Small bowel loops have nonspecific distention. There continues to be mural thickening involving the c olon which was described on the prior study. Large volume stool in the rectum with mural thickening may suggest fecal impaction and possibly early stercoral colitis. Rectal diameter is measured at up to 8 cm. Sibley catheter is in place with a contracted urinary bladder. There is diffuse subcutaneous haziness indicating edema/anasarca new from prior exam. IMPRESSION: 1. Small bilateral pleural effusions against bibasilar atelectasis and consolidation has occurre d since prior exam. 2. Small volume ascites new since prior exam. 3. Diffuse low density of the liver consistent with fatty infiltration. 4. Nonspecific small bowel distention and fold thickening with persistent mural thickening of co flash. 5. Dilated stool filled rectosigmoid area consistent with fecal impaction with neural thickening suggesting early stercoral colitis. 6. Subcutaneous edema consistent with anasarca. POS: AGW
[2020-06-14 14:10] LABS: Bilirubin Negative (Negative); Blood, Urine 2+ (Negative); Clarity Turbid (Clear); Glucose, Urine (Dipstick) Normal (Negative); Ketone, Urine Trace mg/dL (Negative); Leukocyte 250 Leu/uL (Negative); Nitrite Negative (Negative); Protein, Urine (Dipstick) 70 mg/dL (Neg-Trace); Renal Epithelial 0-3 HPF (None Seen); Specific Gravity, Urine 1.012 (1.002-1.036); Squamous Epithelial 0-3 HPF (0-3); Transitional Epithelial 0-3 HPF (None Seen); Urobilinogen Normal mg/dL (Less than 2); pH, Urine 5.5 (5.0-9.0)
[2020-06-14 14:18] LABS: Bacteria/HPF None Seen HPF (None Seen); Yeast-Budding 4+ HPF (None Seen)
[2020-06-14 14:20] LABS: Urine Culture Reflex Yes Yes
[2020-06-14 14:25] LABS: Creatinine, Urine 42.89 mg/dL (47-110)
[2020-06-14] MEDS ORDERED: Metoclopramide HCl 10 MG TAB PO SCH (15:00)
[2020-06-14 15:47] LABS: Anion Gap 23 mmol/L (10-20); BUN (Urea Nitrogen) 54 mg/dL (7.0-18.7); Calc. Creatinine Clearance 17 mL/min (70-130); Calcium 6.2 mg/dL (7.8-10.44); Carbon Dioxide 18 mmol/L (22-29); Chloride 96 mmol/L (98-107); Glucose 158 mg/dL (70-105); Potassium 4.1 mmol/L (3.5-5.1); Sodium 133 mmol/L (136-145)
[2020-06-14] MEDS ORDERED: Multivitamins, Adult 10 ML, Thiamine HCl 100 MG, Folic Acid 1 MG in Dextrose 5 %-0.45 %... IV SCH (16:00)
--- NOTE | 2020-06-14 17:04 | PRG ---
DATE OF SERVICE: 06/14/2020 SUBJECTIVE: Wanda Schulte self-extubated. She amazingly has done reasonably well. She is able to interact and follow commands, but she is confused as expected. OBJECTIVE: VITAL SIGNS: Heart rate is 100, blood pressure 114/77, respiratory rate is in the 20s. LUNGS: Clear anteriorly. HEART: Regular rate and rhythm. ABDOMEN: Soft. EXTREMITIES: Without asymmetry. DIAGNOSTIC DATA: Chest x-ray still shows infiltrate in the left upper lobe and right medial lung base. The right upper lobe infiltrate was resolved, suggesting that this was possibly secondary to right mainstem intubation. White count 12.4, hemoglobin 10.3, and platelets 33,000. Sodium 133, potassium 4.1, chloride 96, bicarb 18, BUN 54, creatinine 4.54 up from 4.32. An abdomen and pelvis CT was ordered by the restaurant crew member today, showing fatty infiltration of the liver, small amount of ascites. Finding suggestive of fecal impaction. Subcutaneous edema that is most likely result of her volume resuscitation on presentation. No cultures apparently were drawn on admission. Echocardiogram shows a normal ejection fraction surprisingly. IMPRESSION: 1. Status post [id number] arrest, now no longer mechanically ventilated, secondary to self-extubation. 2. Progressive renal failure. poor muscle mass. She will tolerate a positive fluid balance from very long. This will need to be monitored closely. We will continue to follow. Job ID: [id number]
[2020-06-14] MEDS: Cefepime 0.5 GM, Admixture Fee 1 EACH in Sodium Chloride 0.9% 100 ML IVPB SCH (20:49)
[2020-06-15 05:16] LABS: INR-International Normal Ratio 1.4; PTT 35.8 sec (22.9-36.1); Prothrombin Time 17.9 sec (12.0-14.7)
[2020-06-15 05:37] LABS: ALT (SGPT) 296 U/L (8-55); AST (SGOT) 759 U/L (5-34); Alkaline Phosphatase 103 U/L (40-110); Anion Gap 21 mmol/L (10-20); BUN (Urea Nitrogen) 58 mg/dL (7.0-18.7); Bilirubin, Total 3.1 mg/dL (0.2-1.2); Calc. Creatinine Clearance 16 mL/min (70-130); Calcium 6.5 mg/dL (7.8-10.44); Carbon Dioxide 21 mmol/L (22-29); Chloride 97 mmol/L (98-107); Globulin 1.6 g/dL (2.4-3.5); Glucose 119 mg/dL (70-105); Potassium 3.7 mmol/L (3.5-5.1); Protein, Total 4.6 g/dL (6.0-8.3); Sodium 135 mmol/L (136-145)
[2020-06-15] MEDS: Albumin 25% 25 GM/100 ML BOT IVPB SCH (05:39)
[2020-06-15] MEDS: Sodium Chloride 0.45% 1,000 ML IV SCH (05:40)
[2020-06-15 06:22] LABS: Band 37 % (5-11); Hemoglobin 8.8 g/dL (12.0-16.0); Lymphocytes 5 % (21-51); MDiff Complete? YES; Mean Corpuscular HGB CONC 33.8 g/dL (32.0-36.0); Mean Corpuscular Volume 97.5 fL (78.0-98.0); Mean Platelet Volume 11.1 fL (7.4-10.4); Metamyelocyte 3 % (0-0); Monocytes 10 % (0-10); Myelocyte 1 % (0-0); Neutrophil 44 % (42-75); Platelet Count 19 thou/uL (130-400); Platelet Morphology Comment Appears Decreased; RBC Distribution Width 16.1 % (11.5-14.5); Red Blood Cell (RBC) Count 2.66 mill/uL (4.20-5.40); White Blood Cell (WBC) Count 5.6 thou/uL (4.8-10.8)
[2020-06-15] MEDS: Pancrelipase DR 12,000 1 CAP PO SCH ×3 (07:41→16:20)
[2020-06-15] MEDS: Metoclopramide HCl 10 MG TAB PO SCH ×3 (07:42→16:20)
[2020-06-15] MEDS: Insulin Glargine 12 UNITS in Pre-Filled Syringe 1 EACH SC SCH (09:44)
--- NOTE | 2020-06-15 09:54 | RAD ---
PORTABLE CHEST: HISTORY: CCU followup. COMPARISON: 06/14/2020. FINDINGS: Central line unchanged. Confluent infiltrate throughout the left lung is more pronounced today. Bilateral effusions. Hazy i nfiltrate throughout the right lung. IMPRESSION: Increasing bilateral infiltrates. POS: AGW
[2020-06-15] MEDS ORDERED: Multivitamins, Adult 10 ML, Thiamine HCl 100 MG, Folic Acid 1 MG in Dextrose 5 %-0.45 %... IV SCH (11:30)
[2020-06-15] MEDS: Lisinopril 20 MG TAB PO SCH (11:55)
[2020-06-15] MEDS: Cyanocobalamin (Vitamin B-12) 1,000 MCG TAB PO SCH (11:55)
[2020-06-15] MEDS: Amlodipine 10 MG TAB PO SCH (11:55)
[2020-06-15] MEDS: METHadone HCl 10 MG TAB PO SCH ×4 (11:56→20:56)
--- NOTE | 2020-06-15 13:28 | PDOC.HOSPP ---
- Subjective Encounter Date: 06/15/20 Encounter Time: 11:10 Subjective: Patient seen this morning. Discussed with RN as well as cement mixer Dr. Kimbrough. It appears that daughter consented for the patient to undergo dialysis. Patient does have a very low platelet it seems the platelets are dropping significantly on it was 117 today 19. Patient does not have any obvious bleed and no petechial rash. Her INR is 1.4. Elevated PT at 17.9. LFTs are trending down. - Objective Vital Signs & Weight: Vital Signs (12 hours) Temp BP Pulse Ox 06/15/20 11:55 119/87 06/15/20 08:00 97.7 F 119/87 93 L 06/15/20 04:00 97.9 F 92 L Weight Admit Weight 156 lb 4.8 oz Weight 160 lb 14.999 oz Most Recent Monitor Data Heart Rate from ECG 101 NIBP 140/93 NIBP BP-Mean 108 Respiration from ECG 20 SpO2 95 I&O: 06/14/20 06/15/20 06/16/20 06:59 06:59 06:59 Intake Total 4644.1 3123.4 Output Total 127 309 64 Balance 4517.1 2814.4 -64 Result Diagrams: 06/15/20 04:40 06/15/20 04:40 Additional Labs: Accuchecks 06/15/20 06/15/20 06/15/20 11:37 05:50 00:37 POC Glucose 88 113 H 133 H 06/14/20 15:07 POC Glucose 155 H Hospitalist ROS - Medication Medications: Active Medications Generic Name Dose Route Start Last Admin Trade Name Aquilinoq PRN Reason Stop Dose Admin Acetaminophen 650 mg 06/13/20 22:54 06/14/20 01:18 Acetaminophen 650 Mg Suppository [place] 650 mg Q4H PRN Administration Headache/Fever or Pain Amlodipine Besylate 10 mg 06/15/20 09:00 06/15/20 11:55 Amlodipine 10 Mg Tab PO Not Given DAILY JULIA Lipase/Protease/Amylase 1 cap 06/14/20 12:00 06/15/20 11:56 Pancrelipase 12,000 1 Cap PO Not Given TID- JULIA Cyanocobalamin 5,000 mcg 06/15/20 09:00 06/15/20 11:55 Cyanocobalamin (Vitamin B-12) 1,000 Mcg Tab PO Not Given DAILY JULIA Norepinephrine Bitartrate 250 mls @ 0 mls/hr 06/12/20 17:43 06/14/20 22:34 Levophed IVPB 250 mls PRN PRN Administration To maintain MAP > 65 Protocol Titrate Cefepime HCl 0.5 gm/ 100 mls @ 200 mls/hr 06/13/20 21:00 06/14/20 20:49 Miscellaneous Medication 1 IVPB 100 mls each/ Sodium Chloride 2100 JULIA Administration Insulin Glargine 12 units/ 0.12 mls @ 0 mls/hr 06/15/20 09:00 06/15/20 09:44 Miscellaneous Medication SC 0.12 mls QAM JULIA Administration Lisinopril 40 mg 06/15/20 09:00 06/15/20 11:55 Lisinopril 20 Mg Tab PO Not Given DAILY JULIA Lorazepam 2 mg 06/12/20 18:15 06/14/20 10:51 Lorazepam 2 Mg/Ml Vial SLOW IVP 07/12/20 18:15 2 mg Q1H PRN Administration Breakthrough agitation Methadone HCl 5 mg 06/14/20 13:00 06/15/20 11:56 Methadone Hcl 10 Mg Tab PO Not Given QID JULIA Metoclopramide HCl 10 mg 06/14/20 12:00 06/15/20 11:56 Metoclopramide Hcl 10 Mg Tab PO Not Given TID-WM JULIA Metoprolol Succinate 100 mg 06/14/20 21:00 06/15/20 11:56 Metoprolol Succinate Xl 25 Mg Tab PO Not Given BID JULIA Pantoprazole Sodium 40 mg 06/15/20 09:00 06/15/20 09:44 Pantoprazole 40 Mg Tab PO 40 mg DAILY JULIA Administration Propofol 1,000 mg 06/12/20 18:15 06/13/20 06:04 Propofol 1,000 Mg/100 Ml Vial IV 07/12/20 18:15 1,000 mg INF PRN Administration TO ACHIEVE GOAL RASS Protocol Sodium Chloride 10 ml 06/12/20 21:00 06/15/20 09:44 Flush - Normal Saline 10 Ml Syringe IVF 10 ml Q12HR JULIA Administration - Exam General Appearance: NAD, awake alert Eye: PERRL ENT: normocephalic atraumatic Neck: supple Heart: RRR, normal peripheral pulses Respiratory: CTAB, normal chest expansion Gastrointestinal: soft, normal bowel sounds Extremities - other findings: Dependent edema on her hand seems to be improved Neurological: cranial nerve grossly intact, no focal deficits Psychiatric: oriented to person, somnolent, lethargic Hosp A/P - Plan p A/P (1) Cardiac arrest Code(s): I46.9 - CARDIAC ARREST, CAUSE UNSPECIFIED Status: Acute (2) Respiratory failure Code(s): J96.90 - RESPIRATORY FAILURE, UNSP, UNSP W HYPOXIA OR HYPERCAPNIA Status: Acute (3) Shock liver Code(s): K72.00 - ACUTE AND SUBACUTE HEPATIC FAILURE WITHOUT COMA Status: Acute (4) Anemia Code(s): D64.9 - ANEMIA, UNSPECIFIED Status: Acute (5) Pneumonia Code(s): J18.9 - PNEUMONIA, UNSPECIFIED ORGANISM Status: Acute Qualifiers: Pneumonia type: due to unspecified organism Laterality: left Lung location: upper lobe of lung Qualified Code(s): J18.9 - Pneumonia, unspecified organism (6) Thrombocytopenia Code(s): D69.6 - THROMBOCYTOPENIA, UNSPECIFIED Status: Acute (7) SURESH (acute kidney injury) Code(s): N17.9 - ACUTE KIDNEY FAILURE, UNSPECIFIED Status: Acute (8) Hypokalemia Code(s): E87.6 - HYPOKALEMIA Status: Acute (9) DKA (diabetic ketoacidoses) Code(s): E13.10 - OTH DIABETES MELLITUS WITH KETOACIDOSIS WITHOUT COMA Status: Resolved Qualifiers: s/p CPR with reported 30 minutes for ROSC. - Hypocalcemia and hypomagnesemia -Being replaced. -Echo ordered -will follow-up. 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 -Continue with pancreatic enzyme -Lipase level insignificant shock liver -Liver functions seems to be slightly better than yesterday. We will trend daily basis. Her lipase level insignificant Thrombocytopenia - no pharmacologic dvt prophy Heavy alcohol abuse on a daily basis -We will follow ASC protocol for Ativan -We will also check her B12 and folate level and replace as needed -Provide banana bag for next 3 days. code status full Diabetic diet General support - will request Palliative care provide support with the family. -Previous provider updated 2 daughters last night, and 1 son by phone. Discussed with RN as well as cement mixer Dr. Kimbrough. It appears that daughter consented for the patient to undergo dialysis. LFTs are trending down. -We will get acute hepatitis panel PTH vitamin D mag and phosphorus level Thrombocytopenia Patient does have a very low platelet it seems the platelets are dropping signi ficantly on it was 117 today 19K. Patient does not have any obvious bleed and no petechial rash. Her INR is 1.4. Elevated PT at 17.9. -We will check HIT, heparin-induced thrombocytopenia
--- NOTE | 2020-06-15 14:29 | PRG ---
DATE OF SERVICE: 06/15/2020 SUBJECTIVE: Wanda Schulte, for the first time, is oriented and appropriate. We discussed renal failure and dialysis. She very quickly answered that she did not want dialysis. We discussed hospice, and she did understand what that meant and actually said, it means that "I won't survive." Hopefully, she will not progress to renal failure, but if she does, that probably is the next option. Surprisingly, her vital signs are stable; blood pressure 142/98, heart rate is 101, respiratory rates in the teens. Lungs and abdomen are unchanged. LABORATORY DATA: White count 5.6, hemoglobin 8.8, platelets 19,000. Sodium 135, potassium 3.7, chloride 97, bicarb 21, BUN 58, creatinine 4.8. Intake and outputs 2814 positive. She only had 309 mL of urine out. IMPRESSION: 1. Status post tel-wd-gwlbogin arrest with recovery of her neurological function amazingly. 2. Acute on chronic kidney disease. Family has reported that she has declined dialysis in the past. 3. Pulmonary edema. 4. ? component of aspiration. 5. Diabetes. 6. Deconditioning. PLAN: She received Ativan yesterday and slept for quite a while, so we will decrease the dose of Ativan. Sedation protocol has been discontinued. She will be seen by Palliative Care today, and these issues will be discussed with family. Family has told the nurse that they want her dialyzed if she needs it, but she clearly had made a decision in the past and currently that she does not want this, so this should not be undertaken in my opinion in accordance with her wishes. She is probably stable to move out of Critical Care Unit. Job ID: [id number]
--- NOTE | 2020-06-15 14:43 | PRG ---
DATE OF SERVICE: 06/15/2020 SUBJECTIVE: A 50-year-old female, being seen for acute kidney injury. OBJECTIVE: GENERAL: The patient is resting. VITAL SIGNS: Afebrile, pulse 75, breathing 16, blood pressure 140/93. HEENT: Head normocephalic and atraumatic. Eyes intact, no ulcers. Nose intact, no ulcers. Ears intact, no ulcers. Neck: Supple. No JVD. Chest: Symmetrical and clear. Cardiovascular: Shows S1 and S2, no rub, no murmur. Gastrointestinal: Abdomen is soft, bowel sounds positive. Extremities: Show no edema or ulcers. Skin: Shows no rash or petechiae. Musculoskeletal: Shows no joint swelling or stiffness. Genitourinary: Shows no Sibley or CVA tenderness. Neurologic: Motor intact. Cranial nerves intact. LABORATORY DATA: Showed hemoglobin 8.8, platelets are 19, creatinine 4.8. ASSESSMENT AND PLAN: 1. Acute kidney injury on chronic kidney disease stage 5, multifactorial, ATN most likely due to cardiorenal syndrome with the patient having uremic breath and low urine output and edema. I would recommend renal replacement therapy. This was discussed with the patient, who is very very somnolent and her two daughters Discussed with the hospitalist. Risks versus benefits were discussed for renal replacement therapy. Renal replacement therapy will be planned after dialysis catheter is placed and thrombocytopenia is evaluated. 2. Thrombocytopenia. I would recommend Hematology consult to evaluate the etiology of this sudden and progressive thrombocytopenia. This was discussed with Dr. Dacosta, who is the hospitalist on-call. 3. Hypocalcemia. Recommend calcium supplementation. 4. Metabolic acidosis, stable. 5. Uremia. 6. Anemia, plan dialysis. Overall prognosis is very poor. This was discussed with the daughters and they would want to proceed dialysis even though the patient in the past had declined renal replacement therapy. Job ID: [id number] [facility]
[2020-06-15] MEDS: Furosemide 40 MG/4 ML VIAL ONE (15:13)
[2020-06-15] MEDS: Dextrose 50% Abboject 50 ML SYRINGE SLOW IVP PRN ×2 (15:13→20:30)
[2020-06-15 15:17] LABS: Phosphorus 5.3 mg/dL (2.3-4.7)
[2020-06-15 15:18] LABS: HBCM Index 0.06 S/CO (0-0.79); HBSAg Index 0.16 S/CO (0-0.99); Hep A IgM AB Non-Reactive (NonReactive); Hep A IgM S/CO 0.13 S/CO (0-0.79); Hep B Surf Ag Non-Reactive S/CO (NonReactive); Hep C IgG Ab Non-Reactive (NonReactive); Hep C Index 0.04 S/CO (0-0.79); Hepatitis B Core IgM Abs Non-Reactive (NonReactive); Vitamin D, 25 Hydroxy Less than 3.4 ng/ml (> 30.0)
--- NOTE | 2020-06-15 16:22 | CON ---
DATE OF CONSULTATION: REASON FOR CONSULTATION: Thrombocytopenia. HISTORY OF PRESENT ILLNESS: Ms. Schulte is a 50-year-old female with past medical history of Whipple procedure for benign pancreatic mass, recurrent DKA, who presented to the emergency room on 06/12 with CPR in progress. She had apparently been drinking on and began to vomit the next day with poor hydration. She was found unresponsive with undetectable high blood sugar. Apparently, CPR was performed for over 30 minutes with return of spontaneous circulation. She was admitted to the ICU here for severe DKA, metabolic acidosis, and hypertension. She had a CBC on arrival, which showed a platelet count of 92,000 over the course of 3 days, have dropped to a low of 19,000. The patient has no evidence of bleeding. She was seen at bedside in the ICU. She is on a Ventimask and is sleepy. History was obtained from review of medical records. PAST MEDICAL HISTORY: 1. History of pancreatic mass, apparently benign, status post Whipple procedure, followed by MD [facility]. 2. History of renal mass. 3. Chronic pain syndrome. 4. Diabetes mellitus, 2. 5. Hypertension. PAST SURGICAL HISTORY: 1. Whipple. 2. Partial gastrectomy. 3. Partial nephrectomy. 4. Tubal ligation. ALLERGIES: TO MORPHINE. HOME MEDICATIONS: 1. B12. 2. Cymbalta. 3. Protonix. 4. Reglan. 5. Methadone. 6. Hydrocodone. FAMILY HISTORY: Unknown. SOCIAL HISTORY: Apparently lives with her sons. REVIEW OF SYSTEMS: Unobtainable. PERTINENT LABORATORY DATA AND X-RAYS: Current WBCs are 5.6, hemoglobin 8.8, hematocrit 25.9, platelet count is 19,000, 44% neutrophils, 37% bands, 5% lymphocytes, 3% metamyelocytes, and 1% myelocytes. PT 7.9, INR is 1.4, and PTT 35.8. Sodium 135, potassium 3.7, chloride 97, CO2 is 21, BUN is 58, creatinine 4.83, calcium 6.5, bilirubin 3.1, AST 7.59, ALT 296, alkaline phosphatase is 103. Serum total protein is 4.6, albumin 3, and globulin 1.6. B12 greater than 2000. ASSESSMENT: 1. Cardiac arrest status post cardiopulmonary resuscitation with return of spontaneous circulation. 2. Metabolic acidosis. 3. Shock liver. 4. Rgows-ww-vytcecv kidney failure. 5. Thrombocytopenia. 6. Normocytic anemia. DISCUSSION: The patient's platelets have dropped within 3 days of admission. She was recently discharged from this facility on 05/25 for colitis and gastroparesis. She was discharged on metronidazole and Levaquin. Her platelets on the last 2 days during that admission had dropped slightly to 115. She did not receive any heparin products on that admission nor has she received any on this admission that I can tell. I do not think this is HIT. She has no evidence of bleeding, so would hold off on platelet transfusion. Low platelets likely secondary to her acute illness and the platelets will recover spontaneously as she improves. I will discuss the case with Dr. Azevedo. Thank you for the consult. Job ID: [id number] [facility]
[2020-06-15] MEDS: Cefepime 0.5 GM, Admixture Fee 1 EACH in Sodium Chloride 0.9% 100 ML IVPB SCH (20:33)
[2020-06-16] MEDS: Dextrose 50% Abboject 50 ML SYRINGE SLOW IVP PRN ×2 (00:06→06:19)
[2020-06-16 04:49] LABS: Platelet Count 17 thou/uL (130-400)
[2020-06-16 04:50] LABS: Anion Gap 20 mmol/L (10-20); BUN (Urea Nitrogen) 59 mg/dL (7.0-18.7); Calc. Creatinine Clearance 17 mL/min (70-130); Calcium 7.2 mg/dL (7.8-10.44); Carbon Dioxide 23 mmol/L (22-29); Chloride 97 mmol/L (98-107); Glucose 64 mg/dL (70-105); Sodium 137 mmol/L (136-145)
[2020-06-16 04:52] LABS: Potassium 2.8 mmol/L (3.5-5.1)
[2020-06-16 04:53] LABS: Band 29 % (5-11); Hemoglobin 10.1 g/dL (12.0-16.0); Hypochromia SLIGHT = 6-15 cells (100X) (0-5/hpf); Lymphocytes 10 % (21-51); MDiff Complete? YES; Mean Corpuscular HGB CONC 32.7 g/dL (32.0-36.0); Mean Corpuscular Hemoglobin 32.2 pg (27.0-31.0); Mean Corpuscular Volume 98.5 fL (78.0-98.0); Mean Platelet Volume 12.8 fL (7.4-10.4); Metamyelocyte 3 % (0-0); Monocytes 10 % (0-10); Neutrophil 48 % (42-75); Platelet Morphology Comment Appears Decreased; RBC Distribution Width 16.1 % (11.5-14.5); Red Blood Cell (RBC) Count 3.14 mill/uL (4.20-5.40); Target Cells SLIGHT = 2-5 cells (100X) (0-1/hpf); White Blood Cell (WBC) Count 6.5 thou/uL (4.8-10.8)
--- NOTE | 2020-06-16 08:20 | RAD ---
Chest one view HISTORY: Pneumonia. Follow-up. COMPARISON: 06/15/2020. FINDINGS: Cardiac silhouette is magnified by projection. Pulmonary vasculature are less engorged than on the prior exam. Mediastinum is midline. Left internal jugular central venous catheter remains in place. Widespread dense infiltrate throughout the left lung is less pronounced than on the prior study. Left hemidiaphragm remains obscured. Fluid at the right base and along the inferior aspect of the right chest wall laterally is unchanged. No evidence of pneumothorax. IMPRESSION : Improving aeration left lung with lessening infiltrate. Bilateral pleural fluid favored to be stable.
[2020-06-16] MEDS: Metoclopramide HCl 10 MG TAB PO SCH ×3 (09:55→17:26)
[2020-06-16] MEDS: Pancrelipase DR 12,000 1 CAP PO SCH ×3 (09:55→18:42)
[2020-06-16] MEDS: Amlodipine 10 MG TAB PO SCH (09:55)
[2020-06-16] MEDS: Lisinopril 20 MG TAB PO SCH (09:56)
[2020-06-16] MEDS: Insulin Glargine 12 UNITS in Pre-Filled Syringe 1 EACH SC SCH (10:02)
[2020-06-16] MEDS: METHadone HCl 10 MG TAB PO SCH ×4 (10:06→20:16)
--- NOTE | 2020-06-16 10:07 | PQF ---
CLINICAL DOCUMENTATION CLARIFICATION FORM: Dear Dr. Dacosta Date: 06/16/2020 Please exercise your independent, professional judgment in responding to the clarification form. Clinical indicators are provided on the bottom of this form for your review. Please check appropriate box(s): [ x ] Sepsis due to (please specify): [ ] Aspiration Pneumonia [ x ] Simple Pneumonia [ ] Pneumonia unspecified [ ] Other: ____ [ ] Severe Sepsis with associated acute organ dysfunction (please specify): [ ] Acute respiratory failure [ ] Shock liver [ ] Acute Renal Failure [ ] Additional: [ ] No sepsis, localized infection due to: [ ] Aspiration Pneumonia [ ] Simple Pneumonia [ ] Pneumonia unspecified [ ] Other: ____ [ ] SIRS due to non-infection process (please specify): [ ] DKA [ ] Cardiac Arrest [ ] Other: [ ] With acute organ dysfunction [ ] Without acute organ dysfunction [ ] Other diagnosis [ ] Unable to determine In addition, please specify: Present on Admission (POA): [ ] Yes [ ] No [ ] Unable to determine For continuity of documentation, please document condition throughout progress notes and discharge summary. Thank You. CLINICAL INDICATORS - SIGNS / SYMPTOMS / LABS / RESULTS AND LOCATION IN EMR *ED 06/12: * Vital Signs: Temp 89.8-90.1 (Criticore) Pulse 90-95 RR 20-22 O2 Sat 100% Ventilator BP 110/70-141/88 * Diagnosis Cardiac arrest Acute respiratory failure, Diabetic ketoacidosis, Metabolic encephalopathy, Severe metabolic acidosis *LAB (EMR): WBC Band Neut % CRP 06/12 12.6 06/13 3.8 8 06/14 12.4 27 6.54 06/15 5.6 37 06/16 6.5 29 *H&P 06/12 (Carl): * Chest x-ray new significant left upper lobe infiltrate and interval worsening of smaller right upper lobe infiltrate. May represent aspiration pneumonitis and left subclavian central line. * Shock liver Possible sepsis based on chest-xray with left upper lobe infiltrate, acute kidney injury . * We will start cefepime for the aspiration *Consultation 06/13 (Crista): * Chest x-ray showed infiltrate in her left upper lobe. This could be secondary to right mainstem intubation in transit and see how these play out. * Metabolic acidosis, likely a mixture of diabetic ketoacidosis and post-code lactic acidosis. *Consultation 06/14 (Obi): * In distress, tachycardic, tachypneic, and groaning. It was also reported that urine output has been poor in the last 2 days despite aggressive IV fluid therapy. * Acute renal failure: Most likely due to hemodynamic factors related to cardiac arrest and shock as well as volume depletion. * Systemic inflammatory response syndrome. * Marked tachycardia with heart rate in 140s. *PN 06/14 (Gurusa): Pneumonia . Pneumonia type: due to unspecified organism *Reports (EMR): * 06/14/2020 Chest X-Ray Impression: Improved in right upper lobe infiltrate. Left upper love and right lower lobe infiltrates are stable. * 06/15/2020 Chest X-Ray Impression: Increasing bilateral infiltrates. * 06/16/2020 Chest X-Ray . Impression: Improving aeration left lung with lessening infiltrate. Bilateral pleural fluid favored to be stable. RISK FACTORS / RESULTS AND LOCATION IN EMR *ED 06/12: Diabetic ketoacidosis with cardiac arrest. *H&P 06/12 (Carl): * Drinking alcohol until two or three in the morning, yesterday that she was vomiting and not eating or drinking any fluids . * Right upper lobe infiltrate. May represent aspiration pneumonitis TREATMENTS / RESULTS AND LOCATION IN EMR *ED 06/12: NS 1L IV, Levophed IV, LR 2L IV, Novolin R IV, Dextrose 5% IV *H&P 06/12 (Carl): Admission to the ICU . Bicarbonate drip Insulin drip . Cefepime Ventilator and pressor support per Critical Care Medicine. Monitor on telemetry. *Pulmonology Consultation 06/13 (Tobin) *Nephrology Consultation 06/14 (Obi): We will give albumin *LAB (EMR): CBC Daily 06/12-06/16; CRP 06/14 *Reports (EMR): Chest X-Ray 06/12, 06/14, 06/15, 06/16 Thank you, Anna CDS/Community Development Manager Signature: Anna Harman RN, CDS Phone #: [phone] [email or web address] This is a permanent part of the Medical Record [facility]
[2020-06-16] MEDS ORDERED: Potassium Chloride 40 MEQ in Sodium Chloride 0.9% 250 ML 250 ML IVPB SCH (11:30)
--- NOTE | 2020-06-16 12:00 | PDOC.DS.DS ---
Provider - Provider Date of Admission: 06/12/20 16:58 Admitting Provider: Wanda Henry MD Primary Care Physician: Werner Gray MD Course - Hospital Course Hospital Course: 50-year-old female presented with p A/P (1) Cardiac arrest Code(s): I46.9 - CARDIAC ARREST, CAUSE UNSPECIFIED Status: Acute (2) Respiratory failure Code(s): J96.90 - RESPIRATORY FAILURE, UNSP, UNSP W HYPOXIA OR HYPERCAPNIA Status: Acute (3) Shock liver Code(s): K72.00 - ACUTE AND SUBACUTE HEPATIC FAILURE WITHOUT COMA Status: Acute (4) Anemia Code(s): D64.9 - ANEMIA, UNSPECIFIED Status: Acute (5) Pneumonia Code(s): J18.9 - PNEUMONIA, UNSPECIFIED ORGANISM Status: Acute Qualifiers: Pneumonia type: due to unspecified organism Laterality: left Lung location: upper lobe of lung Qualified Code(s): J18.9 - Pneumonia, unspecified organism (6) Thrombocytopenia Code(s): D69.6 - THROMBOCYTOPENIA, UNSPECIFIED Status: Acute (7) SURESH (acute kidney injury) Code(s): N17.9 - ACUTE KIDNEY FAILURE, UNSPECIFIED Status: Acute (8) Hypokalemia Code(s): E87.6 - HYPOKALEMIA Status: Acute (9) DKA (diabetic ketoacidoses) Code(s): E13.10 - OTH DIABETES MELLITUS WITH KETOACIDOSIS WITHOUT COMA Status: Resolved Qualifiers: s/p CPR with reported 30 minutes for ROSC. - s/p Levophed currently DKA with severe metabolic acidosis - -Status post potassium bicarb drip -Off insulin drip -Scheduled Lantus as well as sliding scale Acute on chronic kidney disease stage III Metabolic acidosis secondary to chronic kidney disease- improved Her urine output is 2400 mL for the last 24-hour on June 16 the day of discharge History of Whipple procedure for suspected pancreatic cancer and it turned out to be benign -Continue with pancreatic enzyme -Lipase level insignificant shock liver--due to cardiac arrest and with pre-existing alcoholic liver disease -Liver functions seems to be slightly better than yesterday. We will trend daily basis. Her lipase level insignificant Thrombocytopenia - no pharmacologic dvt prophy Heavy alcohol abuse on a daily basis -We will follow ASC protocol for Ativan Thrombocytopenia Patient does have a very low platelet it seems the platelets are dropping significantly on it was 117 today 19K. Patient does not have any obvious bleed and no petechial rash. Her INR is 1.4. Elevated PT at 17.9. -Due to acute stress and it will likely improve spontaneously. On June 16 Patient seems to be getting better clinically she is alert oriented her taking a p.o. intake she has a good urine output. She just quite weak given what she went through. I talked to her and she wants to be DNR. I also talked to the thi santiago. Nursing states that she is getting better. However it appears that patient wants to go home with the hospice. I checked with the Ena who is the medical power of civil rights attorney at [phone]. I also talked to the palliative care as well. It appears that patient and the family decided to go with home hospice at this time. They want her to be comfortable, not in any pain. I believe given her young age of 50 and no major comorbidities other than alcohol use under chronic kidney disease she would be able to recover from this acute decompensation. However if she continues to drink alcohol obviously poor prognosis will be quite guarded. Family stated that they will cancel the hospice if she recovered in the very near future. Alternating the care with the nursing palliative and the discussion with the family took over 45 minutes. Resuscitation Status: 06/15/20 18:04 Resuscitation Status Routine Resuscitation Status: DNAR: NO Resuscitation Discussed with: family request - Labs Lab Results: 06/16/20 04:05 06/16/20 04:05 Abnormal Lab Results - Last 48 hrs 06/14/20 04:07: Creatine Kinase 2369 H 06/14/20 04:07: C-Reactive Protein 16.54 H 06/14/20 11:55: Vitamin B12 Greater than 2000 H 06/14/20 13:30: U Random Total Protein 83 H, Urine Creatinine 42.89 L 06/14/20 13:30: Urine Clarity Turbid A, Urine Protein 70 A, Urine Ketones Trace A, Urine Blood 2+ A, Ur Leukocyte Esterase 250 A, Urine RBC 7-10 A, Urine WBC 11-20 A, Ur Transition Epith Cell 0-3 A, Ur Renal Epithelial Cell 0-3 A, Urine Yeast (Budding) 4+ A, Urine Culture Reflexed Yes A 06/14/20 15:09: Sodium 133 L, Chloride 96 L, Carbon Dioxide 18 L, Anion Gap 23 H, BUN 54 H, Creatinine 4.54 H, Calcium 6.2 L 06/15/20 04:40: Sodium 135 L, Chloride 97 L, Carbon Dioxide 21 L, Anion Gap 21 H, BUN 58 H, Creatinine 4.83 H, Calcium 6.5 L, Total Bilirubin 3.1 H, AST 759 H, ALT 296 H, Serum Total Protein 4.6 L, Albumin 3.0 L, Globulin 1.6 L 06/15/20 04:40: PT 17.9 H 06/15/20 04:40: RBC 2.66 L, Hgb 8.8 L, Hct 25.9 L, MCH 33.0 H, RDW 16.1 H, Plt Count 19 L*, MPV 11.1 H, Band Neuts % (Manual) 37 H, Lymphocytes % (Manual) 5 L, Myelocytes % 1 H, Plt Morphology Comment Appears Decreased L 06/15/20 14:15: 25-OH Vitamin D Total Less than 3.4 L 06/15/20 14:47: Phosphorus 5.3 H 06/15/20 14:47: PTH Intact 1003.3 H 06/16/20 04:05: Potassium 2.8 L*, Chloride 97 L, BUN 59 H, Creatinine 4.57 H, Calcium 7.2 L 06/16/20 04:05: RBC 3.14 L, Hgb 10.1 L, Hct 30.9 L, MCV 98.5 H, MCH 32.2 H, RDW 16.1 H, Plt Count 17 L*, MPV 12.8 H, Band Neuts % (Manual) 29 H, Lymphocytes % (Manual) 10 L, Plt Morphology Comment Appears Decreased L Microbiology - Entire Visit 06/14/20 14:19 Urine devries catheter Urine Culture - Final Presumptive Suly albicans - Physical Exam Vitals: Vital Signs (12 hours) Temp Pulse BP Pulse Ox 06/16/20 09:56 165/114 H 06/16/20 09:55 99 165/114 H 06/16/20 09:03 99 06/16/20 08:00 97.9 F 06/16/20 04:00 98.2 F 06/16/20 01:00 98 F Weight Admit Weight 156 lb 4.8 oz Weight 160 lb 14.999 oz Most Recent Monitor Data Heart Rate from ECG 86 NIBP 132/94 NIBP BP-Mean 106 Respiration from ECG 36 SpO2 93 Physical Exam: The patient was seen and examined on the day of discharge. Fatigued this morning but much more clear than yesterday. She is alert oriented x3 I asked again the code C status she wants to be DNR. She is eating and her urine output is good. Her urine output is 2400 mL for the last 24-hour. Is having a p.o. intake this morning Plan - Discharge Medications Home Medications: Medication Instructions Recorded Confirmed Type Amlodipine Besylate [amLODIPine 10 mg PO DAILY 01/29/19 06/12/20 History Besylate] Gabapentin 300 mg PO PRN PRN 01/29/19 06/12/20 History Lipase/Protease/Amylase [Creon DR 1 capsule PO TID- 01/29/19 06/12/20 History 12,000 Units] Lisinopril 40 mg PO DAILY 01/29/19 06/12/20 History METHadone HCl 5 mg PO QID 01/29/19 06/12/20 History Metoclopramide HCl 10 mg PO TID- 01/29/19 06/12/20 History Metoprolol Succinate 200 mg PO DAILY 01/29/19 06/12/20 History HumaLOG [HumaLOG Vial] 0 unit SC TID- PRN 07/08/19 06/12/20 History Methocarbamol 500 mg PO Q8HR PRN 01/15/20 06/12/20 History Pregabalin 50 mg PO BID 01/15/20 06/12/20 History Cyanocobalamin (Vitamin B-12) 5,000 mcg PO DAILY 05/23/20 06/12/20 History [Vitamin B-12 Oral Solution] HYDROcodone/Acetaminophen 1 tablet PO Q8HR PRN 05/23/20 06/12/20 History [Hydrocodone-Acetamin 10-325 mg] Insulin Glargine,Hum.Rec.Anlog 12 - 14 unit SQ QAM- 05/23/20 06/12/20 History [Lantus] Acetaminophen [Tylenol Regular 650 mg PO Q4H PRN tab 05/26/20 06/12/20 Rx Strength] DULoxetine [Cymbalta] 60 mg PO PRN PRN cap 05/26/20 06/12/20 Rx Metoclopramide HCl [Reglan] 10 mg PO TID 15 Days #45 tab 05/26/20 06/12/20 Rx Pantoprazole [Protonix] 40 mg PO DAILY 30 Days #30 tab 05/26/20 06/12/20 Rx Allergies: morphine Allergy (Intermediate, Verified 06/12/20 16:11) Rash PER ER ORDER - Discharge Instructions Activity:: Activity as Tolerated Nourishment:: Regular Diet - Follow up Plan Referrals: Werner Gray MD [Primary Care Provider] - Disposition: HOSPICE-HOME Quality - Care Measures CORE MEASURES:: N/A
[2020-06-16] MEDS: HYDROcodone/Acetaminophen 10/325 mg Tablet PO PRN ×2 (12:07→18:39)
[2020-06-16] MEDS: Cyanocobalamin (Vitamin B-12) 1,000 MCG TAB PO SCH (12:57)
--- NOTE | 2020-06-16 15:55 | PDOC.HOSPP ---
- Subjective Encounter Date: 06/16/20 Encounter Time: 16:00 Subjective: pt decided to stay - Objective Vital Signs & Weight: Vital Signs (12 hours) Temp Pulse BP Pulse Ox 06/16/20 12:00 98.2 F 116/80 06/16/20 09:56 165/114 H 06/16/20 09:55 99 165/114 H 06/16/20 09:03 99 06/16/20 08:00 97.9 F 06/16/20 07:55 95 06/16/20 04:00 98.2 F Weight Admit Weight 156 lb 4.8 oz Weight 160 lb 14.999 oz Most Recent Monitor Data Heart Rate from ECG 84 NIBP 109/79 NIBP BP-Mean 89 Respiration from ECG 20 SpO2 90 I&O: 06/15/20 06/16/20 06/17/20 06:59 06:59 06:59 Intake Total 3123.4 900 670 Output Total [phone] [place] [address] 2814.4 -2389 -1335 Result Diagrams: 06/16/20 04:05 06/16/20 04:05 Additional Labs: Accuchecks 06/16/20 06/16/20 06/16/20 11:16 07:56 06:42 POC Glucose 142 H 112 H 149 H 06/16/20 06/16/20 06/16/20 06:03 05:03 04:05 POC Glucose 48 L* 63 L 65 L 06/16/20 06/16/20 06/15/20 03:03 00:22 23:59 POC Glucose 79 173 H 54 L* 06/15/20 06/15/20 06/15/20 22:52 20:45 20:26 POC Glucose 72 159 H 32 L* 06/15/20 15:02 POC Glucose 57 L* Hospitalist ROS - Medication Medications: Active Medications Generic Name Dose Route Start Last Admin Trade Name Freq PRN Reason Stop Dose Admin Acetaminophen 650 mg 06/13/20 22:54 06/14/20 01:18 Acetaminophen 650 Mg Suppository OR 650 mg Q4H PRN Administration Headache/Fever or Pain Hydrocodone Bitart/Acetaminophen 1 tab 06/14/20 11:55 06/16/20 12:07 Hydrocodone/Acetaminophen 10/325 Mg Tablet PO 1 tab Q6H PRN Administration Moderate Pain (4-6) Amlodipine Besylate 10 mg 06/15/20 09:00 06/16/20 09:55 Amlodipine 10 Mg Tab PO 10 mg DAILY JULIA Administration Lipase/Protease/Amylase 1 cap 06/14/20 12:00 06/16/20 12:[address] 12,000 1 Cap PO 1 cap TID-WM JULIA Administration Cyanocobalamin 5,000 mcg 06/15/20 09:00 06/16/20 12:57 Cyanocobalamin (Vitamin B-12) 1,000 Mcg Tab PO Not Given DAILY JULIA Dextrose/Water 25 gm 06/12/20 18:22 06/16/20 06:19 Dextrose 50% Abboject 50 Ml Syringe SLOW IVP 25 gm PRN PRN Administration Hypoglycemia Norepinephrine Bitartrate 250 mls @ 0 mls/hr 06/12/20 17:43 06/14/20 22:34 Levophed IVPB 250 mls PRN PRN Administration To maintain MAP > 65 Protocol Titrate Cefepime HCl 0.5 gm/ 100 mls @ 200 mls/hr 06/13/20 21:00 06/15/20 20:33 Miscellaneous Medication 1 IVPB 100 mls each/ Sodium Chloride 2100 JULIA Administration Insulin Glargine 12 units/ 0.12 mls @ 0 mls/hr 06/15/20 09:00 06/16/20 10:02 Miscellaneous Medication SC Not Given QAM [facility] Multivitamins 10 ml/ Thiamine 1,011.2 mls @ 30 mls/hr 06/15/20 11:30 06/15/20 14:35 HCl 100 mg/ Folic Acid 1 mg/ IV 06/17/20 11:29 1,011.2 mls Dextrose/Sodium Chloride INF JULIA Administration Lisinopril 40 mg 06/15/20 09:00 06/16/20 09:56 Lisinopril 20 Mg Tab PO 40 mg DAILY JULIA Administration Methadone HCl 5 mg 06/14/20 13:00 06/16/20 13:05 Methadone Hcl 10 Mg Tab PO Not Given QID JULIA Metoclopramide HCl 10 mg 06/14/20 12:00 06/16/20 12:07 Metoclopramide Hcl 10 Mg Tab PO 10 mg TID-WM JULIA Administration Metoprolol Succinate 100 mg 06/14/20 21:00 06/16/20 09:56 Metoprolol Succinate Xl 25 Mg Tab PO 100 mg BID JULIA Administration Pantoprazole Sodium 40 mg 06/15/20 09:00 06/16/20 09:55 Pantoprazole 40 Mg Tab PO 40 mg DAILY JULIA Administration Sodium Chloride 10 ml 06/12/20 21:00 06/16/20 08:00 Flush - Normal Saline 10 Ml Syringe IVF 10 ml Q12HR JULIA Administration Hosp A/P - Plan p A/P (1) Cardiac arrest Code(s): I46.9 - CARDIAC ARREST, CAUSE UNSPECIFIED Status: Acute (2) Respiratory failure Code(s): J96.90 - RESPIRATORY FAILURE, UNSP, UNSP W HYPOXIA OR HYPERCAPNIA Status: Acute (3) Shock liver Code(s): K72.00 - ACUTE AND SUBACUTE HEPATIC FAILURE WITHOUT COMA Status: Acute (4) Anemia Code(s): D64.9 - ANEMIA, UNSPECIFIED Status: Acute (5) Pneumonia Code(s): J18.9 - PNEUMONIA, UNSPECIFIED ORGANISM Status: Acute Qualifiers: Pneumonia type: due to unspecified organism Laterality: left Lung location: upper lobe of lung Qualified Code(s): J18.9 - Pneumonia, unspecified organism (6) Thrombocytopenia Code(s): D69.6 - THROMBOCYTOPENIA, UNSPECIFIED Status: Acute (7) SURESH (acute kidney injury) Code(s): N17.9 - ACUTE KIDNEY FAILURE, UNSPECIFIED Status: Acute (8) Hypokalemia Code(s): E87.6 - HYPOKALEMIA Status: Acute (9) DKA (diabetic ketoacidoses) Code(s): E13.10 - OTH DIABETES MELLITUS WITH KETOACIDOSIS WITHOUT COMA Status: Resolved Qualifiers: s/p CPR with reported 30 minutes for ROSC. - Hypocalcemia and hypomagnesemia -Being replaced. -Echo ordered -will follow-up. 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 -Continue with pancreatic enzyme -Lipase level insignificant shock liver -Liver functions seems to be slightly better than yesterday. We will trend daily basis. Her lipase level insignificant Thrombocytopenia - no pharmacologic dvt prophy Heavy alcohol abuse on a daily basis -We will follow ASC protocol for Ativan -We will also check her B12 and folate level and replace as needed -Provide banana bag for next 3 days. code status full Diabetic diet General support - will request Palliative care provide support with the family. -Previous provider updated 2 daughters last night, and 1 son by phone. Discussed with RN as well as director global strategic publisher sales Dr. Kimbrough. It appears that daughter consented for the patient to undergo dialysis. LFTs are trending down. -We will get acute hepatitis panel PTH vitamin D mag and phosphorus level Thrombocytopenia Patient does have a very low platelet it seems the platelets are dropping significantly on it was 117 today 19K. Patient does not have any obvious bleed and no petechial rash. Her INR is 1.4. Elevated PT at 17.9. -We will check HIT, heparin-induced thrombocytopenia pl see my dc summary pt decided to stay
--- NOTE | 2020-06-16 16:52 | PRG ---
DATE OF SERVICE: 06/16/2020 SUBJECTIVE: Wanda Schulte had made a decision to go home with hospice and not undergo dialysis. She has repeatedly said she did not want dialysis and even prior to this admission she told her family and told physicians that she never wanted to go on dialysis. Apparently, one daughter has been sitting in the room with her all morning and talked to her and do consenting for dialysis, so she is not going home with hospice today. OBJECTIVE: VITAL SIGNS: Heart rate is 88, blood pressure 109/79, respiratory rates in the 20s. LUNGS: Clear. HEART: Regular rhythm. ABDOMEN: Soft. LABORATORY DATA: White count 6.5, hemoglobin 10.1, platelets are 17. Glucoses were running lower, but it is better now. She had a glucose of 48 this morning. Creatinine is 4.57. Intake and output are negative 2389. She had dramatic improvement in her urine output in the last 24 hours. Maybe, she will not require dialysis. It is amazing that she survived multiple codes and prolonged resuscitation attempts with no adverse neurological consequences. Her diabetes will continue to be difficult to control with her renal insufficiency. She is very weak as well. She probably needs to go to a swing bed if she is going to continue with aggressive care. We will sign off on transfer out of the Critical Care Unit. Job ID: [id number]
[2020-06-16 18:46] LABS: Anion Gap 23 mmol/L (10-20); BUN (Urea Nitrogen) 55 mg/dL (7.0-18.7); Calc. Creatinine Clearance 17 mL/min (70-130); Calcium 7.7 mg/dL (7.8-10.44); Carbon Dioxide 18 mmol/L (22-29); Chloride 98 mmol/L (98-107); Glucose 160 mg/dL (70-105); Potassium 3.9 mmol/L (3.5-5.1); Sodium 135 mmol/L (136-145)
[2020-06-16] MEDS: Cefepime 0.5 GM, Admixture Fee 1 EACH in Sodium Chloride 0.9% 100 ML IVPB SCH (22:11)
[2020-06-17] MEDS: HYDROcodone/Acetaminophen 10/325 mg Tablet PO PRN ×2 (05:31→15:18)
[2020-06-17 05:42] LABS: Anion Gap 21 mmol/L (10-20); BUN (Urea Nitrogen) 68 mg/dL (7.0-18.7); Calc. Creatinine Clearance 18 mL/min (70-130); Calcium 7.6 mg/dL (7.8-10.44); Carbon Dioxide 24 mmol/L (22-29); Chloride 94 mmol/L (98-107); Glucose 271 mg/dL (70-105); Sodium 136 mmol/L (136-145)
[2020-06-17 06:23] LABS: Hemoglobin 10.7 g/dL (12.0-16.0); Mean Corpuscular HGB CONC 32.7 g/dL (32.0-36.0); Mean Platelet Volume 14.4 fL (7.4-10.4); Platelet Count 9 thou/uL (130-400); RBC Distribution Width 15.9 % (11.5-14.5); Red Blood Cell (RBC) Count 3.24 mill/uL (4.20-5.40); White Blood Cell (WBC) Count 6.6 thou/uL (4.8-10.8)
[2020-06-17 06:27] LABS: Band 29 % (5-11); Burr Cells SLIGHT = 2-5 cells (100X) (0-1/hpf); Dohle Bodies SLIGHT; Lymphocytes 14 % (21-51); MDiff Complete? YES; Metamyelocyte 1 % (0-0); Monocytes 5 % (0-10); Neutrophil 50 % (42-75); Platelet Morphology Comment Appears Decreased; Reactive Lymphocytes 1 % (0-10)
[2020-06-17] MEDS: Lisinopril 20 MG TAB PO SCH (08:59)
[2020-06-17] MEDS: Pancrelipase DR 12,000 1 CAP PO SCH ×3 (08:59→18:09)
[2020-06-17] MEDS: Cyanocobalamin (Vitamin B-12) 1,000 MCG TAB PO SCH (09:01)
[2020-06-17] MEDS: Amlodipine 10 MG TAB PO SCH (09:02)
[2020-06-17] MEDS: Metoclopramide HCl 10 MG TAB PO SCH ×3 (09:02→18:09)
[2020-06-17] MEDS: METHadone HCl 10 MG TAB PO SCH ×4 (09:02→22:37)
[2020-06-17] MEDS: Insulin Glargine 12 UNITS in Pre-Filled Syringe 1 EACH SC SCH (09:05)
--- NOTE | 2020-06-17 09:48 | RAD ---
EXAM: Chest one view: HISTORY: Respiratory insufficiency COMPARISON: 06/16/2020 FINDINGS: Stable left central line. Heart size: Borderline and stable Lungs: Persistent bilateral alveolar interstitial and groundglass opacity changes primarily in the pe rihilar regions with bilateral pleural effusions showing minimal improvement. No significant new process. IMPRESSION: Minimal improvement in bilateral perihilar opacities and pleural effusions with borderline size heart . Continued short-term follow-up.
--- NOTE | 2020-06-17 10:08 | PRG ---
DATE OF SERVICE: SUBJECTIVE: A 50-year-old female, being seen for acute kidney injury. The patient denied nausea, vomiting, or chest pain. OBJECTIVE: GENERAL: The patient is awake and alert. VITAL SIGNS: Afebrile, pulse 75, breathing 16, blood pressure 103/72. HEENT: Head normocephalic and atraumatic. Eyes intact, no ulcers. Nose intact, no ulcers. Ears intact, no ulcers. NECK: Supple. No JVD. CHEST: Symmetrical and clear. CARDIOVASCULAR: Shows S1 and S2, no rub, no murmur. GASTROINTESTINAL: Abdomen is soft, bowel sounds positive. EXTREMITIES: Show no edema or ulcers. SKIN: Shows no rash or petechiae. MUSCULOSKELETAL: Shows no joint swelling or stiffness. GENITOURINARY: Shows no Sibley or CVA tenderness. NEUROLOGIC: Motor intact. Cranial nerves intact. LABORATORY DATA: Reviewed. ASSESSMENT: 1. Chronic kidney disease stage 5, stable. 2. Hypertension, stable. 3. Anemia, stable. 4. Hypokalemia. PLAN: Recommend high potassium diet. The patient is nonoliguric. No urgent indication for dialysis. Continue hydration with normal saline. Job ID: [id number]
--- NOTE | 2020-06-17 10:10 | PRG ---
DATE OF SERVICE: 06/16/2020 SUBJECTIVE: A 50-year-old female being seen for acute kidney injury. The patient is making urine. OBJECTIVE: GENERAL: The patient is resting. VITAL SIGNS: Afebrile. Pulse 75, breathing 16, blood pressure 103/72. HEENT: Head normocephalic and atraumatic. Eyes intact, no ulcers. Nose intact, no ulcers. Ears intact, no ulcers. NECK: Supple. No JVD. CHEST: Symmetrical and clear. CARDIOVASCULAR: Shows S1 and S2, no rub, no murmur. GASTROINTESTINAL: Abdomen is soft, bowel sounds positive. EXTREMITIES: Show no edema or ulcers. SKIN: Shows no rash or petechiae. MUSCULOSKELETAL: Shows no joint swelling or stiffness. GENITOURINARY: Shows no Sibley or CVA tenderness. NEUROLOGIC: Motor intact. Cranial nerves intact. LABORATORY DATA: Labs show creatinine is 4.5, potassium is 3.9, bicarb is 18. ASSESSMENT: 1. Acute kidney injury, stable. 2. Hypertension, stable. 3. The patient is nonoliguric. No indication for dialysis today. This was discussed with the family. Job ID: [id number]
[2020-06-17 10:58] VITALS: BMI 25.4
[2020-06-17 11:37] LABS: Heparin-Induced Ab (HITA) 0.044 OD (0.000-0.400)
[2020-06-17] MEDS: HumaLOG 300 UNITS/3 ML VIAL SC PRN (12:38)
--- NOTE | 2020-06-17 14:40 | PDOC.HOSPP ---
- Subjective Encounter Date: 06/17/20 Encounter Time: 10:45 Subjective: Landers looks still lethargic but alert oriented. She is showing that she coughed up some sputum with blood-tinged to it. I did see that. It is possibly with the recent chest compressions and intubation could be that she is h emodynamically stable her hemoglobin 10.7 her platelets are 9000. She will be getting a platelet transfusion and she consented for the same. Blood in the urine or stool. - Objective Vital Signs & Weight: Vital Signs (12 hours) Temp Pulse Resp BP BP BP Pulse Ox 06/17/20 08:50 96 06/17/20 07:15 97.5 F L 79 18 103/72 92 L 06/17/20 04:00 97.6 F 79 18 107/73 107/73 91 L Weight Admit Weight 156 lb 4.8 oz Weight 152 lb 12.8 oz Most Recent Monitor Data Heart Rate from ECG 88 NIBP 109/79 NIBP BP-Mean 89 Respiration from ECG 34 SpO2 90 I&O: 06/16/20 06/17/20 06/18/20 06:59 06:59 06:59 Intake Total 900 1214 0 Output Total 3289 4945 Balance -2389 -3731 0 Result Diagrams: 06/17/20 05:10 06/17/20 05:10 Additional Labs: Accuchecks 06/17/20 06/17/20 06/16/20 11:37 04:15 20:04 POC Glucose 356 H 250 H 172 H Hospitalist ROS - Medication Medications: Active Medications Generic Name Dose Route Start Last Admin Trade Name Freq PRN Reason Stop Dose Admin Acetaminophen 650 mg 06/13/20 22:54 06/14/20 01:18 Acetaminophen 650 Mg Suppository MI 650 mg Q4H PRN Administration Headache/Fever or Pain Hydrocodone Bitart/Acetaminophen 1 tab 06/14/20 11:55 06/17/20 05:31 Hydrocodone/Acetaminophen 10/325 Mg Tablet PO 1 tab Q6H PRN Administration Moderate Pain (4-6) Lipase/Protease/Amylase 1 cap 06/14/20 12:00 06/17/20 12:[address] 12,000 1 Cap PO 1 cap TID-WM JULIA Administration Cyanocobalamin 5,000 mcg 06/15/20 09:00 06/17/20 09:01 Cyanocobalamin (Vitamin B-12) 1,000 Mcg Tab PO 5,000 mcg DAILY JULIA Administration Dextrose/Water 25 gm 06/12/20 18:22 06/16/20 06:19 Dextrose 50% Abboject 50 Ml Syringe SLOW IVP 25 gm PRN PRN Administration Hypoglycemia Norepinephrine Bitartrate 250 mls @ 0 mls/hr 06/12/20 17:43 06/14/20 22:34 Levophed IVPB 250 mls PRN PRN Administration To maintain MAP > 65 Protocol Titrate Cefepime HCl 0.5 gm/ 100 mls @ 200 mls/hr 06/13/20 21:00 06/16/20 22:11 Miscellaneous Medication 1 IVPB 100 mls each/ Sodium Chloride 2100 JULIA Administration Insulin Glargine 12 units/ 0.12 mls @ 0 mls/hr 06/15/20 09:00 06/17/20 09:05 Miscellaneous Medication SC 0.12 mls QAM JULIA Administration Insulin Human Lispro 0 units 06/14/20 09:45 06/17/20 12:38 Humalog 300 Units/3 Ml Vial SC 10 unit .MODERATE SLIDING SC PRN Administration MODERATE SLIDING SCALE Protocol Lisinopril 40 mg 06/15/20 09:00 06/17/20 08:59 Lisinopril 20 Mg Tab PO Not Given DAILY JULIA Methadone HCl 5 mg 06/14/20 13:00 06/17/20 12:36 Methadone Hcl 10 Mg Tab PO 5 mg QID JULIA Administration Metoclopramide HCl 10 mg 06/14/20 12:00 06/17/20 12:36 Metoclopramide Hcl 10 Mg Tab PO 10 mg TID-WM JULIA Administration Metoprolol Succinate 25 mg 06/17/20 09:00 06/17/20 12:36 Metoprolol Succinate Xl 25 Mg Tab PO Not Given BID JULIA Pantoprazole Sodium 40 mg 06/15/20 09:00 06/17/20 09:02 Pantoprazole 40 Mg Tab PO 40 mg DAILY JULIA Administration Sodium Chloride 10 ml 06/12/20 21:00 06/17/20 09:18 Flush - Normal Saline 10 Ml Syringe IVF Not Given Q12HR JULIA - Exam General Appearance: NAD, awake alert Eye: PERRL ENT: normocephalic atraumatic Neck: supple Heart: RRR Respiratory: CTAB, wheezes Gastrointestinal: normal bowel sounds Neurological: no focal deficits Hosp A/P - Plan p A/P (1) Cardiac arrest Code(s): I46.9 - CARDIAC ARREST, CAUSE UNSPECIFIED Status: Acute (2) Respiratory failure Code(s): J96.90 - RESPIRATORY FAILURE, UNSP, UNSP W HYPOXIA OR HYPERCAPNIA Status: Acute (3) Shock liver Code(s): K72.00 - ACUTE AND SUBACUTE HEPATIC FAILURE WITHOUT COMA Status: Acute (4) Anemia Code(s): D64.9 - ANEMIA, UNSPECIFIED Status: Acute (5) Pneumonia Code(s): J18.9 - PNEUMONIA, UNSPECIFIED ORGANISM Status: Acute Qualifiers: Pneumonia type: due to unspecified organism Laterality: left Lung location: upper lobe of lung Qualified Code(s): J18.9 - Pneumonia, unspecified organism (6) Thrombocytopenia Code(s): D69.6 - THROMBOCYTOPENIA, UNSPECIFIED Status: Acute (7) SURESH (acute kidney injury) Code(s): N17.9 - ACUTE KIDNEY FAILURE, UNSPECIFIED Status: Acute (8) Hypokalemia Code(s): E87.6 - HYPOKALEMIA Status: Acute (9) DKA (diabetic ketoacidoses) Code(s): E13.10 - OTH DIABETES MELLITUS WITH KETOACIDOSIS WITHOUT COMA Status: Resolved Qualifiers: s/p CPR with reported 30 minutes for ROSC. - Hypocalcemia and hypomagnesemia -Being replaced. -Echo ordered -will follow-up. 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 -Continue with pancreatic enzyme -Lipase level insignificant shock liver -Liver functions seems to be slightly better than yesterday. We will trend daily basis. Her lipase level insignificant Thrombocytopenia - no pharmacologic dvt prophy Heavy alcohol abuse on a daily basis -We will follow [facility] protocol for Ativan -We will also check her B12 and folate level and replace as needed -Provide banana bag for next 3 days. code status full Diabetic diet General support - will request Palliative care provide support with the family. -Previous provider updated 2 daughters last night, and 1 son by phone. Discussed with RN as well as receiving operator Dr. Kimbrough. It appears that daughter consented for the patient to undergo dialysis. LFTs are trending down. -We will get acute hepatitis panel PTH vitamin D mag and phosphorus level Thrombocytopenia Patient does have a very low platelet it seems the platelets are dropping significantly on it was 117 today 19K. Patient does not have any obvious bleed and no petechial rash. Her INR is 1.4. Elevated PT at 17.9. -We will check HIT, heparin-induced thrombocytopenia pl see my dc summary pt decided to stay 1st Severe thrombocytopenia without overt bleed -Platelet transfusion today. Patient now decided that she does not want to have a hospice. Family also considering the same. They were not able to make up their mind. As I mentioned earlier to the patient and the family that her acute distress likely to be resolved and she may have a good prognosis in terms of renal function getting better and the platelets improving. It is difficult to confirm anything. She needs to refrain from drinking alcohol. Hospice consult can be withdrawn. She needs aggressive inpatient rehab. physical therapy consult placed I believe she will get better. She can wait this weekend and and see how she does overall.
[2020-06-17] MEDS ORDERED: Sodium Chloride 0.9% 200 ML IVPB PRN (16:16)
[2020-06-17] MEDS: Amlodipine 5 MG TAB PO SCH (20:04)
[2020-06-17] MEDS ORDERED: Amlodipine 10 MG TAB PO SCH (21:00)
[2020-06-17] MEDS: Cefepime 0.5 GM, Admixture Fee 1 EACH in Sodium Chloride 0.9% 100 ML IVPB SCH (21:13)
[2020-06-17] MEDS ORDERED: Sodium Chloride 0.9% 250 ML IVPB SCH (21:45)
[2020-06-18 05:31] LABS: Anisocytosis SLIGHT = 6-15 cells (100X) (0-5/hpf); Band 26 % (5-11); Eosinophils 2 % (0-10); Hemoglobin 9.9 g/dL (12.0-16.0); Lymphocytes 19 % (21-51); MDiff Complete? YES; Mean Corpuscular HGB CONC 32.7 g/dL (32.0-36.0); Mean Corpuscular Hemoglobin 33.7 pg (27.0-31.0); Mean Platelet Volume 11.5 fL (7.4-10.4); Metamyelocyte 1 % (0-0); Monocytes 10 % (0-10); Myelocyte 1 % (0-0); Neutrophil 39 % (42-75); Platelet Count 35 thou/uL (130-400); Platelet Morphology Comment Appears Decreased; RBC Distribution Width 15.8 % (11.5-14.5); Reactive Lymphocytes 2 % (0-10); Red Blood Cell (RBC) Count 2.94 mill/uL (4.20-5.40)
[2020-06-18 05:32] LABS: Anion Gap 17 mmol/L (10-20); BUN (Urea Nitrogen) 80 mg/dL (7.0-18.7); Calc. Creatinine Clearance 18 mL/min (70-130); Carbon Dioxide 28 mmol/L (22-29); Chloride 95 mmol/L (98-107); Glucose 127 mg/dL (70-105); Sodium 137 mmol/L (136-145)
[2020-06-18 05:34] LABS: Potassium 2.9 mmol/L (3.5-5.1)
[2020-06-18] MEDS: Potassium Chloride 20 MEQ in Premix Bag 1 BAG IVPB SCH ×3 (07:23→11:12)
[2020-06-18] MEDS: Cyanocobalamin (Vitamin B-12) 1,000 MCG TAB PO SCH (08:59)
[2020-06-18] MEDS: Pancrelipase DR 12,000 1 CAP PO SCH ×3 (08:59→17:01)
[2020-06-18] MEDS: Metoclopramide HCl 10 MG TAB PO SCH ×3 (08:59→17:01)
[2020-06-18] MEDS: METHadone HCl 10 MG TAB PO SCH ×2 (08:59→20:53)
[2020-06-18] MEDS: Insulin Glargine 12 UNITS in Pre-Filled Syringe 1 EACH SC SCH (09:02)
[2020-06-18] MEDS: Amlodipine 5 MG TAB PO SCH (09:03)
[2020-06-18] MEDS ORDERED: Sodium Chloride 0.65% Nasal 44 ML BOT EA NARE PRN (11:50)
[2020-06-18] MEDS ORDERED: Cepastat Lozenges 1 LOZ PO PRN (11:50)
[2020-06-18] MEDS ORDERED: Sodium Chloride 0.9% 250 ML IV SCH (12:00)
[2020-06-18] MEDS: Albumin 25% 25 GM/100 ML BOT IVPB SCH ×2 (13:30→22:11)
--- NOTE | 2020-06-18 13:30 | ULT ---
EXAM: Bilateral lower extremity venous duplex ultrasound with color and spectral Doppler imaging: HISTORY: Bilateral lower extremity swelling and edema COMPARISON: None FINDINGS: Exam performed from the groin to the ankle including the visualized greater saphenous, common femoral , superficial femoral, profunda femoral, popliteal, trifurcation, and posterior tibial veins. There is phasic flow with normal compressibility and normal augmentation at all examined levels. No evidence for intraluminal thrombus. IMPRESSION: No evidence for deep venous thrombosis.
[2020-06-18] MEDS: HYDROcodone/Acetaminophen 5/325 mg Tablet PO PRN ×2 (14:30→20:52)
[2020-06-18] MEDS: Budesonide 0.5 MG/2 ML NEB NEB SCH (19:45)
--- NOTE | 2020-06-18 20:45 | PDOC.HOSPP ---
- Subjective Encounter Date: 06/18/20 Encounter Time: 11:00 Subjective: Patient seen and examined for multiple medical issues. Blood pressure on the lower side. Requiring 5 L O2 nasal cannula per RN. Denies any chest pain or shortness of breath. - Objective Vital Signs & Weight: Vital Signs (12 hours) Temp Pulse Resp BP BP Pulse Ox 06/18/20 19:52 111/74 06/18/20 19:44 72 16 98 06/18/20 19:05 98.1 F 77 16 111/74 98 06/18/20 16:39 98.3 F 74 16 113/76 100 06/18/20 16:14 98.3 F 78 16 102/68 98 06/18/20 14:40 100 06/18/20 14:39 75 12 100 06/18/20 12:39 105/69 06/18/20 11:41 89/53 L 06/18/20 11:00 88/55 L 06/18/20 08:45 99 Weight Admit Weight 156 lb 4.8 oz Weight 153 lb 11.2 oz Most Recent Monitor Data Heart Rate from ECG 88 NIBP 109/79 NIBP BP-Mean 89 Respiration from ECG 34 SpO2 90 I&O: 06/17/20 06/18/20 06/19/20 06:59 06:59 06:59 Intake Total 1214 1150 550 Output Total 4945 875 450 Balance -3731 275 100 Result Diagrams: 06/18/20 04:45 06/18/20 04:45 Additional Labs: Accuchecks 06/18/20 06/18/20 16:17 03:38 POC Glucose 147 H 121 H Abnormal Lab Results - Last 48 hrs 06/17/20 05:10: Potassium 3.0 L, Chloride 94 L, Anion Gap 21 H, BUN 68 H, Creatinine 4.35 H, Calcium 7.6 L 06/17/20 05:10: RBC 3.24 L, Hgb 10.7 L, Hct 32.8 L, MCV 101.0 H, MCH 33.0 H, RDW 15.9 H, Plt Count 9 L*, MPV 14.4 H, Band Neuts % (Manual) 29 H, Lymphocytes % (Manual) 14 L, Plt Morphology Comment Appears Decreased L 06/18/20 04:45: Potassium 2.9 L*, Chloride 95 L, BUN 80 H, Creatinine 4.03 H 06/18/20 04:45: WBC 12.0 H, RBC 2.94 L, Hgb 9.9 L, Hct 30.4 L, MCV 103.0 H, MCH 33.7 H, RDW 15.8 H, Plt Count 35 L, MPV 11.5 H, Neutrophils % (Manual) 39 L, Band Neuts % (Manual) 26 H, Lymphocytes % (Manual) 19 L, Myelocytes % 1 H, Plt Morphology Comment Appears Decreased L Microbiology - Entire Visit 06/14/20 14:19 Urine devries catheter Urine Culture - Final Presumptive Suly albicans Radiology Reviewed by me: Yes (Chest x-raybilateral infiltrate) Hospitalist ROS - Review of Systems Cardiovascular: denies: chest pain, palpitations, orthopnea, paroxysmal noc. dyspnea, edema, light headedness, other Gastrointestinal: denies: nausea, vomiting, abdominal pain, diarrhea, constipation, melena, hematochezia, other - Medication Medications: Active Medications Generic Name Dose Route Start Last Admin Trade Name Freq PRN Reason Stop Dose Admin Hydrocodone Bitart/Acetaminophen 1 tab 06/18/20 14:16 06/18/20 14:30 Hydrocodone/Acetaminophen 5/325 Mg Tablet PO 1 tab Q6H PRN Administration Severe Pain (7-10) Albumin Human 25 gm 06/18/20 14:00 06/18/20 13:30 Albumin 25% 25 Gm/100 Ml Bot IVPB 06/19/20 14:01 25 gm Q8HR JULIA Administration Albuterol/Ipratropium 3 ml 06/18/20 14:30 06/18/20 19:44 Ipratropium/Albuterol Sulfate 3 Ml Neb NEB 3 ml [id number] JULIA Administration Lipase/Protease/Amylase 1 cap 06/14/20 12:00 06/18/20 17:[address] 12,000 1 Cap PO 1 cap TID-WM JULIA Administration Budesonide 0.5 mg 06/18/20 18:30 06/18/20 19:45 Budesonide 0.5 Mg/2 Ml Neb NEB 0.5 mg BID-RT JULIA Administration Cyanocobalamin 5,000 mcg 06/15/20 09:00 06/18/20 08:59 Cyanocobalamin (Vitamin B-12) 1,000 Mcg Tab PO 5,000 mcg DAILY JULIA Administration Dextrose/Water 25 gm 06/12/20 18:22 06/16/20 06:19 Dextrose 50% Abboject 50 Ml Syringe SLOW IVP 25 gm PRN PRN Administration Hypoglycemia Cefepime HCl 0.5 gm/ 100 mls @ 200 mls/hr 06/13/20 21:00 06/17/20 21:13 Miscellaneous Medication 1 IVPB 100 mls each/ Sodium Chloride 2100 JULIA Administration Insulin Glargine 12 units/ 0.12 mls @ 0 mls/hr 06/15/20 09:00 06/18/20 09:02 Miscellaneous Medication SC 0.12 mls QAM JULIA Administration Insulin Human Lispro 0 units 06/14/20 09:45 06/17/20 12:38 Humalog 300 Units/3 Ml Vial SC 10 unit .MODERATE SLIDING SC PRN Administration MODERATE SLIDING SCALE Protocol Metoclopramide HCl 10 mg 06/14/20 12:00 06/18/20 17:01 Metoclopramide Hcl 10 Mg Tab PO 10 mg TID-WM JULIA Administration Metoprolol Succinate 25 mg 06/17/20 09:00 06/18/20 09:02 Metoprolol Succinate Xl 25 Mg Tab PO Not Given BID JULIA Pantoprazole Sodium 40 mg 06/15/20 09:00 06/18/20 08:59 Pantoprazole 40 Mg Tab PO 40 mg DAILY JULIA Administration Sodium Chloride 10 ml 06/12/20 21:00 06/18/20 09:03 Flush - Normal Saline 10 Ml Syringe IVF Not Given Q12HR JULIA - Exam General Appearance: ill appearing Neck: supple, symmetric Heart: RRR, no gallops Respiratory: rales, rhonchi Gastrointestinal: soft, non-tender Extremities: no cyanosis, 2+ LE edema Musculoskeletal: generalized weakness Hosp A/P - Plan DVT proph w/SCDs S/p cardiac arrest with return of spontaneous circulation with respiratory f ailure requiring mechanical ventilation Severe diabetic ketoacidosis Suspected Sepsis due to aspiration pneumoniaPOA Thrombocytopenia s/p platelet transfusion Hypotension Chronic pain syndrome Diabetes mellitus type II GERD Anxiety History of hypertension Fecal impaction Anemia Plan: Will transfer to telemetry for close monitoring. IV albumin due to hypotension. Patient is declining hospice at this time. Continue cefepime. Recheck chest x-ray in a.m. A.m. labs. Continue sliding scale. At time in, folic acid and multivitamin. Reduce methadone dose due to renal failure. Add MiraLAX and Senokot-S due to fecal impaction on admission. Continue other medications as above
[2020-06-18] MEDS: Cefepime 0.5 GM, Admixture Fee 1 EACH in Sodium Chloride 0.9% 100 ML IVPB SCH (20:52)
[2020-06-18] MEDS: guaiFENesin ER 600 MG TAB PO SCH (20:53)
[2020-06-18] MEDS: Thiamine 100 MG TAB PO SCH (20:53)
[2020-06-18] MEDS: Folic Acid 1 MG TAB PO SCH (20:53)
[2020-06-18] MEDS ORDERED: Amlodipine 5 MG TAB PO SCH (21:00)
[2020-06-18] MEDS: Senokot S 8.6-50 MG TAB PO SCH (22:11)
[2020-06-18] MEDS: Polyethylene Glycol 3350 17 GM Packet PO SCH (22:11)
[2020-06-19 05:12] LABS: ALT (SGPT) 81 U/L (8-55); AST (SGOT) 47 U/L (5-34); Albumin 3.3 g/dL (3.5-5.0); Alkaline Phosphatase 116 U/L (40-110); Anion Gap 17 mmol/L (10-20); BUN (Urea Nitrogen) 77 mg/dL (7.0-18.7); Bilirubin, Total 1.8 mg/dL (0.2-1.2); Calc. Creatinine Clearance 21 mL/min (70-130); Calcium 8.2 mg/dL (7.8-10.44); Carbon Dioxide 25 mmol/L (22-29); Chloride 98 mmol/L (98-107); Globulin 2.2 g/dL (2.4-3.5); Glucose 63 mg/dL (70-105); Magnesium 1.7 mg/dL (1.6-2.6); Potassium 3.9 mmol/L (3.5-5.1); Protein, Total 5.5 g/dL (6.0-8.3); Sodium 136 mmol/L (136-145)
[2020-06-19 05:18] LABS: Hemoglobin 9.3 g/dL (12.0-16.0); Mean Corpuscular HGB CONC 31.8 g/dL (32.0-36.0); Mean Corpuscular Hemoglobin 32.6 pg (27.0-31.0); Mean Platelet Volume 13.1 fL (7.4-10.4); Platelet Count 19 thou/uL (130-400); RBC Distribution Width 15.8 % (11.5-14.5); Red Blood Cell (RBC) Count 2.87 mill/uL (4.20-5.40); White Blood Cell (WBC) Count 13.4 thou/uL (4.8-10.8)
[2020-06-19] MEDS: Albumin 25% 25 GM/100 ML BOT IVPB SCH ×2 (05:19→14:02)
[2020-06-19 05:20] LABS: Band 33 % (5-11); Eosinophils 2 % (0-10); Lymphocytes 13 % (21-51); MDiff Complete? YES; Monocytes 7 % (0-10); Neutrophil 45 % (42-75); Platelet Morphology Comment Appears Decreased; Target Cells SLIGHT = 2-5 cells (100X) (0-1/hpf)
[2020-06-19] MEDS: Budesonide 0.5 MG/2 ML NEB NEB SCH ×2 (08:37→18:35)
--- NOTE | 2020-06-19 08:58 | RAD ---
Chest one view HISTORY: Dyspnea. Pneumonia. Follow-up. COMPARISON: 06/17/2020. FINDINGS: Cardiac silhouette is magnified by projection. Pulmonary vasculature now within normal limi ts. Mediastinum is midline with a left internal jugular central venous catheter unchanged in position. Fluid at the dependent portion of each hemithorax, right greater than left, appears to have increased slightly. Bibasilar infiltrates have nearly completely resolved, with minimal residual at the left lung base. No evidence of pneumothorax. IMPRESSION : Overall significant improvement in aeration of the lungs and decrease in pulmonary vascular congestio n. Pleural fluid, however, has increased.
[2020-06-19] MEDS ORDERED: Meropenem 1 GM in Sodium Chloride 0.9% 100 ML IVPB SCH (09:30)
[2020-06-19] MEDS: Insulin Glargine 12 UNITS in Pre-Filled Syringe 1 EACH SC SCH (09:40)
[2020-06-19] MEDS: Multivit, Therapeutic 1 TAB PO SCH (09:41)
[2020-06-19] MEDS: Metoclopramide HCl 10 MG TAB PO SCH ×3 (09:41→16:41)
[2020-06-19] MEDS: HYDROcodone/Acetaminophen 5/325 mg Tablet PO PRN ×3 (09:42→22:13)
[2020-06-19] MEDS: Cyanocobalamin (Vitamin B-12) 1,000 MCG TAB PO SCH (09:42)
[2020-06-19] MEDS: guaiFENesin ER 600 MG TAB PO SCH ×2 (09:42→22:04)
[2020-06-19] MEDS: METHadone HCl 10 MG TAB PO SCH ×2 (09:43→22:06)
[2020-06-19] MEDS: Pancrelipase DR 12,000 1 CAP PO SCH ×3 (09:44→16:41)
[2020-06-19] MEDS: Senokot S 8.6-50 MG TAB PO SCH ×2 (09:45→22:04)
[2020-06-19] MEDS: Polyethylene Glycol 3350 17 GM Packet PO SCH ×2 (09:45→22:08)
[2020-06-19] MEDS: Meropenem 500 MG in Sodium Chloride 0.9% 100 ML IVPB SCH ×2 (10:15→22:08)
[2020-06-19] MEDS: HumaLOG 300 UNITS/3 ML VIAL SC PRN (11:59)
[2020-06-19] MEDS: Lorazepam 2 MG/ML VIAL SLOW IVP PRN (16:40)
--- NOTE | 2020-06-19 17:48 | PDOC.HOSPP ---
- Subjective Encounter Date: 06/19/20 Encounter Time: 10:00 Subjective: Patient seen and examined for diabetic ketoacidosis with multiple medical issues. Continues to have intermittent hemoptysis. Denies any chest pain or shortness of breath. - Objective Vital Signs & Weight: Vital Signs (12 hours) Temp Pulse Pulse Pulse Pulse Resp BP 06/19/20 16:34 98.0 F 85 16 06/19/20 15:27 97.8 F 88 16 06/19/20 14:57 78 12 06/19/20 11:55 97.6 F 78 12 06/19/20 09:07 86 87 147/82 H 06/19/20 08:45 97.7 F 86 84 16 06/19/20 08:37 80 12 06/19/20 06:30 98.1 F 77 16 06/19/20 06:15 98.5 F 75 16 BP BP BP BP BP Pulse Ox Pulse Ox 06/19/20 16:34 166/88 H 93 L 06/19/20 15:27 141/87 H 94 L 06/19/20 14:57 06/19/20 11:55 168/94 H 100 06/19/20 09:07 164/92 H 100 06/19/20 08:45 169/90 H 169/90 H 100 06/19/20 08:37 06/19/20 06:30 133/75 97 06/19/20 06:15 141/70 H 97 Pulse Ox 06/19/20 16:34 06/19/20 15:27 06/19/20 14:57 06/19/20 11:55 06/19/20 09:07 100 06/19/20 08:45 06/19/20 08:37 06/19/20 06:30 06/19/20 06:15 Weight Admit Weight 156 lb 4.8 oz Weight 154 lb 4.8 oz Most Recent Monitor Data Heart Rate from ECG 88 NIBP 109/79 NIBP BP-Mean 89 Respiration from ECG 34 SpO2 90 I&O: 06/18/20 06/19/20 06/20/20 06:59 06:59 06:59 Intake Total 1150 1200 500 Output Total 875 450 Balance 275 750 500 Result Diagrams: 06/19/20 04:33 06/19/20 04:33 Additional Labs: Accuchecks 0106/19/20 06/19/20 16:38 10:59 05:45 POC Glucose 141 H 163 H 85 06/18/20 20:49 POC Glucose 139 H Abnormal Lab Results - Last 48 hrs 06/12/20 18:48: Crossmatch See Detail 06/18/20 04:45: Potassium 2.9 L*, Chloride 95 L, BUN 80 H, Creatinine 4.03 H 06/18/20 04:45: WBC 12.0 H, RBC 2.94 L, Hgb 9.9 L, Hct 30.4 L, MCV 103.0 H, MCH 33.7 H, RDW 15.8 H, Plt Count 35 L, MPV 11.5 H, Neutrophils % (Manual) 39 L, Band Neuts % (Manual) 26 H, Lymphocytes % (Manual) 19 L, Myelocytes % 1 H, Plt Morphology Comment Appears Decreased L 06/19/20 04:33: WBC 13.4 H, RBC 2.87 L, Hgb 9.3 L, Hct 29.4 L, MCV 102.0 H, MCH 32.6 H, MCHC 31.8 L, RDW 15.8 H, Plt Count 19 L*, MPV 13.1 H, Band Neuts % (Manual) 33 H, Lymphocytes % (Manual) 13 L, Plt Morphology Comment Appears Decreased L 06/19/20 04:33: BUN 77 H, Creatinine 3.62 H, Total Bilirubin 1.8 H, AST 47 H, ALT 81 H, Alkaline Phosphatase 116 H, Serum Total Protein 5.5 L, Albumin 3.3 L, Globulin 2.2 L 06/19/20 04:33: B-Natriuretic Peptide 1324.2 H 06/19/20 04:33: C-Reactive Protein 8.94 H Microbiology - Entire Visit 06/14/20 14:19 Urine devries catheter Urine Culture - Final Presumptive Suly albicans Radiology Reviewed by me: Yes (Chest x-rayimprovement) EKG Reviewed by me: Yes (Sinus rhythm on telemetry) Hospitalist ROS - Review of Systems Respiratory: reports: hemoptysis, SOB with excertion. denies: cough, dry, shortness of breath, pleuritic pain, sputum, wheezing, other Cardiovascular: denies: chest pain, palpitations, orthopnea, paroxysmal noc. dyspnea, edema, light headedness, other Gastrointestinal: denies: nausea, vomiting, abdominal pain, diarrhea, constipation, melena, hematochezia, other - Medication Medications: Active Medications Generic Name Dose Route Start Last Admin Trade Name Aquilinoq PRN Reason Stop Dose Admin Hydrocodone Bitart/Acetaminophen 1 tab 06/18/20 14:16 06/19/20 15:31 Hydrocodone/Acetaminophen 5/325 Mg Tablet PO 1 tab Q6H PRN Administration Severe Pain (7-10) Albuterol/Ipratropium 3 ml 06/18/20 14:30 06/19/20 14:57 Ipratropium/Albuterol Sulfate 3 Ml Neb NEB 3 ml [id number] JULIA Administration Lipase/Protease/Amylase 1 cap 06/14/20 12:00 06/19/20 16:[address] 12,000 1 Cap PO 1 cap TID-WM JULIA Administration Budesonide 0.5 mg 06/18/20 18:30 06/19/20 08:37 Budesonide 0.5 Mg/2 Ml Neb NEB 0.5 mg BID-RT JULIA Administration Cyanocobalamin 5,000 mcg 06/15/20 09:00 06/19/20 09:42 Cyanocobalamin (Vitamin B-12) 1,000 Mcg Tab PO 5,000 mcg DAILY JULIA Administration Dextrose/Water 25 gm 06/12/20 18:22 06/16/20 06:19 Dextrose 50% Abboject 50 Ml Syringe SLOW IVP 25 gm PRN PRN Administration Hypoglycemia Folic Acid 1 mg 06/18/20 21:00 06/18/20 20:53 Folic Acid 1 Mg Tab PO 1 mg HS JULIA Administration Guaifenesin 600 mg 06/18/20 21:00 06/19/20 09:42 Guaifenesin Er 600 Mg Tab PO 600 mg Q12HR JULIA Administration Insulin Glargine 12 units/ 0.12 mls @ 0 mls/hr 06/15/20 09:00 06/19/20 09:40 Miscellaneous Medication SC 0.12 mls QAM JULIA Administration Meropenem 500 mg/ Sodium 100 mls @ 200 mls/hr 06/19/20 10:00 06/19/20 10:15 Chloride IVPB 100 mls 1000,2200 JULIA Administration Insulin Human Lispro 0 units 06/14/20 09:45 06/19/20 11:59 Humalog 300 Units/3 Ml Vial SC 2 unit .MODERATE SLIDING SC PRN Administration MODERATE SLIDING SCALE Protocol Lorazepam 0.5 mg 06/15/20 14:10 06/19/20 16:40 Lorazepam 2 Mg/Ml Vial SLOW IVP 0.5 mg Q6H PRN Administration Anxiety/Agitation Metoclopramide HCl 10 mg 06/14/20 12:00 06/19/20 16:41 Metoclopramide Hcl 10 Mg Tab PO 10 mg TID-WM JULIA Administration Metoprolol Succinate 12.5 mg 06/19/20 09:00 06/19/20 09:41 Metoprolol Succinate Xl 25 Mg Tab PO 12.5 mg DAILY JULIA Administration Metoprolol Succinate 25 mg 06/19/20 16:30 06/19/20 16:41 Metoprolol Succinate Xl 25 Mg Tab PO 06/19/20 18:30 25 mg NOW JULIA Administration Multivitamins 1 tab 06/19/20 09:00 06/19/20 09:41 Multivit, Therapeutic 1 Tab PO 1 tab DAILY JULIA Administration Pantoprazole Sodium 40 mg 06/15/20 09:00 06/19/20 09:41 Pantoprazole 40 Mg Tab PO 40 mg DAILY JULIA Administration Polyethylene Glycol 17 gm 06/18/20 21:00 06/19/20 09:45 Polyethylene Glycol 3350 17 Gm Packet PO 17 gm BID JULIA Administration Senna/Docusate Sodium 2 tab 06/18/20 21:00 06/19/20 09:45 Senokot S 8.6-50 Mg Tab PO 2 tab BID JULIA Administration Sodium Chloride 10 ml 06/12/20 21:00 06/19/20 09:46 Flush - Normal Saline 10 Ml Syringe IVF 10 ml Q12HR JULIA Administration Thiamine HCl 100 mg 06/18/20 21:00 06/18/20 20:53 Thiamine 100 Mg Tab PO 100 mg HS JULIA Administration - Exam General Appearance: ill appearing Neck: supple, no JVD Heart: RRR, no gallops Respiratory: no wheezes, rhonchi Gastrointestinal: soft, non-tender, no guarding, no rigidity Extremities: no cyanosis Neurological: no new deficit Musculoskeletal: generalized weakness Psychiatric: normal affect, A&O x 3 Hosp A/P - Plan DVT proph w/SCDs S/p cardiac arrest with return of spontaneous circulation with respiratory failure requiring mechanical ventilation Severe diabetic ketoacidosis Suspected Sepsis due to aspiration pneumoniaPOA Thrombocytopenia s/p platelet transfusion Hypotension Chronic pain syndrome Diabetes mellitus type II GERD Anxiety History of hypertension Fecal impaction Anemia Hypomagnesemia Plan: We will transfuse 1 unit platelet. Change antibiotics to meropenem. Consult i nfectious disease. Continue stool softeners. No bowel movement yet. Increase methadone dose due to significant pain. We will also increase Toprol-XL dose. Replace magnesium. Reduce Lantus to 8 units daily due to hypoglycemia today. Continue physical therapy. Continue other medications as above. A.m. labs 06/18 Will transfer to telemetry for close monitoring. IV albumin due to hypotension. Patient is declining hospice at this time. Continue cefepime. Recheck chest x-ray in a.m. A.m. labs. Continue sliding scale. At time in, folic acid and multivitamin. Reduce methadone dose due to renal failure. Add MiraLAX and Senokot-S due to fecal impaction on admission. Continue other medications as above
[2020-06-19] MEDS: Folic Acid 1 MG TAB PO SCH (22:05)
[2020-06-19] MEDS: Thiamine 100 MG TAB PO SCH (22:05)
[2020-06-20 05:43] LABS: Anion Gap 15 mmol/L (10-20); BUN (Urea Nitrogen) 63 mg/dL (7.0-18.7); Calc. Creatinine Clearance 28 mL/min (70-130); Calcium 8.4 mg/dL (7.8-10.44); Carbon Dioxide 27 mmol/L (22-29); Chloride 98 mmol/L (98-107); Glucose 97 mg/dL (70-105); Potassium 3.3 mmol/L (3.5-5.1); Sodium 137 mmol/L (136-145)
[2020-06-20 06:38] LABS: Anisocytosis SLIGHT = 6-15 cells (100X) (0-5/hpf); Band 23 % (5-11); Hemoglobin 9.2 g/dL (12.0-16.0); Lymphocytes 17 % (21-51); MDiff Complete? YES; Mean Corpuscular Hemoglobin 31.7 pg (27.0-31.0); Mean Platelet Volume 10.2 fL (7.4-10.4); Monocytes 5 % (0-10); Neutrophil 53 % (42-75); Platelet Count 97 thou/uL (130-400); Platelet Morphology Comment Appears Decreased; RBC Distribution Width 15.2 % (11.5-14.5); Reactive Lymphocytes 2 % (0-10); White Blood Cell (WBC) Count 12.5 thou/uL (4.8-10.8)
[2020-06-20] MEDS: Budesonide 0.5 MG/2 ML NEB NEB SCH ×2 (07:13→18:27)
[2020-06-20] MEDS: Pancrelipase DR 12,000 1 CAP PO SCH ×3 (08:54→16:40)
[2020-06-20] MEDS: Polyethylene Glycol 3350 17 GM Packet PO SCH ×2 (08:55→22:06)
[2020-06-20] MEDS: Metoclopramide HCl 10 MG TAB PO SCH ×3 (08:55→16:40)
[2020-06-20] MEDS: METHadone HCl 10 MG TAB PO SCH ×3 (08:55→22:05)
[2020-06-20] MEDS: Senokot S 8.6-50 MG TAB PO SCH ×2 (08:56→22:04)
[2020-06-20] MEDS: Multivit, Therapeutic 1 TAB PO SCH (08:56)
[2020-06-20] MEDS: guaiFENesin ER 600 MG TAB PO SCH ×2 (08:56→22:05)
[2020-06-20] MEDS: Cyanocobalamin (Vitamin B-12) 1,000 MCG TAB PO SCH (08:57)
[2020-06-20] MEDS: Insulin Glargine 8 UNITS in Pre-Filled Syringe SC SCH (08:57)
[2020-06-20] MEDS: HYDROcodone/Acetaminophen 5/325 mg Tablet PO PRN (09:07)
[2020-06-20] MEDS: Meropenem 500 MG in Sodium Chloride 0.9% 100 ML IVPB SCH ×2 (09:08→22:06)
[2020-06-20] MEDS: HYDROcodone/Acetaminophen 10/325 mg Tablet PO PRN ×2 (12:43→19:55)
--- NOTE | 2020-06-20 17:22 | CON ---
DATE OF CONSULTATION: 06/20/2020 REASON FOR CONSULTATION: Persistence of bandemia. HISTORY OF PRESENT ILLNESS: A 50-year-old patient who has a history of alcoholism with chronic liver disease and still actively drinking and was admitted on June 12 with a change in mental status. She had previously been in the hospital in May 22 to May 26 because of colitis and DKA. This time, she was brought airlifted from [place] with unresponsiveness and apparently had been drinking until 2 or 3 in the morning as reported by family member and could not eat or drink and kept vomiting, so she was brought in and initial findings, the patient apparently had witnessed asystole at rest for about 30 minutes and returned to spontaneous circulation. She was intubated at the outside hospital and then flighted over to the facility in [place]. Initial BP here was 140/80 and heart rate 104, pulse 95, temperature 89.8, O2 saturations were 100%, and the exam showed the patient unresponsive, intubated, and heart rate was normal. Sounds are normal. Lung sounds are symmetric. Abdomen is not distended. Initial white cell count 12.6, hemoglobin 7.2, MCV 114, platelets 117, with 70% neutrophils, 26% lymphocytes. Initial INR was 1.6. The initial pH was 6.68, pCO2 of 25.6, pO2 of 294, and the initial chemistry was with sodium 138, carbon dioxide less than 8, creatinine 3.79, glucose was 763, AST 1600, ALT 276, albumin 2.2, globulin 1.5. Urinalysis on the with 11 to 20 wbc's. She had SARS-CoV-2 PCR negative and hepatitis and influenza negative as well. The initial impression by the hospitalist was female with status post cardiac arrest with return of spontaneous circulation, acute respiratory failure with severe DKA, shock liver, linear lung infiltrate, acute kidney injury, prolonged QT interval, so Pulmonary consultation was placed. She was given a bicarbonate infusion, insulin drip, was given cefepime, possible aspiration, IV Protonix. She had abdomen and pelvis CT on the , which demonstrated small bilateral pleural effusions, small volume of ascites, diffuse liver low density consistent with fatty infiltration that is nonspecific, small-bowel distention, and some element of fecal impaction, anasarca, probably from the fluid that was required for treatment. She had an echocardiogram on June 13 with EF of 55% to 60, [id number] concentric LVH. She had a venogram, which was normal in the lower extremities. A repeat chest x-ray on June 19 showed improvement in aeration of lungs and decreased pulmonary vascular congestion. Currently, Ms. Schulte is sitting up in bed in the tele area. She is awake, alert, appears a bit sad from the events, but she has no distress. She is oriented. No headaches. No shortness of breath. Some cough, she has chronic lower back pain, which is persistent and she kind of wraps around towards the front sometimes. She has some abdominal tenderness as well mostly in the epigastric area. The patient had an indwelling Sibley catheter that had been removed and had a triple lumen located in the left IJ position. PAST MEDICAL HISTORY: Includes alcoholism still active, also type 1 diabetes following pancreatectomy, the pancreatectomy was a part of the Whipple procedure done at [facility] because of concern of malignancy. Reportedly, this was not confirmed. She has chronic liver disease, probably some element of cirrhosis, so she is a type actually of secondary form of diabetes with insulin deficiency due to pancreatic resection, not the typical type 1. PAST SURGICAL HISTORY: Includes tubal ligation, gastrectomy, part of the Whipple procedure, kidney tumor, or gastric resection. SOCIAL HISTORY: Lives by herself. She has a history of alcoholism and still actively drinking up until the day of admission. Denies any smoking history at the moment, but she is a former smoker. ALLERGY HISTORY: Morphine with itching. CURRENT MEDICATIONS LIST: 1. Pulmicort. 2. Catapres. 3. Cymbalta. 4. Folvite. 5. Neurontin. 6. Mucinex. 7. Insulin. 8. Creon. 9. Meropenem. 10. Dolophine. 11. Robaxin. 12. Reglan. 13. Protonix. PHYSICAL EXAMINATION: VITAL SIGNS: She has been afebrile for quite a few days now. In fact she has only one temperature elevation on June 13. She is now using nasal cannula at 2 L with saturation 100% and pulse 83, blood pressure 180/97. SKIN: Shows a triple-lumen catheter in the left IJ position. There is an area of superficial abrasion of the skin in the right anterior inner thigh. This was corresponded to an area of blistering before. HEENT: Ocular movements conjugate. Numerous missing teeth. NECK: No jugular vein distention. LUNGS: With diminished breath sounds at the bases, but no crackling elsewhere. No wheezing. HEART: S1 and S2. Regular rate without murmurs. ABDOMEN: Moderately tender in the epigastric area. Moderately distended. Question of ascites. : No bladder distention and she has a Sibley catheter, which has been removed little off late. EXTREMITIES: She has 2+ edema in lower extremities. She is able to move extremities equally. Strength is nl in all 4 extremities. Plantar responses are flexor. No clonus. She is awake and oriented. Follows commands. LABORATORY DATA: White cell count has gone up to 13.4, platelets are down to 19, and today white cell count is 12.5, and the bands are 23. MICROBIOLOGY DATA: We have Suly albicans in the urine Sibley catheter. I do not see any blood culture submitted here, this is quite surprising. Creatinine has improved quite a bit and is down to 2.73. CRP is down from 16 to 8.94. ASSESSMENT: 1. Alcoholism with possible aspiration pneumonia associated with diabetic ketoacidosis and had a transient cardiac arrest, which required CPR with recovery of spontaneous heart function. 2. Diabetic ketoacidosis. 3. Possible aspiration pneumonia. 4. Chronic liver disease due to alcoholism. DISCUSSION: The patient had this series of events that culminated in cardiac arrest, probably from electrolyte abnormality and ventricular fibrillation. It is surprising that she has recovered from this to the extent that she has done so far. The persistence of bandemia is probably related to the bone marrow areas of necrosis associated with the acute event with protracted hypothermia and hypotension. So I think we can discontinue antimicrobial therapy and monitor every other day her CBC and differential. Does have some tenderness in the epigastric area, so in view of her chronic illnesses, the possibility of gastritis and the gastrointestinal disorder with ischemic colitis is another concern, but the pain was quite mild at that time. We will have to continue monitoring that. Job ID: [id number] [facility]
[2020-06-20] MEDS: Folic Acid 1 MG TAB PO SCH (22:05)
[2020-06-20] MEDS: Thiamine 100 MG TAB PO SCH (22:06)
--- NOTE | 2020-06-20 22:38 | PDOC.HOSPP ---
- Subjective Encounter Date: 06/20/20 Encounter Time: 09:30 Subjective: Patient seen and examined for cardiac arrests/severe DKA with aspiration pneumonia. Denies any new complaints. Symptomatically feels better. - Objective Vital Signs & Weight: Vital Signs (12 hours) Temp Pulse Resp BP BP BP Pulse Ox 06/20/20 22:04 88 16 93 L 06/20/20 18:25 80 16 98 06/20/20 16:37 97.7 F 83 12 157/89 H 95 06/20/20 14:20 83 14 100 06/20/20 12:44 97.5 F L 82 16 160/83 H 94 L 06/20/20 11:50 82 14 98 06/20/20 11:17 187/97 H 185/84 H Weight Admit Weight 156 lb 4.8 oz Weight 158 lb Most Recent Monitor Data Heart Rate from ECG 88 NIBP 109/79 NIBP BP-Mean 89 Respiration from ECG 34 SpO2 90 I&O: 06/19/20 06/20/20 06/21/20 06:59 06:59 06:59 Intake Total 1200 1940 960 Output Total 450 804 700 Balance 750 1136 260 Result Diagrams: 06/20/20 04:29 06/20/20 04:29 Additional Labs: Accuchecks 06/20/20 06/20/20 06/20/20 20:30 16:22 10:53 POC Glucose 108 H 166 H 133 H 06/20/20 06/18/20 06/17/20 05:28 11:26 16:12 POC Glucose 94 177 H 151 H 06/16/20 16:51 POC Glucose 162 H EKG Reviewed by me: Yes (Sinus rhythm on telemetry) Hospitalist ROS - Review of Systems Respiratory: reports: cough, hemoptysis. denies: dry, shortness of breath, SOB with excertion, pleuritic pain, sputum, wheezing, other Cardiovascular: denies: chest pain, palpitations, orthopnea, paroxysmal noc. dyspnea, edema, light headedness, other - Medication Medications: Active Medications Generic Name Dose Route Start Last Admin Trade Name Freq PRN Reason Stop Dose Admin Hydrocodone Bitart/Acetaminophen 1 tab 06/20/20 11:38 06/20/20 19:55 Hydrocodone/Acetaminophen 10/325 Mg Tablet PO 1 tab Q4H PRN Administration Mild-Moderate Pain (1-5) Albuterol/Ipratropium 3 ml 06/18/20 14:30 06/20/20 22:04 Ipratropium/Albuterol Sulfate 3 Ml Neb NEB 3 ml [id number] JULIA Administration Lipase/Protease/Amylase 1 cap 06/14/20 12:00 06/20/20 16:[address] 12,000 1 Cap PO 1 cap TID-WM JULIA Administration Budesonide 0.5 mg 06/18/20 18:30 06/20/20 18:27 Budesonide 0.5 Mg/2 Ml Neb NEB 0.5 mg BID-RT JULIA Administration Cyanocobalamin 5,000 mcg 06/15/20 09:00 06/20/20 08:57 Cyanocobalamin (Vitamin B-12) 1,000 Mcg Tab PO 5,000 mcg DAILY JULIA Administration Dextrose/Water 25 gm 06/12/20 18:22 06/16/20 06:19 Dextrose 50% Abboject 50 Ml Syringe SLOW IVP 25 gm PRN PRN Administration Hypoglycemia Folic Acid 1 mg 06/18/20 21:00 06/20/20 22:05 Folic Acid 1 Mg Tab PO 1 mg HS JULIA Administration Guaifenesin 600 mg 06/18/20 21:00 06/20/20 22:05 Guaifenesin Er 600 Mg Tab PO 600 mg Q12HR JULIA Administration Meropenem 500 mg/ Sodium 100 mls @ 200 mls/hr 06/19/20 10:00 06/20/20 22:06 Chloride IVPB 100 mls 1000,2200 JULIA Administration Insulin Glargine 8 units/ 0.08 mls @ 0 mls/hr 06/20/20 09:00 06/20/20 08:57 Miscellaneous Medication SC 0.08 mls QAM JULIA Administration Insulin Human Lispro 0 units 06/14/20 09:45 06/19/20 11:59 Humalog 300 Units/3 Ml Vial SC 2 unit .MODERATE SLIDING SC PRN Administration MODERATE SLIDING SCALE Protocol Lorazepam 0.5 mg 06/15/20 14:10 06/19/20 16:40 Lorazepam 2 Mg/Ml Vial SLOW IVP 0.5 mg Q6H PRN Administration Anxiety/Agitation Methadone HCl 5 mg 06/19/20 21:00 06/20/20 22:05 Methadone Hcl 10 Mg Tab PO 5 mg TID JULIA Administration Metoclopramide HCl 10 mg 06/14/20 12:00 06/20/20 16:40 Metoclopramide Hcl 10 Mg Tab PO 10 mg TID-WM JULIA Administration Multivitamins 1 tab 06/19/20 09:00 06/20/20 08:56 Multivit, Therapeutic 1 Tab PO 1 tab DAILY JULIA Administration Pantoprazole Sodium 40 mg 06/15/20 09:00 06/20/20 08:58 Pantoprazole 40 Mg Tab PO 40 mg DAILY JULIA Administration Polyethylene Glycol 17 gm 06/18/20 21:00 06/20/20 22:06 Polyethylene Glycol 3350 17 Gm Packet PO 17 gm BID JULIA Administration Senna/Docusate Sodium 2 tab 06/18/20 21:00 06/20/20 22:04 Senokot S 8.6-50 Mg Tab PO 2 tab BID JULIA Administration Sodium Chloride 10 ml 06/12/20 21:00 06/20/20 08:58 Flush - Normal Saline 10 Ml Syringe IVF 10 ml Q12HR JULIA Administration Thiamine HCl 100 mg 06/18/20 21:00 06/20/20 22:06 Thiamine 100 Mg Tab PO 100 mg HS JULIA Administration - Exam General Appearance: NAD Neck: supple, no JVD Heart: RRR, no gallops Respiratory: no wheezes, rhonchi Gastrointestinal: soft, non-tender, normal bowel sounds Extremities: no cyanosis Hosp A/P - Plan DVT proph w/SCDs S/p cardiac arrest with return of spontaneous circulation with respiratory failure requiring mechanical ventilation Severe diabetic ketoacidosis Suspected Sepsis due to aspiration pneumonia Thrombocytopenia s/p platelet transfusion Hypotension Chronic pain syndrome Diabetes mellitus type II GERD Anxiety History of hypertension Fecal impaction Anemia Hypomagnesemia Plan: Continue IV meropenem. Continue methadone. Add Dulcolax suppository daily. Continue current dose of Lantus. A.m. labs. Will probably need event monitor at discharge. Renal function improving. KUB in a.m. 06/19 We will transfuse 1 unit platelet. Change antibiotics to meropenem. Consult in fectious disease. Continue stool softeners. No bowel movement yet. Increase methadone dose due to significant pain. We will also increase Toprol-XL dose. Replace magnesium. Reduce Lantus to 8 units daily due to hypoglycemia today. Continue physical therapy. Continue other medications as above. A.m. labs 06/18 Will transfer to telemetry for close monitoring. IV albumin due to hypotension. Patient is declining hospice at this time. Continue cefepime. Recheck chest x-ray in a.m. A.m. labs. Continue sliding scale. At time in, folic acid and multivitamin. Reduce methadone dose due to renal failure. Add MiraLAX and Senokot-S due to fecal impaction on admission. Continue other medications as above
[2020-06-21 04:57] LABS: Anion Gap 14 mmol/L (10-20); BUN (Urea Nitrogen) 50 mg/dL (7.0-18.7); Calc. Creatinine Clearance 41 mL/min (70-130); Calcium 8.1 mg/dL (7.8-10.44); Carbon Dioxide 26 mmol/L (22-29); Chloride 101 mmol/L (98-107); Glucose 230 mg/dL (70-105); Magnesium 1.8 mg/dL (1.6-2.6); Potassium 3.1 mmol/L (3.5-5.1); Sodium 138 mmol/L (136-145)
[2020-06-21 05:12] LABS: Band 15 % (5-11); Hemoglobin 8.3 g/dL (12.0-16.0); Lymphocytes 15 % (21-51); MDiff Complete? YES; Mean Corpuscular HGB CONC 31.9 g/dL (32.0-36.0); Mean Corpuscular Hemoglobin 32.8 pg (27.0-31.0); Mean Platelet Volume 11.1 fL (7.4-10.4); Metamyelocyte 1 % (0-0); Monocytes 7 % (0-10); Myelocyte 3 % (0-0); Neutrophil 59 % (42-75); Platelet Count 88 thou/uL (130-400); RBC Distribution Width 15.2 % (11.5-14.5); Red Blood Cell (RBC) Count 2.54 mill/uL (4.20-5.40); White Blood Cell (WBC) Count 11.5 thou/uL (4.8-10.8)
[2020-06-21] MEDS: Budesonide 0.5 MG/2 ML NEB NEB SCH ×2 (07:31→18:52)
[2020-06-21] MEDS: Metoclopramide HCl 10 MG TAB PO SCH ×3 (08:06→16:09)
[2020-06-21] MEDS: Pancrelipase DR 12,000 1 CAP PO SCH ×3 (08:06→16:08)
[2020-06-21] MEDS: METHadone HCl 10 MG TAB PO SCH ×4 (08:07→20:30)
[2020-06-21] MEDS: Cyanocobalamin (Vitamin B-12) 1,000 MCG TAB PO SCH (08:07)
[2020-06-21] MEDS: guaiFENesin ER 600 MG TAB PO SCH ×2 (08:07→20:29)
[2020-06-21] MEDS: cloNIDine 0.1 MG TAB PO PRN ×3 (08:09→20:29)
[2020-06-21] MEDS: Senokot S 8.6-50 MG TAB PO SCH ×2 (08:09→20:29)
[2020-06-21] MEDS: Polyethylene Glycol 3350 17 GM Packet PO SCH (08:09)
[2020-06-21] MEDS: Multivit, Therapeutic 1 TAB PO SCH (08:09)
[2020-06-21] MEDS: HYDROcodone/Acetaminophen 10/325 mg Tablet PO PRN ×3 (08:13→20:29)
[2020-06-21] MEDS ORDERED: Magnesium 2 GM/50 ML 2 GM in Premix Bag 1 BAG IVPB SCH (08:30)
[2020-06-21] MEDS ORDERED: Potassium Chloride 20 MEQ TAB PO SCH (08:30)
[2020-06-21] MEDS ORDERED: Bisacodyl 10 MG SUPP PR SCH (09:00)
--- NOTE | 2020-06-21 09:42 | RAD ---
KUB AND UPRIGHT PA CHEST: Date: 06/21/2020 HISTORY: Abdominal pain and shortness of breath. FINDINGS: The bowel gas pattern appears nonobstructed without free air. Bilateral pleural effusions, right larg er than left, are noted. Heart size is upper limits of normal. Left-sided central line is in place. IMPRESSION: 1. Nonobstructed bowel gas pattern. No free air. 2. Bilateral pleural effusions, right larger than left, with bibasilar lung changes, probably on the basis of atelectasis. POS: [facility]
[2020-06-21] MEDS: Meropenem 500 MG in Sodium Chloride 0.9% 100 ML IVPB SCH ×2 (10:06→22:19)
[2020-06-21] MEDS: Insulin Glargine 8 UNITS in Pre-Filled Syringe SC SCH (10:06)
[2020-06-21] MEDS ORDERED: Furosemide 40 MG/4 ML VIAL SLOW IVP SCH (10:15)
--- NOTE | 2020-06-21 10:39 | CON ---
DATE OF CONSULTATION: HISTORY OF PRESENT ILLNESS: The patient is a 50-year-old woman who suffered a cardiac arrest. The patient was seen in 2017 with takotsubo syndrome. She had an echocardiogram, which revealed a severe decrease in left ventricular systolic function. She subsequently underwent a Cardiolite stress test, revealed no significant ischemia. The patient was recently admitted after she suffered a cardiac arrest. The patient denies having any history of chest pain. She reports dyspnea on exertion. PAST MEDICAL HISTORY: 1. Diabetes mellitus. 2. Pancreatitis. 3. Hypertension. 4. Chronic pain syndrome. PAST SURGICAL HISTORY: Gastrectomy and tubal ligation. SOCIAL HISTORY: Long history of ethanol abuse. Nonsmoker. MEDICATIONS: See nursing list. ALLERGIES: MORPHINE. REVIEW OF SYSTEMS: Notable for increased pain. PHYSICAL EXAMINATION: GENERAL: Well-developed woman, in no acute distress. VITAL SIGNS: Blood pressure 185/98. NECK: Showed no jugular venous distention. LUNGS: Coarse breath sounds bilateral. HEART: Regular rate and rhythm. Normal S1, S2. No murmurs. ABDOMEN: Nondistended. EXTREMITIES: Showed severe bilateral edema. VASCULAR: Radial pulse 2+. LABORATORY DATA: Sodium 138, potassium 3.1, chloride 101, bicarb 26, BUN 15, creatinine 1.8. Her white blood cell count is 11.5, hemoglobin 8.3, hematocrit 26.3, and platelets were 88. Her sodium 138, potassium 3.1, chloride 101, bicarbonate 26, BUN 50, creatinine 1.89, glucose is 230. EKG 2:1 heart block with left bundle-branch block and T-wave suggestive of hyperkalemia. IMPRESSION: 1. Status post cardiac arrest secondary to hyperkalemia. 2. Diabetic ketoacidosis. 3. Elevated liver function tests. 4. Thrombocytopenia. 5. History of takotsubo syndrome. 6. Renal insufficiency. 7. History of a pelvic mass. This patient presented with DKA and hyperkalemia. Her potassium was 7.9. She suffered a cardiac arrest. From a Cardiac standpoint, her echocardiogram revealed normal left ventricular systolic function with left ventricular hypertrophy. The patient does have severe edema and has underlying renal insufficiency. The patient's blood pressure remains markedly elevated. At this time, we will adjust this patient's medications. We will follow this patient with you through her hospitalization. Job ID: [id number] [facility]
[2020-06-21] MEDS ORDERED: Magnesium Citrate 300 ML BOT PO PRN (12:14)
[2020-06-21] MEDS: HumaLOG 300 UNITS/3 ML VIAL SC PRN (12:30)
[2020-06-21] MEDS: Potassium Chloride 20 MEQ TAB PO SCH ×2 (12:34→16:08)
[2020-06-21] MEDS: Dextrose 50% Abboject 50 ML SYRINGE SLOW IVP PRN ×2 (18:50→18:51)
[2020-06-21 19:16] LABS: Anion Gap 14 mmol/L (10-20); BUN (Urea Nitrogen) 42 mg/dL (7.0-18.7); Calc. Creatinine Clearance 46 mL/min (70-130); Calcium 7.8 mg/dL (7.8-10.44); Carbon Dioxide 29 mmol/L (22-29); Chloride 97 mmol/L (98-107); Glucose 307 mg/dL (70-105); Sodium 137 mmol/L (136-145)
[2020-06-21 19:21] LABS: Potassium 2.9 mmol/L (3.5-5.1)
[2020-06-21 19:21] LABS: Troponin I 0.253 ng/mL (< 0.028)
[2020-06-21] MEDS: Folic Acid 1 MG TAB PO SCH (20:29)
[2020-06-21] MEDS: Thiamine 100 MG TAB PO SCH (20:30)
[2020-06-21] MEDS: Lorazepam 2 MG/ML VIAL SLOW IVP PRN (20:31)
[2020-06-21] MEDS ORDERED: HumaLOG 300 UNITS/3 ML VIAL SC PRN (20:47)
--- NOTE | 2020-06-21 21:25 | PDOC.BPN ---
- Brief Progress Note Encounter Date: 06/21/20 I was asked to follow-up on Ms. Schulte who was unresponsive on account of hypoglycemia. She was found unresponsive with glucose going to as low as 10. She received D50 with regaining of consciousness and improvement in her blood sugars When I went to see her she was sitting up in bed talking to her daughter on the phone. She looked generally shaky likely from chronic alcoholism otherwise was generally stable. She was ANO x4 and in no acute distress. She has hypokalemia of 2.9we will correct Hold insulin for the night Otherwise we will continue monitoring
--- NOTE | 2020-06-21 21:46 | PDOC.HOSPP ---
- Subjective Encounter Date: 06/21/20 Encounter Time: 10:30 Subjective: Patient seen and examined for acute kidney injury/renal failure with cardiac arrest. No new overnight events. Constipation resolved. No chest pain or shortness of breath.Chronic pain uncontrolled - Objective Vital Signs & Weight: Vital Signs (12 hours) Temp Pulse Pulse Pulse Resp Resp BP 06/21/20 20:29 121/79 06/21/20 18:40 90 89 18 06/21/20 16:09 80 06/21/20 15:07 98.8 F 80 18 06/21/20 12:00 98.4 F 89 12 06/21/20 10:42 06/21/20 10:40 88 14 06/21/20 10:05 99 BP BP BP BP Pulse Ox 06/21/20 20:29 06/21/20 18:40 179/98 H 156/87 H 06/21/20 16:09 135/74 06/21/20 15:07 162/102 H 100 06/21/20 12:00 141/75 H 100 06/21/20 10:42 94 L 06/21/20 10:40 94 L 06/21/20 10:05 150/73 H Weight Admit Weight 156 lb 4.8 oz Weight 159 lb Most Recent Monitor Data Heart Rate from ECG 88 NIBP 109/79 NIBP BP-Mean 89 Respiration from ECG 34 SpO2 90 I&O: 06/20/20 06/21/20 06/22/20 06:59 06:59 06:59 Intake Total 1940 1560 1850 Output Total 804 1700 2800 Balance 1136 -140 -950 Result Diagrams: 06/21/20 04:03 06/21/20 18:50 Additional Labs: Accuchecks 06/21/20 06/21/20 06/21/20 21:01 20:21 18:45 POC Glucose 184 H 171 H 397 H 06/21/20 06:00 POC Glucose 188 H Radiology Reviewed by me: Yes (Chest x-ray bilateral effusion) EKG Reviewed by me: Yes (Sinus rhythm on telemetry) Hospitalist ROS - Review of Systems Respiratory: reports: SOB with excertion. denies: cough, dry, shortness of breath, hemoptysis, pleuritic pain, sputum, wheezing, other Cardiovascular: denies: chest pain, palpitations, orthopnea, paroxysmal noc. dyspnea, edema, light headedness, other - Medication Medications: Active Medications Generic Name Dose Route Start Last Admin Trade Name Freq PRN Reason Stop Dose Admin Hydrocodone Bitart/Acetaminophen 1 tab 06/20/20 11:38 06/21/20 20:29 Hydrocodone/Acetaminophen 10/325 Mg Tablet PO 1 tab Q4H PRN Administration Mild-Moderate Pain (1-5) Albuterol/Ipratropium 3 ml 06/18/20 14:30 06/21/20 18:51 Ipratropium/Albuterol Sulfate 3 Ml Neb NEB Not Given [id number] JULIA Lipase/Protease/Amylase 1 cap 06/14/20 12:00 06/21/20 16:[address] 12,000 1 Cap PO 1 cap TID-WM JULIA Administration Budesonide 0.5 mg 06/18/20 18:30 06/21/20 18:52 Budesonide 0.5 Mg/2 Ml Neb NEB Not Given BID-RT JULIA Clonidine 0.1 mg 06/20/20 11:39 06/21/20 20:29 Clonidine 0.1 Mg Tab PO 0.1 mg Q4H PRN Administration SBP GREATER THAN 160 Cyanocobalamin 5,000 mcg 06/15/20 09:00 06/21/20 08:07 Cyanocobalamin (Vitamin B-12) 1,000 Mcg Tab PO 5,000 mcg DAILY JULIA Administration Dextrose/Water 25 gm 06/12/20 18:22 06/21/20 18:51 Dextrose 50% Abboject 50 Ml Syringe SLOW IVP 25 gm PRN PRN Administration Hypoglycemia Folic Acid 1 mg 06/18/20 21:00 06/21/20 20:29 Folic Acid 1 Mg Tab PO 1 mg HS JULIA Administration Guaifenesin 600 mg 06/18/20 21:00 06/21/20 20:29 Guaifenesin Er 600 Mg Tab PO 600 mg Q12HR JULIA Administration Meropenem 500 mg/ Sodium 100 mls @ 200 mls/hr 06/19/20 10:00 06/21/20 10:06 Chloride IVPB 100 mls 1000,2200 JULIA Administration Insulin Glargine 8 units/ 0.08 mls @ 0 mls/hr 06/20/20 09:00 06/21/20 10:06 Miscellaneous Medication SC 0.08 mls QAM JULIA Administration Lorazepam 0.5 mg 06/15/20 14:10 06/21/20 20:31 Lorazepam 2 Mg/Ml Vial SLOW IVP 0.5 mg Q6H PRN Administration Anxiety/Agitation Methadone HCl 5 mg 06/21/20 17:00 06/21/20 20:30 Methadone Hcl 10 Mg Tab PO 5 mg QID JULIA Administration Metoclopramide HCl 10 mg 06/14/20 12:00 06/21/20 16:09 Metoclopramide Hcl 10 Mg Tab PO 10 mg TID-WM JULIA Administration Metoprolol Succinate 50 mg 06/20/20 21:00 06/21/20 20:31 Metoprolol Succinate Xl 50 Mg Tab PO 50 mg BID JULIA Administration Multivitamins 1 tab 06/19/20 09:00 06/21/20 08:09 Multivit, Therapeutic 1 Tab PO 1 tab DAILY JULIA Administration Pantoprazole Sodium 40 mg 06/15/20 09:00 06/21/20 08:09 Pantoprazole 40 Mg Tab PO 40 mg DAILY JULIA Administration Senna/Docusate Sodium 2 tab 06/18/20 21:00 06/21/20 20:29 Senokot S 8.6-50 Mg Tab PO 2 tab BID JULIA Administration Sodium Chloride 10 ml 06/12/20 21:00 06/21/20 20:37 Flush - Normal Saline 10 Ml Syringe IVF 10 ml Q12HR JULIA Administration Thiamine HCl 100 mg 06/18/20 21:00 06/21/20 20:30 Thiamine 100 Mg Tab PO 100 mg HS JULIA Administration - Exam General Appearance: NAD Neck: supple, no JVD Heart: no gallops, no rubs Respiratory: no wheezes, rhonchi Respiratory - other findings: Diminished air entry at bases Gastrointestinal: soft, non-distended Extremities: no cyanosis Neurological: no new deficit Musculoskeletal: generalized weakness Hosp A/P - Plan DVT proph w/SCDs (No Lovenox due to thrombocytopenia) S/p cardiac arrest with return of spontaneous circulation with respiratory failure requiring mechanical ventilation Severe diabetic ketoacidosis Suspected Sepsis due to aspiration pneumonia Thrombocytopenia s/p platelet transfusion Hypotension Chronic pain syndrome Diabetes mellitus type II GERD Anxiety History of hypertension Fecal impaction Anemia Hypomagnesemia Plan: 1/5 Increase methadone dose due to worsening pain. Continue current dose of Lantus with sliding scale. Replace potassium. Cardiology input appreciated. Continue current dose of Toprol-XL. Continue starting scan. Continue physical therapy. Continue incentive spirometry. Recheck labs in a.m. Continue meropenem for aspiration pneumonia. Bandemia improving. 06/20 Continue IV meropenem. Continue methadone. Add Dulcolax suppository daily. Continue current dose of Lantus. A.m. labs. Will probably need event monitor at discharge. Renal function improving. KUB in a.m. 06/19 We will transfuse 1 unit platelet. Change antibiotics to meropenem. Consult infectious disease. Continue stool softeners. No bowel movement yet. Increase methadone dose due to significant pain. We will also increase Toprol-XL dose. Replace magnesium. Reduce Lantus to 8 units daily due to hypoglycemia today. Continue physical therapy. Continue other medications as above. A.m. labs 06/18 Will transfer to telemetry for close monitoring. IV albumin due to hypotension. Patient is declining hospice at this time. Continue cefepime. Recheck chest x-ray in a.m. A.m. labs. Continue sliding scale. At time in, folic acid and multivitamin. Reduce methadone dose due to renal failure. Add MiraLAX and Senokot-S due to fecal impaction on admission. Continue other medications as above
[2020-06-21] MEDS: Potassium Chloride 20 MEQ in Premix Bag 1 BAG IVPB SCH (22:20)
[2020-06-22] MEDS: HYDROcodone/Acetaminophen 10/325 mg Tablet PO PRN ×4 (00:55→21:25)
[2020-06-22] MEDS: Potassium Chloride 20 MEQ in Premix Bag 1 BAG IVPB SCH (00:55)
[2020-06-22] MEDS ORDERED: Dextrose 5% in Water 1,000 ML IV SCH (05:30)
[2020-06-22 05:48] LABS: ALT (SGPT) 42 U/L (8-55); AST (SGOT) 26 U/L (5-34); Alkaline Phosphatase 106 U/L (40-110); Anion Gap 13 mmol/L (10-20); BUN (Urea Nitrogen) 42 mg/dL (7.0-18.7); Calc. Creatinine Clearance 49 mL/min (70-130); Carbon Dioxide 30 mmol/L (22-29); Chloride 100 mmol/L (98-107); Glucose 63 mg/dL (70-105); Phosphorus 2.8 mg/dL (2.3-4.7); Potassium 4.4 mmol/L (3.5-5.1); Sodium 139 mmol/L (136-145)
[2020-06-22 06:00] LABS: Anisocytosis SLIGHT = 6-15 cells (100X) (0-5/hpf); Band 24 % (5-11); Hemoglobin 8.3 g/dL (12.0-16.0); Lymphocytes 10 % (21-51); MDiff Complete? YES; Mean Corpuscular HGB CONC 32.4 g/dL (32.0-36.0); Mean Corpuscular Hemoglobin 33.3 pg (27.0-31.0); Mean Platelet Volume 11.8 fL (7.4-10.4); Monocytes 2 % (0-10); Neutrophil 64 % (42-75); Platelet Count 94 thou/uL (130-400); Platelet Morphology Comment Appears Decreased; RBC Distribution Width 15.2 % (11.5-14.5); Red Blood Cell (RBC) Count 2.48 mill/uL (4.20-5.40); White Blood Cell (WBC) Count 9.3 thou/uL (4.8-10.8)
[2020-06-22] MEDS: Pancrelipase DR 12,000 1 CAP PO SCH ×3 (08:47→16:03)
[2020-06-22] MEDS: Cyanocobalamin (Vitamin B-12) 1,000 MCG TAB PO SCH (08:47)
[2020-06-22] MEDS: METHadone HCl 10 MG TAB PO SCH ×4 (08:47→21:19)
[2020-06-22] MEDS: guaiFENesin ER 600 MG TAB PO SCH ×2 (08:47→21:20)
[2020-06-22] MEDS: Multivit, Therapeutic 1 TAB PO SCH (08:47)
[2020-06-22] MEDS: Polyethylene Glycol 3350 17 GM Packet PO SCH (08:47)
[2020-06-22] MEDS: Metoclopramide HCl 10 MG TAB PO SCH (08:48)
[2020-06-22] MEDS: Senokot S 8.6-50 MG TAB PO SCH ×2 (08:48→21:20)
[2020-06-22] MEDS: Meropenem 500 MG in Sodium Chloride 0.9% 100 ML IVPB SCH ×2 (09:58→21:21)
[2020-06-22] MEDS: Budesonide 0.5 MG/2 ML NEB NEB SCH ×2 (11:16→19:05)
[2020-06-22] MEDS: Metoclopramide 10 MG/10 ML UDCUP PO SCH ×3 (11:47→21:21)
[2020-06-22] MEDS: HumaLOG 300 UNITS/3 ML VIAL SC PRN ×2 (11:48→17:29)
[2020-06-22] MEDS: cloNIDine 0.1 MG TAB PO PRN ×2 (12:35→17:28)
[2020-06-22] MEDS: Furosemide 40 MG/4 ML VIAL SLOW IVP SCH (15:17)
--- NOTE | 2020-06-22 18:48 | PDOC.HOSPP ---
- Subjective Encounter Date: 06/22/20 Encounter Time: 10:30 Subjective: Patient seen and examined for diabetes mellitus type 2/cardiac arrest with electrolyte abnormality. Overnight events noted. Denies any chest pain, shortness of breath or palpitations. No nausea or vomiting reported. Had bowel movement yesterday. - Objective Vital Signs & Weight: Vital Signs (12 hours) Temp Pulse Pulse Pulse Resp BP BP 06/22/20 18:34 80 06/22/20 16:00 98.3 F 74 17 06/22/20 13:57 73 16 06/22/20 12:00 98.6 F 88 17 06/22/20 11:27 86 84 183/98 H 169/93 H 06/22/20 11:17 72 14 06/22/20 07:52 98.4 F 72 17 BP Pulse Ox 06/22/20 18:34 126/71 06/22/20 16:00 162/91 H 96 06/22/20 13:57 95 06/22/20 12:00 163/79 H 97 06/22/20 11:27 06/22/20 11:17 96 06/22/20 07:52 160/87 H 97 Weight Admit Weight 156 lb 4.8 oz Weight 157 lb 8 oz Most Recent Monitor Data Heart Rate from ECG 88 NIBP 109/79 NIBP BP-Mean 89 Respiration from ECG 34 SpO2 90 I&O: 06/21/20 06/22/20 06/23/20 06:59 06:59 06:59 Intake Total 1560 2330 Output Total 1700 3700 Balance -140 -1370 Result Diagrams: 06/22/20 04:18 06/22/20 04:18 Additional Labs: Accuchecks 06/22/20 06/22/20 06/22/20 16:38 11:00 05:39 POC Glucose 334 H 244 H 124 H 06/22/20 06/22/20 06/21/20 05:04 00:40 21:01 POC Glucose 42 L* 125 H 184 H 06/21/20 06/21/20 06/21/20 20:21 18:45 16:25 POC Glucose 171 H 397 H 75 06/21/20 10:36 POC Glucose 287 H EKG Reviewed by me: Yes (Sinus rhythm on telemetry) Hospitalist ROS - Review of Systems Respiratory: denies: cough, dry, shortness of breath, hemoptysis, SOB with excertion, pleuritic pain, sputum, wheezing, other Cardiovascular: denies: chest pain, palpitations, orthopnea, paroxysmal noc. dyspnea, edema, light headedness, other - Medication Medications: Active Medications Generic Name Dose Route Start Last Admin Trade Name Freq PRN Reason Stop Dose Admin Hydrocodone Bitart/Acetaminophen 1 tab 06/20/20 11:38 06/22/20 17:28 Hydrocodone/Acetaminophen 10/325 Mg Tablet PO 1 tab Q4H PRN Administration Mild-Moderate Pain (1-5) Lipase/Protease/Amylase 1 cap 06/14/20 12:00 06/22/20 16:[address] 12,000 1 Cap PO 1 cap TID-WM JULIA Administration Budesonide 0.5 mg 06/18/20 18:30 06/22/20 11:16 Budesonide 0.5 Mg/2 Ml Neb NEB Not Given BID-RT JULIA Clonidine 0.1 mg 06/20/20 11:39 06/22/20 17:28 Clonidine 0.1 Mg Tab PO 0.1 mg Q4H PRN Administration SBP GREATER THAN 160 Cyanocobalamin 5,000 mcg 06/15/20 09:00 06/22/20 08:47 Cyanocobalamin (Vitamin B-12) 1,000 Mcg Tab PO 5,000 mcg DAILY JULIA Administration Dextrose/Water 25 gm 06/12/20 18:22 06/21/20 18:51 Dextrose 50% Abboject 50 Ml Syringe SLOW IVP 25 gm PRN PRN Administration Hypoglycemia Folic Acid 1 mg 06/18/20 21:00 06/21/20 20:29 Folic Acid 1 Mg Tab PO 1 mg HS JULIA Administration Furosemide 40 mg 06/22/20 14:00 06/22/20 15:17 Furosemide 40 Mg/4 Ml Vial SLOW IVP 40 mg 0600,1400 JULIA Administration Guaifenesin 600 mg 06/18/20 21:00 06/22/20 08:47 Guaifenesin Er 600 Mg Tab PO 600 mg Q12HR JULIA Administration Meropenem 500 mg/ Sodium 100 mls @ 200 mls/hr 06/19/20 10:00 06/22/20 09:58 Chloride IVPB 100 mls 1000,2200 JULIA Administration Insulin Glargine 8 units/ 0.08 mls @ 0 mls/hr 06/20/20 09:00 06/21/20 10:06 Miscellaneous Medication SC 0.08 mls QAM JULIA Administration Insulin Human Lispro 0 units 06/21/20 20:49 06/22/20 17:29 Humalog 300 Units/3 Ml Vial SC 4 unit .BEDTIME SLIDING SC PRN Administration Bedtime Correctional Scale Methadone HCl 5 mg 06/21/20 17:00 06/22/20 16:03 Methadone Hcl 10 Mg Tab PO 5 mg QID JULIA Administration Metoclopramide HCl 5 mg 06/22/20 11:30 06/22/20 16:03 Metoclopramide 10 Mg/10 Ml Udcup PO 5 mg ACHS JULIA Administration Metoprolol Succinate 50 mg 06/20/20 21:00 06/22/20 08:46 Metoprolol Succinate Xl 50 Mg Tab PO 50 mg BID JULIA Administration Multivitamins 1 tab 06/19/20 09:00 06/22/20 08:47 Multivit, Therapeutic 1 Tab PO 1 tab DAILY JULIA Administration Pantoprazole Sodium 40 mg 06/15/20 09:00 06/22/20 08:48 Pantoprazole 40 Mg Tab PO 40 mg DAILY JULIA Administration Polyethylene Glycol 17 gm 06/22/20 09:00 06/22/20 08:47 Polyethylene Glycol 3350 17 Gm Packet PO 17 gm DAILY JULIA Administration Senna/Docusate Sodium 2 tab 06/18/20 21:00 06/22/20 08:48 Senokot S 8.6-50 Mg Tab PO 2 tab BID JULIA Administration Sodium Chloride 10 ml 06/12/20 21:00 06/22/20 09:58 Flush - Normal Saline 10 Ml Syringe IVF 10 ml Q12HR JULIA Administration Thiamine HCl 100 mg 06/18/20 21:00 06/21/20 20:30 Thiamine 100 Mg Tab PO 100 mg HS JULIA Administration - Exam General Appearance: NAD Neck: supple, no JVD Heart: no gallops, no rubs Respiratory: no wheezes, rhonchi Gastrointestinal: soft, non-distended, no guarding, no rigidity Extremities: no cyanosis Neurological: no new deficit Musculoskeletal: generalized weakness Psychiatric: normal affect, A&O x 3 Hosp A/P - Plan DVT proph w/SCDs (No heparin or Lovenox due to thrombocytopenia) S/p cardiac arrest with return of spontaneous circulation with respiratory failure requiring mechanical ventilation Severe diabetic ketoacidosis Suspected Sepsis due to aspiration pneumonia Thrombocytopenia s/p platelet transfusion Hypotension Chronic pain syndrome Diabetes mellitus type II GERD Anxiety History of hypertension Fecal impaction Anemia Hypomagnesemia Plan: Discontinue IV fluids with dextrose. Discontinue central line. Will place peripheral IV access. Lantus on hold due to hypoglycemia yesterday. Will cover only with bedtime sliding scale today. WBC improving. Will recheck labs in a.m. Continue current pain regimen. IV Lasix started for volume overload per cardiology. Replace potassium. Continue other medications as above. Continue Accu-Cheks every 4. Home health care arranged. 06/21 Increase methadone dose due to worsening pain. Continue current dose of Lantus with sliding scale. Replace potassium. Cardiology input appreciated. Continue current dose of Toprol-XL. Continue starting scan. Continue physical therapy. Continue incentive spirometry. Recheck labs in a.m. Continue meropenem for aspiration pneumonia. Bandemia improving. 06/20 Continue IV meropenem. Continue methadone. Add Dulcolax suppository daily. Continue current dose of Lantus. A.m. labs. Will probably need event monitor at discharge. Renal function improving. KUB in a.m. 06/19 We will transfuse 1 unit platelet. Change antibiotics to meropenem. Consult infectious disease. Continue stool softeners. No bowel movement yet. Increase methadone dose due to significant pain. We will also increase Toprol-XL dose. Replace magnesium. Reduce Lantus to 8 units daily due to hypoglycemia today. Continue physical therapy. Continue other medications as above. A.m. labs 06/18 Will transfer to telemetry for close monitoring. IV albumin due to hypotension. Patient is declining hospice at this time. Continue cefepime. Recheck chest x-ray in a.m. A.m. labs. Continue sliding scale. At time in, folic acid and multivitamin. Reduce methadone dose due to renal failure. Add MiraLAX and Senokot-S due to fecal impaction on admission. Continue other medications as above
[2020-06-22] MEDS ORDERED: Potassium Chloride 20 MEQ TAB PO SCH (19:00)
[2020-06-22] MEDS: Thiamine 100 MG TAB PO SCH (21:20)
[2020-06-22] MEDS: Folic Acid 1 MG TAB PO SCH (21:20)
[2020-06-23] MEDS: HYDROcodone/Acetaminophen 10/325 mg Tablet PO PRN ×4 (01:37→23:35)
[2020-06-23] MEDS: cloNIDine 0.1 MG TAB PO PRN ×2 (01:50→11:09)
[2020-06-23] MEDS: HumaLOG 300 UNITS/3 ML VIAL SC PRN ×2 (04:44→11:48)
[2020-06-23] MEDS ORDERED: HYDROcodone/Acetaminophen 5/325 mg Tablet PO SCH (04:45)
[2020-06-23 05:00] LABS: Anisocytosis SLIGHT = 6-15 cells (100X) (0-5/hpf); Band 12 % (5-11); Hemoglobin 8.7 g/dL (12.0-16.0); Lymphocytes 15 % (21-51); MDiff Complete? YES; Macrocytosis SLIGHT = 6-15 cells (100X) (0-5/hpf); Mean Corpuscular HGB CONC 32.9 g/dL (32.0-36.0); Mean Corpuscular Hemoglobin 34.2 pg (27.0-31.0); Monocytes 3 % (0-10); Myelocyte 2 % (0-0); Neutrophil 67 % (42-75); Platelet Count 116 thou/uL (130-400); Platelet Morphology Comment Appears Decreased; Reactive Lymphocytes 1 % (0-10); Red Blood Cell (RBC) Count 2.54 mill/uL (4.20-5.40); White Blood Cell (WBC) Count 8.7 thou/uL (4.8-10.8)
[2020-06-23] MEDS: Furosemide 40 MG/4 ML VIAL SLOW IVP SCH ×2 (05:04→13:24)
[2020-06-23] MEDS: hydrALAZINE 20 MG/ML VIAL SLOW IVP PRN (05:04)
[2020-06-23 05:06] LABS: ALT (SGPT) 50 U/L (8-55); AST (SGOT) 44 U/L (5-34); Albumin 3.3 g/dL (3.5-5.0); Alkaline Phosphatase 128 U/L (40-110); Anion Gap 17 mmol/L (10-20); BUN (Urea Nitrogen) 34 mg/dL (7.0-18.7); Bilirubin, Total 1.3 mg/dL (0.2-1.2); Calc. Creatinine Clearance 49 mL/min (70-130); Calcium 8.2 mg/dL (7.8-10.44); Carbon Dioxide 27 mmol/L (22-29); Chloride 97 mmol/L (98-107); Globulin 2.4 g/dL (2.4-3.5); Glucose 334 mg/dL (70-105); Potassium 4.9 mmol/L (3.5-5.1); Protein, Total 5.7 g/dL (6.0-8.3); Sodium 136 mmol/L (136-145)
[2020-06-23] MEDS ORDERED: Potassium Chloride 20 MEQ TAB PO SCH (08:00)
[2020-06-23] MEDS: Metoclopramide 10 MG/10 ML UDCUP PO SCH ×4 (09:06→21:51)
[2020-06-23] MEDS: Pancrelipase DR 12,000 1 CAP PO SCH ×3 (09:07→16:13)
[2020-06-23] MEDS: Polyethylene Glycol 3350 17 GM Packet PO SCH (09:07)
[2020-06-23] MEDS: Multivit, Therapeutic 1 TAB PO SCH (09:07)
[2020-06-23] MEDS: Senokot S 8.6-50 MG TAB PO SCH ×2 (09:07→21:54)
[2020-06-23] MEDS: Cyanocobalamin (Vitamin B-12) 1,000 MCG TAB PO SCH (09:07)
[2020-06-23] MEDS: guaiFENesin ER 600 MG TAB PO SCH ×2 (09:07→21:53)
[2020-06-23] MEDS: METHadone HCl 10 MG TAB PO SCH ×4 (09:11→21:53)
[2020-06-23] MEDS: Budesonide 0.5 MG/2 ML NEB NEB SCH ×2 (10:07→18:56)
[2020-06-23] MEDS: Meropenem 500 MG in Sodium Chloride 0.9% 100 ML IVPB SCH ×2 (11:08→21:54)
[2020-06-23] MEDS: Insulin Glargine 8 UNITS in Pre-Filled Syringe SC SCH (11:08)
--- NOTE | 2020-06-23 19:12 | PDOC.HOSPP ---
- Subjective Encounter Date: 06/23/20 Encounter Time: 14:00 Subjective: Patient seen and examined for cardiac arrest with renal failure. Denies any new complaints. Overall symptomatically feeling better. No chest pain, shortness of breath or palpitations. - Objective Vital Signs & Weight: Vital Signs (12 hours) Temp Pulse Pulse Resp BP BP Pulse Ox 06/23/20 18:56 80 16 99 06/23/20 16:00 98.6 F 68 17 150/84 H 96 06/23/20 15:40 68 150/84 H 06/23/20 12:23 79 128/78 06/23/20 11:36 98.7 F 78 17 183/101 H 97 06/23/20 10:07 75 16 98 06/23/20 08:00 98.7 F 71 17 162/84 H 96 Weight Admit Weight 156 lb 4.8 oz Weight 156 lb 15.506 oz Most Recent Monitor Data Heart Rate from ECG 88 NIBP 109/79 NIBP BP-Mean 89 Respiration from ECG 34 SpO2 90 I&O: 06/22/20 06/23/20 06/24/20 06:59 06:59 06:59 Intake Total 2330 1260 Output Total 3700 2700 Balance -1370 -1440 Result Diagrams: 06/23/20 04:10 06/23/20 04:10 Additional Labs: Accuchecks 06/23/20 06/23/20 06/23/20 16:09 11:38 08:37 POC Glucose 148 H 381 H 188 H 06/23/20 06/22/20 06/22/20 04:18 23:53 19:58 POC Glucose 312 H 231 H 226 H Abnormal Lab Results - Last 48 hrs 06/21/20 18:50: Potassium 2.9 L*, Chloride 97 L, BUN 42 H, Creatinine 1.67 H 06/21/20 18:51: Troponin I 0.253 H 06/22/20 04:18: RBC 2.48 L, Hgb 8.3 L, Hct 25.5 L, MCV 103.0 H, MCH 33.3 H, RDW 15.2 H, Plt Count 94 L, MPV 11.8 H, Band Neuts % (Manual) 24 H, Lymphocytes % (Manual) 10 L, Plt Morphology Comment Appears Decreased L 06/22/20 04:18: Carbon Dioxide 30 H, BUN 42 H, Creatinine 1.56 H, Serum Total Protein 5.0 L, Albumin 3.0 L, Globulin 2.0 L 06/23/20 04:10: RBC 2.54 L, Hgb 8.7 L, Hct 26.4 L, MCV 104.0 H, MCH 34.2 H, RDW 16.0 H, Plt Count 116 L, MPV 12.0 H, Band Neuts % (Manual) 12 H, Lymphocytes % (Manual) 15 L, Myelocytes % 2 H, Plt Morphology Comment Appears Decreased L 06/23/20 04:10: Chloride 97 L, BUN 34 H, Creatinine 1.57 H, Total Bilirubin 1.3 H, AST 44 H, Alkaline Phosphatase 128 H, Serum Total Protein 5.7 L, Albumin 3.3 L Microbiology - Entire Visit 06/14/20 14:19 Urine devries catheter Urine Culture - Final Presumptive Suly albicans EKG Reviewed by me: Yes (Sinus rhythm on telemetry) Hospitalist ROS - Review of Systems Cardiovascular: denies: chest pain, palpitations, orthopnea, paroxysmal noc. dyspnea, edema, light headedness, other Gastrointestinal: denies: nausea, vomiting, abdominal pain, diarrhea, constipation, melena, hematochezia, other - Medication Medications: Active Medications Generic Name Dose Route Start Last Admin Trade Name Freq PRN Reason Stop Dose Admin Hydrocodone Bitart/Acetaminophen 1 tab 06/20/20 11:38 06/23/20 17:28 Hydrocodone/Acetaminophen 10/325 Mg Tablet PO 1 tab Q4H PRN Administration Mild-Moderate Pain (1-5) Lipase/Protease/Amylase 1 cap 06/14/20 12:00 06/23/20 16:[address] 12,000 1 Cap PO 1 cap TID-WM JULIA Administration Budesonide 0.5 mg 06/18/20 18:30 06/23/20 18:56 Budesonide 0.5 Mg/2 Ml Neb NEB 0.5 mg BID-RT JULIA Administration Clonidine 0.1 mg 06/20/20 11:39 06/23/20 11:09 Clonidine 0.1 Mg Tab PO 0.1 mg Q4H PRN Administration SBP GREATER THAN 160 Cyanocobalamin 5,000 mcg 06/15/20 09:00 06/23/20 09:07 Cyanocobalamin (Vitamin B-12) 1,000 Mcg Tab PO 5,000 mcg DAILY JULIA Administration Dextrose/Water 25 gm 06/12/20 18:22 06/21/20 18:51 Dextrose 50% Abboject 50 Ml Syringe SLOW IVP 25 gm PRN PRN Administration Hypoglycemia Folic Acid 1 mg 06/18/20 21:00 06/22/20 21:20 Folic Acid 1 Mg Tab PO 1 mg HS JULIA Administration Furosemide 40 mg 06/22/20 14:00 06/23/20 13:24 Furosemide 40 Mg/4 Ml Vial SLOW IVP 40 mg 0600,1400 JULIA Administration Guaifenesin 600 mg 06/18/20 21:00 06/23/20 09:07 Guaifenesin Er 600 Mg Tab PO 600 mg Q12HR JULIA Administration Hydralazine HCl 10 mg 06/23/20 04:40 06/23/20 05:04 Hydralazine 20 Mg/Ml Vial SLOW IVP 10 mg Q4H PRN Administration SBP > 180 and HR < 70 Meropenem 500 mg/ Sodium 100 mls @ 200 mls/hr 06/19/20 10:00 06/23/20 11:08 Chloride IVPB 100 mls 1000,2200 JULIA Administration Insulin Glargine 8 units/ 0.08 mls @ 0 mls/hr 06/20/20 09:00 06/23/20 11:08 Miscellaneous Medication SC 0.08 mls QAM JULIA Administration Insulin Human Lispro 0 units 06/21/20 20:49 06/23/20 11:48 Humalog 300 Units/3 Ml Vial SC 5 unit .BEDTIME SLIDING SC PRN Administration Bedtime Correctional Scale Methadone HCl 5 mg 06/21/20 17:00 06/23/20 16:13 Methadone Hcl 10 Mg Tab PO 5 mg QID JULIA Administration Metoclopramide HCl 5 mg 06/22/20 11:30 06/23/20 16:13 Metoclopramide 10 Mg/10 Ml Udcup PO 5 mg ACHS JULIA Administration Metoprolol Succinate 50 mg 06/20/20 21:00 06/23/20 09:07 Metoprolol Succinate Xl 50 Mg Tab PO 50 mg BID JULIA Administration Multivitamins 1 tab 06/19/20 09:00 06/23/20 09:07 Multivit, Therapeutic 1 Tab PO 1 tab DAILY JULIA Administration Pantoprazole Sodium 40 mg 06/15/20 09:00 06/23/20 09:07 Pantoprazole 40 Mg Tab PO 40 mg DAILY JULIA Administration Polyethylene Glycol 17 gm 06/22/20 09:00 06/23/20 09:07 Polyethylene Glycol 3350 17 Gm Packet PO Not Given DAILY JULIA Senna/Docusate Sodium 2 tab 06/18/20 21:00 06/23/20 09:07 Senokot S 8.6-50 Mg Tab PO 2 tab BID JULIA Administration Sodium Chloride 10 ml 06/12/20 21:00 06/23/20 11:08 Flush - Normal Saline 10 Ml Syringe IVF 10 ml Q12HR JULIA Administration Thiamine HCl 100 mg 06/18/20 21:00 06/22/20 21:20 Thiamine 100 Mg Tab PO 100 mg HS JULIA Administration - Exam General Appearance: NAD Neck: supple, no JVD Heart: RRR, no gallops Respiratory: no wheezes, rhonchi Gastrointestinal: soft, non-distended, no guarding Extremities: no cyanosis Extremities - other findings: Edemaslowly improving Neurological: no new deficit Hosp A/P - Plan DVT proph w/SCDs S/p cardiac arrest with return of spontaneous circulation with respiratory failure requiring mechanical ventilation Severe diabetic ketoacidosis Suspected Sepsis due to aspiration pneumonia Thrombocytopenia s/p platelet transfusion Hypotension Chronic pain syndrome Diabetes mellitus type II GERD Anxiety History of hypertension Fecal impaction Anemia Hypomagnesemia Plan: Continue current dose of Lantus. Will add mild sliding scale. Central line discontinued. Continue IV Lasix per cardiology. Hold potassium supplementation. Continue IV antibiotics. Recheck labs in a.m. continue current dose of methadone. A.m. labs. Add Glucerna. Home health care has been arranged / Discontinue IV fluids with dextrose. Discontinue central line. Will place peripheral IV access. Lantus on hold due to hypoglycemia yesterday. Will cover only with bedtime sliding scale today. WBC improving. Will recheck labs in a.m. Continue current pain regimen. IV Lasix started for volume overload per cardiology. Replace potassium. Continue other medications as above. Continue Accu-Cheks every 4. Home health care arranged. 1/ Increase methadone dose due to worsening pain. Continue current dose of Lantus with sliding scale. Replace potassium. Cardiology input appreciated. Continue current dose of Toprol-XL. Continue starting scan. Continue physical therapy. Continue incentive spirometry. Recheck labs in a.m. Continue meropenem for aspiration pneumonia. Bandemia improving. 06/20 Continue IV meropenem. Continue methadone. Add Dulcolax suppository daily. Continue current dose of Lantus. A.m. labs. Will probably need event monitor at discharge. Renal function improving. KUB in a.m. 06/19 We will transfuse 1 unit platelet. Change antibiotics to meropenem. Consult infectious disease. Continue stool softeners. No bowel movement yet. Increase methadone dose due to significant pain. We will also increase Toprol-XL dose. Replace magnesium. Reduce Lantus to 8 units daily due to hypoglycemia today. Continue physical therapy. Continue other medications as above. A.m. labs 06/18 Will transfer to telemetry for close monitoring. IV albumin due to hypotension. Patient is declining hospice at this time. Continue cefepime. Recheck chest x-ray in a.m. A.m. labs. Continue sliding scale. At time in, folic acid and multivitamin. Reduce methadone dose due to renal failure. Add MiraLAX and Senokot-S due to fecal impaction on admission. Continue other medications as above
[2020-06-23] MEDS: Folic Acid 1 MG TAB PO SCH (21:53)
[2020-06-23] MEDS: Thiamine 100 MG TAB PO SCH (21:53)
[2020-06-24 04:56] LABS: ALT (SGPT) 41 U/L (8-55); AST (SGOT) 40 U/L (5-34); Albumin 2.9 g/dL (3.5-5.0); Alkaline Phosphatase 114 U/L (40-110); Anion Gap 13 mmol/L (10-20); BUN (Urea Nitrogen) 29 mg/dL (7.0-18.7); Bilirubin, Total 0.9 mg/dL (0.2-1.2); Calc. Creatinine Clearance 49 mL/min (70-130); Carbon Dioxide 31 mmol/L (22-29); Chloride 98 mmol/L (98-107); Globulin 2.2 g/dL (2.4-3.5); Glucose 73 mg/dL (70-105); Potassium 3.8 mmol/L (3.5-5.1); Protein, Total 5.1 g/dL (6.0-8.3); Sodium 138 mmol/L (136-145)
[2020-06-24 05:16] LABS: Band 16 % (5-11); Eosinophils 1 % (0-10); Hemoglobin 8.1 g/dL (12.0-16.0); Lymphocytes 19 % (21-51); MDiff Complete? YES; Mean Corpuscular HGB CONC 31.9 g/dL (32.0-36.0); Mean Corpuscular Hemoglobin 33.1 pg (27.0-31.0); Mean Platelet Volume 11.2 fL (7.4-10.4); Monocytes 9 % (0-10); Neutrophil 55 % (42-75); Platelet Count 150 thou/uL (130-400); Platelet Morphology Comment Appears Adequate; RBC Distribution Width 16.1 % (11.5-14.5); Red Blood Cell (RBC) Count 2.45 mill/uL (4.20-5.40); White Blood Cell (WBC) Count 7.8 thou/uL (4.8-10.8)
[2020-06-24] MEDS: Furosemide 40 MG/4 ML VIAL SLOW IVP SCH ×2 (06:33→12:44)
[2020-06-24] MEDS: HYDROcodone/Acetaminophen 10/325 mg Tablet PO PRN ×2 (06:35→16:44)
[2020-06-24] MEDS: cloNIDine 0.1 MG TAB PO PRN (06:37)
[2020-06-24] MEDS: Budesonide 0.5 MG/2 ML NEB NEB SCH ×2 (08:04→18:37)
[2020-06-24] MEDS: Metoclopramide 10 MG/10 ML UDCUP PO SCH ×4 (08:30→21:05)
[2020-06-24] MEDS: Pancrelipase DR 12,000 1 CAP PO SCH ×3 (08:31→16:42)
[2020-06-24] MEDS: Cyanocobalamin (Vitamin B-12) 1,000 MCG TAB PO SCH (08:31)
[2020-06-24] MEDS: Multivit, Therapeutic 1 TAB PO SCH (08:32)
[2020-06-24] MEDS: METHadone HCl 10 MG TAB PO SCH ×4 (08:32→21:05)
[2020-06-24] MEDS: Polyethylene Glycol 3350 17 GM Packet PO SCH (08:33)
[2020-06-24] MEDS: Senokot S 8.6-50 MG TAB PO SCH ×2 (08:33→21:06)
[2020-06-24] MEDS: guaiFENesin ER 600 MG TAB PO SCH ×2 (08:41→21:05)
[2020-06-24] MEDS: Metolazone 5 MG TAB PO SCH (09:12)
[2020-06-24] MEDS: Insulin Glargine 8 UNITS in Pre-Filled Syringe SC SCH (09:14)
[2020-06-24] MEDS: Meropenem 500 MG in Sodium Chloride 0.9% 100 ML IVPB SCH (09:20)
[2020-06-24] MEDS: HumaLOG 300 UNITS/3 ML VIAL SC PRN (12:53)
[2020-06-24] MEDS: hydrALAZINE 20 MG/ML VIAL SLOW IVP PRN (14:32)
--- NOTE | 2020-06-24 16:07 | PDOC.HOSPP ---
- Subjective Encounter Date: 06/24/20 Encounter Time: 10:00 Subjective: Patient seen and examined for generalized weakness/cardiac arrest. Denies any new complaints. Shortness of breath improving. No chest pain or palpitations. - Objective Vital Signs & Weight: Vital Signs (12 hours) Temp Pulse Resp BP BP BP Pulse Ox 06/24/20 15:09 98.5 F 77 18 136/76 97 06/24/20 14:32 72 06/24/20 12:50 98.4 F 72 18 202/115 H 98 06/24/20 08:04 67 14 96 06/24/20 07:32 98.0 F 67 16 177/103 H 97 06/24/20 06:37 72 168/85 H 168/85 H 06/24/20 04:38 98.4 F 70 14 180/91 H 96 Weight Admit Weight 156 lb 4.8 oz Weight 154 lb 1.6 oz Most Recent Monitor Data Heart Rate from ECG 88 NIBP 109/79 NIBP BP-Mean 89 Respiration from ECG 34 SpO2 90 I&O: 06/23/20 06/24/20 06/25/20 06:59 06:59 06:59 Intake Total 1260 580 Output Total 2700 Balance -1440 580 Result Diagrams: 06/24/20 04:15 06/24/20 04:15 Additional Labs: Accuchecks 06/24/20 06/24/20 06/24/20 12:37 08:11 04:32 POC Glucose 261 H 111 H 65 L 06/24/20 06/23/20 06/23/20 00:07 20:09 16:09 POC Glucose 128 H 151 H 148 H Abnormal Lab Results - Last 48 hrs 06/23/20 04:10: RBC 2.54 L, Hgb 8.7 L, Hct 26.4 L, MCV 104.0 H, MCH 34.2 H, RDW 16.0 H, Plt Count 116 L, MPV 12.0 H, Band Neuts % (Manual) 12 H, Lymphocytes % (Manual) 15 L, Myelocytes % 2 H, Plt Morphology Comment Appears Decreased L 06/23/20 04:10: Chloride 97 L, BUN 34 H, Creatinine 1.57 H, Total Bilirubin 1.3 H, AST 44 H, Alkaline Phosphatase 128 H, Serum Total Protein 5.7 L, Albumin 3.3 L 06/24/20 04:15: RBC 2.45 L, Hgb 8.1 L, Hct 25.4 L, MCV 104.0 H, MCH 33.1 H, MCHC 31.9 L, RDW 16.1 H, MPV 11.2 H, Band Neuts % (Manual) 16 H, Lymphocytes % (Manual) 19 L 06/24/20 04:15: Carbon Dioxide 31 H, BUN 29 H, Creatinine 1.55 H, AST 40 H, Alkaline Phosphatase 114 H, Serum Total Protein 5.1 L, Albumin 2.9 L, Globulin 2.2 L Microbiology - Entire Visit 06/14/20 14:19 Urine devries catheter Urine Culture - Final Presumptive Suly albicans EKG Reviewed by me: Yes (Sinus rhythm on telemetry) Hospitalist ROS - Review of Systems Respiratory: denies: cough, dry, shortness of breath, hemoptysis, SOB with excertion, pleuritic pain, sputum, wheezing, other Cardiovascular: denies: chest pain, palpitations, orthopnea, paroxysmal noc. dyspnea, edema, light headedness, other - Medication Medications: Active Medications Generic Name Dose Route Start Last Admin Trade Name Freq PRN Reason Stop Dose Admin Hydrocodone Bitart/Acetaminophen 1 tab 06/20/20 11:38 06/24/20 06:35 Hydrocodone/Acetaminophen 10/325 Mg Tablet PO 1 tab Q4H PRN Administration Mild-Moderate Pain (1-5) Lipase/Protease/Amylase 1 cap 06/14/20 12:00 06/24/20 12:[address] 12,000 1 Cap PO 1 cap TID-WM JULIA Administration Budesonide 0.5 mg 06/18/20 18:30 06/24/20 08:04 Budesonide 0.5 Mg/2 Ml Neb NEB 0.5 mg BID-RT JULIA Administration Clonidine 0.1 mg 06/20/20 11:39 06/24/20 06:37 Clonidine 0.1 Mg Tab PO 0.1 mg Q4H PRN Administration SBP GREATER THAN 160 Cyanocobalamin 5,000 mcg 06/15/20 09:00 06/24/20 08:31 Cyanocobalamin (Vitamin B-12) 1,000 Mcg Tab PO 5,000 mcg DAILY JULIA Administration Dextrose/Water 25 gm 06/12/20 18:22 06/21/20 18:51 Dextrose 50% Abboject 50 Ml Syringe SLOW IVP 25 gm PRN PRN Administration Hypoglycemia Folic Acid 1 mg 06/18/20 21:00 06/23/20 21:53 Folic Acid 1 Mg Tab PO 1 mg HS JULIA Administration Furosemide 40 mg 06/22/20 14:00 06/24/20 12:44 Furosemide 40 Mg/4 Ml Vial SLOW IVP 40 mg 0600,1400 JULIA Administration Guaifenesin 600 mg 06/18/20 21:00 06/24/20 08:41 Guaifenesin Er 600 Mg Tab PO 600 mg Q12HR JULIA Administration Hydralazine HCl 10 mg 06/23/20 04:40 06/24/20 14:32 Hydralazine 20 Mg/Ml Vial SLOW IVP 10 mg Q4H PRN Administration SBP > 180 and HR < 70 Meropenem 500 mg/ Sodium 100 mls @ 200 mls/hr 06/19/20 10:00 06/24/20 09:20 Chloride IVPB 100 mls 1000,2200 JULIA Administration Insulin Glargine 8 units/ 0.08 mls @ 0 mls/hr 06/20/20 09:00 06/24/20 09:14 Miscellaneous Medication SC Not Given QAM [facility] Insulin Human Lispro 0 units 06/21/20 20:49 06/24/20 12:53 Humalog 300 Units/3 Ml Vial SC 4 unit .BEDTIME SLIDING SC PRN Administration Bedtime Correctional Scale Methadone HCl 5 mg 06/21/20 17:00 06/24/20 12:43 Methadone Hcl 10 Mg Tab PO 5 mg QID JULIA Administration Methocarbamol 500 mg 06/14/20 11:44 06/24/20 04:55 Methocarbamol 500 Mg Tab PO 500 mg Q8H PRN Administration Pain Metoclopramide HCl 5 mg 06/22/20 11:30 06/24/20 12:43 Metoclopramide 10 Mg/10 Ml Udcup PO 5 mg ACHS JULIA Administration Metolazone 5 mg 06/24/20 09:30 06/24/20 09:12 Metolazone 5 Mg Tab PO 5 mg 0930 JULIA Administration Metoprolol Succinate 50 mg 06/20/20 21:00 06/24/20 08:32 Metoprolol Succinate Xl 50 Mg Tab PO 50 mg BID JULIA Administration Multivitamins 1 tab 06/19/20 09:00 06/24/20 08:32 Multivit, Therapeutic 1 Tab PO 1 tab DAILY JULIA Administration Pantoprazole Sodium 40 mg 06/15/20 09:00 06/24/20 08:32 Pantoprazole 40 Mg Tab PO 40 mg DAILY JULIA Administration Polyethylene Glycol 17 gm 06/22/20 09:00 06/24/20 08:33 Polyethylene Glycol 3350 17 Gm Packet PO Not Given DAILY JULIA Senna/Docusate Sodium 2 tab 06/18/20 21:00 06/24/20 08:33 Senokot S 8.6-50 Mg Tab PO Not Given BID JULIA Sodium Chloride 10 ml 06/12/20 21:00 06/24/20 08:33 Flush - Normal Saline 10 Ml Syringe IVF 10 ml Q12HR JULIA Administration Thiamine HCl 100 mg 06/18/20 21:00 06/23/20 21:53 Thiamine 100 Mg Tab PO 100 mg HS JULIA Administration - Exam General Appearance: NAD Heart: RRR, no gallops Respiratory: no wheezes, rhonchi Gastrointestinal: soft, non-tender, normal bowel sounds, no guarding, no rigidity Extremities: no cyanosis, no clubbing Musculoskeletal: generalized weakness Psychiatric: A&O x 3 Hosp A/P - Plan DVT proph w/SCDs S/p cardiac arrest with return of spontaneous circulation with respiratory failure requiring mechanical ventilation Severe diabetic ketoacidosis Suspected Sepsis due to aspiration pneumonia Thrombocytopenia s/p platelet transfusion Hypotension Chronic pain syndrome Diabetes mellitus type II GERD Anxiety History of hypertension Fecal impaction Anemia Hypomagnesemia Plan: Will hold Lantus due to blood sugar on lower side. Discontinue meropenem start Augmentin. Continue sliding scale. Continue IV Lasix per cardiology. Continue Toprol-XL. Home health care has been arranged. Recheck labs in a.m. DC home probably in a.m. if patient remains stable. 06/23 Continue current dose of Lantus. Will add mild sliding scale. Central line discontinued. Continue IV Lasix per cardiology. Hold potassium supplementation. Continue IV antibiotics. Recheck labs in a.m. continue current dose of methadone. A.m. labs. Add Glucerna. Home health care has been arranged 06/22 Discontinue IV fluids with dextrose. Discontinue central line. Will place peripheral IV access. Lantus on hold due to hypoglycemia yesterday. Will cover only with bedtime sliding scale today. WBC improving. Will recheck labs in a.m. Continue current pain regimen. IV Lasix started for volume overload per cardiology. Replace potassium. Continue other medications as above. Continue Accu-Cheks every 4. Home health care arranged. 06/21 Increase methadone dose due to worsening pain. Continue current dose of Lantus with sliding scale. Replace potassium. Cardiology input appreciated. Continue current dose of Toprol-XL. Continue starting scan. Continue physical therapy. Continue incentive spirometry. Recheck labs in a.m. Continue meropenem for aspiration pneumonia. Bandemia improving. 06/20 Continue IV meropenem. Continue methadone. Add Dulcolax suppository daily. Continue current dose of Lantus. A.m. labs. Will probably need event monitor at discharge. Renal function improving. KUB in a.m. 06/19 We will transfuse 1 unit platelet. Change antibiotics to meropenem. Consult infectious disease. Continue stool softeners. No bowel movement yet. Increase methadone dose due to significant pain. We will also increase Toprol-XL dose. Replace magnesium. Reduce Lantus to 8 units daily due to hypoglycemia today. Continue physical therapy. Continue other medications as above. A.m. labs 06/18 Will transfer to telemetry for close monitoring. IV albumin due to hypotension. Patient is declining hospice at this time. Continue cefepime. Recheck chest x-ray in a.m. A.m. labs. Continue sliding scale. At time in, folic acid and multivitamin. Reduce methadone dose due to renal failure. Add MiraLAX and Senokot-S due to fecal impaction on admission. Continue other medications as above
[2020-06-24] MEDS: Folic Acid 1 MG TAB PO SCH (21:05)
[2020-06-24] MEDS: Thiamine 100 MG TAB PO SCH (21:05)
[2020-06-24] MEDS: Amoxicillin/Potassium Clav 600 mg/5 ml Oral Suspension PO SCH (21:06)
[2020-06-25] MEDS: HYDROcodone/Acetaminophen 10/325 mg Tablet PO PRN ×3 (01:24→12:52)
[2020-06-25] MEDS: hydrALAZINE 20 MG/ML VIAL SLOW IVP PRN (01:24)
[2020-06-25 05:07] LABS: Anion Gap 15 mmol/L (10-20); BUN (Urea Nitrogen) 25 mg/dL (7.0-18.7); Calc. Creatinine Clearance 51 mL/min (70-130); Calcium 7.9 mg/dL (7.8-10.44); Carbon Dioxide 30 mmol/L (22-29); Chloride 90 mmol/L (98-107); Glucose 549 mg/dL (70-105); Magnesium 1.5 mg/dL (1.6-2.6); Phosphorus 4.6 mg/dL (2.3-4.7); Sodium 131 mmol/L (136-145)
[2020-06-25 05:37] LABS: Band 7 % (5-11); Hemoglobin 8.5 g/dL (12.0-16.0); Large Platelets SLIGHT; Lymphocytes 10 % (21-51); MDiff Complete? YES; Mean Corpuscular HGB CONC 32.4 g/dL (32.0-36.0); Mean Corpuscular Hemoglobin 33.4 pg (27.0-31.0); Mean Platelet Volume 10.5 fL (7.4-10.4); Metamyelocyte 1 % (0-0); Monocytes 6 % (0-10); Myelocyte 2 % (0-0); Neutrophil 74 % (42-75); Platelet Count 205 thou/uL (130-400); Platelet Morphology Comment Appears Adequate; RBC Distribution Width 16.1 % (11.5-14.5); RBC Morphology Normal; Red Blood Cell (RBC) Count 2.53 mill/uL (4.20-5.40); White Blood Cell (WBC) Count 7.2 thou/uL (4.8-10.8)
[2020-06-25] MEDS: Furosemide 40 MG/4 ML VIAL SLOW IVP SCH (05:55)
[2020-06-25] MEDS: Budesonide 0.5 MG/2 ML NEB NEB SCH (05:55)
[2020-06-25] MEDS: cloNIDine 0.1 MG TAB PO PRN (05:55)
[2020-06-25] MEDS: HumaLOG 300 UNITS/3 ML VIAL SC PRN ×2 (05:56→12:55)
[2020-06-25] MEDS: Metoclopramide 10 MG/10 ML UDCUP PO SCH ×2 (07:31→11:29)
[2020-06-25] MEDS: Cyanocobalamin (Vitamin B-12) 1,000 MCG TAB PO SCH (08:31)
[2020-06-25] MEDS: Pancrelipase DR 12,000 1 CAP PO SCH ×2 (08:32→11:30)
[2020-06-25] MEDS: Senokot S 8.6-50 MG TAB PO SCH (08:32)
[2020-06-25] MEDS: Multivit, Therapeutic 1 TAB PO SCH (08:32)
[2020-06-25] MEDS: METHadone HCl 10 MG TAB PO SCH ×2 (08:33→12:53)
[2020-06-25] MEDS: Metolazone 5 MG TAB PO SCH (08:33)
[2020-06-25] MEDS: guaiFENesin ER 600 MG TAB PO SCH (08:34)
[2020-06-25] MEDS: Polyethylene Glycol 3350 17 GM Packet PO SCH (08:34)
[2020-06-25] MEDS ORDERED: Magnesium Sulfate 4 GM in Sodium Chloride 0.9% 250 ML 250 ML IVPB SCH (09:00)
[2020-06-25] MEDS: Insulin Glargine 8 UNITS in Pre-Filled Syringe SC SCH (09:50)
[2020-06-25] MEDS: Amoxicillin/Potassium Clav 600 mg/5 ml Oral Suspension PO SCH (09:50)
[2020-06-25 11:29] VITALS: BP 155/78; TEMP 98.2
--- NOTE | 2020-06-25 16:00 | PDOC.DS.DS ---
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 Rectal temperature in the emergency room was 89.8 with a potassium of 7.9 and sodium bicarbonate of < 8. She required CPR with return of spontaneous circulation. She was also placed on mechanical ventilation. Please refer to the history and physical for further details. The patient was admitted to the intensive care unit with the above diagnosis. She was started on insulin drip for DKA along with supportive care and antibiotics for aspiration. CT scan of the brain was negative for acute finding s. Echocardiogram showed ejection fraction of 55-60 percent with mild to moderate concentric left ventricular hypertrophy. She had significant renal failure that has gradually improved. A creatinine on admission was 4.32 and at discharge is 1.48. She was subsequently transferred to the telemetry unit after extubation. Initial plans were for home hospice however later on the patient changed her mind. Please refer to various consultation and notes for further details during this hospitalization. Final diagnosis: S/p cardiac arrest with return of spontaneous circulation with respiratory failure requiring mechanical ventilation Severe diabetic ketoacidosis Suspected Sepsis due to aspiration pneumoniaPOA Thrombocytopenia s/p platelet transfusion Hypotension Chronic pain syndrome Diabetes mellitus type II GERD Anxiety History of hypertension Fecal impaction Anemia Hypomagnesemia Time coordinating the discharge of this patient was 36 minutes. Resuscitation Status: 06/19/20 12:31 Resuscitation Status Routine Resuscitation Status: FULL: Full Resuscitation Discussed with: Patient on 06/19 - Labs Lab Results: 06/25/20 04:12 06/25/20 04:12 Abnormal Lab Results - Last 48 hrs 06/24/20 04:15: RBC 2.45 L, Hgb 8.1 L, Hct 25.4 L, MCV 104.0 H, MCH 33.1 H, MCHC 31.9 L, RDW 16.1 H, MPV 11.2 H, Band Neuts % (Manual) 16 H, Lymphocytes % (Manual) 19 L 06/24/20 04:15: Carbon Dioxide 31 H, BUN 29 H, Creatinine 1.55 H, AST 40 H, Alkaline Phosphatase 114 H, Serum Total Protein 5.1 L, Albumin 2.9 L, Globulin 2.2 L 06/25/20 04:12: RBC 2.53 L, Hgb 8.5 L, Hct 26.1 L, MCV 103.0 H, MCH 33.4 H, RDW 16.1 H, MPV 10.5 H, Lymphocytes % (Manual) 10 L, Myelocytes % 2 H 06/25/20 04:12: Sodium 131 L, Chloride 90 L, Carbon Dioxide 30 H, BUN 25 H, Creatinine 1.48 H, Magnesium 1.5 L Microbiology - Entire Visit 06/14/20 14:19 Urine devries catheter Urine Culture - Final Presumptive Suly albicans - Physical Exam Vitals: Vital Signs (12 hours) Temp Pulse Resp BP BP Pulse Ox 06/25/20 11:28 98.2 F 68 18 155/78 H 97 06/25/20 07:27 98.3 F 68 17 125/82 99 06/25/20 05:55 178/87 H Weight Admit Weight 156 lb 4.8 oz Weight 144 lb 11.2 oz Most Recent Monitor Data Heart Rate from ECG 88 NIBP 109/79 NIBP BP-Mean 89 Respiration from ECG 34 SpO2 90 Physical Exam: The patient was seen and examined on the day of discharge. Plan - Discharge Medications Prescriptions: Metoprolol Succinate [Toprol XL] 50 mg PO BID #60 tab Home Medications: Medication Instructions Recorded Confirmed Type Amlodipine Besylate [amLODIPine 10 mg PO DAILY 01/29/19 06/12/20 History Besylate] Gabapentin 300 mg PO PRN PRN 01/29/19 06/12/20 History Lipase/Protease/Amylase [Creon DR 1 capsule PO TID-WM 01/29/19 06/12/20 History 12,000 Units] METHadone HCl 5 mg PO QID 01/29/19 06/12/20 History HumaLOG [HumaLOG Vial] 0 unit SC TID- PRN 07/08/19 06/12/20 History Methocarbamol 500 mg PO Q8HR PRN 01/15/20 06/12/20 History Pregabalin 50 mg PO BID 01/15/20 06/12/20 History Cyanocobalamin (Vitamin B-12) 5,000 mcg PO DAILY 05/23/20 06/12/20 History [Vitamin B-12 Oral Solution] HYDROcodone/Acetaminophen 1 tablet PO Q8HR PRN 05/23/20 06/12/20 History [Hydrocodone-Acetamin 10-325 mg] Insulin Glargine,Hum.Rec.Anlog 12 - 14 unit SQ QAM-WM 05/23/20 06/12/20 History [Lantus] Acetaminophen [Tylenol Regular 650 mg PO Q4H PRN tab 05/26/20 06/12/20 Rx Strength] DULoxetine [Cymbalta] 60 mg PO PRN PRN cap 05/26/20 06/12/20 Rx Metoclopramide HCl [Reglan] 10 mg PO TID 15 Days #45 tab 05/26/20 06/12/20 Rx Pantoprazole [Protonix] 40 mg PO DAILY 30 Days #30 tab 05/26/20 06/12/20 Rx Metoprolol Succinate [Toprol XL] 50 mg PO BID #60 tab 06/25/20 Rx Multivit, Therapeutic [Theragran] 1 tab PO DAILY tab 06/25/20 Rx Polyethylene Glycol 3350 [Miralax] 17 gm PO DAILY pk 06/25/20 Rx Sennosides/Docusate Sodium 2 tab PO BID #0 tab 06/25/20 Rx [Senokot S] Allergies: morphine Allergy (Intermediate, Verified 06/12/20 16:11) Rash PER ER ORDER - Discharge Instructions Discharge Instructions:: BMP after 1 week - PCP to arrange/follow Activity:: Activity as Tolerated Nourishment:: Regular Diet - Follow up Plan Referrals: [facility] [Other] (follow up with services) Eldon Lewis MD [Active] - Werner Gray MD [Primary Care Provider] - 7 Days (Please call to schedule a follow up appointment for a BMP in one week.) Disposition: HOME HEALTH Quality - Care Measures CORE MEASURES:: N/A
[2020-06-25] MEDS ORDERED: Atorvastatin Calcium 40 MG TAB PO SCH (21:00)
--- NOTE | 2020-06-30 08:58 | PQF ---
CLINICAL DOCUMENTATION CLARIFICATION FORM: Dear : ELIZABETH BORJAS MD Date / Time: 06/30/2020 Please exercise your independent, professional judgment in responding to the clarification form. Clinical indicators are provided on the bottom of this form for your review Please check appropriate box(es): to clarify the diagnosis occasioning this admission [ ] Cardiac arrest due to respiratory failure [ ] Cardiac arrest due to DKA [ ] Cardiac arrest due to sepsis [ x ] Cardiac arrest due to Hyperkalemia [ ] Other diagnosis (Please specify if any) [ ] Unable to determine Physician Signature: Date/Time: For continuity of documentation, please document condition throughout progress notes and discharge summary. Thank You To be completed by CDI/Coding staff for physician review: Present Clinical Indicators - Signs / Symptoms / Labs Results and Location in Medical Record [x] Patient presented to ED with diabetic ketoacidosis causing cardiac arrest ED provider report on 06/12 [x] Witnessed asystole arrest for about 30 min ED provider report on 06/12 [x] Sepsis due o pneumonia Physician query on 06/16 [x] Status post cardiac arrest secondary to hyperkalemia Consult on 06/21 [x] S/p cardiac arrest with return of spontaneous circulation with respiratory failure requiring ventilation Discharge summary on 06/25 [x] Patient had this series of events that culminated in cardiac arrest, probably from electrolyte abnormality & ventricular fibrillation Consult on 06/20 Present Risk Factors Results and Location in Medical Record [x] Vomitting H&P on 06/12 [x] CKD Progress notes on 06/16 [x] Alcohol abuse Progress notes on 06/16 Present Treatments Results and Location in Medical Record [x] Continuing the ventiator & pressor support per critical care medicine H&P on 06/12 [x] Norepinephrine 8mg IV Medication from 06/12 to 06/18 [x] Humulin R100 units Medication from 06/12 to 06/14 [x] Electrolyte replacedment protocol Medication on 06/13 CDS/[employer] Signature: AAS Phone #: Date/Time: 06/30/2020 This is a permanent part of the Medical Record [facility]
== END 2020-06-25 13:24 | disposition home health service (06) | DRG 871 ==
LOC: ERS 15:40 → CCU 16:58 → T4-B 06-16 16:04 → 2NO 06-18 16:42
PROVIDERS: ADMIT Family Medicine; ATTEND Internal Medicine
PROC: 5A1935Z Respiratory Ventilation, Less than 24 Consecutive Hours (ICD-10-PCS; principal; 2020-06-12)
PROC: 30233N1 Transfusion of Nonautologous Red Blood Cells into Peripheral Vein, Percutaneous Approach (ICD-10-PCS; 2020-06-12)
PROC: 02HV33Z Insertion of Infusion Device into Superior Vena Cava, Percutaneous Approach (ICD-10-PCS; 2020-06-12)
PROC: 3E033XZ Introduction of Vasopressor into Peripheral Vein, Percutaneous Approach (ICD-10-PCS; 2020-06-12)
PROC: 30233R1 Transfusion of Nonautologous Platelets into Peripheral Vein, Percutaneous Approach (ICD-10-PCS; 2020-06-19)
DX: A41.9 Sepsis, unspecified organism (principal); G93.41 Metabolic encephalopathy; E11.10 Type 2 diabetes mellitus with ketoacidosis without coma; J96.00 Acute respiratory failure, unspecified whether with hypoxia or hypercapnia; K72.00 Acute and subacute hepatic failure without coma; J69.0 Pneumonitis due to inhalation of food and vomit; R57.8 Other shock; I46.8 Cardiac arrest due to other underlying condition; N17.0 Acute kidney failure with tubular necrosis; R18.8 Other ascites; E87.2 Acidosis; N18.5 Chronic kidney disease, stage 5; I12.0 Hypertensive chronic kidney disease with stage 5 chronic kidney disease or end stage renal disease; R04.2 Hemoptysis; J90 Pleural effusion, not elsewhere classified; E87.5 Hyperkalemia; E88.81 Metabolic syndrome and other insulin resistance; D69.6 Thrombocytopenia, unspecified; Z20.822 Contact with and (suspected) exposure to COVID-19; R94.31 Abnormal electrocardiogram [ECG] [EKG]; E87.6 Hypokalemia; E83.51 Hypocalcemia; E83.42 Hypomagnesemia; E88.09 Other disorders of plasma-protein metabolism, not elsewhere classified; R53.81 Other malaise; E11.22 Type 2 diabetes mellitus with diabetic chronic kidney disease; K56.41 Fecal impaction; K21.9 Gastro-esophageal reflux disease without esophagitis; G89.4 Chronic pain syndrome; E11.649 Type 2 diabetes mellitus with hypoglycemia without coma; Z90.411 Acquired partial absence of pancreas; Z98.51 Tubal ligation status; Z90.49 Acquired absence of other specified parts of digestive tract; Z90.5 Acquired absence of kidney; Z79.899 Other long term (current) drug therapy; Z79.4 Long term (current) use of insulin; Z88.5 Allergy status to narcotic agent; D63.1 Anemia in chronic kidney disease; Z79.891 Long term (current) use of opiate analgesic; F10.20 Alcohol dependence, uncomplicated; K70.0 Alcoholic fatty liver; M54.5 Low back pain; Z87.891 Personal history of nicotine dependence; K70.9 Alcoholic liver disease, unspecified; I44.7 Left bundle-branch block, unspecified; K86.89 Other specified diseases of pancreas
CPT/HCPCS: 0240U; 36415; 36416; 36430; 36556; 36600; 70450; 71045; 74022; 74176; 80048; 80053; 80074; 81001; 82306; 82550; 82570; 82607; 82746; 82805; 83690; 83735; 83880; 83970; 84100; 84145; 84156; 84300; 84484; 84540; 85007; 85027; 85610; 85652; 85730; 86140; 86850; 86900; 86901; 87086; 93005; 93306; 93970; 94002; 94003; 94640; 96365; 96366; 96368; 96374; 96375; 99292; C9113; J0360; J0692; J1815; J1940; J2001; J2060; J2185; J2405; J2704; J3010; J3411; J3475; J3480; J3490; J7030; J7042; J7050; J7070; J7620; J7626; P9016; P9035; P9047

== ENCOUNTER 2020-07-01 07:16 | Emergency (ER) | payer MEDICARE, MEDICAID ==
[2020-07-01 08:17] LABS: #Monocytes 0.7 thou/uL (0.11-0.59); #Neutrophils 8.6 thou/uL (1.40-6.50); %Basophils 0.4 % (0.0-1.0); %Eosinophils 0.3 % (0.0-10.0); %Monocytes 6.6 % (0.0-10.0); %Neutrophils 82.7 % (42.0-75.0); Mean Corpuscular HGB CONC 31.9 g/dL (32.0-36.0); Mean Corpuscular Hemoglobin 33.1 pg (27.0-31.0); Mean Platelet Volume 9.7 fL (7.4-10.4); Platelet Count 302 thou/uL (130-400); RBC Distribution Width 14.8 % (11.5-14.5); Red Blood Cell (RBC) Count 3.01 mill/uL (4.20-5.40); White Blood Cell (WBC) Count 10.3 thou/uL (4.8-10.8)
[2020-07-01 08:42] LABS: ALT (SGPT) 42 U/L (8-55); AST (SGOT) 50 U/L (5-34); Albumin 3.3 g/dL (3.5-5.0); Alkaline Phosphatase 139 U/L (40-110); Anion Gap 15 mmol/L (10-20); BUN (Urea Nitrogen) 15 mg/dL (7.0-18.7); Bilirubin, Total 0.9 mg/dL (0.2-1.2); CK (CPK) 30 U/L (29-168); Calc. Creatinine Clearance 0 mL/min (70-130); Carbon Dioxide 25 mmol/L (22-29); Chloride 103 mmol/L (98-107); Glucose 134 mg/dL (70-105); Potassium 4.3 mmol/L (3.5-5.1); Protein, Total 6.3 g/dL (6.0-8.3); Sodium 139 mmol/L (136-145)
--- NOTE | 2020-07-23 22:15 | EKG ---
Test Reason : Blood Pressure : / mmHG Vent. Rate : 078 BPM Atrial Rate : 077 BPM P-R Int : 000 ms QRS Dur : 074 ms QT Int : 416 ms P-R-T Axes : 000 -09 -16 degrees QTc Int : 474 ms Sinus rhythm Septal infarct , age undetermined Abnormal ECG Confirmed by CHAITANYA BANKS DO ([id number]), research editor ROSEMARIE MARX ([id number]) on 07/23/2020 10:14:55 PM Referred By: Confirmed By:CHAITANYA BANKS DO
== END 2020-07-01 09:27 | disposition home or self-care (01) ==
LOC: ERS 07:16
DX: E10.649 Type 1 diabetes mellitus with hypoglycemia without coma (principal); R07.9 Chest pain, unspecified; I10 Essential (primary) hypertension
CPT/HCPCS: 80053; 82550; 84484; 85025; 93005; 94760

== ENCOUNTER 2020-07-02 06:10 | Inpatient (IN) | payer MEDICARE, MEDICAID ==
[2020-07-02 06:56] LABS: #Basophils 0.1 thou/uL (0.0-0.2); #Eosinphils 0.1 thou/uL (0.0-0.7); #Lymphocytes 1.2 thou/uL (1.20-3.40); #Monocytes 0.6 thou/uL (0.11-0.59); #Neutrophils 4.2 thou/uL (1.40-6.50); %Basophils 1.2 % (0.0-1.0); %Eosinophils 0.9 % (0.0-10.0); %Monocytes 9.9 % (0.0-10.0); %Neutrophils 67.9 % (42.0-75.0); Mean Corpuscular HGB CONC 32.6 g/dL (32.0-36.0); Mean Platelet Volume 9.6 fL (7.4-10.4); Platelet Count 279 thou/uL (130-400); RBC Distribution Width 14.8 % (11.5-14.5); Red Blood Cell (RBC) Count 2.95 mill/uL (4.20-5.40); White Blood Cell (WBC) Count 6.2 thou/uL (4.8-10.8)
[2020-07-02 07:03] LABS: Bacteria/HPF None Seen HPF (None Seen); Bilirubin Negative (Negative); Blood, Urine Trace (Negative); Clarity Clear (Clear); Glucose, Urine (Dipstick) 200 mg/dL (Negative); Ketone, Urine Negative (Negative); Leukocyte Negative Leu/uL (Negative); Nitrite Negative (Negative); Protein, Urine (Dipstick) Negative (Neg-Trace); Specific Gravity, Urine 1.008 (1.002-1.036); Squamous Epithelial 0-3 HPF (0-3); Urobilinogen Normal mg/dL (Less than 2); WBC/HPF 0-3 HPF (0-3)
[2020-07-02 07:20] LABS: ALT (SGPT) 38 U/L (8-55); AST (SGOT) 41 U/L (5-34); Albumin 3.1 g/dL (3.5-5.0); Alkaline Phosphatase 134 U/L (40-110); Anion Gap 13 mmol/L (10-20); BUN (Urea Nitrogen) 14 mg/dL (7.0-18.7); Bilirubin, Total 0.7 mg/dL (0.2-1.2); Calc. Creatinine Clearance 0 mL/min (70-130); Calcium 7.8 mg/dL (7.8-10.44); Carbon Dioxide 23 mmol/L (22-29); Chloride 105 mmol/L (98-107); Globulin 2.9 g/dL (2.4-3.5); Glucose 376 mg/dL (70-105); Potassium 3.9 mmol/L (3.5-5.1); Sodium 137 mmol/L (136-145)
[2020-07-02 08:28] LABS: Lipase 6 U/L (8-78)
[2020-07-02 08:29] LABS: CK (CPK) 34 U/L (29-168)
--- NOTE | 2020-07-02 08:36 | CT ---
CT HEAD WITHOUT IV CONTRAST COMPARISON: 06/12/2020 HISTORY: Low blood sugar. Altered mental status. TECHNIQUE: Axial CT imaging at 5 mm intervals from vertex through skull base without contrast FINDINGS: Mild cerebral and cerebellar volume loss is again present. A tiny low-density focus is seen in the an terior limb left internal capsule which may represent a tiny lacunar infarction of indeterminate age. This was not appreciated on prior study. There is no evidence of an acute cortical infarction, h emorrhage, mass effect, or midline shift. The ventricular system is normal in size, shape, and position. Skull base has a normal CT appearance. Visualized paranasal sinuses are clear. Osseous structures appear intact. IMPRESSION: 1. Indeterminate age lacunar infarction anterior limb left internal capsule. No acute cortical infarc tion or hemorrhage is seen. 2. Cerebral and cerebellar volume loss.
--- NOTE | 2020-07-02 08:44 | RAD ---
EXAM: CHEST ONE VIEW HISTORY: Altered mental status and low blood sugar. COMPARISON: 06/19/2020 FINDINGS: Left-sided vascular catheter is been removed. Cardiac silhouette and pulmonary vasculature are within normal limits for portable technique of the study. Pleural and parenchymal changes at each lung base have resolved likely due to resolution of bilateral pleural effusions and atelectasis. Slight in creased density right lung base is likely due to crowding of the bronchovascular markings shallow depth inspiration. No consolidation is seen. Lungs are otherwise clear. Linear metallic density overl ies left humeral head incompletely assessed. No other interval change IMPRESSION: Resolution of bibasilar pleural and parenchymal lung changes. No acute cardiopulmonary process is not ed on today's exam.
[2020-07-02 09:05] LABS: Acetaminophen Less than 6.0 mcg/mL (10.0-30.0); Alcohol Less than 10 mg/dL (Less than 10); Salicylate Less than 8.0 mg/dL (15.0-30.0)
[2020-07-02] MEDS ORDERED: Aspirin Chewable 81 MG TAB ONE (09:12)
[2020-07-02 11:11] LABS: Amphetamine Not Detected (NotDetected); Barbiturates Screen Not Detected (NotDetected); Benzodiazepine Screen Not Detected (NotDetected); Cocaine Metabolite Screen Not Detected (NotDetected); Medtox Control Line Valid? VALID (VALID); Medtox Reader # READER 1; Methadone Not Detected (NotDetected); Methamphetamine Not Detected (NotDetected); Opiate Screen Detected (NotDetected); Oxycodone Screen Not Detected (NotDetected); Phencyclidine (PCP) Not Detected (NotDetected); THC/Cannabinoid Screen Not Detected (NotDetected); Tricyclic Screen Not Detected (NotDetected)
[2020-07-02 12:42] LABS: Troponin I 0.028 ng/mL (< 0.028)
[2020-07-02 13:54] LABS: SARS-CoV-2 NAA Rapid Test Not Detected (NotDetected)
[2020-07-02 14:03] LABS: Troponin I 0.029 ng/mL (< 0.028)
[2020-07-02] MEDS ORDERED: Methocarbamol 500 MG TAB PO PRN (14:47)
[2020-07-02] MEDS ORDERED: Dextrose 50% Abboject 50 ML SYRINGE SLOW IVP PRN (14:51)
[2020-07-02] MEDS ORDERED: Dextrose 5% in Water 1,000 ML IV PRN (14:51)
--- NOTE | 2020-07-02 14:59 | PDOC.HHP ---
Hospitalist HPI - History of Present Illness Unresponsive History of Present Illness: History the patient is a 50-year-old female with very brittle diabetes mellitus. Patient was admitted here in late May 2020 with an unresponsive episode. At that time the patient was in severe DKA with acidosis and hyperkalemia. She was critically ill and required CPR in the emergency department for resuscitatio n. Today the patient was admitted to the emergency department with another unresponsive episode after being found by her daughter. Patient actually presented to the emergency department yesterday, 07/01/2020 reporting hypoglycemia. She was also reporting some chest pain at that time. Patient reported chest pain in her prior admission as well. She had been evaluated by cardiology at that time. She had an echocardiogram revealing normal function. Currently the patient reports that she is feeling somewhat better. She did receive some glucose in the ambulance. On arrival here she was hyperglycemic but is subsequently normalized. She also reported feeling very cold on her initial presentation in the emergency department. Patient tells me she did not follow-up with her primary care provider at [facility] since her last visit. She says she had an upcoming appointment. Says she has never been referred to a diabetic specialist or final operations technician. ED Course: In the emergency department the patient was still somewhat encephalopathic. Her blood pressure was 215/125, pulse was 113 O2 sat 100% on room air. Her initial temperature was 95.4 rectal. She received 20 mg of diltiazem IV push, aspirin 324 mg p.o. and was started on D5 half-normal saline at 70 mL/h. Again her initial D10 push through an IO cause some hyperglycemia which is subsequently normalized. Hospitalist ROS - Review of Systems Constitutional: reports: chills. denies: fever Respiratory: denies: cough, shortness of breath Cardiovascular: reports: chest pain, palpitations Gastrointestinal: reports: nausea, vomiting, abdominal pain, diarrhea All other systems reviewed; all pertinent +/- noted in HPI/Subj - Medication Medications: metoclopramide oral Sat Jul 02, 2020 06:29 RODDY Hancock Natalee tablet : Strength - 10 mg : ORAL Patient Dose: 10 mg Oral 3 times a day. Den[place] Sat Jul 02, 2020 06:29 RODDY Hancock Natalee tablet : Strength - 10 mg-325 mg : ORAL Patient Dose: 10-325 mg Oral every 8 hours PRN. pregabalin (bulk) Sat Jul 02, 2020 06:30 RODDY Hancock Natalee powder : Strength - 100 % : MISCELLANEOUS Patient Dose: 50 mg Oral 2 times a day. amLODIPine Sat Jul 02, 2020 06:30 RODDY Hancock Natalee tablet : Strength - 10 mg : ORAL Patient Dose: 10 mg Oral once a day. lisinopril Sat Jul 02, 2020 06:31 RODDY Hancock Natalee tablet : Strength - 40 mg : ORAL Patient Dose: 40 mg Oral once a day. methocarbamol oral Sat Jul 02, 2020 06:31 RODDY Hancock Natalee tablet : Strength - 500 mg : ORAL Patient Dose: 500 mg Oral every 8 hours PRN. Creon Sat Jul 02, 2020 06:31 RODDY Hancock Natalee capsule,delayed release(DR/EC) : Strength - 12,000 unit-38,000 unit-60,000 unit : ORAL Patient Dose: 51697 units Oral 3 times a day. metoprolol succinate Sat Jul 02, 2020 06:32 RODDY Hancock Natalee tablet extended release 24 hr : Strength - 50 mg : ORAL Patient Dose: 50 mg Oral 2 times a day. Hospitalist History - Past Medical History Cardiac: reports: HTN Gastrointestinal: reports: Other (Recurrent pancreatitis) Renal/: reports: Chronic renal failure Endocrine: reports: Diabetes - Past Surgical History Past Surgical History: reports: Other Other Surgical History: Partial gastrectomy x2, kidney tumor removed 2006, Whipple procedure. Tubal ligation. - Family History Family History: reports: no pertinent history - Social History Smoking Status: Never smoker Drugs: reports: none Other Social History: Patient is full code. She has adult children that would be her surrogate decision makers. - Exam General Appearance: NAD, awake alert Neck: supple, symmetric, no JVD, no thyromegaly, no lymphadenopathy, no carotid bruit Heart: RRR, no murmur, no gallops, no rubs, normal peripheral pulses Heart - other findings: Tenderness over the precordial chest area Respiratory: CTAB, no wheezes, no rales, no ronchi, normal chest expansion, no tachypnea, normal percussion Gastrointestinal: soft, non-tender, non-distended, normal bowel sounds, no palpable masses, no hepatomegaly, no splenomegaly, no bruit Extremities: no cyanosis, no clubbing, no edema Neurological: no focal deficits Musculoskeletal: normal tone, normal strength, no muscle wasting Psychiatric: normal behavior Psychiatric - other findings: Patient became tearful when talking about the recurrent nature of her diabe Hospitalist Results - Labs Result Diagrams: 07/02/20 06:40 07/02/20 06:40 Lab results: WBC 6.2 thou/uL (4.8-10.8) 07/02/20 06:40 Hgb 10.0 g/dL (12.0-16.0) L 07/02/20 06:40 Hct 30.7 % (36.0-47.0) L 07/02/20 06:40 MCV 104.0 fL (78.0-98.0) H 07/02/20 06:40 Plt Count 279 thou/uL (130-400) 07/02/20 06:40 Neutrophils % 67.9 % (42.0-75.0) 07/02/20 06:40 Sodium 137 mmol/L (136-145) 07/02/20 06:40 Potassium 3.9 mmol/L (3.5-5.1) 07/02/20 06:40 Chloride 105 mmol/L (98-107) 07/02/20 06:40 Carbon Dioxide 23 mmol/L (22-29) 07/02/20 06:40 BUN 14 mg/dL (7.0-18.7) 07/02/20 06:40 Creatinine 1.01 mg/dL (0.6-1.1) 07/02/20 06:40 Glucose 376 mg/dL (70-105) H 07/02/20 06:40 Calcium 7.8 mg/dL (7.8-10.44) 07/02/20 06:40 Total Bilirubin 0.7 mg/dL (0.2-1.2) 07/02/20 06:40 AST 41 U/L (5-34) H 07/02/20 06:40 ALT 38 U/L (8-55) 07/02/20 06:40 Alkaline Phosphatase 134 U/L (40-110) H 07/02/20 06:40 Ammonia 34 umol/L (18-72) 07/02/20 12:09 Creatine Kinase 34 U/L (29-168) 07/02/20 06:40 Troponin I 0.029 ng/mL (< 0.028) H 07/02/20 13:34 Serum Total Protein 6.0 g/dL (6.0-8.3) 07/02/20 06:40 Albumin 3.1 g/dL (3.5-5.0) L 07/02/20 06:40 Lipase 6 U/L (8-78) L 07/02/20 06:40 Urine Ketones Negative mg/dL (Negative) 07/02/20 06:36 Urine Blood Trace (Negative) A 07/02/20 06:36 Urine Nitrite Negative (Negative) 07/02/20 06:36 Ur Leukocyte Esterase Negative Joan/uL (Negative) 07/02/20 06:36 Urine RBC 7-10 HPF (0-3) A 07/02/20 06:36 Urine WBC 0-3 HPF (0-3) 07/02/20 06:36 Ur Squamous Epith Cells 0-3 HPF (0-3) 07/02/20 06:36 Urine Bacteria None Seen HPF (None Seen) 07/02/20 06:36 - EKG Interpretation EKG: Nonspecific ST and T wave changes. Appear to be chronic. - Radiology Interpretation CT scan - head Status: report reviewed by me (CT brain reveals indeterminate age lacunar infarction of the anterior limb of the left internal capsule. No acute cortical infarction or hemorrhage is seen. Cerebral and cerebellar volume loss.) Hospitalist H&P A/P - Problem (1) Hypoglycemia Code(s): E16.2 - HYPOGLYCEMIA, UNSPECIFIED Status: Acute (2) Hypothermia Code(s): T68.XXXA - HYPOTHERMIA, INITIAL ENCOUNTER Status: Acute (3) Chronic abdominal pain Code(s): R10.9 - UNSPECIFIED ABDOMINAL PAIN; G89.29 - OTHER CHRONIC PAIN Status: Chronic (4) DM type 2 (diabetes mellitus, type 2) Status: Chronic (5) Hypertension Code(s): I10 - ESSENTIAL (PRIMARY) HYPERTENSION Status: Chronic Qualifiers: (6) Opiate dependence Code(s): F11.20 - OPIOID DEPENDENCE, UNCOMPLICATED Status: Chronic (7) Hypertensive urgency Code(s): I16.0 - HYPERTENSIVE URGENCY Status: Resolved (8) CKD (chronic kidney disease), stage III Code(s): N18.3 - CHRONIC KIDNEY DISEASE, STAGE 3 (MODERATE) * DO NOT USE * Status: Chronic - Plan Plan: Hypoglycemia: Patient appears to have severe hypoglycemia resulting in loss of consciousness and severe hypothermia. She received glucose in the field and her glucose subsequently became elevated. She has since normalized. Patient has been fairly brittle with her diabetes management. We will continue with the D5. We will let her eat. Sliding scale as needed. Resume her usual morning dose of Lantus. Accu-Cheks every 4. Patient has had a number of previous admissions related to diabetes control or lack thereof. Discussed with her the need to potentially seek referral to a diabetic specialist. Clearly this is all complicated by her previous Whipple procedure and pancreas issues. Chest pain: patient is very tender over her precordial area. Patient had CPR in late May and is likely suffering some extended musculoskeletal injury pain. EKG appears to be stable compared to her previous. Her troponins are not significant. Previous echocardiogram was unremarkable for the most part. Encephalopathy: Clearly appears to be related to her hypoglycemia and hypothermia. She appears to be fully back to her baseline or at least close at this time. CT did show old CVA of indeterminate age. Hypertensive urgency: Patient presented with significantly elevated blood pressure which has subsequently improved with improvement of her overall blood sugar. Do not suspect this is related to her chest pain or her encephalopathy. Continue with her usual home regimen of antihypertensive medications. CKD stage III: Patient has a history of CKD stage III. Today her GFR is actually 70. We will continue to monitor. Chronic pain syndrome: Continue with the patient's home dose of Denison and methocarbamol. History of pancreatitis status post Whipple's: Continue with Creon and pain management. DVT prophylaxis: Lovenox PUD prophylaxis: Pantoprazole Disposition: Patient is clear at this time that she is full code. During her last admission there was a time in which the patient talked with palliative care and had considered going home on hospice. She later indicated that she had not recalled any of that conversation and wanted to remain full code which is where she is today.
[2020-07-02 16:33] VITALS: BMI 24.0
[2020-07-02] MEDS: HYDROcodone/Acetaminophen 10/325 mg Tablet PO PRN (17:31)
[2020-07-02] MEDS: Metoclopramide HCl 10 MG TAB PO SCH ×2 (17:31→22:17)
[2020-07-02] MEDS: Pancrelipase DR 12,000 1 CAP PO SCH (17:33)
[2020-07-02] MEDS: Pregabalin 50 MG CAP PO SCH (22:17)
[2020-07-02] MEDS: Acetaminophen 325 MG TAB PO PRN (22:18)
[2020-07-02] MEDS: Dextrose 5 %-0.45 % NaCl 1,000 ML IV SCH ×2 (22:20→23:59)
[2020-07-03] MEDS: HYDROcodone/Acetaminophen 10/325 mg Tablet PO PRN ×3 (01:23→17:52)
[2020-07-03] MEDS: HumaLOG 300 UNITS/3 ML VIAL SC PRN ×3 (01:24→17:52)
[2020-07-03 07:21] LABS: Anion Gap 13 mmol/L (10-20); BUN (Urea Nitrogen) 12 mg/dL (7.0-18.7); Calc. Creatinine Clearance 82 mL/min (70-130); Calcium 7.9 mg/dL (7.8-10.44); Carbon Dioxide 25 mmol/L (22-29); Chloride 106 mmol/L (98-107); Glucose 96 mg/dL (70-105); Potassium 3.5 mmol/L (3.5-5.1); Sodium 140 mmol/L (136-145)
[2020-07-03] MEDS ORDERED: Amlodipine 10 MG TAB PO SCH (09:00)
[2020-07-03] MEDS ORDERED: Insulin Glargine 12 UNITS in Pre-Filled Syringe 1 EACH SC SCH (09:00)
[2020-07-03] MEDS: Pregabalin 50 MG CAP PO SCH ×2 (09:01→20:47)
[2020-07-03] MEDS: Pancrelipase DR 12,000 1 CAP PO SCH ×3 (09:01→16:22)
[2020-07-03] MEDS: Metoclopramide HCl 10 MG TAB PO SCH ×3 (11:38→20:47)
[2020-07-03] MEDS: Acetaminophen 325 MG TAB PO PRN ×3 (11:38→22:50)
[2020-07-03] MEDS ORDERED: Lidocaine 5% Patch TD SCH (14:00)
--- NOTE | 2020-07-03 14:38 | PDOC.HOSPP ---
- Subjective Encounter Date: 07/03/20 Subjective: Patient continues to complain of mild chest pain and back pain. She also has bilateral lower extremity edema and periorbital puffiness. - Objective Vital Signs & Weight: Vital Signs (12 hours) Temp Pulse Resp BP Pulse Ox 07/03/20 12:00 99.4 F 94 16 171/94 H 98 07/03/20 07:45 98.4 F 80 16 177/101 H 96 07/03/20 04:39 98.5 F 77 14 154/94 H 96 Weight Weight 139 lb 15.896 oz I&O: 07/02/20 07/03/20 07/04/20 06:59 06:59 06:59 Output Total 1750 Balance -1750 Result Diagrams: 07/02/20 06:40 07/03/20 06:40 Additional Labs: Accuchecks 07/03/20 07/03/20 07/02/20 12:30 04:41 23:58 POC Glucose 476 H 133 H 297 H 07/02/20 07/02/20 07/02/20 20:33 17:28 14:46 POC Glucose 301 H 160 H 81 Hospitalist ROS - Medication Medications: Active Medications Generic Name Dose Route Start Last Admin Trade Name Freq PRN Reason Stop Dose Admin Acetaminophen 650 mg 07/02/20 14:45 07/03/20 11:38 Acetaminophen 325 Mg Tab PO 650 mg Q4H PRN Administration Headache/Fever/Mild Pain (1-3) Hydrocodone Bitart/Acetaminophen 1 tab 07/02/20 14:47 07/03/20 09:02 Hydrocodone/Acetaminophen 10/325 Mg Tablet PO 1 tab Q8H PRN Administration Moderate Pain (4-6) Lipase/Protease/Amylase 1 cap 07/02/20 17:00 07/03/20 13:[address] 12,000 1 Cap PO 1 cap TID-WM JULIA Administration Insulin Glargine 12 units/ 0.12 mls @ 0 mls/hr 07/03/20 09:00 07/03/20 11:37 Miscellaneous Medication SC Not Given QAM JULIA Insulin Human Lispro 0 units 07/02/20 14:51 07/03/20 13:25 Humalog 300 Units/3 Ml Vial SC 6 unit .MILD SLIDING SCALE PRN Administration Mild Correctional Scale Insulin Human Lispro 0 units 07/02/20 22:04 07/03/20 01:24 Humalog 300 Units/3 Ml Vial SC 3 unit .BEDTIME SLIDING SC PRN Administration Bedtime Correctional Scale Lidocaine 2 patch 07/03/20 14:00 07/03/20 13:24 Lidocaine 5% Patch TD 07/04/20 02:00 2 patch 1400 JULIA Administration Metoclopramide HCl 10 mg 07/02/20 15:00 07/03/20 11:38 Metoclopramide Hcl 10 Mg Tab PO 10 mg TID JULIA Administration Metoprolol Succinate 50 mg 07/02/20 21:00 07/03/20 09:01 Metoprolol Succinate Xl 50 Mg Tab PO 50 mg BID JULIA Administration Pregabalin 50 mg 07/02/20 21:00 07/03/20 09:01 Pregabalin 50 Mg Cap PO 50 mg BID JULIA Administration - Exam General - other findings: Lethargic Eye: anicteric sclera Eye - other findings: Bilateral periorbital edema ENT: normocephalic atraumatic Heart: RRR, no murmur, no gallops, no rubs Respiratory: CTAB, no wheezes, no rales, no ronchi Gastrointestinal: soft, non-tender, non-distended, normal bowel sounds Extremities: 1+ LE edema Extremities - other findings: Bilateral lower extremity edema Neurological: cranial nerve grossly intact Psychiatric: normal affect, normal behavior Hosp A/P (1) Metabolic encephalopathy Code(s): G93.41 - METABOLIC ENCEPHALOPATHY Status: Acute (2) Hypertensive emergency Code(s): I16.1 - HYPERTENSIVE EMERGENCY Status: Acute (3) Hypoglycemia Code(s): E16.2 - HYPOGLYCEMIA, UNSPECIFIED Status: Acute (4) Anemia Code(s): D64.9 - ANEMIA, UNSPECIFIED Status: Acute (5) CKD (chronic kidney disease), stage III Code(s): N18.3 - CHRONIC KIDNEY DISEASE, STAGE 3 (MODERATE) * DO NOT USE * Status: Chronic (6) DM type 2 (diabetes mellitus, type 2) Status: Chronic - Plan Assessment This is a 50-year-old -[place] female with past medical history of brittle diabetes and prior admissions for severe hypoglycemia complicated by cardiac arrest 1 month ago. She was brought into the ER by EMS who were called by the daughter, who could not wake up the patient since she was unresponsive. Assessment by EMS revealed she was severely hypoglycemic with blood glucose in the 30s. Of note, patient had just been seen the day before for hypoglycemia a nd was discharged. Additional work-up in the ER included a CT head which was significant for lacunar infarct. Her blood pressure was elevated with SBP of 215. She has been on dextrose infusion since admission. Her infusion was discontinued this afternoon as her blood glucose was in the 400s. During my encounter this morning she is complaining of chest pain and back pain. Post cardiac arrest work-up done 1 month ago included an echocardiogram which revealed normal function. Metabolic encephalopathy Severe hypoglycemia -on admission Uncontrolled type 2 diabetes mellitus with severe hyperglycemia CVA Chest pain and back pain Plan: Discontinue dextrose infusion Monitor blood glucose AC and at bedtime Resume Lantus tomorrow depending on how much sliding scale she requires today Given multiple admission for severe hypoglycemia, she will benefit from an cardiovascular operating room nurse for recruiter specialist Lidocaine patch for musculoskeletal chest pain I discontinue Norvasc in the setting of periorbital edema and bilateral lower extremity edema If no improvement tomorrow, will give a Lasix challenge Optimize blood pressure control given past episode of lacunar infarct Add scheduled lisinopril and as needed IV labetalol. Continue metoprolol Follow-up lipid panel
[2020-07-03] MEDS ORDERED: Labetalol HCl 100 MG/20 ML VIAL SLOW IVP PRN (14:59)
[2020-07-03] MEDS ORDERED: Lisinopril 20 MG TAB PO SCH (15:00)
[2020-07-03 15:51] LABS: Cardiac Risk 1.6 (Less than 4.5)
[2020-07-03] MEDS ORDERED: FLU VACC QS2020-21(6MOS UP)/PF 60 MCG/0.5 ML SYRINGE IM ONE (16:45)
[2020-07-03] MEDS ORDERED: Ondansetron PF 4 MG/2 ML Vial IVP PRN (17:56)
[2020-07-04] MEDS: HumaLOG 300 UNITS/3 ML VIAL SC PRN ×3 (00:04→17:13)
[2020-07-04] MEDS ORDERED: Lidocaine Patch Removal 1 EACH TOP SCH (02:00)
[2020-07-04] MEDS: HYDROcodone/Acetaminophen 10/325 mg Tablet PO PRN ×3 (02:06→17:47)
[2020-07-04 04:30] LABS: #Basophils 0.1 thou/uL (0.0-0.2); #Eosinphils 0.2 thou/uL (0.0-0.7); #Lymphocytes 1.7 thou/uL (1.20-3.40); #Monocytes 0.6 thou/uL (0.11-0.59); #Neutrophils 3.7 thou/uL (1.40-6.50); %Basophils 1.7 % (0.0-1.0); %Eosinophils 2.8 % (0.0-10.0); %Lymphocytes 26.4 % (21.0-51.0); %Monocytes 9.3 % (0.0-10.0); %Neutrophils 59.8 % (42.0-75.0); Hemoglobin 9.2 g/dL (12.0-16.0); Mean Corpuscular HGB CONC 33.5 g/dL (32.0-36.0); Mean Platelet Volume 9.1 fL (7.4-10.4); Platelet Count 242 thou/uL (130-400); RBC Distribution Width 14.4 % (11.5-14.5); Red Blood Cell (RBC) Count 2.71 mill/uL (4.20-5.40); White Blood Cell (WBC) Count 6.2 thou/uL (4.8-10.8)
[2020-07-04 04:45] LABS: Anion Gap 14 mmol/L (10-20); BUN (Urea Nitrogen) 11 mg/dL (7.0-18.7); Calc. Creatinine Clearance 56 mL/min (70-130); Calcium 7.9 mg/dL (7.8-10.44); Carbon Dioxide 24 mmol/L (22-29); Chloride 105 mmol/L (98-107); Glucose 94 mg/dL (70-105); Magnesium 1.5 mg/dL (1.6-2.6); Potassium 3.5 mmol/L (3.5-5.1); Sodium 139 mmol/L (136-145)
[2020-07-04] MEDS ORDERED: Magnesium Sulfate 4 GM in Sodium Chloride 0.9% 250 ML 250 ML IVPB SCH (05:00)
[2020-07-04] MEDS ORDERED: Electrolyte Replacement Protocol 1 EACH FS PRN (05:00)
[2020-07-04] MEDS: Acetaminophen 325 MG TAB PO PRN ×2 (05:48→13:48)
[2020-07-04] MEDS ORDERED: Potassium Chloride 20 MEQ TAB PO SCH (07:15)
[2020-07-04] MEDS ORDERED: Magnesium 2 GM/50 ML 2 GM in Premix Bag 1 BAG IVPB SCH ×2 (07:15→08:45)
[2020-07-04] MEDS ORDERED: Magnesium Sulfate 2 GM in Sodium Chloride 0.9% 100 ML IVPB SCH (08:30)
[2020-07-04] MEDS: Lisinopril 20 MG TAB PO SCH (09:13)
[2020-07-04] MEDS: Pregabalin 50 MG CAP PO SCH ×2 (09:13→21:18)
[2020-07-04] MEDS: Metoclopramide HCl 10 MG TAB PO SCH ×3 (09:14→21:16)
[2020-07-04] MEDS: hydrALAZINE 25 MG TAB PO SCH ×3 (09:14→21:16)
[2020-07-04] MEDS: Pancrelipase DR 12,000 1 CAP PO SCH ×3 (10:03→17:10)
[2020-07-04] MEDS ORDERED: NPH, Human Insulin Isophane 300 UNIT/3 ML VIAL SC SCH ×2 (12:45→21:00)
--- NOTE | 2020-07-04 13:47 | PDOC.HOSPP ---
- Subjective Encounter Date: 07/04/20 Subjective: It is severely hyperglycemic with morning blood glucose in the 300s. She told me that she had already eaten breakfast when her fingerstick was checked - Objective Vital Signs & Weight: Vital Signs (12 hours) Temp Pulse Resp BP Pulse Ox 07/04/20 11:48 98.7 F 78 20 168/95 H 98 07/04/20 08:00 99 07/04/20 07:33 98.6 F 78 16 171/101 H 99 07/04/20 04:00 98.8 F 80 14 162/93 H 99 Weight Weight 139 lb 15.896 oz I&O: 07/03/20 07/04/20 07/05/20 06:59 06:59 06:59 Intake Total 600 480 Output Total 1750 1800 990 Balance -1750 -1200 -510 Result Diagrams: 07/04/20 04:07 07/04/20 04:07 Additional Labs: Accuchecks 07/04/20 07/04/20 07/03/20 11:04 04:05 23:48 POC Glucose 316 H 95 236 H 07/03/20 07/03/20 07/02/20 20:35 16:20 09:05 POC Glucose 141 H 326 H 94 07/02/20 06:16 POC Glucose 41 L* Hospitalist ROS - Medication Medications: Active Medications Generic Name Dose Route Start Last Admin Trade Name Freq PRN Reason Stop Dose Admin Acetaminophen 650 mg 07/02/20 14:45 07/04/20 05:48 Acetaminophen 325 Mg Tab PO 650 mg Q4H PRN Administration Headache/Fever/Mild Pain (1-3) Hydrocodone Bitart/Acetaminophen 1 tab 07/02/20 14:47 07/04/20 10:04 Hydrocodone/Acetaminophen 10/325 Mg Tablet PO 1 tab Q8H PRN Administration Moderate Pain (4-6) Lipase/Protease/Amylase 1 cap 07/02/20 17:00 07/04/20 12:07 Pancrelipase 12,000 1 Cap PO 1 cap TID-WM JULIA Administration Hydralazine HCl 50 mg 07/04/20 09:00 07/04/20 09:14 Hydralazine 25 Mg Tab PO 50 mg TID JULIA Administration Insulin Human Lispro 0 units 07/02/20 14:51 07/04/20 12:08 Humalog 300 Units/3 Ml Vial SC 5 unit .MILD SLIDING SCALE PRN Administration Mild Correctional Scale Insulin Human Lispro 0 units 07/02/20 22:04 07/04/20 00:04 Humalog 300 Units/3 Ml Vial SC 2 unit .BEDTIME SLIDING SC PRN Administration Bedtime Correctional Scale Lisinopril 40 mg 07/04/20 09:00 07/04/20 09:13 Lisinopril 20 Mg Tab PO 40 mg DAILY JULIA Administration Metoclopramide HCl 10 mg 07/02/20 15:00 07/04/20 09:14 Metoclopramide Hcl 10 Mg Tab PO 10 mg TID JULIA Administration Metoprolol Succinate 50 mg 07/02/20 21:00 07/04/20 09:14 Metoprolol Succinate Xl 50 Mg Tab PO 50 mg BID JULIA Administration Ondansetron HCl 4 mg 07/03/20 17:56 07/03/20 18:32 Ondansetron Pf 4 Mg/2 Ml Vial IVP 4 mg Q8H PRN Administration Nausea/Vomiting Pregabalin 50 mg 07/02/20 21:00 07/04/20 09:13 Pregabalin 50 Mg Cap PO 50 mg BID JULIA Administration Sodium Chloride 10 ml 07/04/20 09:00 07/04/20 09:14 Flush - Normal Saline 10 Ml Syringe IVF 10 ml Q12HR JULIA Administration - Exam General - other findings: Mildly lethargic but awake Eye - other findings: Mild periorbital edema, bilaterally ENT: normocephalic atraumatic Neck: supple, symmetric Heart: RRR, no murmur, no gallops, no rubs Respiratory: CTAB, no wheezes, no rales, no ronchi Extremities: no clubbing, no edema Neurological: cranial nerve grossly intact Musculoskeletal: normal tone, normal strength Psychiatric: normal affect, normal behavior Hosp A/P (1) Metabolic encephalopathy Code(s): G93.41 - METABOLIC ENCEPHALOPATHY Status: Acute (2) Hypertensive emergency Code(s): I16.1 - HYPERTENSIVE EMERGENCY Status: Acute (3) Hypoglycemia Code(s): E16.2 - HYPOGLYCEMIA, UNSPECIFIED Status: Acute (4) Anemia Code(s): D64.9 - ANEMIA, UNSPECIFIED Status: Acute (5) CKD (chronic kidney disease), stage III Code(s): N18.3 - CHRONIC KIDNEY DISEASE, STAGE 3 (MODERATE) * DO NOT USE * Status: Chronic (6) DM type 2 (diabetes mellitus, type 2) Status: Chronic - Plan Assessment Patient is a 50-year-old -[place] female with past medical history of brittle diabetes and prior admissions for severe hypoglycemia with her last admission complicated by cardiac arrest 1 month ago. She was brought into the ER by EMS after they were called by the daughter, who could not wake up the patient. She was unresponsive. Assessment by EMS revealed she was severely hypoglycemic with blood glucose in the 30s. Of note, patient had just been seen in the ER the day before for hypoglycemia, and was discharged. During this admission, CT head was significant for lacunar infarct. Her blood pressure was elevated with SBP of 215. She was also placed on dextrose infusion for hypoglycemia. Her infusion was discontinued this afternoon as her blood glucose was in the 400s. I cannot rely on today's 11 a.m BG as fasting BG since it was taken shortly after meals. Patient told me today that her hypoglycemic episodes were usually early mornings between midnight and 6 AM. Metabolic encephalopathy Severe hypoglycemia -on admission Uncontrolled type 2 diabetes mellitus with severe hyperglycemia -hemoglobin A1c of 7 Uncontrolled HTN CVA Chest pain and back pain Hypomagnesemia Plan: I will go ahead and start patient on NPH for close monitoring of insulin effect on daytime and fasting blood glucose In case of additional hypoglycemia complications, I will go ahead and transition patient to an oral agent since her A1c is well controlled Monitor blood glucose AC and at bedtime She is followed up at [facility] for her diabetes. She is not sure if her provider is an stone spreader operator I discontinue Norvasc in the setting of periorbital edema and bilateral lower extremity edema Instead, I will place her on VIRGEN-i and hydralazine Continue metoprolol I am holding diuretics due to Cr bump She needs good BP control given hx of lacunar infarct on CT Replaced Mag today
[2020-07-05] MEDS: HYDROcodone/Acetaminophen 10/325 mg Tablet PO PRN ×3 (01:18→16:42)
[2020-07-05] MEDS: Acetaminophen 325 MG TAB PO PRN ×2 (07:04→20:42)
[2020-07-05 07:43] LABS: Anion Gap 12 mmol/L (10-20); BUN (Urea Nitrogen) 12 mg/dL (7.0-18.7); Calc. Creatinine Clearance 77 mL/min (70-130); Calcium 7.8 mg/dL (7.8-10.44); Carbon Dioxide 25 mmol/L (22-29); Chloride 105 mmol/L (98-107); Glucose 114 mg/dL (70-105); Potassium 3.7 mmol/L (3.5-5.1); Sodium 138 mmol/L (136-145)
[2020-07-05] MEDS ORDERED: Magnesium 2 GM/50 ML 2 GM in Premix Bag 1 BAG IVPB SCH (08:00)
[2020-07-05] MEDS: Pancrelipase DR 12,000 1 CAP PO SCH ×3 (09:01→16:42)
[2020-07-05] MEDS: Pregabalin 50 MG CAP PO SCH ×2 (09:02→20:41)
[2020-07-05] MEDS: hydrALAZINE 25 MG TAB PO SCH ×2 (09:02→20:40)
[2020-07-05] MEDS: Lisinopril 20 MG TAB PO SCH (09:03)
[2020-07-05] MEDS: NPH, Human Insulin Isophane 300 UNIT/3 ML VIAL SC SCH (09:25)
[2020-07-05] MEDS: Metoclopramide HCl 10 MG TAB PO SCH ×3 (10:04→20:40)
[2020-07-05] MEDS: HumaLOG 300 UNITS/3 ML VIAL SC PRN (12:11)
--- NOTE | 2020-07-05 12:33 | PDOC.HOSPP ---
- Subjective Encounter Date: 07/05/20 Subjective: Patient was hypoglycemic overnight around 10 PM. Her blood sugar was 41. No evening dose of long-acting Lantus was given. Her fasting blood glucose this morning was appropriate. Is doing well this morning. She requested lidocaine patch for her chest pain, which she has had for several days. - Objective Vital Signs & Weight: Vital Signs (12 hours) Temp Pulse Resp BP BP BP Pulse Ox 07/05/20 12:00 99.4 F 80 20 182/95 H 99 07/05/20 09:03 179/102 H 07/05/20 09:02 74 07/05/20 07:46 99.0 F 74 20 182/93 H 99 07/05/20 04:30 98.8 F 74 16 143/83 H 97 07/05/20 01:00 99 F 80 16 163/87 H 98 Weight Weight 139 lb 15.896 oz I&O: 07/04/20 07/05/20 07/06/20 06:59 06:59 06:59 Intake Total 600 720 Output Total 1800 1290 Balance -1200 -570 Result Diagrams: 07/04/20 04:07 07/05/20 06:58 Additional Labs: Accuchecks 07/05/20 07/05/20 07/05/20 11:52 08:30 04:34 POC Glucose 260 H 138 H 125 H 07/05/20 07/04/20 07/04/20 01:09 21:49 20:41 POC Glucose 179 H 103 H 56 L* 07/04/20 07/04/20 16:45 13:44 POC Glucose 232 H 256 H Hospitalist ROS - Medication Medications: Active Medications Generic Name Dose Route Start Last Admin Trade Name Freq PRN Reason Stop Dose Admin Acetaminophen 650 mg 07/02/20 14:45 07/05/20 07:04 Acetaminophen 325 Mg Tab PO 650 mg Q4H PRN Administration Headache/Fever/Mild Pain (1-3) Hydrocodone Bitart/Acetaminophen 1 tab 07/02/20 14:47 07/05/20 09:00 Hydrocodone/Acetaminophen 10/325 Mg Tablet PO 1 tab Q8H PRN Administration Moderate Pain (4-6) Lipase/Protease/Amylase 1 cap 07/02/20 17:00 07/05/20 12:[address] 12,000 1 Cap PO 1 cap TID-WM JULIA Administration Hydralazine HCl 75 mg 07/05/20 09:00 07/05/20 09:02 Hydralazine 25 Mg Tab PO 75 mg BID JULIA Administration Insulin Human Lispro 0 units 07/02/20 14:51 07/05/20 12:11 Humalog 300 Units/3 Ml Vial SC 4 unit .MILD SLIDING SCALE PRN Administration Mild Correctional Scale Insulin Human Lispro 0 units 07/02/20 22:04 07/04/20 00:04 Humalog 300 Units/3 Ml Vial SC 2 unit .BEDTIME SLIDING SC PRN Administration Bedtime Correctional Scale Insulin Human NPH 5 unit 07/05/20 09:00 07/05/20 09:25 Nph, Human Insulin Isophane 300 Unit/3 Ml Vial SC 5 unit DAILY JULIA Administration Lisinopril 40 mg 07/04/20 09:00 07/05/20 09:03 Lisinopril 20 Mg Tab PO 40 mg DAILY JULIA Administration Metoclopramide HCl 10 mg 07/02/20 15:00 07/05/20 10:04 Metoclopramide Hcl 10 Mg Tab PO 10 mg TID JULIA Administration Metoprolol Succinate 50 mg 07/02/20 21:00 07/05/20 09:04 Metoprolol Succinate Xl 50 Mg Tab PO 50 mg BID JULIA Administration Ondansetron HCl 4 mg 07/03/20 17:56 07/03/20 18:32 Ondansetron Pf 4 Mg/2 Ml Vial IVP 4 mg Q8H PRN Administration Nausea/Vomiting Pregabalin 50 mg 07/02/20 21:00 07/05/20 09:02 Pregabalin 50 Mg Cap PO 50 mg BID JULIA Administration Sodium Chloride 10 ml 07/04/20 09:00 07/05/20 09:04 Flush - Normal Saline 10 Ml Syringe IVF Not Given Q12HR JULIA - Exam General Appearance: NAD, awake alert Eye: anicteric sclera ENT: normocephalic atraumatic Neck: supple Heart: RRR, no murmur, no gallops, no rubs Respiratory: CTAB, no wheezes, no rales, no ronchi Extremities: no clubbing, no edema Neurological: cranial nerve grossly intact Psychiatric: normal affect, normal behavior, lethargic Hosp A/P (1) Metabolic encephalopathy Code(s): G93.41 - METABOLIC ENCEPHALOPATHY Status: Acute (2) Hypertensive emergency Code(s): I16.1 - HYPERTENSIVE EMERGENCY Status: Acute (3) Hypoglycemia Code(s): E16.2 - HYPOGLYCEMIA, UNSPECIFIED Status: Acute (4) Anemia Code(s): D64.9 - ANEMIA, UNSPECIFIED Status: Acute (5) CKD (chronic kidney disease), stage III Code(s): N18.3 - CHRONIC KIDNEY DISEASE, STAGE 3 (MODERATE) * DO NOT USE * Status: Chronic (6) DM type 2 (diabetes mellitus, type 2) Status: Chronic - Plan Assessment Patient is a 50-year-old -[place] female with past medical history of brittle diabetes and prior admissions for severe hypoglycemia, with her last admission complicated by cardiac arrest 1 month ago. She was brought into the ER by EMS this time after they were called by her daughter, who could not wake up the patient. She was unresponsive. Assessment by EMS revealed she was severely hypoglycemic with blood glucose in the 30s. Of note, patient had just been seen in the ER the day before for hypoglycemia, and was discharged. During this admission, CT head was significant for lacunar infarct. Her blood pressure was elevated with SBP of 215. She was also placed on dextrose infusion for hypoglycemia. Her infusion has been discontinued due to hyperglycemia. Patient told me today that her hypoglycemic episodes were usually early mornings between midnight and 6 AM. Her A1c is 7.0. I am reluctant to start oral diabetic medications since she has a history of Whipple procedure, which may affect her ability to secrete endogenous insulin. Therefore, she is going need to be on some type of insulin but without a lingering effect in the evening time. I chose morning NPH because it intermediate acting instead of long- acting, and if she were to have a complication with hypoglycemia, at least it will be early enough during the day and she will be awake enough and able to address it. Metabolic encephalopathy Severe hypoglycemia -on admission Uncontrolled type 2 diabetes mellitus with severe hyperglycemia -hemoglobin A1c of 7 Uncontrolled HTN CVA -lacunar infarct on CT scan Chest pain and back pain Hypomagnesemia Plan: Lower NPH to 5 units daily. Continue insulin sliding scale I will keep her an additional day to see if she will need more titration of her NPH insulin Monitor blood glucose AC and at bedtime She is followed up at [facility] for her diabetes. She is not sure if her provider is an joist setter I discontinue Norvasc in the setting of periorbital edema and bilateral lower extremity edema Instead, I will place her on VIRGEN-i and hydralazine, which increased to 75 mg 3 times daily Continue metoprolol I am holding diuretics due to Cr bump She needs good BP control given hx of lacunar infarct on CT Patient can be discharged tomorrow if she has no hypoglycemic events over the next 24 hours
[2020-07-05] MEDS: Lidocaine 5% Patch TD SCH (14:39)
[2020-07-05] MEDS ORDERED: Furosemide 40 MG TAB PO SCH (19:30)
[2020-07-06] MEDS: HYDROcodone/Acetaminophen 10/325 mg Tablet PO PRN ×2 (00:29→08:32)
[2020-07-06] MEDS: HumaLOG 300 UNITS/3 ML VIAL SC PRN ×4 (00:30→17:00)
[2020-07-06] MEDS ORDERED: Lidocaine Patch Removal 1 EACH TOP SCH (01:00)
[2020-07-06] MEDS ORDERED: Furosemide 40 MG TAB PO SCH (07:30)
[2020-07-06] MEDS: Pregabalin 50 MG CAP PO SCH (08:24)
[2020-07-06] MEDS: Lisinopril 20 MG TAB PO SCH (08:25)
[2020-07-06] MEDS: Metoclopramide HCl 10 MG TAB PO SCH ×2 (08:26→15:33)
[2020-07-06] MEDS: hydrALAZINE 25 MG TAB PO SCH (08:26)
[2020-07-06] MEDS: NPH, Human Insulin Isophane 300 UNIT/3 ML VIAL SC SCH (08:27)
[2020-07-06] MEDS: Pancrelipase DR 12,000 1 CAP PO SCH ×3 (08:50→16:55)
[2020-07-06] MEDS: Lidocaine 5% Patch TD SCH (12:27)
[2020-07-06 15:06] LABS: #Lymphocytes 1.3 thou/uL (1.20-3.40); #Monocytes 0.6 thou/uL (0.11-0.59); #Neutrophils 5.1 thou/uL (1.40-6.50); %Basophils 0.4 % (0.0-1.0); %Eosinophils 0.7 % (0.0-10.0); %Lymphocytes 18.8 % (21.0-51.0); %Monocytes 8.8 % (0.0-10.0); %Neutrophils 71.4 % (42.0-75.0); Hemoglobin 9.6 g/dL (12.0-16.0); Mean Corpuscular HGB CONC 32.4 g/dL (32.0-36.0); Mean Corpuscular Hemoglobin 33.8 pg (27.0-31.0); Mean Platelet Volume 9.4 fL (7.4-10.4); Platelet Count 228 thou/uL (130-400); RBC Distribution Width 15.1 % (11.5-14.5); Red Blood Cell (RBC) Count 2.84 mill/uL (4.20-5.40); White Blood Cell (WBC) Count 7.1 thou/uL (4.8-10.8)
--- NOTE | 2020-07-06 16:58 | MRI ---
MR of the abdomen with and without contrast INDICATION: History of pancreatic mass removal in 2007 with hypoglycemia Comparison: Prior CT abdomen and pelvis without contrast dated June 14, [address] the abdomen with contrast dated May 22, 2020. Contrast: 12 mL of MultiHance FINDINGS: Motion artifact limits image detail of the exam. There is a small left pleural effusion and left basilar atelectasis. The pancreatic parenchyma is largely atrophy which may reflect sequela of prior pancreatitis. No visi ble focal pancreatic lesion is evident within limitation exam. There is some postsurgical change of a prior gastric bypass. Gallbladder surgically absent. No focal hepatic lesion is evident. There are small cysts involving the right and left kidney. Visualized adrenal glands are normal appearing. Spleen is normal-appearing. No free fluid or enlarged lymph nodes are evident. No definite marrow sig nal abnormality is demonstrated. IMPRESSION: 1. No suspicious focal abnormality seen involving the pancreas with the limitation exam. The pancreat ic parenchyma is partially atrophied which may reflect sequela of chronic pancreatitis. 2. Small left pleural effusion. Transcribed Date/Time: 07/06/2020 5:10 PM
[2020-07-06 17:19] VITALS: BP 162/92; TEMP 99.8
--- NOTE | 2020-07-06 18:36 | RAD ---
RIGHT ELBOW FOUR VIEWS: 07/06/20 HISTORY: Elbow pain. There is some mild arthritic changes present. There is no joint effusion or fracture. IMPRESSION: No acute injury. POS: OFF
--- NOTE | 2020-07-06 18:38 | RAD ---
RIGHT WRIST THREE VIEWS: 07/06/20 HISTORY: Right wrist pain. There are arthritic changes of the wrist. There is some mild changes of the first carpometacarpal billie nt space and triscaphe joint. There is no signs of fracture. Bones appear slightly demineralized. Jerry e cystic change along the ulnar side of the lunate bone and some changes of the capitate. IMPRESSION: Mild arthritic change of the wrist. POS: OFF
--- NOTE | 2020-07-06 18:59 | PDOC.DS.DS ---
Provider - Provider Date of Admission: 07/02/20 10:30 Date of Discharge: 07/06/20 Admitting Provider: Znaa Ramirez MD Primary Care Physician: Werner Gray MD Course - Hospital Course Hospital Course: Patient is a 50-year-old female with history of diabetes patient presented to the hospital with change in mental status. She had a recent episode earlier this year and was found to be in D. Patient was noted to have a hemoglobin A1c of 7. She has been using long-acting insulin in addition to her NPH. She has a history of Whipple's procedure she stated that her mass on the pancreas was benign. She had a abdominal MRI with contrast that indicated a partially atrophy pancreas. I did speak with the patient's daughter Rosalva and explained to her that given her low hemoglobin A1c she needs to not take the long-acting insulin. I did put her on Metformin XR. I did explain to the patient that she can take half in the morning and half in the evening until she gets used to it however Metformin XR should not give her diarrhea. I also recommended to follow-up with her pet care worker given this change. States that at times when she is alone she does not eat very much however here she has been eating without any problems. Patient states that she has overall lost weight over the past 2 years. I believe she does not require insulin however given her history of Whipple's procedure I believe she will require to follow-up with endocrinology. However for the past couple times she has been coming in with DKA. I have asked the patient to check her blood sugar 3-4 times a day and take her sliding scale as needed. I explained this to the patient and the patient's daughter extensively. Recommended to write down her blood sugars and take it to her primary care and endocrinology. I told her to take short acting insulin only if she eats a good meal.Patient is a 50-year-old Resuscitation Status: 07/02/20 14:45 Resuscitation Status Routine Resuscitation Status: FULL: Full Resuscitation - Labs Lab Results: 07/06/20 14:46 07/05/20 06:58 Abnormal Lab Results - Last 48 hrs 07/06/20 14:46: RBC 2.84 L, Hgb 9.6 L, Hct 29.6 L, MCV 104.0 H, MCH 33.8 H, RDW 15.1 H, Lymphocytes % 18.8 L, Monocytes # 0.6 H - Physical Exam Vitals: Vital Signs (12 hours) Temp Pulse Resp BP BP Pulse Ox 07/06/20 16:55 99.8 F H 84 18 162/92 H 100 07/06/20 12:00 99.4 F 89 20 122/78 98 07/06/20 08:35 185/96 H 07/06/20 08:10 98.9 F 84 20 227/115 H 97 Weight Weight 139 lb 15.896 oz Physical Exam: The patient was seen and examined on the day of discharge. Plan - Discharge Medications Prescriptions: metFORMIN XR [Glucophage XR] 500 mg PO QAM #30 tab Home Medications: Medication Instructions Recorded Confirmed Type Amlodipine Besylate [amLODIPine 10 mg PO DAILY 01/29/19 07/02/20 History Besylate] Lipase/Protease/Amylase [Creon DR 1 capsule PO TID-WM 01/29/19 07/02/20 History 12,000 Units] Methocarbamol 500 mg PO Q8HR PRN 01/15/20 07/02/20 History Pregabalin 50 mg PO BID 01/15/20 07/02/20 History Cyanocobalamin (Vitamin B-12) 5,000 mcg PO DAILY 05/23/20 07/02/20 History [Vitamin B-12 Oral Solution] HYDROcodone/Acetaminophen 1 tablet PO Q8HR PRN 05/23/20 07/02/20 History [Hydrocodone-Acetamin 10-325 mg] Metoclopramide HCl [Reglan] 10 mg PO TID 15 Days #45 tab 05/26/20 07/02/20 Rx Metoprolol Succinate [Toprol XL] 50 mg PO BID #60 tab 06/25/20 07/02/20 Rx Acetaminophen [Tylenol Extra 1,000 mg PO Q6HR PRN 07/02/20 07/02/20 History Strength] Lisinopril 40 mg PO QAM-WM 07/02/20 07/02/20 History HumaLOG [HumaLOG Vial] 0 unit SC TID- PRN #0 07/06/20 07/02/20 Rx metFORMIN XR [Glucophage XR] 500 mg PO QAM #30 tab 07/06/20 Rx Allergies: morphine Allergy (Intermediate, Verified 07/02/20 16:36) Rash - Discharge Instructions Discharge Instructions:: Please do not take long-acting insulin You need to follow-up with your pet care worker. Please check your blood sugars 3 times a day and take it to your pet care worker. If you eat a big meal you may take your short acting insulin. - Follow up Plan Referrals: Werner Gray MD [Primary Care Provider] - Disposition: HOME Quality - Care Measures CORE MEASURES:: N/A
--- NOTE | 2020-07-23 21:01 | EKG ---
Test Reason : Blood Pressure : / mmHG Vent. Rate : 074 BPM Atrial Rate : 074 BPM P-R Int : 130 ms QRS Dur : 076 ms QT Int : 416 ms P-R-T Axes : 073 -21 -40 degrees QTc Int : 461 ms Normal sinus rhythm Possible Left atrial enlargement Septal infarct , age undetermined T wave abnormality, consider inferior ischemia Abnormal ECG No change Confirmed by DARIUS THRASHER ([id number]), solution analyst ROSEMARIE MARX ([id number]) on 07/23/2020 9:01:02 PM Referred By: Confirmed By:DARIUS THRASHER
== END 2020-07-06 18:45 | disposition home or self-care (01) | DRG 637 ==
LOC: ERS 06:10 → 3SE 10:30
PROVIDERS: ADMIT Internal Medicine; ATTEND Internal Medicine
DX: E11.649 Type 2 diabetes mellitus with hypoglycemia without coma (principal); G93.41 Metabolic encephalopathy; F11.20 Opioid dependence, uncomplicated; I16.1 Hypertensive emergency; Z20.822 Contact with and (suspected) exposure to COVID-19; K86.89 Other specified diseases of pancreas; R10.9 Unspecified abdominal pain; G89.29 Other chronic pain; T68.XXXA Hypothermia, initial encounter; I16.0 Hypertensive urgency; E11.22 Type 2 diabetes mellitus with diabetic chronic kidney disease; I10 Essential (primary) hypertension; D63.1 Anemia in chronic kidney disease; E11.65 Type 2 diabetes mellitus with hyperglycemia; E83.42 Hypomagnesemia; Z88.5 Allergy status to narcotic agent; Z90.49 Acquired absence of other specified parts of digestive tract; Z79.899 Other long term (current) drug therapy; Z86.73 Personal history of transient ischemic attack (TIA), and cerebral infarction without residual deficits; Z79.4 Long term (current) use of insulin; R07.9 Chest pain, unspecified
CPT/HCPCS: 0240U; 36415; 36416; 51701; 70450; 71045; 74183; 80048; 80053; 80061; 80306; 80307; 81003; 81015; 82140; 82550; 83036; 83690; 83735; 84443; 84484; 85025; 90471; 90662; 90732; 93005; 94760; 96374; 96375; G0008; G0009; J1815; J2405; J3475; J7050

== ENCOUNTER 2020-07-18 14:20 | Inpatient (IN) | payer MEDICARE, MEDICAID ==
[2020-07-18 14:54] LABS: Bacteria/HPF None Seen HPF (None Seen); Bilirubin Negative (Negative); Blood, Urine Negative (Negative); Clarity Clear (Clear); Glucose, Urine (Dipstick) Greater than 1000 mg/dL (Negative); Ketone, Urine 10 mg/dL (Negative); Leukocyte 25 Leu/uL (Negative); Nitrite Negative (Negative); Protein, Urine (Dipstick) Negative (Neg-Trace); RBC/HPF 0-3 HPF (0-3); Specific Gravity, Urine 1.027 (1.002-1.036); Squamous Epithelial 0-3 HPF (0-3); Urobilinogen Normal mg/dL (Less than 2); WBC/HPF 0-3 HPF (0-3); Yeast-Budding Rare HPF (None Seen)
[2020-07-18 15:09] LABS: #Lymphocytes 0.7 thou/uL (1.20-3.40); #Monocytes 0.3 thou/uL (0.11-0.59); %Basophils 0.2 % (0.0-1.0); %Eosinophils 0.2 % (0.0-10.0); %Lymphocytes 9.1 % (21.0-51.0); %Monocytes 3.3 % (0.0-10.0); %Neutrophils 87.2 % (42.0-75.0); Hemoglobin 11.6 g/dL (12.0-16.0); Mean Corpuscular HGB CONC 31.3 g/dL (32.0-36.0); Mean Corpuscular Hemoglobin 33.8 pg (27.0-31.0); Mean Platelet Volume 9.7 fL (7.4-10.4); Platelet Count 196 thou/uL (130-400); RBC Distribution Width 14.9 % (11.5-14.5); Red Blood Cell (RBC) Count 3.44 mill/uL (4.20-5.40)
[2020-07-18 15:25] LABS: ALT (SGPT) 32 U/L (8-55); AST (SGOT) 45 U/L (5-34); Albumin 3.6 g/dL (3.5-5.0); Alkaline Phosphatase 125 U/L (40-110); Anion Gap 19 mmol/L (10-20); BUN (Urea Nitrogen) 17 mg/dL (7.0-18.7); Bilirubin, Total 0.8 mg/dL (0.2-1.2); Calc. Creatinine Clearance 0 mL/min (70-130); Calcium 8.2 mg/dL (7.8-10.44); Carbon Dioxide 17 mmol/L (22-29); Chloride 98 mmol/L (98-107); Globulin 3.5 g/dL (2.4-3.5); Potassium 4.1 mmol/L (3.5-5.1); Protein, Total 7.1 g/dL (6.0-8.3); Sodium 130 mmol/L (136-145)
[2020-07-18 15:31] LABS: Hypochromia SLIGHT = 6-15 cells (100X) (0-5/hpf); MDiff Complete? YES; Macrocytosis SLIGHT = 6-15 cells (100X) (0-5/hpf); Platelet Morphology Comment Appears Adequate; Polychromasia SLIGHT = 2-3 cells (100X) (0-2/hpf); Target Cells SLIGHT = 2-5 cells (100X) (0-1/hpf)
[2020-07-18 15:36] LABS: Glucose 756 mg/dL (70-105)
[2020-07-18 15:45] LABS: Base Excess-Venous -7.6 mmol/L (-2.0 to 3.0); Bicarbonate (HCO3v) 16.9 mmol/L (22.0-28.0); Calcium, Ionized 0.94 mmol/L (1.15-1.33); Chloride 102 mmol/L (98-107); Hemoglobin - Calc 12.9 g/dL (12.0-16.0); Potassium 4.2 mmol/L (3.5-5.1); Sodium 131 mmol/L (138-145); T. Carbon Dioxide 17.9 mmol/L (22.0-28.0); vO2 Saturation-calc 99.6 % (60.0-85.0)
[2020-07-18 16:05] LABS: Magnesium 1.7 mg/dL (1.6-2.6); Phosphorus 4.3 mg/dL (2.3-4.7)
[2020-07-18] MEDS ORDERED: INSULIN REGULAR IN 0.9 % NACL 100 UNIT/100 ML BAG ONE (16:54)
[2020-07-18 20:05] LABS: Glucose 768 mg/dL (70-105)
[2020-07-18 20:17] LABS: SARS-CoV-2 NAA Rapid Test Not Detected (NotDetected)
[2020-07-18] MEDS ORDERED: D5 1/2 NS w/20 mEq KCL 1,000 ML IV PRN (21:52)
[2020-07-18] MEDS ORDERED: Sodium Chloride 0.9% 1,000 ML IV PRN ×4 (21:52)
[2020-07-18] MEDS ORDERED: Electrolyte Replacement Protocol 1 EACH IVPB PRN (21:52)
[2020-07-18] MEDS ORDERED: Dextrose 5 %-0.45 % NaCl 1,000 ML IV PRN (21:52)
[2020-07-18] MEDS ORDERED: NS 0.9% w/ 20 MEQ KCL 1,000 ML IV PRN (21:52)
[2020-07-18] MEDS ORDERED: HUMULIN R 100 UNITS in Sodium Chloride 0.9% 100 ML IVPB SCH (22:00)
--- NOTE | 2020-07-18 22:12 | PDOC.HHP ---
Hospitalist HPI Hyperglycemia History of Present Illness: This is a 50-year-old female patient with a history of with a history of di abetes mellitus, hypertension and CKD who presents today on account of hypoglycemia. Of note she was also recently admitted on 07/02/2017 and discharged about 2 weeks ago at which time she was managed for altered mental status with hypoglycemia. Her diabetes is extremely brittle and she suffers extremely low and high blood glucose quite easily. On her last discharge she was instructed to stay on correctional insulin given her extremely brittle blood sugars and to hold of long-acting insulin until she saw her practice managers. It appears she has not had her endocrinology review yet however her blood sugars have been fluctuating 9 with persistent high glucose over the past few days her family encouraged her to come to the ED for further evaluation. She denied any associated fevers chills shortness of breath or loss of consciousness. At presentation her blood pressure was 130/82, pulse 92, temperature 98.0, saturation 97% on room air. Labs showed sodium of 130, creatinine of 1.69, bicarb 17 and glucose of 756. ABG however showed pH of 7.34 with P CO2 of 31 and PO2 of 183. CBC had WBC 8.0, hemoglobin 11.6 and platelet count of 196. Beta hydroxybutyrate acid was 3.16. Anion gap was 15 She was started on IV normal saline and DKA/hyper glycemic hyperosmolar state protocol. Hospitalist team was consulted to admit. Allergies/Adverse Reactions: Allergy/AdvReac Type Severity Reaction Status Date / Time morphine Allergy Intermediate Rash Verified 07/02/20 16:36 Home Medications: Medication Instructions Recorded Confirmed Type Amlodipine Besylate [amLODIPine 10 mg PO DAILY 01/29/19 07/02/20 History Besylate] Lipase/Protease/Amylase [Creon DR 1 capsule PO TID-WM 01/29/19 07/02/20 History 12,000 Units] Methocarbamol 500 mg PO Q8HR PRN 01/15/20 07/02/20 History Pregabalin 50 mg PO BID 01/15/20 07/02/20 History Cyanocobalamin (Vitamin B-12) 5,000 mcg PO DAILY 05/23/20 07/02/20 History [Vitamin B-12 Oral Solution] HYDROcodone/Acetaminophen 1 tablet PO Q8HR PRN 05/23/20 07/02/20 History [Hydrocodone-Acetamin 10-325 mg] Metoclopramide HCl [Reglan] 10 mg PO TID 15 Days #45 tab 05/26/20 07/02/20 Rx Metoprolol Succinate [Toprol XL] 50 mg PO BID #60 tab 06/25/20 07/02/20 Rx Acetaminophen [Tylenol Extra 1,000 mg PO Q6HR PRN 07/02/20 07/02/20 History Strength] Lisinopril 40 mg PO QAM-WM 07/02/20 07/02/20 History HumaLOG [HumaLOG Vial] 0 unit SC TID-WM PRN #0 07/06/20 07/02/20 Rx metFORMIN XR [Glucophage XR] 500 mg PO QAM #30 tab 07/06/20 Rx Past History: PMHx: PSHx: FHx: Social: Hospitalist HPI ROS Constitutional: reports: weakness, malaise. denies: fever, chills, sweats Respiratory: denies: cough, shortness of breath, hemoptysis Cardiovascular: denies: chest pain Gastrointestinal: denies: nausea, vomiting, abdominal pain, diarrhea Neurological: denies: weakness, numbness, incoordination, change in speech All other systems reviewed; all pertinent +/- noted in HPI/Subj Hospitalist Exam General Appearance: awake alert General - other findings: No acute distress Eye: PERRL, anicteric sclera Respiratory: CTAB, no wheezes, no rales, no ronchi Gastrointestinal: soft, non-tender, non-distended, normal bowel sounds Extremities: no cyanosis, no clubbing, no edema Neurological: cranial nerve grossly intact, no weakness, no focal deficits Psychiatric: normal affect, normal behavior, A&O x 3 Hospitalist Results Result Diagrams: 07/18/20 14:47 07/18/20 23:35 Lab results: Laboratory Last Values WBC 8.0 thou/uL (4.8-10.8) 07/18/20 14:47 RBC 3.44 mill/uL (4.20-5.40) L 07/18/20 14:47 Hgb 11.6 g/dL (12.0-16.0) L 07/18/20 14:47 Hct 37.2 % (36.0-47.0) 07/18/20 14:47 POC Venous Hct 38.0 % (36.0-47.0) 07/18/20 15:41 MCV 108.0 fL (78.0-98.0) H 07/18/20 14:47 MCH 33.8 pg (27.0-31.0) H 07/18/20 14:47 MCHC 31.3 g/dL (32.0-36.0) L 07/18/20 14:47 RDW 14.9 % (11.5-14.5) H 07/18/20 14:47 Plt Count 196 thou/uL (130-400) 07/18/20 14:47 MPV 9.7 fL (7.4-10.4) 07/18/20 14:47 Neutrophils % 87.2 % (42.0-75.0) H 07/18/20 14:47 Neutrophils % (Manual) Not Reportable 07/18/20 14:47 Lymphocytes % 9.1 % (21.0-51.0) L 07/18/20 14:47 Monocytes % 3.3 % (0.0-10.0) 07/18/20 14:47 Eosinophils % 0.2 % (0.0-10.0) 07/18/20 14:47 Basophils % 0.2 % (0.0-1.0) 07/18/20 14:47 Neutrophils # 7.0 thou/uL (1.40-6.50) H 07/18/20 14:47 Lymphocytes # 0.7 thou/uL (1.20-3.40) L 07/18/20 14:47 Monocytes # 0.3 thou/uL (0.11-0.59) 07/18/20 14:47 Eosinophils # 0.0 thou/uL (0.0-0.7) 07/18/20 14:47 Basophils # 0.0 thou/uL (0.0-0.2) 07/18/20 14:47 Hypochromia SLIGHT = 6-15 cells (100X) (0-5/hpf) 07/18/20 14:47 Plt Morphology Comment Appears Adequate 07/18/20 14:47 Polychromasia SLIGHT = 2-3 cells (100X) (0-2/hpf) 07/18/20 14:47 Macrocytosis SLIGHT = 6-15 cells (100X) (0-5/hpf) 07/18/20 14:47 Target Cells SLIGHT = 2-5 cells (100X) (0-1/hpf) 07/18/20 14:47 POC Bicarbonate Calc 16.9 mmol/L (22.0-28.0) L 07/18/20 15:41 POC VBG pH 7.345 (7.320-7.430) 07/18/20 15:41 VBG pCO2 31.0 mmHg (40.0-50.0) L 07/18/20 15:41 VBG pO2 183.8 mmHg (35.0-45.0) H 07/18/20 15:41 POC VBG CO2 (Calc) 17.9 mmol/L (22.0-28.0) L 07/18/20 15:41 POC VBG O2 Sat (Calc) 99.6 % (60.0-85.0) H 07/18/20 15:41 POC VBG Base Excess -7.6 mmol/L (-2.0 to 3.0) L 07/18/20 15:41 POC VBG Hemoglobin Calc 12.9 g/dL (12.0-16.0) 07/18/20 15:41 POC Venous Sodium 131 mmol/L (138-145) L 07/18/20 15:41 Sodium 130 mmol/L (136-145) L 07/18/20 14:47 POC Venous Potassium 4.2 mmol/L (3.5-5.1) 07/18/20 15:41 Potassium 4.1 mmol/L (3.5-5.1) 07/18/20 14:47 POC Venous Chloride 102 mmol/L (98-107) 07/18/20 15:41 Chloride 98 mmol/L (98-107) 07/18/20 14:47 Carbon Dioxide 17 mmol/L (22-29) L 07/18/20 14:47 Anion Gap 19 mmol/L (10-20) 07/18/20 14:47 POC Jacobo Anion Gap Calc 16 mmol/L (10-20) 07/18/20 15:41 BUN 17 mg/dL (7.0-18.7) 07/18/20 14:47 Creatinine 1.69 mg/dL (0.6-1.1) H 07/18/20 14:47 Estimated GFR (MDRD) 39 07/18/20 14:47 Glucose 768 mg/dL (70-105) H* 07/18/20 19:30 Calcium 8.2 mg/dL (7.8-10.44) 07/18/20 14:47 POC Venous Ion Calcium 0.94 mmol/L (1.15-1.33) L 07/18/20 15:41 Phosphorus 4.3 mg/dL (2.3-4.7) 07/18/20 14:47 Magnesium 1.7 mg/dL (1.6-2.6) 07/18/20 14:47 Total Bilirubin 0.8 mg/dL (0.2-1.2) 07/18/20 14:47 AST 45 U/L (5-34) H 07/18/20 14:47 ALT 32 U/L (8-55) 07/18/20 14:47 Alkaline Phosphatase 125 U/L (40-110) H 07/18/20 14:47 Serum Total Protein 7.1 g/dL (6.0-8.3) 07/18/20 14:47 Albumin 3.6 g/dL (3.5-5.0) 07/18/20 14:47 Globulin 3.5 g/dL (2.4-3.5) 07/18/20 14:47 Albumin/Globulin Ratio 1.0 g/dL (1.2-2.2) L 07/18/20 14:47 Urine Color Colorless (Yellow) 07/18/20 14:26 Urine Clarity Clear (Clear) 07/18/20 14:26 Urine pH 6.0 (5.0-9.0) 07/18/20 14:26 Ur Specific [place] 1.027 (1.002-1.036) 07/18/20 14:26 Urine Protein Negative mg/dL (Neg-Trace) 07/18/20 14:26 Urine Glucose (UA) Greater than 1000 mg/dL (Negative) A 07/18/20 14:26 Urine Ketones 10 mg/dL (Negative) A 07/18/20 14:26 Urine Blood Negative (Negative) 07/18/20 14:26 Urine Nitrite Negative (Negative) 07/18/20 14:26 Urine Bilirubin Negative (Negative) 07/18/20 14:26 Urine Urobilinogen Normal mg/dL (Less than 2) 07/18/20 14:26 Ur Leukocyte Esterase 25 Joan/uL (Negative) A 07/18/20 14:26 Urine RBC 0-3 HPF (0-3) 07/18/20 14:26 Urine WBC 0-3 HPF (0-3) 07/18/20 14:26 Ur Squamous Epith Cells 0-3 HPF (0-3) 07/18/20 14:26 Urine Bacteria None Seen HPF (None Seen) 07/18/20 14:26 Urine Yeast (Budding) Rare HPF (None Seen) A 07/18/20 14:26 B-Hydroxybutyrate 3.16 mmol/L (0.02-0.27) H 07/18/20 14:48 SARS-CoV-2 Rap RNA(RT-PCR) Not Detected (NotDetected) 07/18/20 19:06 Hospitalist H&P A/P Plan: This is a 50-year-old female patient with a history of diabetes mellitus and hypertension who was recently discharged presenting again with hyperglycemia likely hyperosmolar hyperglycemic state Hyperosmolar hyperglycemic state/mild DKA Anion gap is 15 and she is not acidotic. Likely due to insulin regimen On DKA protocolwe will continue Monitor in IMCU Transition in a.m. Diabetes mellitus Treat as for DKA for now Consider gradual introduction of long-acting insulin Encourage early endocrinology follow-up on discharge. Hypertension Resume blood pressure medications once verified. Chronic pain As needed pain medications. SURESH Creatinine 1.69 from a baseline0.89likely prerenal Continue IV fluids Monitor BMP Hyponatremia Potassium is 130 however this likely secondary to hypoglycemia Treat as DKA above Monitor BM P VT prophylaxisLovenox CODE STATUSfull code
[2020-07-18 22:28] LABS: Anion Gap 19 mmol/L (10-20); BUN (Urea Nitrogen) 15 mg/dL (7.0-18.7); Calc. Creatinine Clearance 0 mL/min (70-130); Calcium 7.9 mg/dL (7.8-10.44); Carbon Dioxide 16 mmol/L (22-29); Chloride 103 mmol/L (98-107); Potassium 3.3 mmol/L (3.5-5.1); Sodium 135 mmol/L (136-145)
[2020-07-18 22:35] LABS: Glucose 574 mg/dL (70-105)
[2020-07-18] MEDS: NS 0.9% w/ 20 MEQ KCL 1,000 ML IV PRN (22:53)
[2020-07-19] LABS: Anion Gap 15 mmol/L (10-20); BUN (Urea Nitrogen) 16 mg/dL (7.0-18.7); Calc. Creatinine Clearance 0 mL/min (70-130); Calcium 7.8 mg/dL (7.8-10.44); Carbon Dioxide 19 mmol/L (22-29); Chloride 107 mmol/L (98-107); Glucose 363 mg/dL (70-105); Sodium 138 mmol/L (136-145)
[2020-07-19] MEDS ORDERED: Potassium Chloride 20 MEQ TAB ONE (00:23)
[2020-07-19 00:28] VITALS: BMI 23.3
[2020-07-19] MEDS ORDERED: Potassium Chloride 20 MEQ TAB PO SCH (00:30)
[2020-07-19] MEDS ORDERED: Electrolyte Replacement Protocol 1 EACH FS SCH (00:30)
[2020-07-19] MEDS: NS 0.9% w/ 20 MEQ KCL 1,000 ML IV PRN (01:27)
[2020-07-19] MEDS ORDERED: HYDROcodone/Acetaminophen 10/325 mg Tablet ONE ×3 (01:34→10:17)
[2020-07-19] MEDS: HYDROcodone/Acetaminophen 10/325 mg Tablet PO PRN ×3 (01:39→18:50)
[2020-07-19 04:02] LABS: #Basophils 0.1 thou/uL (0.0-0.2); #Eosinphils 0.1 thou/uL (0.0-0.7); #Monocytes 0.5 thou/uL (0.11-0.59); #Neutrophils 4.6 thou/uL (1.40-6.50); %Eosinophils 0.9 % (0.0-10.0); %Lymphocytes 16.8 % (21.0-51.0); %Monocytes 7.2 % (0.0-10.0); %Neutrophils 74.1 % (42.0-75.0); Hemoglobin 9.1 g/dL (12.0-16.0); Mean Corpuscular HGB CONC 32.8 g/dL (32.0-36.0); Mean Corpuscular Hemoglobin 33.5 pg (27.0-31.0); Mean Platelet Volume 8.3 fL (7.4-10.4); Platelet Count 203 thou/uL (130-400); RBC Distribution Width 14.8 % (11.5-14.5); Red Blood Cell (RBC) Count 2.71 mill/uL (4.20-5.40); White Blood Cell (WBC) Count 6.2 thou/uL (4.8-10.8)
[2020-07-19 04:37] LABS: Anion Gap 14 mmol/L (10-20); BUN (Urea Nitrogen) 13 mg/dL (7.0-18.7); Calc. Creatinine Clearance 70 mL/min (70-130); Calcium 7.5 mg/dL (7.8-10.44); Carbon Dioxide 18 mmol/L (22-29); Chloride 109 mmol/L (98-107); Glucose 357 mg/dL (70-105); Potassium 4.6 mmol/L (3.5-5.1); Sodium 136 mmol/L (136-145)
[2020-07-19 06:34] LABS: Anion Gap 14 mmol/L (10-20); BUN (Urea Nitrogen) 12 mg/dL (7.0-18.7); Calc. Creatinine Clearance 67 mL/min (70-130); Calcium 7.6 mg/dL (7.8-10.44); Carbon Dioxide 18 mmol/L (22-29); Chloride 110 mmol/L (98-107); Glucose 408 mg/dL (70-105); Potassium 4.2 mmol/L (3.5-5.1); Sodium 138 mmol/L (136-145)
[2020-07-19] MEDS ORDERED: Magnesium 2 GM/50 ML 2 GM in Premix Bag 1 BAG IVPB SCH (06:45)
[2020-07-19] MEDS ORDERED: Magnesium 2 GM/50 ML BAG (IN WATER) ONE (07:26)
[2020-07-19] MEDS ORDERED: Enoxaparin Sodium 40 MG/0.4 ML SYRINGE ONE (08:52)
[2020-07-19] MEDS ORDERED: Enoxaparin Sodium 40 MG/0.4 ML SYRINGE SC SCH (09:00)
[2020-07-19] MEDS ORDERED: Dextrose 5% in Water 1,000 ML IV PRN (09:35)
[2020-07-19] MEDS ORDERED: Dextrose 50% Abboject 50 ML SYRINGE SLOW IVP PRN (09:35)
[2020-07-19] MEDS ORDERED: Insulin Glargine 10 UNITS in Pre-Filled Syringe 1 EACH SC SCH (09:45)
[2020-07-19 10:38] LABS: Anion Gap 15 mmol/L (10-20); BUN (Urea Nitrogen) 11 mg/dL (7.0-18.7); Calc. Creatinine Clearance 74 mL/min (70-130); Calcium 8.3 mg/dL (7.8-10.44); Carbon Dioxide 18 mmol/L (22-29); Chloride 111 mmol/L (98-107); Glucose 81 mg/dL (70-105); Potassium 4.1 mmol/L (3.5-5.1); Sodium 140 mmol/L (136-145)
[2020-07-19] MEDS: HumaLOG 300 UNITS/3 ML VIAL SC PRN ×2 (13:25→18:17)
--- NOTE | 2020-07-19 18:11 | PDOC.HOSPP ---
- Subjective Encounter Date: 07/19/20 Encounter Time: 10:30 Subjective: Up in bed denies any complains - Objective Vital Signs & Weight: Vital Signs (12 hours) Temp Pulse Resp BP Pulse Ox 07/19/20 16:00 98.7 F 82 18 159/88 H 100 07/19/20 11:45 100 07/19/20 11:30 98.3 F 87 16 143/76 H 100 07/19/20 09:00 98.4 F 07/19/20 07:00 98.7 F Weight Weight 127 lb 13.89 oz Most Recent Monitor Data Heart Rate from ECG 87 NIBP 157/101 NIBP BP-Mean 119 Respiration from ECG 21 SpO2 100 I&O: 07/18/20 07/19/20 07/20/20 06:59 06:59 06:59 Intake Total 1100 Output Total 1250 Balance -150 Result Diagrams: 07/19/20 03:10 07/19/20 10:00 Additional Labs: Accuchecks 07/19/20 07/19/20 07/19/20 16:43 12:00 11:15 POC Glucose 169 H 298 H 225 H 07/19/20 07/19/20 07/19/20 10:08 09:11 08:19 POC Glucose 82 88 137 H 07/19/20 07/19/20 07/19/20 07:14 06:11 05:23 POC Glucose 196 H 357 H 370 H 07/19/20 07/19/20 07/19/20 04:27 03:13 02:17 POC Glucose 344 H 321 H 305 H 07/19/20 07/19/20 07/18/20 01:13 00:14 23:21 POC Glucose 279 H 276 H 346 H 07/18/20 07/18/20 07/18/20 22:22 18:59 14:24 POC Glucose 466 H Greater than 530 H* Greater than 530 H* Hospitalist ROS - Review of Systems Cardiovascular: denies: chest pain, palpitations, orthopnea, paroxysmal noc. dyspnea, edema, light headedness, other Gastrointestinal: denies: nausea, vomiting, abdominal pain, diarrhea, constipation, melena, hematochezia, other Genitourinary: denies: dysuria, frequency, incontinence, hematuria, retention, other - Medication Medications: Active Medications Generic Name Dose Route Start Last Admin Trade Name Freq PRN Reason Stop Dose Admin Hydrocodone Bitart/Acetaminophen 1 tab 07/19/20 01:22 07/19/20 18:06 Hydrocodone/Acetaminophen 10/325 Mg Tablet PO 1 tab Q8HR PRN Administration Pain Potassium Chloride/Dextrose/Sod Cl 1,000 mls @ 250 mls/hr 07/18/20 21:52 07/19/20 08:59 D5 1/2 Ns W/20 Meq Kcl IV 1,000 mls .Q4H PRN Administration Step 4 of DKA Protocol Protocol Potassium Chloride/Sodium Chloride 1,000 mls @ 500 mls/hr 07/18/20 21:52 07/19/20 01:27 Ns 0.9% W/ 20 Meq Kcl IV 1,000 mls .Q2H PRN Administration Step 2 of DKA Protocol Protocol Potassium Chloride/Sodium Chloride 1,000 mls @ 250 mls/hr 07/18/20 21:52 07/19/20 04:30 Ns 0.9% W/ 20 Meq Kcl IV 1,000 mls .Q4H PRN Administration SEE STEP 3 OF DKA PROTOCOL Protocol Insulin Human Lispro 0 units 07/19/20 09:35 07/19/20 13:25 Humalog 300 Units/3 Ml Vial SC 6 unit .MODERATE SLIDING SC PRN Administration Moderate Correctional Scale Hospitalist Exam Vitals: Vital Signs (12 hours) Temp Pulse Resp BP Pulse Ox 07/19/20 16:00 98.7 F 82 18 159/88 H 100 07/19/20 11:45 100 07/19/20 11:30 98.3 F 87 16 143/76 H 100 07/19/20 09:00 98.4 F 07/19/20 07:00 98.7 F Weight Weight 127 lb 13.89 oz Most Recent Monitor Data Heart Rate from ECG 87 NIBP 157/101 NIBP BP-Mean 119 Respiration from ECG 21 SpO2 100 Neck: supple Heart: no murmur, no gallops Respiratory: no wheezes, no rales Gastrointestinal: soft, non-tender, normal bowel sounds Extremities: 1+ LE edema Hosp A/P (1) DKA (diabetic ketoacidoses) Code(s): E11.10 - TYPE 2 DIABETES MELLITUS WITH KETOACIDOSIS WITHOUT COMA Status: Acute (2) Hyperglycemia Code(s): R73.9 - HYPERGLYCEMIA, UNSPECIFIED Status: Acute (3) CKD (chronic kidney disease), stage III Code(s): N18.3 - CHRONIC KIDNEY DISEASE, STAGE 3 (MODERATE) * DO NOT USE * Status: Chronic (4) Hypertension Code(s): I10 - ESSENTIAL (PRIMARY) HYPERTENSION Status: Chronic Qualifiers: - Plan Patient anion gap has improved. We'll stop IV insulin transition to subcutaneous insulin. We'll start patient on low-dose Lantus.
[2020-07-19] MEDS: Pancrelipase DR 12,000 1 CAP PO SCH (18:17)
[2020-07-19] MEDS: Pregabalin 50 MG CAP PO SCH (20:58)
[2020-07-19] MEDS: Enoxaparin Sodium 40 MG/0.4 ML SYRINGE SC SCH ×2 (20:59→21:01)
[2020-07-19] MEDS: Metoclopramide HCl 10 MG TAB PO SCH (20:59)
[2020-07-19] MEDS: Methocarbamol 500 MG TAB PO SCH (21:02)
[2020-07-20 07:25] LABS: Anion Gap 14 mmol/L (10-20); BUN (Urea Nitrogen) 12 mg/dL (7.0-18.7); Calc. Creatinine Clearance 75 mL/min (70-130); Calcium 7.8 mg/dL (7.8-10.44); Carbon Dioxide 18 mmol/L (22-29); Chloride 108 mmol/L (98-107); Glucose 121 mg/dL (70-105); Potassium 3.8 mmol/L (3.5-5.1); Sodium 136 mmol/L (136-145)
[2020-07-20] MEDS: Methocarbamol 500 MG TAB PO SCH ×3 (07:45→21:16)
[2020-07-20] MEDS: Pancrelipase DR 12,000 1 CAP PO SCH ×3 (09:17→18:20)
[2020-07-20] MEDS: metFORMIN XR 500 MG TAB PO SCH (09:17)
[2020-07-20] MEDS: Lisinopril 20 MG TAB PO SCH (09:18)
[2020-07-20] MEDS: Pregabalin 50 MG CAP PO SCH ×2 (09:18→21:16)
[2020-07-20] MEDS: Amlodipine 10 MG TAB PO SCH (09:19)
[2020-07-20] MEDS: Metoclopramide HCl 10 MG TAB PO SCH ×3 (09:19→19:43)
[2020-07-20] MEDS: Insulin Glargine 5 UNITS in Pre-Filled Syringe 1 EACH SC SCH (10:11)
[2020-07-20] MEDS: HYDROcodone/Acetaminophen 10/325 mg Tablet PO PRN ×2 (12:11→21:22)
[2020-07-20] MEDS: HumaLOG 300 UNITS/3 ML VIAL SC PRN (12:12)
[2020-07-20 18:35] LABS: Troponin I 0.013 ng/mL (< 0.028)
[2020-07-20] MEDS ORDERED: Ondansetron ODT 4 MG TAB SL SCH (20:30)
[2020-07-20] MEDS: Enoxaparin Sodium 40 MG/0.4 ML SYRINGE SC SCH (21:18)
[2020-07-20 21:43] LABS: Troponin I Less than 0.010 ng/mL (< 0.028)
[2020-07-21 00:07] LABS: Troponin I 0.011 ng/mL (< 0.028)
[2020-07-21] MEDS: HYDROcodone/Acetaminophen 10/325 mg Tablet PO PRN ×2 (05:50→13:52)
[2020-07-21] MEDS: Methocarbamol 500 MG TAB PO SCH ×2 (05:50→13:53)
[2020-07-21] MEDS: HumaLOG 300 UNITS/3 ML VIAL SC PRN (05:51)
[2020-07-21 06:31] LABS: Anion Gap 14 mmol/L (10-20); BUN (Urea Nitrogen) 11 mg/dL (7.0-18.7); Calc. Creatinine Clearance 55 mL/min (70-130); Calcium 7.9 mg/dL (7.8-10.44); Carbon Dioxide 21 mmol/L (22-29); Chloride 107 mmol/L (98-107); Glucose 381 mg/dL (70-105); Potassium 3.8 mmol/L (3.5-5.1); Sodium 138 mmol/L (136-145)
[2020-07-21] MEDS: Pancrelipase DR 12,000 1 CAP PO SCH ×2 (08:41→11:48)
[2020-07-21] MEDS: Amlodipine 10 MG TAB PO SCH (08:42)
[2020-07-21] MEDS: Lisinopril 20 MG TAB PO SCH (08:42)
[2020-07-21] MEDS: Pregabalin 50 MG CAP PO SCH (08:43)
[2020-07-21] MEDS: metFORMIN XR 500 MG TAB PO SCH (08:44)
[2020-07-21] MEDS: Metoclopramide HCl 10 MG TAB PO SCH ×2 (08:44→13:53)
[2020-07-21] MEDS: Insulin Glargine 5 UNITS in Pre-Filled Syringe 1 EACH SC SCH (08:44)
--- NOTE | 2020-07-21 13:37 | PDOC.HOSPP ---
- Subjective Encounter Date: 07/20/20 Encounter Time: 10:30 Subjective: pt up in bed no complains - Objective Vital Signs & Weight: Vital Signs (12 hours) Temp Pulse Resp BP BP Pulse Ox 07/21/20 11:18 98.7 F 79 20 151/93 H 100 07/21/20 08:51 98 07/21/20 08:42 82 146/77 H 07/21/20 08:05 98.6 F 82 18 146/76 H 98 07/21/20 05:39 98.3 F 82 18 149/88 H 99 Weight Admit Weight 127 lb 14.4 oz Weight 127 lb 13.89 oz Most Recent Monitor Data Heart Rate from ECG 87 NIBP 157/101 NIBP BP-Mean 119 Respiration from ECG 21 SpO2 100 I&O: 07/20/20 07/21/20 07/22/20 06:59 06:59 06:59 Intake Total 1100 Output Total 1250 Balance -150 Result Diagrams: 07/19/20 03:10 07/21/20 05:40 Additional Labs: Accuchecks 07/21/20 07/21/20 07/20/20 11:05 04:21 19:28 POC Glucose 135 H 374 H 202 H 07/20/20 16:17 POC Glucose 147 H Hospitalist ROS - Review of Systems Respiratory: denies: cough, dry, shortness of breath, hemoptysis, SOB with excertion, pleuritic pain, sputum, wheezing, other Cardiovascular: denies: chest pain, palpitations, orthopnea, paroxysmal noc. dyspnea, edema, light headedness, other Gastrointestinal: denies: nausea, vomiting, abdominal pain, diarrhea, co nstipation, melena, hematochezia, other - Medication Medications: Active Medications Generic Name Dose Route Start Last Admin Trade Name Freq PRN Reason Stop Dose Admin Hydrocodone Bitart/Acetaminophen 1 tab 07/19/20 01:22 07/21/20 05:50 Hydrocodone/Acetaminophen 10/325 Mg Tablet PO 1 tab Q8HR PRN Administration Pain Amlodipine Besylate 10 mg 07/20/20 09:00 07/21/20 08:42 Amlodipine 10 Mg Tab PO 10 mg DAILY JULIA Administration Lipase/Protease/Amylase 1 cap 07/19/20 17:00 07/21/20 11:[address] 12,000 1 Cap PO 1 cap TID-WM JULIA Administration Enoxaparin Sodium 40 mg 07/19/20 21:00 07/20/20 21:18 Enoxaparin Sodium 40 Mg/0.4 Ml Syringe SC Not Given 2100 JULIA Insulin Glargine 5 units/ 0.05 mls @ 0 mls/hr 07/20/20 09:00 07/21/20 08:44 Miscellaneous Medication SC 0.05 mls QAM JULIA Administration Insulin Human Lispro 0 units 07/19/20 09:35 07/21/20 05:51 Humalog 300 Units/3 Ml Vial SC 10 unit .MODERATE SLIDING SC PRN Administration Moderate Correctional Scale Lisinopril 40 mg 07/20/20 08:00 07/21/20 08:42 Lisinopril 20 Mg Tab PO 40 mg QAM-WM JULIA Administration Metformin HCl 500 mg 07/20/20 09:00 07/21/20 08:44 Metformin Xr 500 Mg Tab PO 500 mg QAM JULIA Administration Methocarbamol 500 mg 07/19/20 22:00 07/21/20 05:50 Methocarbamol 500 Mg Tab PO 500 mg Q8HR JULIA Administration Metoclopramide HCl 10 mg 07/19/20 21:00 07/21/20 08:44 Metoclopramide Hcl 10 Mg Tab PO 10 mg TID JULIA Administration Metoprolol Succinate 50 mg 07/19/20 21:00 07/21/20 08:42 Metoprolol Succinate Xl 50 Mg Tab PO 50 mg BID JULIA Administration Pregabalin 50 mg 07/19/20 21:00 07/21/20 08:43 Pregabalin 50 Mg Cap PO 50 mg BID JULIA Administration Sodium Chloride 10 ml 07/19/20 09:00 07/21/20 08:44 Flush - Normal Saline 10 Ml Syringe IVF 10 ml Q12HR JULIA Administration Hospitalist Exam Vitals: Vital Signs (12 hours) Temp Pulse Resp BP BP Pulse Ox 07/21/20 11:18 98.7 F 79 20 151/93 H 100 07/21/20 08:51 98 07/21/20 08:42 82 146/77 H 07/21/20 08:05 98.6 F 82 18 146/76 H 98 07/21/20 05:39 98.3 F 82 18 149/88 H 99 Weight Admit Weight 127 lb 14.4 oz Weight 127 lb 13.89 oz Most Recent Monitor Data Heart Rate from ECG 87 NIBP 157/101 NIBP BP-Mean 119 Respiration from ECG 21 SpO2 100 Neck: supple Heart: RRR, no rubs Respiratory: no wheezes, no rales Gastrointestinal: soft, normal bowel sounds Hosp A/P (1) DKA (diabetic ketoacidoses) Code(s): E11.10 - TYPE 2 DIABETES MELLITUS WITH KETOACIDOSIS WITHOUT COMA Status: Acute (2) Hyperglycemia Code(s): R73.9 - HYPERGLYCEMIA, UNSPECIFIED Status: Acute (3) CKD (chronic kidney disease), stage III Code(s): N18.3 - CHRONIC KIDNEY DISEASE, STAGE 3 (MODERATE) * DO NOT USE * Status: Chronic (4) Hypertension Code(s): I10 - ESSENTIAL (PRIMARY) HYPERTENSION Status: Chronic Qualifiers: - Plan Patient anion gap has improved. We'll stop IV insulin transition to subcutaneous insulin. We'll start patient on low-dose Lantus. 2/3 will see how pt does if she has no hypoglycemia or hyperglycemia will discharge in am. pt is getting an appointment with her ammonium sulfate operator.
--- NOTE | 2020-07-21 13:39 | PDOC.DS.DS ---
Provider Date of Admission: 07/18/20 18:47 Date of Discharge: 07/21/20 Admitting Provider: Clarice Hinds MD Primary Care Physician: Werner Grya MD Course Hospital Course: Patient is a very pleasant 50-year-old female who initially presented to the hospital with complaints of elevated blood sugars. Patient's blood sugars have been very labile and she has not been able to follow-up with her flanging machine operator. She has a history of Whipple's procedure and her hemoglobin A1c last time was 7. She was treated for DKA which resolved. I will start her on some low-dose Lantus and she was put on sliding scale insulin with meals. She was asked to monitor her blood sugars and take her blood sugars to the flanging machine operator. She has an appointment with flanging machine operator on the . I also have asked her to follow-up with her primary care doctor. Lab Results: 07/19/20 03:10 07/21/20 05:40 Abnormal Lab Results - Last 48 hrs 07/20/20 06:13: Chloride 108 H, Carbon Dioxide 18 L 07/21/20 05:40: Carbon Dioxide 21 L, Creatinine 1.14 H Vitals: Vital Signs (12 hours) Temp Pulse Resp BP BP Pulse Ox 07/21/20 11:18 98.7 F 79 20 151/93 H 100 07/21/20 08:51 98 07/21/20 08:42 82 146/77 H 07/21/20 08:05 98.6 F 82 18 146/76 H 98 07/21/20 05:39 98.3 F 82 18 149/88 H 99 Weight Admit Weight 127 lb 14.4 oz Weight 127 lb 13.89 oz Most Recent Monitor Data Heart Rate from ECG 87 NIBP 157/101 NIBP BP-Mean 119 Respiration from ECG 21 SpO2 100 Physical Exam: The patient was seen and examined on the day of discharge. Problem (1) DKA (diabetic ketoacidoses) Code(s): E11.10 - TYPE 2 DIABETES MELLITUS WITH KETOACIDOSIS WITHOUT COMA Status: Acute (2) Hyperglycemia Code(s): R73.9 - HYPERGLYCEMIA, UNSPECIFIED Status: Acute (3) CKD (chronic kidney disease), stage III Code(s): N18.3 - CHRONIC KIDNEY DISEASE, STAGE 3 (MODERATE) * DO NOT USE * Status: Chronic (4) Hypertension Code(s): I10 - ESSENTIAL (PRIMARY) HYPERTENSION Status: Chronic Qualifiers: Plan Prescriptions: Insulin Glargine [Lantus Vial] 6 units SC QAM #1 vial Home Medications: Medication Instructions Recorded Confirmed Type Amlodipine Besylate [amLODIPine 10 mg PO DAILY 01/29/19 07/19/20 History Besylate] Lipase/Protease/Amylase [Creon DR 1 capsule PO TID- 01/29/19 07/19/20 History 12,000 Units] Methocarbamol 500 mg PO Q8HR 01/15/20 07/19/20 History Pregabalin 50 mg PO BID 01/15/20 07/19/20 History Cyanocobalamin (Vitamin B-12) 5,000 drop PO DAILY 05/23/20 07/21/20 History [Vitamin B-12 Oral Solution] HYDROcodone/Acetaminophen 1 tablet PO Q8HR PRN 05/23/20 07/19/20 History [Hydrocodone-Acetamin 10-325 mg] Metoclopramide HCl [Reglan] 10 mg PO TID 15 Days #45 tab 05/26/20 07/19/20 Rx Metoprolol Succinate [Toprol XL] 50 mg PO BID #60 tab 06/25/20 07/19/20 Rx Acetaminophen [Tylenol Extra 1,000 mg PO Q6HR PRN 07/02/20 07/21/20 History Strength] Lisinopril 40 mg PO QAM- 07/02/20 07/19/20 History HumaLOG [HumaLOG Vial] 0 unit SC TID- PRN #0 07/06/20 07/21/20 Rx metFORMIN HCl [Metformin HCl ER] 500 mg PO QAM 07/19/20 07/19/20 History Insulin Glargine [Lantus Vial] 6 units SC QAM #1 vial 07/21/20 Rx Allergies: morphine Allergy (Intermediate, Verified 07/19/20 08:13) Rash Discharge Instructions:: follow up with pt's primary care doctor Activity:: Activity as Tolerated Nourishment:: Diabetic Diet, Heart Healthy Diet Referrals: Werner Gray MD [Primary Care Provider] - Disposition: HOME Quality CORE MEASURES:: N/A
[2020-07-21 15:29] VITALS: BP 145/85; TEMP 98.3
== END 2020-07-21 16:17 | disposition home or self-care (01) | DRG 638 ==
LOC: ERS 14:20 → T4-A 18:45 → ERHOLD 18:47 → T4-A 07-19 11:38
PROVIDERS: ADMIT Internal Medicine; ATTEND Internal Medicine
DX: E11.10 Type 2 diabetes mellitus with ketoacidosis without coma (principal); N17.9 Acute kidney failure, unspecified; E87.1 Hypo-osmolality and hyponatremia; N18.30 Chronic kidney disease, stage 3 unspecified; I12.9 Hypertensive chronic kidney disease with stage 1 through stage 4 chronic kidney disease, or unspecified chronic kidney disease; Z20.822 Contact with and (suspected) exposure to COVID-19; G89.29 Other chronic pain; Z90.49 Acquired absence of other specified parts of digestive tract; Z88.5 Allergy status to narcotic agent; Z79.899 Other long term (current) drug therapy; Z79.4 Long term (current) use of insulin
CPT/HCPCS: 36415; 36416; 80048; 80053; 81003; 81015; 82010; 82330; 82803; 83735; 84100; 84484; 85025; 93005; 93010; 96374; J1650; J1815; J3475; J3480; Q0162; U0002

== ENCOUNTER 2022-07-19 05:48 | Inpatient (IN) | payer MEDICARE, MEDICAID ==
[2022-07-19] MEDS ORDERED: cefTRIAXone\\ROCEPHIN 1 GM VIAL ONE ×2 (06:20→07:19)
[2022-07-19 06:34] LABS: Base Excess -21.6 mEq/L (-2.0 to +3.0); Calcium, Ionized (venous) 1.08 mmol/L (1.16-1.32); Chloride (VBG) 116 mmol/L (98-106); Hemoglobin (Hb) 8.3 g/dL (11.7-16.0); Potassium (VBG) 3.34 mmol/L (3.70-5.30); Sodium 141.7 mmol/L (133-146)
[2022-07-19 06:36] LABS: Actual Bicarbonate (HCO3v) 7 mEq/L (22-28); pH (venous) 7.09 (7.32-7.43)
[2022-07-19 06:47] LABS: INR-International Normal Ratio 1.5; PTT 34.2 sec (22.9-36.1); Prothrombin Time 18.9 sec (12.0-14.7)
[2022-07-19 06:54] LABS: Hemoglobin 7.8 g/dL (12.0-16.0); Mean Corpuscular HGB CONC 30.1 g/dL (32.0-36.0); Mean Corpuscular Hemoglobin 36.3 pg (27.0-31.0); Mean Platelet Volume 9.2 fL (7.4-10.4); Platelet Count 119 10x3/uL (130-400); RBC Distribution Width 14.7 % (11.5-14.5); Red Blood Cell (RBC) Count 2.16 mill/uL (4.20-5.40); White Blood Cell (WBC) Count 2.2 10x3/uL (4.8-10.8)
[2022-07-19 06:56] LABS: Albumin 1.6 g/dL (3.5-5.0); Alkaline Phosphatase 181 U/L (40-110); BUN (Urea Nitrogen) 23 mg/dL (9.8-20.1); Bilirubin, Total 0.3 mg/dL (0.2-1.2); Calc. Creatinine Clearance 0 mL/min (70-130); Chloride 116 mmol/L (98-107); Estimated GFR 21; Globulin 2.5 g/dL (2.4-3.5); Phosphorus 4.7 mg/dL (2.3-4.7); Potassium 3.5 mmol/L (3.5-5.1); Protein, Total 4.1 g/dL (6.0-8.3); Sodium 145 mmol/L (136-145)
[2022-07-19 06:57] LABS: AST (SGOT) 163 U/L (5-34)
[2022-07-19 06:58] LABS: ALT (SGPT) 138 U/L (8-55); Magnesium 2.1 mg/dL (1.6-2.6)
[2022-07-19 06:59] LABS: CK (CPK) 2048 U/L (29-168)
[2022-07-19 07:01] LABS: Carbon Dioxide Less than 8 mmol/L (22-29); Glucose 621 mg/dL (70-105)
[2022-07-19] MEDS ORDERED: NS 0.9% w/ 20 MEQ KCL 1,000 ML ONE (07:18)
[2022-07-19 07:29] LABS: Band 19 % (5-11); Hypochromia SLIGHT = 6-15 cells (100X) (0-5/hpf); Lymphocytes 50 % (21-51); MDiff Complete? YES; Macrocytosis MODERATE=16-30 cells (100X) (0-5/hpf); Monocytes 4 % (0-10); Neutrophil 27 % (42-75); Platelet Morphology Comment Appears Decreased; Polychromasia SLIGHT = 2-3 cells (100X) (0-2/hpf)
[2022-07-19] MEDS ORDERED: Acetaminophen 650 MG Suppository PR PRN (07:53)
[2022-07-19] MEDS ORDERED: D5 1/2 NS w/20 mEq KCL 1,000 ML IV PRN (07:53)
[2022-07-19] MEDS ORDERED: Sodium Chloride 0.9% 1,000 ML IV PRN ×2 (07:53)
[2022-07-19] MEDS ORDERED: Electrolyte Replacement Protocol 1 EACH IVPB SCH (07:53)
[2022-07-19] MEDS ORDERED: Fentanyl 100 MCG/2 ML VIAL SLOW IVP PRN (07:53)
[2022-07-19] MEDS ORDERED: Dextrose 50% Abboject 50 ML SYRINGE SLOW IVP PRN (07:53)
[2022-07-19] MEDS ORDERED: Metoclopramide HCl 10 MG/2 ML VIAL IVP PRN (07:58)
[2022-07-19] MEDS ORDERED: Sodium Chloride 0.9% 1,000 ML IV SCH ×2 (08:00→21:45)
[2022-07-19 08:54] LABS: Acetaminophen Less than 10.0 mcg/mL (10.0-30.0); Alcohol Less than 10 mg/dL (Less than 10); Iron 13 ug/dL (50-170); Salicylate 8.6 mg/dL (15.0-30.0)
[2022-07-19 08:55] LABS: SARS-CoV-2 NAA Rapid Test Not Detected (NotDetected)
[2022-07-19] MEDS ORDERED: Heparin 5,000 UNITS/ML VIAL SC SCH (09:00)
[2022-07-19 09:48] LABS: Lactic Acid 4.8 mmol/L (0.5-2.2)
[2022-07-19 09:51] LABS: BUN (Urea Nitrogen) 22 mg/dL (9.8-20.1); Calc. Creatinine Clearance 0 mL/min (70-130); Chloride 119 mmol/L (98-107); Estimated GFR 24; Potassium 3.2 mmol/L (3.5-5.1); Sodium 145 mmol/L (136-145)
[2022-07-19 09:57] LABS: Troponin I 0.061 ng/mL (< 0.028)
[2022-07-19 10:02] LABS: Hemoglobin 8.5 g/dL (12.0-16.0); Mean Corpuscular HGB CONC 30.5 g/dL (32.0-36.0); Mean Corpuscular Hemoglobin 34.8 pg (27.0-31.0); Mean Platelet Volume 9.1 fL (7.4-10.4); Platelet Count 104 10x3/uL (130-400); RBC Distribution Width 16.9 % (11.5-14.5); Red Blood Cell (RBC) Count 2.44 mill/uL (4.20-5.40); White Blood Cell (WBC) Count 2.1 10x3/uL (4.8-10.8)
[2022-07-19 10:05] LABS: Calcium 6.7 mg/dL (7.8-10.44); Carbon Dioxide Less than 8 mmol/L (22-29); Glucose 484 mg/dL (70-105)
[2022-07-19 10:14] LABS: Ferritin 929.04 ng/mL (10-291)
[2022-07-19] MEDS ORDERED: Potassium Chloride 20 MEQ TAB PO SCH (10:15)
[2022-07-19 10:28] LABS: Vitamin B12 Greater than 2000 pg/mL (211-911)
[2022-07-19 10:35] LABS: Band 16 % (5-11); Burr Cells SLIGHT = 2-5 cells (100X) (0-1/hpf); Lymphocytes 44 % (21-51); MDiff Complete? YES; Macrocytosis MODERATE=16-30 cells (100X) (0-5/hpf); Monocytes 2 % (0-10); Neutrophil 38 % (42-75); Platelet Morphology Comment Appears Decreased; Polychromasia SLIGHT = 2-3 cells (100X) (0-2/hpf)
[2022-07-19] MEDS: NS 0.9% w/ 20 MEQ KCL 1,000 ML IV PRN ×2 (11:14→12:05)
[2022-07-19] MEDS: metroNIDAZOLE 500 MG in Premix Bag 1 BAG IVPB SCH ×2 (11:30→18:51)
[2022-07-19] MEDS ORDERED: Electrolyte Replacement Protocol 1 EACH FS SCH (11:45)
[2022-07-19] MEDS ORDERED: Electrolyte Replacement Protocol FS PRN (11:45)
[2022-07-19] MEDS: Albumin 25% 25 GM/100 ML BOT IVPB SCH ×3 (12:10→23:55)
[2022-07-19] MEDS ORDERED: Cefepime 2 GM in Sodium Chloride 0.9% 100 ML IVPB SCH (13:00)
[2022-07-19 14:34] LABS: BUN (Urea Nitrogen) 21 mg/dL (9.8-20.1); Calc. Creatinine Clearance 26 mL/min (70-130); Chloride 123 mmol/L (98-107); Estimated GFR 23; Glucose 309 mg/dL (70-105); Potassium 3.5 mmol/L (3.5-5.1); Sodium 146 mmol/L (136-145)
[2022-07-19 14:45] LABS: Calcium 6.5 mg/dL (7.8-10.44); Carbon Dioxide Less than 8 mmol/L (22-29)
[2022-07-19 15:49] LABS: Base Excess (BEa) -16.9 mEq/L (-2.0 to +3.0); Calcium, Ionized (arterial) 1.02 mmol/L (1.12-1.30); Carboxyhemoglobin (COHb) 0.2 gm% (0.0-3.0); Hemoglobin (Hb) 8.6 g/dL (12.0-16.0); O2 Tension (PaO2), arterial 84.6 mmHg (80.0-100.0); Potassium - ABG Lab 3.23 mmol/L (3.70-5.30); pH, Arterial 7.27 (7.35-7.45)
[2022-07-19] MEDS: Dextrose 5 %-0.45 % NaCl 1,000 ML IV PRN ×2 (16:09→20:28)
[2022-07-19 16:44] LABS: Puncture Site RRA
[2022-07-19 18:33] LABS: Anion Gap 18 mmol/L (10-20); BUN (Urea Nitrogen) 21 mg/dL (9.8-20.1); Calc. Creatinine Clearance 27 mL/min (70-130); Chloride 124 mmol/L (98-107); Estimated GFR 24; Glucose 233 mg/dL (70-105); Potassium 3.1 mmol/L (3.5-5.1); Sodium 147 mmol/L (136-145)
[2022-07-19 18:36] LABS: Calcium 6.4 mg/dL (7.8-10.44); Carbon Dioxide 8 mmol/L (22-29)
[2022-07-19 19:33] LABS: Iron Binding Capacity, Total 39 mcg/dL (265-497)
[2022-07-19] MEDS: Famotidine/PF 20 mg/2ml Vial SLOW IVP SCH (19:33)
[2022-07-19] MEDS: HUMULIN R 100 UNITS in Sodium Chloride 0.9% 100 ML IVPB SCH (20:03)
[2022-07-19 20:56] LABS: Amphetamine Not Detected (NotDetected); Barbiturates Screen Not Detected (NotDetected); Benzodiazepine Screen Not Detected (NotDetected); Cocaine Metabolite Screen Not Detected (NotDetected); Methadone Not Detected (NotDetected); Methamphetamine Not Detected (NotDetected); Opiate Screen Detected (NotDetected); Oxycodone Screen Not Detected (NotDetected); Phencyclidine (PCP) Not Detected (NotDetected); THC/Cannabinoid Screen Not Detected (NotDetected); Tricyclic Screen Not Detected (NotDetected)
[2022-07-19] MEDS: NOREPINEPHRINE 8 MG/250 ML-D5W 250 ML IVPB SCH (22:09)
[2022-07-20 00:34] LABS: Anion Gap 13 mmol/L (10-20); BUN (Urea Nitrogen) 19 mg/dL (9.8-20.1); Calc. Creatinine Clearance 30 mL/min (70-130); Carbon Dioxide 10 mmol/L (22-29); Chloride 125 mmol/L (98-107); Estimated GFR 27; Glucose 212 mg/dL (70-105); Potassium 2.8 mmol/L (3.5-5.1); Sodium 145 mmol/L (136-145)
[2022-07-20 00:36] LABS: Calcium 6.2 mg/dL (7.8-10.44)
[2022-07-20] MEDS: metroNIDAZOLE 500 MG in Premix Bag 1 BAG IVPB SCH ×3 (02:54→17:40)
[2022-07-20] MEDS ORDERED: Sodium Bicarb 50 MEQ/50 ML VIAL ONE (04:00)
[2022-07-20] MEDS ORDERED: Albumin 25% 25 GM/100 ML BOT IVPB SCH ×3 (04:00→14:45)
[2022-07-20] MEDS: Potassium Chloride 20 MEQ in Premix Bag 1 BAG IVPB SCH ×2 (04:03→06:20)
[2022-07-20] MEDS: Albumin 25% 25 GM/100 ML BOT IVPB SCH (04:10)
[2022-07-20 04:12] LABS: Base Excess (BEa) -22.6 mEq/L (-2.0 to +3.0); CO2 Tension 44.4 mmHg (35.0-45.0); Calcium, Ionized (arterial) 1.05 mmol/L (1.12-1.30); Carboxyhemoglobin (COHb) 0.2 gm% (0.0-3.0); Hemoglobin (Hb) 10.9 g/dL (12.0-16.0); O2 Tension (PaO2), arterial 75.6 mmHg (80.0-100.0); Potassium - ABG Lab 3.12 mmol/L (3.70-5.30)
[2022-07-20 04:18] LABS: Puncture Site RRA
[2022-07-20] MEDS: Dextrose 5 %-0.45 % NaCl 1,000 ML IV PRN (04:29)
[2022-07-20] MEDS ORDERED: Sodium Bicarb 50 MEQ/50 ML VIAL IVP SCH (04:30)
[2022-07-20 04:33] LABS: ALT (SGPT) 91 U/L (8-55); AST (SGOT) 158 U/L (5-34); Albumin 2.2 g/dL (3.5-5.0); Alkaline Phosphatase 139 U/L (40-110); Anion Gap 17 mmol/L (10-20); BUN (Urea Nitrogen) 20 mg/dL (9.8-20.1); Bilirubin, Total 0.3 mg/dL (0.2-1.2); Calc. Creatinine Clearance 27 mL/min (70-130); Chloride 123 mmol/L (98-107); Estimated GFR 25; Globulin 1.9 g/dL (2.4-3.5); Glucose 226 mg/dL (70-105); Protein, Total 4.1 g/dL (6.0-8.3); Sodium 146 mmol/L (136-145)
[2022-07-20 04:37] LABS: Calcium 6.2 mg/dL (7.8-10.44); Carbon Dioxide 9 mmol/L (22-29)
[2022-07-20 04:42] LABS: Band 32 % (5-11); Hemoglobin 10.3 g/dL (12.0-16.0); Hypochromia SLIGHT = 6-15 cells (100X) (0-5/hpf); Lymphocytes 5 % (21-51); MDiff Complete? YES; Macrocytosis SLIGHT = 6-15 cells (100X) (0-5/hpf); Mean Corpuscular HGB CONC 29.5 g/dL (32.0-36.0); Mean Corpuscular Hemoglobin 34.3 pg (27.0-31.0); Mean Platelet Volume 9.8 fL (7.4-10.4); Metamyelocyte 3 % (0-0); Monocytes 18 % (0-10); Neutrophil 42 % (42-75); Platelet Count 78 10x3/uL (130-400); Platelet Morphology Comment Appears Decreased; RBC Distribution Width 17.9 % (11.5-14.5); Target Cells SLIGHT = 2-5 cells (100X) (0-1/hpf); White Blood Cell (WBC) Count 5.4 10x3/uL (4.8-10.8)
[2022-07-20 04:59] LABS: Base Excess (BEa) -19.3 mEq/L (-2.0 to +3.0); Calcium, Ionized (arterial) 1.02 mmol/L (1.12-1.30); Carboxyhemoglobin (COHb) 0.2 gm% (0.0-3.0); Hemoglobin (Hb) 10.9 g/dL (12.0-16.0); O2 Tension (PaO2), arterial 126.3 mmHg (80.0-100.0); Potassium - ABG Lab 3.64 mmol/L (3.70-5.30)
[2022-07-20 05:02] LABS: Puncture Site LRA
[2022-07-20] MEDS ORDERED: Potassium Chloride 40 MEQ in Premix Bag 1 BAG IVPB SCH (06:30)
[2022-07-20] MEDS ORDERED: Midazolam HCl 2 mg/2 ml Vial ONE (06:47)
[2022-07-20] MEDS ORDERED: Rocuronium Bromide 10 MG/ML (10ML VIAL) ONE (06:55)
[2022-07-20] MEDS ORDERED: Fentanyl CADD 100 ML IV SCH (07:30)
[2022-07-20] MEDS ORDERED: DISCONTINUE PREVIOUS NARCOTIC PAIN MEDICATIONS AND BENZODIAZEPINES FS SCH (07:30)
[2022-07-20] MEDS ORDERED: Propofol BOLUS 1,000 MG/100 ML VIAL IV PRN (07:30)
[2022-07-20] MEDS ORDERED: Fentanyl BOLUS 250 ML IVPB PRN (07:30)
[2022-07-20] MEDS ORDERED: Propofol 1,000 MG/100 ML VIAL IV PRN (07:30)
[2022-07-20] MEDS ORDERED: Midazolam HCl 5 mg/5 ml Vial IVPB SCH (07:45)
[2022-07-20] MEDS ORDERED: Rocuronium Bromide 50 MG/5 ML VIAL IVP SCH (07:45)
[2022-07-20 07:50] LABS: Base Excess (BEa) -17.9 mEq/L (-2.0 to +3.0); Calcium, Ionized (arterial) 0.99 mmol/L (1.12-1.30); Carboxyhemoglobin (COHb) 0.1 gm% (0.0-3.0); Hemoglobin (Hb) 10.6 g/dL (12.0-16.0); O2 Tension (PaO2), arterial 74.6 mmHg (80.0-100.0); Potassium - ABG Lab 3.52 mmol/L (3.70-5.30)
[2022-07-20 07:51] LABS: CO2 Tension 24.5 mmHg (35.0-45.0); pH, Arterial 7.18 (7.35-7.45)
[2022-07-20 07:52] LABS: Actual Bicarbonate (HCO3a) 8.9 mEq/L (22-28)
[2022-07-20 07:53] LABS: ALV-art Gradient 322.575 mmHg (0-20); Puncture Site Arterial Line
[2022-07-20] MEDS ORDERED: Dexmedetomidine In 0.9 % NaCl 100 ML IVPB SCH (08:30)
[2022-07-20] MEDS: Famotidine/PF 20 mg/2ml Vial SLOW IVP SCH (09:00)
[2022-07-20] MEDS ORDERED: CALCIUM GLUC 1 GM/NS 50 ML 1 GM in Premix Bag 1 BAG IVPB SCH (09:00)
[2022-07-20] MEDS: NOREPINEPHRINE 8 MG/250 ML-D5W 250 ML IVPB SCH ×2 (09:00→16:00)
[2022-07-20] MEDS ORDERED: D5 LR w/20 mEq KCL 1,000 ML IV SCH (09:00)
[2022-07-20 09:05] LABS: Magnesium 1.4 mg/dL (1.6-2.6); Phosphorus 3.4 mg/dL (2.3-4.7)
[2022-07-20 09:45] LABS: BUN (Urea Nitrogen) 19 mg/dL (9.8-20.1); Calc. Creatinine Clearance 31 mL/min (70-130); Chloride 124 mmol/L (98-107); Estimated GFR 29; Glucose 142 mg/dL (70-105); Potassium 3.7 mmol/L (3.5-5.1); Sodium 142 mmol/L (136-145)
[2022-07-20] MEDS ORDERED: Magnesium Sulfate In Water 4 GM in Premix Bag 1 BAG IVPB SCH (09:45)
[2022-07-20 09:50] LABS: Calcium 6.3 mg/dL (7.8-10.44); Carbon Dioxide Less than 8 mmol/L (22-29); Lactic Acid 6.1 mmol/L (0.5-2.2)
[2022-07-20] MEDS: Ventilator Sedation Protocol 1 EACH FS SCH (10:04)
[2022-07-20] MEDS ORDERED: Sodium Bicarbonate 150 MEQ in Dextrose 5% in Water 1,000 ML IV SCH (10:30)
[2022-07-20 11:01] LABS: Base Excess (BEa) -16.2 mEq/L (-2.0 to +3.0); Calcium, Ionized (arterial) 1.02 mmol/L (1.12-1.30); Carboxyhemoglobin (COHb) 0.1 gm% (0.0-3.0); Hemoglobin (Hb) 10.9 g/dL (12.0-16.0); O2 Tension (PaO2), arterial 84.6 mmHg (80.0-100.0); Potassium - ABG Lab 3.85 mmol/L (3.70-5.30); pH, Arterial 7.27 (7.35-7.45)
[2022-07-20] MEDS: D5 LR w/20 mEq KCL 1,000 ML IV SCH ×2 (11:11→23:50)
[2022-07-20 11:12] LABS: Puncture Site Arterial Line
[2022-07-20] MEDS ORDERED: Cefepime 1 GM in Sodium Chloride 0.9% 100 ML IVPB SCH (13:00)
[2022-07-20 13:31] VITALS: BMI 22.6
[2022-07-20 14:00] LABS: Base Excess (BEa) -13.3 mEq/L (-2.0 to +3.0); Calcium, Ionized (arterial) 0.95 mmol/L (1.12-1.30); Carboxyhemoglobin (COHb) 0.3 gm% (0.0-3.0); Hemoglobin (Hb) 10.1 g/dL (12.0-16.0); O2 Tension (PaO2), arterial 65.9 mmHg (80.0-100.0); Potassium - ABG Lab 3.74 mmol/L (3.70-5.30); pH, Arterial 7.36 (7.35-7.45)
[2022-07-20 14:04] LABS: Anion Gap 15 mmol/L (10-20); BUN (Urea Nitrogen) 19 mg/dL (9.8-20.1); Calc. Creatinine Clearance 30 mL/min (70-130); Chloride 123 mmol/L (98-107); Estimated GFR 28; Glucose 221 mg/dL (70-105); Potassium 3.9 mmol/L (3.5-5.1); Sodium 142 mmol/L (136-145)
[2022-07-20 14:06] LABS: Puncture Site Arterial Line
[2022-07-20 14:19] LABS: Calcium 6.3 mg/dL (7.8-10.44); Carbon Dioxide 8 mmol/L (22-29)
[2022-07-20 14:20] LABS: HBSAB Concentration Less than 8.00 mIU/mL; HBSAg Index 0.27 S/CO (0-0.99); Hep B Core Total Ab Non-Reactive (NonReactive); Hep B Core Total Index 0.08 S/CO (0-0.79); Hep B Surf AB Non-Reactive (NonReactive); Hep B Surf Ag Non-Reactive S/CO (NonReactive); Hep C IgG Ab Non-Reactive (NonReactive); Hep C Index 0.03 S/CO (0-0.79)
[2022-07-20 17:45] LABS: Anion Gap 14 mmol/L (10-20); BUN (Urea Nitrogen) 12 mg/dL (9.8-20.1); Calc. Creatinine Clearance 48 mL/min (70-130); Calcium 7.4 mg/dL (7.8-10.44); Carbon Dioxide 15 mmol/L (22-29); Chloride 116 mmol/L (98-107); Estimated GFR 50; Glucose 182 mg/dL (70-105); Potassium 3.7 mmol/L (3.5-5.1); Sodium 141 mmol/L (136-145)
[2022-07-20 23:03] LABS: Anion Gap 17 mmol/L (10-20); BUN (Urea Nitrogen) 13 mg/dL (9.8-20.1); Calc. Creatinine Clearance 40 mL/min (70-130); Carbon Dioxide 12 mmol/L (22-29); Chloride 119 mmol/L (98-107); Estimated GFR 39; Glucose 177 mg/dL (70-105); Potassium 3.7 mmol/L (3.5-5.1); Sodium 144 mmol/L (136-145)
[2022-07-21 05:04] LABS: ALT (SGPT) 95 U/L (8-55); AST (SGOT) 181 U/L (5-34); Alkaline Phosphatase 124 U/L (40-110); Anion Gap 16 mmol/L (10-20); BUN (Urea Nitrogen) 15 mg/dL (9.8-20.1); Bilirubin, Total 0.9 mg/dL (0.2-1.2); Calc. Creatinine Clearance 37 mL/min (70-130); Carbon Dioxide 12 mmol/L (22-29); Chloride 118 mmol/L (98-107); Estimated GFR 33; Globulin 1.4 g/dL (2.4-3.5); Glucose 230 mg/dL (70-105); Potassium 4.1 mmol/L (3.5-5.1); Protein, Total 3.4 g/dL (6.0-8.3); Sodium 142 mmol/L (136-145)
[2022-07-21] MEDS: metroNIDAZOLE 500 MG in Premix Bag 1 BAG IVPB SCH ×3 (05:05→17:52)
[2022-07-21 05:10] LABS: Calcium 6.7 mg/dL (7.8-10.44)
[2022-07-21 05:29] LABS: Anisocytosis SLIGHT = 6-15 cells (100X) (0-5/hpf); Band 10 % (5-11); Burr Cells MODERATE= 6-15 cells (100X) (0-1/hpf); Eosinophils 1 % (0-10); Hemoglobin 9.4 g/dL (12.0-16.0); Hypochromia SLIGHT = 6-15 cells (100X) (0-5/hpf); Lymphocytes 12 % (21-51); MDiff Complete? YES; Macrocytosis MODERATE=16-30 cells (100X) (0-5/hpf); Mean Corpuscular HGB CONC 31.9 g/dL (32.0-36.0); Mean Corpuscular Hemoglobin 35.5 pg (27.0-31.0); Metamyelocyte 1 % (0-0); Monocytes 4 % (0-10); Neutrophil 72 % (42-75); Nucleated RBC 4 % (0); Ovalocytes SLIGHT = 2-5 cells (100X) (0-1/hpf); Platelet Count 27 10x3/uL (130-400); Platelet Morphology Comment Appears Decreased; Poikilocytosis SLIGHT = 6-15 cells (100X) (0-5/hpf); Polychromasia SLIGHT = 2-3 cells (100X) (0-2/hpf); RBC Distribution Width 17.9 % (11.5-14.5); Red Blood Cell (RBC) Count 2.65 mill/uL (4.20-5.40); Target Cells SLIGHT = 2-5 cells (100X) (0-1/hpf); White Blood Cell (WBC) Count 5.7 10x3/uL (4.8-10.8)
[2022-07-21] MEDS: NOREPINEPHRINE 8 MG/250 ML-D5W 250 ML IVPB SCH ×2 (06:17→18:42)
[2022-07-21] MEDS: Ventilator Sedation Protocol 1 EACH FS SCH (07:07)
[2022-07-21] MEDS: Famotidine/PF 20 mg/2ml Vial SLOW IVP SCH (08:38)
[2022-07-21] MEDS: Albumin 25% 25 GM/100 ML BOT IVPB SCH ×3 (09:28→20:56)
[2022-07-21] MEDS: Lorazepam 2 MG/ML VIAL SLOW IVP PRN ×2 (09:53→20:56)
[2022-07-21] MEDS: HUMULIN R 100 UNITS in Sodium Chloride 0.9% 100 ML IVPB SCH (11:41)
[2022-07-21] MEDS ORDERED: Heparin 10,000 UNITS/ 10 ML VIAL ONE (12:07)
[2022-07-21] MEDS: D5 LR w/20 mEq KCL 1,000 ML IV SCH (13:19)
[2022-07-21 15:11] LABS: Anion Gap 15 mmol/L (10-20); BUN (Urea Nitrogen) 8 mg/dL (9.8-20.1); Calc. Creatinine Clearance 62 mL/min (70-130); Calcium 8.4 mg/dL (7.8-10.44); Carbon Dioxide 19 mmol/L (22-29); Chloride 111 mmol/L (98-107); Estimated GFR 62; Glucose 150 mg/dL (70-105); Potassium 4.1 mmol/L (3.5-5.1); Sodium 141 mmol/L (136-145)
[2022-07-21] MEDS: cefTRIAXone\\ROCEPHIN 2 GM in Sodium Chloride 0.9% 100 ML IVPB SCH (16:20)
[2022-07-21 22:43] LABS: Anion Gap 19 mmol/L (10-20); BUN (Urea Nitrogen) 8 mg/dL (9.8-20.1); Calc. Creatinine Clearance 57 mL/min (70-130); Calcium 7.9 mg/dL (7.8-10.44); Carbon Dioxide 15 mmol/L (22-29); Chloride 112 mmol/L (98-107); Estimated GFR 57; Glucose 182 mg/dL (70-105); Potassium 4.5 mmol/L (3.5-5.1); Sodium 141 mmol/L (136-145)
[2022-07-22] MEDS: Lorazepam 2 MG/ML VIAL SLOW IVP PRN ×6 (02:00→21:45)
[2022-07-22] MEDS: metroNIDAZOLE 500 MG in Premix Bag 1 BAG IVPB SCH ×3 (02:01→18:24)
[2022-07-22 05:11] LABS: Anion Gap 17 mmol/L (10-20); BUN (Urea Nitrogen) 9 mg/dL (9.8-20.1); Calc. Creatinine Clearance 49 mL/min (70-130); Calcium 7.6 mg/dL (7.8-10.44); Carbon Dioxide 13 mmol/L (22-29); Chloride 113 mmol/L (98-107); Estimated GFR 45; Glucose 194 mg/dL (70-105); Potassium 4.2 mmol/L (3.5-5.1); Sodium 139 mmol/L (136-145)
[2022-07-22] MEDS: NOREPINEPHRINE 8 MG/250 ML-D5W 250 ML IVPB SCH ×2 (06:02→11:41)
[2022-07-22 06:16] LABS: Band 22 % (5-11); Hemoglobin 10.3 g/dL (12.0-16.0); Hypochromia SLIGHT = 6-15 cells (100X) (0-5/hpf); Lymphocytes 12 % (21-51); MDiff Complete? YES; Macrocytosis SLIGHT = 6-15 cells (100X) (0-5/hpf); Mean Corpuscular Hemoglobin 36.1 pg (27.0-31.0); Mean Platelet Volume 11.7 fL (7.4-10.4); Monocytes 10 % (0-10); Neutrophil 56 % (42-75); Platelet Count 13 10x3/uL (130-400); Platelet Morphology Comment Appears Decreased; RBC Distribution Width 18.2 % (11.5-14.5); Red Blood Cell (RBC) Count 2.84 mill/uL (4.20-5.40); White Blood Cell (WBC) Count 4.5 10x3/uL (4.8-10.8)
[2022-07-22] MEDS: D5 LR w/20 mEq KCL 1,000 ML IV SCH ×2 (06:40→19:56)
[2022-07-22] MEDS: Ventilator Sedation Protocol 1 EACH FS SCH (09:01)
[2022-07-22] MEDS: Famotidine/PF 20 mg/2ml Vial SLOW IVP SCH (09:05)
[2022-07-22] MEDS: Albumin 25% 25 GM/100 ML BOT IVPB SCH ×5 (09:06→20:05)
[2022-07-22 09:10] LABS: Base Excess (BEa) -7.5 mEq/L (-2.0 to +3.0); Calcium, Ionized (arterial) 1.08 mmol/L (1.12-1.30); Carboxyhemoglobin (COHb) 0.5 gm% (0.0-3.0); Hemoglobin (Hb) 11.8 g/dL (12.0-16.0); Potassium - ABG Lab 4.17 mmol/L (3.70-5.30); pH, Arterial 7.45 (7.35-7.45)
[2022-07-22] MEDS ORDERED: Hydrocortisone Sod Succ/PF 100 mg/2 ml Vial IVP SCH (12:00)
[2022-07-22 12:45] LABS: Platelet Count 10 10x3/uL (130-400)
[2022-07-22 12:53] LABS: Fibrinogen 150 mg/dL (253-463)
[2022-07-22 12:54] LABS: INR-International Normal Ratio 4.6; PTT 54.2 sec (22.9-36.1); Prothrombin Time 45.6 sec (12.0-14.7)
[2022-07-22 12:55] LABS: D-Dimer Test 3.12 *mcg/mL (0.27-0.43)
[2022-07-22] MEDS ORDERED: Dextrose 5% in Water 1,000 ML IV PRN (16:15)
[2022-07-22] MEDS ORDERED: Dextrose 50% Abboject 50 ML SYRINGE IVP PRN (16:15)
[2022-07-22] MEDS ORDERED: HumaLOG 300 UNITS/3 ML VIAL SC PRN (16:15)
[2022-07-22] MEDS: Lactated Ringer's 1,000 ML IV SCH (16:46)
[2022-07-22] MEDS ORDERED: Insulin Glargine 30 UNITS/0.3 ML VIAL SC SCH (17:00)
[2022-07-22] MEDS: Hydrocortisone Sod Succ/PF 100 mg/2 ml Vial IVP SCH (18:10)
[2022-07-22] MEDS: cefTRIAXone\\ROCEPHIN 2 GM in Sodium Chloride 0.9% 100 ML IVPB SCH (18:11)
[2022-07-22 20:12] LABS: Actual Bicarbonate (HCO3a) 21.2 mEq/L (22-28); CO2 Tension 26.4 mmHg (35.0-45.0); Calcium, Ionized (arterial) 1.07 mmol/L (1.12-1.30); Carboxyhemoglobin (COHb) 0.7 gm% (0.0-3.0); Hemoglobin (Hb) 8.7 g/dL (12.0-16.0); Potassium - ABG Lab 4.28 mmol/L (3.70-5.30); pH, Arterial 7.52 (7.35-7.45)
[2022-07-22 20:21] LABS: Puncture Site Arterial Line
[2022-07-22] MEDS ORDERED: Vecuronium 10 MG VIAL IVP PRN (22:40)
[2022-07-22] MEDS ORDERED: Vecuronium 10 MG VIAL ONE (22:42)
[2022-07-22] MEDS ORDERED: Albumin 25% 25 GM/100 ML BOT IVPB SCH (23:00)
[2022-07-22] MEDS ORDERED: Furosemide 40 MG/4 ML VIAL SLOW IVP SCH (23:00)
[2022-07-22] MEDS ORDERED: CALCIUM GLUC 1 GM/NS 50 ML 1 GM in Premix Bag 1 BAG IVPB SCH (23:30)
[2022-07-22 23:38] LABS: Hemoglobin 10.1 g/dL (12.0-16.0); Mean Corpuscular Hemoglobin 36.2 pg (27.0-31.0); Mean Platelet Volume 12.4 fL (7.4-10.4); Platelet Count 6 10x3/uL (130-400); RBC Distribution Width 17.9 % (11.5-14.5); White Blood Cell (WBC) Count 3.4 10x3/uL (4.8-10.8)
[2022-07-22 23:45] LABS: ALT (SGPT) 26 U/L (8-55); AST (SGOT) 41 U/L (5-34); Albumin 2.9 g/dL (3.5-5.0); Alkaline Phosphatase 135 U/L (40-110); Anion Gap 17 mmol/L (10-20); BUN (Urea Nitrogen) 6 mg/dL (9.8-20.1); Bilirubin, Total 2.1 mg/dL (0.2-1.2); Calc. Creatinine Clearance 52 mL/min (70-130); Calcium 7.7 mg/dL (7.8-10.44); Carbon Dioxide 18 mmol/L (22-29); Chloride 108 mmol/L (98-107); Estimated GFR 48; Globulin 0.7 g/dL (2.4-3.5); Glucose 189 mg/dL (70-105); Potassium 4.9 mmol/L (3.5-5.1); Protein, Total 3.6 g/dL (6.0-8.3); Sodium 138 mmol/L (136-145)
[2022-07-22] MEDS ORDERED: Tranexamic Acid 1,000 MG in Sodium Chloride 0.9% 250 ML 250 ML IVPB ONE (23:45)
[2022-07-22 23:46] LABS: D-Dimer Test 1.92 *mcg/mL (0.27-0.43); PTT 64.1 sec (22.9-36.1); Prothrombin Time 56.3 sec (12.0-14.7)
[2022-07-22 23:47] VITALS: BP 122/85
[2022-07-22 23:49] LABS: Fibrinogen 109 mg/dL (253-463)
[2022-07-22 23:52] LABS: Lactic Acid 9.9 mmol/L (0.5-2.2); Platelet Count 6 10x3/uL (130-400)
[2022-07-23 00:11] LABS: Band 25 % (5-11); Lymphocytes 15 % (21-51); MDiff Complete? YES; Macrocytosis MODERATE=16-30 cells (100X) (0-5/hpf); Monocytes 5 % (0-10); Neutrophil 55 % (42-75); Ovalocytes SLIGHT = 2-5 cells (100X) (0-1/hpf); Platelet Morphology Comment Appears Decreased; Schistocytes SLIGHT = 2-5 cells (100X) (0-1/hpf); Target Cells MODERATE= 6-15 cells (100X) (0-1/hpf); Tear Drops SLIGHT = 2-5 cells (100X) (0-1/hpf)
[2022-07-23] MEDS: Albumin 25% 25 GM/100 ML BOT IVPB SCH ×2 (00:47→00:48)
[2022-07-23] MEDS: Hydrocortisone Sod Succ/PF 100 mg/2 ml Vial IVP SCH ×3 (00:49→11:32)
[2022-07-23] MEDS: Lorazepam 2 MG/ML VIAL SLOW IVP PRN ×4 (01:48→14:32)
[2022-07-23] MEDS: metroNIDAZOLE 500 MG in Premix Bag 1 BAG IVPB SCH ×2 (02:17→12:51)
[2022-07-23 05:23] LABS: Fibrinogen 407 mg/dL (253-463)
[2022-07-23 05:24] LABS: D-Dimer Test 1.31 *mcg/mL (0.27-0.43); PTT 43.8 sec (22.9-36.1)
[2022-07-23 05:26] LABS: ALT (SGPT) 22 U/L (8-55); AST (SGOT) 31 U/L (5-34); Albumin 2.8 g/dL (3.5-5.0); Alkaline Phosphatase 113 U/L (40-110); Bilirubin, Direct 1.2 mg/dL (0.1-0.3); Bilirubin, Total 1.9 mg/dL (0.2-1.2); Magnesium 1.7 mg/dL (1.6-2.6)
[2022-07-23 05:27] LABS: Lactic Acid 7.7 mmol/L (0.5-2.2)
[2022-07-23 05:38] LABS: Hemoglobin 7.2 g/dL (12.0-16.0); Mean Corpuscular HGB CONC 31.2 g/dL (32.0-36.0); Mean Corpuscular Hemoglobin 35.3 pg (27.0-31.0); Mean Platelet Volume 9.2 fL (7.4-10.4); Platelet Count 63 10x3/uL (130-400); RBC Distribution Width 17.7 % (11.5-14.5); Red Blood Cell (RBC) Count 2.03 mill/uL (4.20-5.40); White Blood Cell (WBC) Count 3.5 10x3/uL (4.8-10.8)
[2022-07-23 06:07] LABS: Anisocytosis MODERATE=16-30 cells (100X) (0-5/hpf); Band 15 % (5-11); Lymphocytes 21 % (21-51); MDiff Complete? YES; Macrocytosis MODERATE=16-30 cells (100X) (0-5/hpf); Monocytes 6 % (0-10); Neutrophil 58 % (42-75); Ovalocytes SLIGHT = 2-5 cells (100X) (0-1/hpf); Platelet Morphology Comment Appears Decreased; Target Cells MODERATE= 6-15 cells (100X) (0-1/hpf)
[2022-07-23 06:59] LABS: Actual Bicarbonate (HCO3a) 22.4 mEq/L (22-28); Base Excess (BEa) 0.1 mEq/L (-2.0 to +3.0); CO2 Tension 27.4 mmHg (35.0-45.0); Carboxyhemoglobin (COHb) 0.8 gm% (0.0-3.0); O2 Tension (PaO2), arterial 78.7 mmHg (80.0-100.0); pH, Arterial 7.53 (7.35-7.45)
[2022-07-23 07:01] LABS: Puncture Site Arterial Line
[2022-07-23] MEDS: Ventilator Sedation Protocol 1 EACH FS SCH (08:43)
[2022-07-23] MEDS: Famotidine/PF 20 mg/2ml Vial SLOW IVP SCH (11:32)
[2022-07-23] MEDS: Lactated Ringer's 1,000 ML IV SCH (12:48)
[2022-07-23 13:49] LABS: Hemoglobin 8.1 g/dL (12.0-16.0); Mean Corpuscular HGB CONC 31.7 g/dL (32.0-36.0); Mean Corpuscular Hemoglobin 35.7 pg (27.0-31.0); Mean Platelet Volume 10.6 fL (7.4-10.4); Platelet Count 27 10x3/uL (130-400); RBC Distribution Width 17.6 % (11.5-14.5); Red Blood Cell (RBC) Count 2.26 mill/uL (4.20-5.40); White Blood Cell (WBC) Count 3.6 10x3/uL (4.8-10.8)
[2022-07-23 14:06] LABS: Anion Gap 14 mmol/L (10-20); BUN (Urea Nitrogen) 9 mg/dL (9.8-20.1); Calc. Creatinine Clearance 42 mL/min (70-130); Carbon Dioxide 21 mmol/L (22-29); Chloride 109 mmol/L (98-107); Potassium 4.2 mmol/L (3.5-5.1); Sodium 140 mmol/L (136-145)
[2022-07-23 14:07] LABS: Calcium 8.2 mg/dL (7.8-10.44); Estimated GFR 37; Glucose 165 mg/dL (70-105)
[2022-07-23] MEDS ORDERED: Morphine 4 MG/ML VIAL SLOW IVP PRN (14:13)
[2022-07-23] MEDS ORDERED: Lorazepam 2 MG/ML VIAL SLOW IVP PRN (14:14)
[2022-07-23] MEDS ORDERED: Glycopyrrolate 0.2 MG/ML 5 ML SYRINGE SLOW IVP SCH (14:30)
[2022-07-23] MEDS ORDERED: Fentanyl 100 MCG/2 ML VIAL SLOW IVP PRN (14:51)
[2022-07-23] MEDS ORDERED: Scopolamine 1.5 mg/72 hour Patch TD SCH (15:00)
[2022-07-23] MEDS: cefTRIAXone\\ROCEPHIN 2 GM in Sodium Chloride 0.9% 100 ML IVPB SCH (17:00)
[2022-07-23 18:50] VITALS: TEMP 97.5
[2022-07-23 19:56] LABS: Anion Gap 17 mmol/L (10-20); BUN (Urea Nitrogen) 7 mg/dL (9.8-20.1); Calc. Creatinine Clearance 45 mL/min (70-130); Calcium 8.3 mg/dL (7.8-10.44); Carbon Dioxide 19 mmol/L (22-29); Chloride 107 mmol/L (98-107); Estimated GFR 40; Glucose 157 mg/dL (70-105); Potassium 4.6 mmol/L (3.5-5.1); Sodium 138 mmol/L (136-145)
[2022-07-24 13:54] LABS: CO2 Tension 18.4 mmHg (35.0-45.0)
[2022-07-24 13:55] LABS: Actual Bicarbonate (HCO3a) 8.2 mEq/L (22-28)
[2022-07-24 15:10] LABS: Actual Bicarbonate (HCO3a) 9.1 mEq/L (22-28)
[2022-07-24 15:11] LABS: pH, Arterial 6.93 (7.35-7.45)
[2022-07-24 15:11] LABS: pH, Arterial 7.05 (7.35-7.45)
[2022-07-24 15:12] LABS: Actual Bicarbonate (HCO3a) 10.2 mEq/L (22-28)
[2022-07-24 15:17] LABS: Actual Bicarbonate (HCO3a) 8.6 mEq/L (22-28)
[2022-07-24 15:27] LABS: CO2 Tension 21.3 mmHg (35.0-45.0); O2 Tension (PaO2), arterial 52.5 mmHg (80.0-100.0)
[2022-07-24 15:28] LABS: Actual Bicarbonate (HCO3a) 14.5 mEq/L (22-28)
[2022-07-24 15:32] LABS: O2 Tension (PaO2), arterial 48.7 mmHg (80.0-100.0)
[2022-07-24 15:44] LABS: CO2 Tension 18.8 mmHg (35.0-45.0)
[2022-07-24 15:45] LABS: Actual Bicarbonate (HCO3a) 10.3 mEq/L (22-28)
== END 2022-07-23 17:06 | disposition hospice, inpatient (51) | DRG 871 ==
LOC: ERS 05:48 → SUATTDRO 05:48 → CCU 07:01
PROVIDERS: ADMIT Family Medicine; ATTEND Internal Medicine
PROC: 30233N1 Transfusion of Nonautologous Red Blood Cells into Peripheral Vein, Percutaneous Approach (ICD-10-PCS; principal; 2022-07-19)
PROC: 3E03329 Introduction of Other Anti-infective into Peripheral Vein, Percutaneous Approach (ICD-10-PCS; 2022-07-19)
PROC: 06HY33Z Insertion of Infusion Device into Lower Vein, Percutaneous Approach (ICD-10-PCS; 2022-07-19)
PROC: 5A1D70Z Performance of Urinary Filtration, Intermittent, Less than 6 Hours Per Day (ICD-10-PCS; 2022-07-19)
PROC: 30233M1 Transfusion of Nonautologous Plasma Cryoprecipitate into Peripheral Vein, Percutaneous Approach (ICD-10-PCS; 2022-07-19)
PROC: 30233R1 Transfusion of Nonautologous Platelets into Peripheral Vein, Percutaneous Approach (ICD-10-PCS; 2022-07-19)
PROC: 3E033XZ Introduction of Vasopressor into Peripheral Vein, Percutaneous Approach (ICD-10-PCS; 2022-07-20)
PROC: 0BH17EZ Insertion of Endotracheal Airway into Trachea, Via Natural or Artificial Opening (ICD-10-PCS; 2022-07-20)
PROC: 5A1945Z Respiratory Ventilation, 24-96 Consecutive Hours (ICD-10-PCS; 2022-07-20)
DX: A41.51 Sepsis due to Escherichia coli [E. coli] (principal); D65 Disseminated intravascular coagulation [defibrination syndrome]; E11.10 Type 2 diabetes mellitus with ketoacidosis without coma; R65.21 Severe sepsis with septic shock; G93.41 Metabolic encephalopathy; I21.A1 Myocardial infarction type 2; N17.0 Acute kidney failure with tubular necrosis; J80 Acute respiratory distress syndrome; D61.818 Other pancytopenia; F11.20 Opioid dependence, uncomplicated; Z66 Do not resuscitate; Z51.5 Encounter for palliative care; E86.0 Dehydration; R94.31 Abnormal electrocardiogram [ECG] [EKG]; Z20.822 Contact with and (suspected) exposure to COVID-19; E87.6 Hypokalemia; E83.51 Hypocalcemia; G89.29 Other chronic pain; E87.70 Fluid overload, unspecified; D53.9 Nutritional anemia, unspecified; F10.10 Alcohol abuse, uncomplicated; Z88.5 Allergy status to narcotic agent; Z88.8 Allergy status to other drugs, medicaments and biological substances; Z79.899 Other long term (current) drug therapy; Z79.84 Long term (current) use of oral hypoglycemic drugs; Z90.49 Acquired absence of other specified parts of digestive tract; Z98.890 Other specified postprocedural states; Z85.07 Personal history of malignant neoplasm of pancreas; I12.9 Hypertensive chronic kidney disease with stage 1 through stage 4 chronic kidney disease, or unspecified chronic kidney disease; E11.22 Type 2 diabetes mellitus with diabetic chronic kidney disease; N18.30 Chronic kidney disease, stage 3 unspecified
CPT/HCPCS: 36415; 36416; 36430; 36600; 70450; 71045; 74018; 74176; 76705; 80048; 80053; 80076; 80143; 80179; 80306; 80307; 82010; 82140; 82607; 82728; 82805; 83540; 83550; 83605; 83690; 83735; 83880; 84100; 85025; 85049; 85300; 85362; 85379; 85384; 85610; 85730; 86704; 86850; 86900; 86901; 87040; 87077; 87086; 87149; 87186; 90935; 93306; 94002; 94003; 94660; 96365; 96366; 96368; 96376; G0257; J0611; J0692; J0696; J1642; J1644; J1720; J1815; J1940; J2060; J2250; J3475; J3480; J3490; J7042; J7050; J7070; J7120; P9012; P9016; P9035; P9047; S0028; U0002

== ENCOUNTER 2022-07-23 17:26 | Inpatient (IN) | payer OTHER ==
[2022-07-23] MEDS ORDERED: Bisacodyl 10 MG SUPP PR PRN (17:41)
[2022-07-23] MEDS ORDERED: Lorazepam 2 MG/ML VIAL SLOW IVP PRN (17:42)
[2022-07-23] MEDS ORDERED: Ondansetron PF 4 MG/2 ML Vial IVP PRN (17:45)
[2022-07-23] MEDS ORDERED: Scopolamine 1.5 mg/72 hour Patch TOP PRN (17:45)
[2022-07-23] MEDS ORDERED: diphenhydrAMINE 50 MG/ML VIAL IVP PRN (17:45)
[2022-07-23] MEDS ORDERED: chlorproMAZINE HCl 50 MG/2 ML AMP IM PRN (17:45)
[2022-07-23] MEDS ORDERED: Acetaminophen 650 MG Suppository PR PRN (17:45)
[2022-07-23] MEDS ORDERED: Lorazepam 2 MG/ML VIAL SLOW IVP SCH ×2 (18:00→21:00)
[2022-07-23] MEDS ORDERED: HYDROmorphone 0.5 MG/0.5 ML SYRINGE SLOW IVP SCH (18:00)
== END 2022-07-23 19:45 | disposition expired | DRG 951 ==
LOC: CCU 17:26
PROVIDERS: ADMIT Family Medicine; ATTEND Internal Medicine
DX: Z51.5 Encounter for palliative care (principal); E11.10 Type 2 diabetes mellitus with ketoacidosis without coma; R65.21 Severe sepsis with septic shock; A41.51 Sepsis due to Escherichia coli [E. coli]; G93.40 Encephalopathy, unspecified; N17.9 Acute kidney failure, unspecified; D61.818 Other pancytopenia; Z66 Do not resuscitate; G89.29 Other chronic pain; E86.0 Dehydration; I10 Essential (primary) hypertension; Z98.890 Other specified postprocedural states; Z90.49 Acquired absence of other specified parts of digestive tract; I49.9 Cardiac arrhythmia, unspecified; I46.2 Cardiac arrest due to underlying cardiac condition